=== PATIENT | female | born 1985 | race Two or more races ===

== ENCOUNTER 2020-09-06 11:54 | Outpatient (REF) | payer OTHER, SELFPAY | END 2020-09-06 11:55 | disposition home or self-care (01) | LOC: HO.LAB 11:54 | PROVIDERS: PCP Internal Medicine; Visit Provider Internal Medicine | DX: Z20.828 Contact with and (suspected) exposure to other viral communicable diseases (principal) | CPT/HCPCS: 87635 ==

== ENCOUNTER 2020-12-14 07:46 | Emergency (ER) | payer OTHER, SELFPAY ==
[2020-12-14 07:56] VITALS: BP 143/111; PULSE 110; RESP 18; TEMP 37; O2SAT 98; BMI 38.2
--- NOTE | 2020-12-14 08:03 | PC.NURSE ---
PT SEEN BY PROVIDER WILL CONSULT BHN DENIES SI/HI, STATES DIFFICULTY COPEING, HX BI POLAR AND HAVEING INCREASED STRESS AND ANXITY. PT DEMANDING TO EAT AT THIS TIME.
[2020-12-14 08:04] VITALS: BP 149/103; PULSE 106; RESP 18; TEMP 36.7; O2SAT 98
--- NOTE | 2020-12-14 08:06 | ED.PSYCH ---
HPI - Psych General Chief Complaint: Psychiatric Symptoms Stated Complaint: crisis Time Seen by Provider: 12/14/20 08:03 History of Present Illness HPI Narrative: Patient is a 35-year-old female feels very stressed anxious. Patient used marijuana. Patient denies any homicidal suicidal ideation. No coughing or congestion or upper respiratory symptoms. No diaphoresis. Does not think she is . Patient claims is a lot of stressful events in her life. Related Data Home Medications Medication Instructions Recorded Confirmed biotin 5 mg capsule 2.5 mg PO DAILY 08/31/20 12/22/20 glatiramer 40 mg/mL subcutaneous 40 mg SUBCUT 3XW 08/31/20 12/22/20 syringe lorazepam 0.5 mg tablet 0.5 mg PO DAILY PRN 08/31/20 12/23/20 oxcarbazepine 1 tab PO BEDTIME 12/21/20 12/22/20 trazodone 1 tab PO BEDTIME PRN 12/21/20 12/22/20 Flovent 2 puff INHALATION BID 12/23/20 12/23/20 Myrbetriq 50 mg PO DAILY 12/23/20 12/23/20 Vitamin D3 2,000 units PO DAILY 12/23/20 12/23/20 Previous Rx's Medication Instructions Recorded propranolol 10 mg tablet 10 mg PO BID #60 tab 09/23/20 Allergies Allergy/AdvReac Type Severity Reaction Status Date / Time latex [Latex] Allergy Mild ITCHY AND Verified 08/31/20 13:55 DRY HANDS Penicillins Allergy Mild HIVES Verified 08/31/20 13:55 cat dander [CATS] Allergy Unknown ITCHY, Verified 08/31/20 13:55 ASTHMA house dust Allergy Unknown itchy Verified 08/31/20 13:55 penicillin V Allergy Unknown hives Verified 08/31/20 13:55 Review of Systems Review of Systems: Constitutional: No Weight loss, No Fever, No Chills, No Night Sweats, No Fatigue, No Malaise ENT/Mouth: No Hearing loss, No Ear Pain, No Nasal Congestion, No Sinus Pain, No Hoarseness, No sore throat, No Rhinorrhea, No Swallowing Difficulty Eyes: No Eye Pain, No Swelling, No Redness, No Foreign Body, No Discharge, No Vision Changes Cardiovascular: No Chest Pain, no SOB, No Dyspnea on Exertion, No Orthopnea, No Edema, No Palpitations Respiratory: No Cough, No Sputum, No Wheezing, No Smoke Exposure, No Dyspnea Gastrointestinal: No Nausea, No Vomiting, No Diarrhea, No Constipation, No abdominal Pain, No Hematochezia, No Melena Genitourinary: no irregular bleeding, No Dysuria, No Urinary Frequency, No Hematuria, No Urinary Incontinence, No Urgency, No Flank Pain, No Urinary Flow Changes, No Hesitancy Musculoskeletal: No joint pain, No Myalgias, No Joint Swelling Skin: No Skin Lesions, No rash Neuro: No Weakness, No Numbness, No Paresthesias, No Loss of Consciousness, No Dizziness, No Headache Psych: Positive Anxiety/Panic, No Depression, No SI/HI/AH/VH, positive Social Issues, Heme/Lymph: No Bruising, No Bleeding,No Lymphadenopathy Endocrine: No Polyuria, No Polydipsia, No Temperature Intolerance [facility] Past Medical History Attestation statement: The following information was validated with the patient. Medical History Asthma Bipolar disorder Carpal tunnel syndrome of right wrist OLIVIER I (cervical intraepithelial neoplasia I) GERD (gastroesophageal reflux disease) Hypercholesterolemia Hypertension Multiple sclerosis, relapsing-remitting Obesity (BMI 30-39.9) Surgical History Hx of breast reduction, elective Family History Family History (Updated 08/31/20 @ 06:47 by BISI Gibson) Father Hypertension CVD (cardiovascular disease) High cholesterol Mother Depression Multiple sclerosis Maternal Grandmother Alzheimers disease Maternal Grandfather Heart disease Paternal Grandmother Stroke Hypertension Paternal Grandfather Diabetes Brother Diabetes Family/Other FH: mental illness Social History Social History Household Members: Children Housing: Apartment Alcohol intake: never Smoking Status: Former smoker Tobacco Type: Cigarette Second Hand Smoke Exposure: Yes (boyfriend) Substance Use Type: Marijuana service: No Sexual orientation: Straight/Heterosexual Physical Exam Vital Signs: Vital Signs: Last Vital Signs Temp 98.0 F 12/14/20 08:04 Pulse 106 H 12/14/20 08:04 Resp 18 12/14/20 10:00 BP 149/103 H 12/14/20 08:04 Pulse Ox 98 12/14/20 08:04 Body Mass Index 38.2 Appearance: Alert. Oriented X3. No acute distress. Eyes: Pupils equal, round and reactive to light. ENT: Pharynx normal. Neck: Normal inspection. Neck supple. No lymph nodes noted. No crepitus CVS: Normal heart rate and rhythm. Pulses normal. Normal S1 and S2 Respiratory: No respiratory distress. Breath sounds normal. No Wheezing. No rales Abdomen: Soft and nontender. No rigidity. No distention. good BS x4 Skin: Skin warm and dry. Normal skin color. Normal skin turgor. Extremities: No lower extremity edema. Neurovascular intact to all extremities. No Lacerations. No Rash Neuro: Oriented X 3. No motor deficit. No sensory deficit. Moving all extermities. No slurred speech MDM - Psych MDM Narrative Medical decision making narrative: Patient well-appearing no suicidal homicidal ideation. Seen by crisis. Feel comfortable with discharge. Currently in stable condition. Medical Records Attestation: I reviewed the patient's medical records. Lab Data Attestation: I reviewed the patient's lab results. Labs: Lab Results 12/14/20 Range/Units 09:34 Urine Opiates Screen Not Detected (Not Detect) Ur Barbiturates Screen Not Detected (Not Detect) Ur Phencyclidine Scrn Not Detected (Not Detect) Ur Amphetamines Screen Not Detected (Not Detect) U Benzodiazepines Scrn Not Detected (Not Detect) Urine Cocaine Screen Not Detected (Not Detect) U Marijuana (THC) Screen POSITIVE H (Not Detect) Discharge Plan Discharge Clinical Impression: Acute anxiety Patient Disposition: Home, Self-Care Instructions: Anxiety (ED) Additional Instructions: Please follow-up as per crisis Prescriptions: No Action propranolol 10 mg tablet 10 mg PO BID Qty: 60 RF: 3 oxcarbazepine 300 mg tablet 1 tab PO BEDTIME RF: 0 trazodone 150 mg tablet 1 tab PO BEDTIME PRN (Reason: insomnia) RF: 0 Flovent 110 mcg inhaler 2 puff inhalation BID RF: 0 Myrbetriq 50 mg PO DAILY RF: 0 Vitamin D3 2,000 Units capsule 2,000 units PO DAILY RF: 0 biotin 5 mg capsule 2.5 mg PO DAILY RF: 0 glatiramer [Copaxone] 40 mg/mL syringe 40 mg subcut 3XW RF: 0 lorazepam 0.5 mg tablet 0.5 mg PO DAILY PRN (Reason: Anxiety) RF: 0 Referrals: Po,Lorenver O, MD [Primary Care Provider] - 2 days Interventions: ED Discharge Assessment Last Done: 12/14/20 13:52 Discharge Date/Time: 12/14/20 14:11
[2020-12-14] MEDS: LORazepam 1 MG TABLET 2 MG PO (09:59)
[2020-12-14 10:00] VITALS: RESP 18
[2020-12-14 10:13] LABS: Amphetamine Screen Urine Not Detected (Not Detect); Barbiturates, Urine Not Detected (Not Detect); Benzodiazepines Screen Urine Not Detected (Not Detect); Cannabinoid Screen Urine POSITIVE (Not Detect); Cocaine Screen Urine Not Detected (Not Detect); Opiate Screen Urine Not Detected (Not Detect); Phencyclidine Screen Urine Not Detected (Not Detect)
[2020-12-14] MEDS: Acetaminophen 325 MG TABLET 650 MG PO (10:31)
--- NOTE | 2020-12-14 11:59 | PC.NURSE ---
waiting for bhn eval pt appears very manic at this time
--- NOTE | 2020-12-14 12:01 | PC.NURSE ---
PT'S VNA CALLED AND SAID PT HAS NOT BEEN COMPLIANT WITH MEDICATIONS
[2020-12-14] MEDS: HaloperidoL 5 MG TABLET PO (12:17)
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
== END 2020-12-14 14:11 | disposition home or self-care (01) ==
PROVIDERS: Emergency Provider Emergency Medicine Emergency Medical Services; PCP Internal Medicine
DX: F41.9 Anxiety disorder, unspecified (principal); F12.90 Cannabis use, unspecified, uncomplicated; F31.9 Bipolar disorder, unspecified; I10 Essential (primary) hypertension; G35 Multiple sclerosis; Z79.899 Other long term (current) drug therapy
CPT/HCPCS: 80307; 99284

== ENCOUNTER 2020-12-21 01:10 | Inpatient (IN) | payer OTHER, SELFPAY ==
--- NOTE | ~2020-12-21 | US_ITS ---
EXAMINATION: US VENOUS ULTRASOUND WITH DOPPLER LOWER EXTREMITY, BILATERAL CLINICAL INFORMATION: Bilateral leg swelling and elevated d-dimer. COMPARISON: None TECHNIQUE: Ultrasound of the deep veins is performed from the hip to the calf with compression sonography and color and pulse Doppler assessment. Spectral analysis with color-flow imaging is performed. FINDINGS: RIGHT: There is normal venous compression and respiratory variation and augmented flow. The visualized common femoral vein, superficial femoral vein, profunda femoral vein, popliteal vein, and the trifurcation region shows no evidence of deep venous thrombosis. There is no significant popliteal fossa cyst. LEFT: There is normal venous compression and respiratory variation and augmented flow. The visualized common femoral vein, superficial femoral vein, profunda femoral vein, popliteal vein, and the trifurcation region shows no evidence of deep venous thrombosis. There is no significant popliteal fossa cyst. If the patient's symptoms persist, followup ultrasound in 5 days 7 days might be of value to exclude proximal propagation from a non-visualized calf vein. US/US venous duplex LE BI IMPRESSION: No DVT demonstrated in the bilateral lower extremity.
--- NOTE | ~2020-12-21 | CT_ITS ---
EXAMINATION: CT ANGIOGRAM OF THE CHEST WITH AND WITHOUT CONTRAST (CT PULMONARY ANGIOGRAM FOR PE) CLINICAL INFORMATION: Reason for Exam pt c b/l lower extremity swelling ? dvt vs PE COMPARISON: Previous chest x-ray August 2019 TECHNIQUE: Prior to contrast administration, noncontrast localization images were obtained. Subsequently, multidetector volumetric imaging was performed from the thoracic inlet to below the diaphragms following the administration of 65 mL Omnipaque 350 intravenous contrast. No contrast reaction reported Sagittal, coronal, and MIP oblique sagittal reformatted images were obtained on the CT workstation, uploaded to PACS, and reviewed. This CT examination was performed using dose optimization techniques as appropriate, variously including the following: *Automated exposure control *Adjustment of mA and/or kV according to patient size (this includes techniques or standardized protocols for targeted exams where dose is matched to indication/reason for exam; i.e. extremities or head) *Use of iterative reconstruction technique Total exam dose-length product 506 mGy-cm FINDINGS: QUALITY OF STUDY/CONTRAST BOLUS: Satisfactory. PULMONARY ARTERIES: No central or segmental pulmonary emboli. THORACIC AORTA: No aneurysm or dissection. LUNG: No focal consolidation, nodules or masses. PLEURA: No pleural effusion or pneumothorax. MEDIASTINUM: Normal heart size. No pericardial effusion. No hilar or mediastinal lymphadenopathy. No evidence of septal bowing or right heart strain. CHEST WALL/AXILLA: No axillary or internal mammary lymphadenopathy. OSSEOUS STRUCTURES: No acute or suspicious osseous abnormality. UPPER ABDOMEN: Unremarkable. No reflux of contrast into the hepatic veins to suggest elevated right heart pressures. CT/CT angio chest PE protocol IMPRESSION: Unremarkable exam. VTE: negative
[2020-12-21 01:19] VITALS: BP 150/77; PULSE 109; RESP 18; TEMP 36.9; O2SAT 99; BMI 40.3
--- NOTE | 2020-12-21 02:45 | PC.NURSE ---
AT BEDSIDE FOR EVALUATION. PT WAS IN BATHROOM, USED CALL PEREZ TO CALL RN FOR ASSISTANCE TO TOILET. UPON ENTERING BATHROOM, PATIENT STATED I'M IN FUCKING PAIN! I CAN'T FUCKING STAND! YOU GOTTA GIVE ME A CATHETER OR SOMETHING OR A CANE! AND REFUSED TO AMBULATE IN BATHROOM WITH OFFERED ASSISTANCE. RN OFFERED BEDPAN. UPON RETURNING TO ED BED 11, PATIENT AMBULATED WITH STEADY GAIT WITHOUT ISSUE. PRIMARY RN (LOUISE) AND PROVIDER AWARE.
--- NOTE | 2020-12-21 02:54 | ED_ITS ---
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 In addition bilateral lower extremity swelling. As well as nasal congestion/sore throat/cough and mild nausea with a an isolated episode of vomiting as well as ?a couple of episodes of diarrhea?. Otherwise, she denies shortness of breath, chest pain/palpitations. Related Data Home Medications Medication Instructions Recorded Confirmed acetaminophen 650 mg 650 mg PO Q8H 08/31/20 12/19/20 tablet,extended release albuterol sulfate 90 mcg/actuation 2 puff INHALATION Q4-6H PRN 08/31/20 12/19/20 aerosol inhaler biotin 5 mg capsule 5 mg PO DAILY 08/31/20 12/19/20 cholecalciferol (vitamin D3) 25 25 mcg PO DAILY 08/31/20 12/19/20 mcg (1,000 unit) capsule glatiramer 40 mg/mL subcutaneous 40 mg SUBCUT 3XW 08/31/20 12/19/20 syringe lorazepam 0.5 mg tablet 0.5 mg PO BID PRN 08/31/20 12/19/20 oxcarbazepine 300 mg tablet 300 mg PO BID 08/31/20 12/19/20 trazodone 100 mg tablet 100 mg PO BEDTIME PRN 08/31/20 12/19/20 Previous Rx's Medication Instructions Recorded propranolol 10 mg tablet 10 mg PO BID #60 tab 09/23/20 clotrimazole 1 % topical cream 1 appl TOPICAL TID #90 g 12/19/20 fluticasone propionate 110 2 puff INHALATION BID #12 g 12/19/20 mcg/actuation HFA aerosol inhaler Allergies Allergy/AdvReac Type Severity Reaction Status Date / Time latex [Latex] Allergy Mild ITCHY AND Verified 08/31/20 13:55 DRY HANDS Penicillins Allergy Mild HIVES Verified 08/31/20 13:55 cat dander [CATS] Allergy Unknown ITCHY, Verified 08/31/20 13:55 ASTHMA house dust Allergy Unknown itchy Verified 08/31/20 13:55 penicillin V Allergy Unknown hives Verified 08/31/20 13:55 COUNT INCLUDES THE [facility] Past Medical History Medical History (Updated 12/19/20 @ 14:22 by Rolf Lee MD) Asthma Bipolar disorder Carpal tunnel syndrome of right wrist OLIVIER I (cervical intraepithelial neoplasia I) GERD (gastroesophageal reflux disease) Hypercholesterolemia Hypertension Multiple sclerosis, relapsing-remitting Obesity (BMI 30-39.9) Surgical History Hx of breast reduction, elective Family History Family History (Updated 08/31/20 @ 06:47 by Nicole Mcmanus [facility]) Father Hypertension CVD (cardiovascular disease) High cholesterol Mother Depression Multiple sclerosis Maternal Grandmother Alzheimers disease Maternal Grandfather Heart disease Paternal Grandmother Stroke Hypertension Paternal Grandfather Diabetes Brother Diabetes Family/Other FH: mental illness Social History Social History Advance Directives: No Physical Exam Vital Signs: Vital Signs: Last Vital Signs Temp 98.5 F 12/21/20 01:19 Pulse 108 H 12/21/20 05:33 Resp 18 12/21/20 05:33 BP 150/77 H 12/21/20 01:19 Pulse Ox 100 12/21/20 05:33 Body Mass Index 40.3 Course Course Course Narrative: This is a 35-year-old female with significant past medical history of bipolar 1 disorder and VNA reports on prior presentation the patient was not taking home medications. Patient was briefly evaluated by CARE team and ?Labile, voluntary, crying, suspected bipolar 1 decompensation and recommending further crisis team evaluation . Will evaluate for possible MS flare despite patient endorsing that she takes her medication regularly. Throughout the night patient has been intermittently verbally aggressive and inappropriate with staff members but de-escalation has been possible. 0650: Signed out to Dr Fischer w/ plan: f/u labs for possible MS flare and then N evaluation. Medical Decision Making Lab Data Result diagrams: 12/21/20 05:47 12/21/20 05:47 Labs: Lab Results 12/21/20 12/21/20 12/21/20 Range/Units 04:50 04:50 05:47 WBC 13.5 H (4.8-10.8) X10*3/uL RBC 3.79 L (4.20-5.50) X10*6/uL Hgb 11.3 L (12.0-16.0) g/dl Hct 33.5 L (37-47) % MCV 88.4 (80-98) fL MCH 29.8 (27.0-33.0) pg MCHC 33.7 (31.0-35.0) g/dl RDW 13.6 (11.0-16.0) % Plt Count 337 (160-400) X10*3/uL MPV 8.8 L (9.4-12.3) fL Immature Gran % (Auto) 0.2 (0.0-0.4) % Neut % (Auto) 58.9 (45-73) % Lymph % (Auto) 33.6 (20-40) % [place] % (Auto) 4.9 (2-11) % Eos % (Auto) 2.2 (0-4) % Baso % (Auto) 0.2 (0-2) % Lymph # (Auto) 4.5 (1.2-4.9) X10*3/uL [place] # (Auto) 0.7 (0.1-1.2) X10*3/uL Eos # (Auto) 0.3 (0.0-0.4) X10*3/uL Baso # (Auto) 0.0 (0.0-0.2) X10*3/uL Abs Immat Gran (auto) 0.03 (0.00-0.03) X10*3/uL Absolute Neuts (auto) 7.9 (2.0-8.3) X10*3/uL Absolute Nucleated RBC 0.000 (0.0-0.012) X10*3/uL Nucleated RBC % (auto) 0.0 (0.0-0.2) /100WBC ESR (0-20) MM/HR D-Dimer NG/ML Sodium (135-145) mmol/L Potassium (3.3-5.1) mmol/L Chloride (96-108) mmol/L Carbon Dioxide (22-29) mmol/L Anion Gap (12-20) BUN (9-16) mg/dL Creatinine (0.5-1.4) mg/dL Estim Creat Clear Calc Estimated GFR Random Glucose (60-115) mg/dL Calcium (8.4-10.2) mg/dL Total Bilirubin (0.0-1.0) mg/dL AST (5-31) U/L ALT (0-31) U/L Alkaline Phosphatase (39-117) U/L C-Reactive Protein (< or = 0.50) mg/dL Total Protein (6.5-8.0) g/dL Albumin (3.5-5.0) g/dL Urine Color YELLOW Urine Appearance CLEAR Urine pH 6.0 (5.0-8.0) Ur Specific [place] 1.020 (1.005-1.025) Urine Protein NEG (NEG-TRACE) MG/DL Urine Glucose (UA) NEG (NEG) MG/DL Urine Ketones NEG (NEG) MG/DL Urine Blood NEG (NEG) Urine Nitrite NEG (NEG) Ur Leukocyte Esterase NEG (NEG) Urine Test NEGATIVE (NEGATIVE) Urine Opiates Screen Not Detected (Not Detect) Ur Barbiturates Screen Not Detected (Not Detect) Ur Phencyclidine Scrn Not Detected (Not Detect) Ur Amphetamines Screen Not Detected (Not Detect) U Benzodiazepines Scrn Not Detected (Not Detect) Urine Cocaine Screen Not Detected (Not Detect) U Marijuana (THC) Screen POSITIVE H (Not Detect) Ethyl Alcohol mg/dL 12/21/20 12/21/20 12/21/20 Range/Units 05:47 05:47 05:47 WBC (4.8-10.8) X10*3/uL RBC (4.20-5.50) X10*6/uL Hgb (12.0-16.0) g/dl Hct (37-47) % MCV (80-98) fL MCH (27.0-33.0) pg MCHC (31.0-35.0) g/dl RDW (11.0-16.0) % Plt Count (160-400) X10*3/uL MPV (9.4-12.3) fL Immature Gran % (Auto) (0.0-0.4) % Neut % (Auto) (45-73) % Lymph % (Auto) (20-40) % [place] % (Auto) (2-11) % Eos % (Auto) (0-4) % Baso % (Auto) (0-2) % Lymph # (Auto) (1.2-4.9) X10*3/uL [place] # (Auto) (0.1-1.2) X10*3/uL Eos # (Auto) (0.0-0.4) X10*3/uL Baso # (Auto) (0.0-0.2) X10*3/uL Abs Immat Gran (auto) (0.00-0.03) X10*3/uL Absolute Neuts (auto) (2.0-8.3) X10*3/uL Absolute Nucleated RBC (0.0-0.012) X10*3/uL Nucleated RBC % (auto) (0.0-0.2) /100WBC ESR 32 H (0-20) MM/HR D-Dimer NG/ML Sodium 138 (135-145) mmol/L Potassium 4.2 (3.3-5.1) mmol/L Chloride 104 (96-108) mmol/L Carbon Dioxide 22 (22-29) mmol/L Anion Gap 16 (12-20) BUN 10 (9-16) mg/dL Creatinine 1.06 (0.5-1.4) mg/dL Estim Creat Clear Calc 100.0 Estimated GFR 59 Random Glucose 141 H (60-115) mg/dL Calcium 8.6 (8.4-10.2) mg/dL Total Bilirubin 0.2 (0.0-1.0) mg/dL AST 21 (5-31) U/L ALT 30 (0-31) U/L Alkaline Phosphatase 105 (39-117) U/L C-Reactive Protein 0.30 (< or = 0.50) mg/dL Total Protein 6.7 (6.5-8.0) g/dL Albumin 3.7 (3.5-5.0) g/dL Urine Color Urine Appearance Urine pH (5.0-8.0) Ur Specific [place] (1.005-1.025) Urine Protein (NEG-TRACE) MG/DL Urine Glucose (UA) (NEG) MG/DL Urine Ketones (NEG) MG/DL Urine Blood (NEG) Urine Nitrite (NEG) Ur Leukocyte Esterase (NEG) Urine Test (NEGATIVE) Urine Opiates Screen (Not Detect) Ur Barbiturates Screen (Not Detect) Ur Phencyclidine Scrn (Not Detect) Ur Amphetamines Screen (Not Detect) U Benzodiazepines Scrn (Not Detect) Urine Cocaine Screen (Not Detect) U Marijuana (THC) Screen (Not Detect) Ethyl Alcohol < 10 mg/dL 12/21/20 Range/Units 05:47 WBC (4.8-10.8) X10*3/uL RBC (4.20-5.50) X10*6/uL Hgb (12.0-16.0) g/dl Hct (37-47) % MCV (80-98) fL MCH (27.0-33.0) pg MCHC (31.0-35.0) g/dl RDW (11.0-16.0) % Plt Count (160-400) X10*3/uL MPV (9.4-12.3) fL Immature Gran % (Auto) (0.0-0.4) % Neut % (Auto) (45-73) % Lymph % (Auto) (20-40) % [place] % (Auto) (2-11) % Eos % (Auto) (0-4) % Baso % (Auto) (0-2) % Lymph # (Auto) (1.2-4.9) X10*3/uL [place] # (Auto) (0.1-1.2) X10*3/uL Eos # (Auto) (0.0-0.4) X10*3/uL Baso # (Auto) (0.0-0.2) X10*3/uL Abs Immat Gran (auto) (0.00-0.03) X10*3/uL Absolute Neuts (auto) (2.0-8.3) X10*3/uL Absolute Nucleated RBC (0.0-0.012) X10*3/uL Nucleated RBC % (auto) (0.0-0.2) /100WBC ESR (0-20) MM/HR D-Dimer 270 NG/ML Sodium (135-145) mmol/L Potassium (3.3-5.1) mmol/L Chloride (96-108) mmol/L Carbon Dioxide (22-29) mmol/L Anion Gap (12-20) BUN (9-16) mg/dL Creatinine (0.5-1.4) mg/dL Estim Creat Clear Calc Estimated GFR Random Glucose (60-115) mg/dL Calcium (8.4-10.2) mg/dL Total Bilirubin (0.0-1.0) mg/dL AST (5-31) U/L ALT (0-31) U/L Alkaline Phosphatase (39-117) U/L C-Reactive Protein (< or = 0.50) mg/dL Total Protein (6.5-8.0) g/dL Albumin (3.5-5.0) g/dL Urine Color Urine Appearance Urine pH (5.0-8.0) Ur Specific [place] (1.005-1.025) Urine Protein (NEG-TRACE) MG/DL Urine Glucose (UA) (NEG) MG/DL Urine Ketones (NEG) MG/DL Urine Blood (NEG) Urine Nitrite (NEG) Ur Leukocyte Esterase (NEG) Urine Test (NEGATIVE) Urine Opiates Screen (Not Detect) Ur Barbiturates Screen (Not Detect) Ur Phencyclidine Scrn (Not Detect) Ur Amphetamines Screen (Not Detect) U Benzodiazepines Scrn (Not Detect) Urine Cocaine Screen (Not Detect) U Marijuana (THC) Screen (Not Detect) Ethyl Alcohol mg/dL Discharge Plan Discharge Prescriptions: No Action propranolol 10 mg tablet 10 mg PO BID Qty: 60 RF: 3 cholecalciferol (vitamin D3) 25 mcg (1,000 unit) capsule 25 mcg PO DAILY RF: 0 acetaminophen 650 mg tablet extended release 650 mg PO Q8H RF: 0 biotin 5 mg capsule 5 mg PO DAILY RF: 0 albuterol sulfate 90 mcg/actuation HFA aerosol inhaler 2 puff inhalation Q4-6H PRNRF: 0 glatiramer [Copaxone] 40 mg/mL syringe 40 mg subcut 3XW RF: 0 lorazepam 0.5 mg tablet 0.5 mg PO BID PRNRF: 0 trazodone 100 mg tablet 100 mg PO BEDTIME PRNRF: 0 oxcarbazepine 300 mg tablet 300 mg PO BID RF: 0 Flovent HFA 110 mcg/actuation HFA aerosol inhaler 2 puff inhalation BID Qty: 12 RF: 2 clotrimazole [Antifungal (clotrimazole)] 1 % cream 1 appl topical TID Qty: 90 RF: 1
--- NOTE | 2020-12-21 03:05 | MHC.CARE ---
CARE Team speaks with pt at the request of SANDRA Vega. Affect is labile, flight of ideas, confusion. Pt switches between speaking Sudanese and Austrian often. She identifies poor sleep quality, feels stressed and overwhelmed and states that she is in physical pain. Presentation consistent w/ hypomania at this time. She reports that she has been taking psych meds as prescribed. Mood seems unstable and therefore, pt would benefit from [facility] crisis assessment. Pt has a hx of inpt psych admissions that are precipitated by similar symptoms. Pt was seen by CARE Team on 12/14 due to manic presentation, and pt was requesting to leave and did not meet criteria for sect 12, and therefore she was not seen by N. Per RN note from 12/14, VNA reported that pt has not been compliant with medications. CARE Team recommends to Dr. Bettencourt that pt be assessed by N. Pt is agreeable at this time and is aware that she will not be assessed until the morning. Should pt not want to wait for N again, please re-consult CARE Team. It is recommended that someone reach out to family/those she lives with and find out how she is functioning at home. Hx of significant decompensation w/ aggression.
--- NOTE | 2020-12-21 04:00 | PC.NURSE ---
PT REFUSED LABS TO BE DRAWN PROVIDER MADE AWARE.
--- NOTE | 2020-12-21 04:56 | PC.NURSE ---
pt was refusing labs and iv sticks but now has aggreed to let us draw her labs. mulitple attempts made and unable to obtain labs or a iv. provider made aware. pt was cooperative and using all her coping skills by counting and deep breathing.
[2020-12-21 04:58] LABS: Appearance Urine CLEAR; Color Urine YELLOW; Glucose Urine UA NEG (NEG); Leukocyte Esterase Urine NEG (NEG); Nitrite Urine NEG (NEG); UACC Culture Trigger NO; Urine Blood NEG (NEG); Urine Ketones NEG (NEG); Urine Protein NEG (NEG-TRACE)
[2020-12-21 05:00] LABS: UPreg QC Valid YES; Urine Pregnancy NEGATIVE (NEGATIVE)
[2020-12-21 05:24] LABS: Amphetamine Screen Urine Not Detected (Not Detect); Barbiturates, Urine Not Detected (Not Detect); Benzodiazepines Screen Urine Not Detected (Not Detect); Cannabinoid Screen Urine POSITIVE (Not Detect); Cocaine Screen Urine Not Detected (Not Detect); Opiate Screen Urine Not Detected (Not Detect); Phencyclidine Screen Urine Not Detected (Not Detect)
[2020-12-21] MEDS: hydrOXYzine HCL 50 MG TABLET PO ×2 (05:32→22:59)
[2020-12-21 05:33] VITALS: PULSE 108; RESP 18; O2SAT 100
--- NOTE | 2020-12-21 05:47 | PC.NURSE ---
pt labs drawn cynthia well no complications and done by phlabotomy. pt then fell asleep with multiple warm blankets.
[2020-12-21 06:07] LABS: Basophils Percent Auto 0.2 % (0-2); Eosinophils Absolute Auto 0.3 X10*3/uL (0.0-0.4); Eosinophils Percent Auto 2.2 % (0-4); Hematocrit 33.5 % (37-47); Hemoglobin 11.3 g/dl (12.0-16.0); Imm Gran Abs Auto 0.03 X10*3/uL (0.00-0.03); Imm Gran Pct Auto 0.2 % (0.0-0.4); Lymphocytes Absolute Auto 4.5 X10*3/uL (1.2-4.9); Lymphocytes Percent Auto 33.6 % (20-40); Mean Corpuscular HGB Conc 33.7 g/dl (31.0-35.0); Mean Corpuscular Hemoglobin 29.8 pg (27.0-33.0); Mean Corpuscular Volume 88.4 fL (80-98); Mean Platelet Volume 8.8 fL (9.4-12.3); Monocytes Absolute Auto 0.7 X10*3/uL (0.1-1.2); Monocytes Percent Auto 4.9 % (2-11); Neutrophils Absolute Auto 7.9 X10*3/uL (2.0-8.3); Neutrophils Percent Auto 58.9 % (45-73); Platelet Count 337 X10*3/uL (160-400); Red Blood Count 3.79 X10*6/uL (4.20-5.50); Red Cell Distribution Width 13.6 % (11.0-16.0); White Blood Count 13.5 X10*3/uL (4.8-10.8)
[2020-12-21 06:09] LABS: MANUAL DIFF FLAG NO
[2020-12-21 06:22] LABS: D Dimer 270 NG/ML
[2020-12-21 06:30] LABS: Ethanol < 10 mg/dL
[2020-12-21 06:38] LABS: Alanine Aminotransferase 30 U/L (0-31); Albumin Level 3.7 g/dL (3.5-5.0); Alkaline Phosphatase 105 U/L (39-117); Anion Gap 16 (12-20); Aspartate Amino Transferase 21 U/L (5-31); Bilirubin Total 0.2 mg/dL (0.0-1.0); Blood Urea Nitrogen 10 mg/dL (9-16); Calcium 8.6 mg/dL (8.4-10.2); Carbon Dioxide 22 mmol/L (22-29); Chloride 104 mmol/L (96-108); Estimated Glomerular Filt Rate 59; Glucose Random 141 mg/dL (60-115); Potassium 4.2 mmol/L (3.3-5.1); Sodium 138 mmol/L (135-145); Total Protein 6.7 g/dL (6.5-8.0)
--- NOTE | 2020-12-21 06:42 | PC.NURSE ---
pt ambulated to the bathroom with steady gait. pt on the way back started to cry. pt friend beka is a close and only friend per pt. [phone]. beka did call to update on how she has been doing., beka stated the pt has been decompasating not sleeping, smoking jim, not in the right state of mind . pt has been having dreams of being and hanging. tired of life . pt given a recliner to help her sleep. warm blankets, pillow and needs met at bedside.
[2020-12-21 06:53] LABS: Erythrocyte Sedimentation Rate 32 MM/HR (0-20)
--- NOTE | 2020-12-21 07:21 | PC.NURSE ---
belongings and sheet completed with jr from security. pt remains on cellphone at this time.
[2020-12-21 07:23] VITALS: RESP 18
--- NOTE | 2020-12-21 07:29 | PC.NURSE ---
pt ambulated to bathroom and back independently with steady gait, staff by side.
--- NOTE | 2020-12-21 07:46 | PC.NURSE ---
pt wandering into others rooms, down the hallway and needing to be assisted back to bed with security. making a plan to move pt into the pod for patient safety.
--- NOTE | 2020-12-21 07:53 | PC.NURSE ---
Report recieved. PT brought to pod, pt tearful and irritable. PT to be seen by N.
--- NOTE | 2020-12-21 08:06 | PC.NURSE ---
PT sitting on table in her room, pt redirected to get down, pt escalated, screaming at staff refusing to get down. Pt screaming, swearing, difficult to redirect.
--- NOTE | 2020-12-21 08:26 | PC.NURSE ---
[facility] faxed and called.
[2020-12-21] MEDS: HaloperidoL 5 MG TABLET PO (10:15)
[2020-12-21] MEDS: LORazepam 1 MG TABLET 2 MG PO (10:15)
[2020-12-21] MEDS: diphenhydrAMINE HCL 25 MG TABLET 50 MG PO (10:15)
--- NOTE | 2020-12-21 10:30 | PC.NURSE ---
PT was noted to tear up paper and throw it on the floor, when asked to leaf size picker the papers pt became escalated - calling staff names, slamming doors and screaming, security on unit. Pt went into the bathroom and continued to scream, difficult to redirect, pt somewhat responsive to verbal redirction. Pt offered medication, pt stated that she wanted something to shut her mind off, provider notified, medication ordered. Pt able to calmly walk to her room, accepted offered medication, Pt stating that she wants to go home but then states that she is not ready to go home. PT understands that she needs to speak with crisis. Pt labile in conversation
[2020-12-21 10:33] VITALS: RESP 18
--- NOTE | 2020-12-21 12:15 | PC.NURSE ---
PT to CT and ultrasound
[2020-12-21] MEDS: iohexoL 350 MG/ML 100 ML INFUS..BTL 65 ML IV (13:12)
[2020-12-21 14:24] LABS: Thyroid Stimulating Hormone 1.15 uIU/mL (0.32-4.0)
--- NOTE | 2020-12-21 16:03 | PC.NURSE ---
pt continues to appear sleeping in stretcher, equal chest rise and fall.
--- NOTE | 2020-12-21 17:22 | PC.NURSE ---
PT PROVIDED HER PHONE SHE REMAINS IN BEHAVIORAL CONTROL, SHE IS UPSET REGARDING NOT HAVING BEEN EVALUATED BY THE N TEAM AND THAT SHE REMAINS IN THE ED. N HAS BEEN CONTACTED SEVERAL TIMES AND NO CLINICIAN HAS PRESENTED TO THE ED. SHE CONTINUALLY DENIES HI SI. THERE IS NO SEC 12 SHE IS MUCH MORE APPROACHABLE AND REDIRECTABLE AFTER SLEEPING. PROVIDER WAS ASKED TO REASSESS PT FOR DISCHARGE.
[2020-12-21] MEDS: LORazepam 2 MG/ML VIAL IVPUSH (18:08)
--- NOTE | 2020-12-21 18:15 | PC.NURSE ---
pt consultd w ed provider about staying for bhn eval, pt agreeing to medication for anxiety. pt asking to have iv removed after medication admin, removed. resting in stretcher at this time.
--- NOTE | 2020-12-21 20:05 | PC.NURSE ---
Pt sleeping in bed at this time in NAD. Per previous RN, frequent outbursts noted throughout the day however pt was redirectable and nonviolent. Pt awaiting BHN eval in the morning. Continue to monitor.
--- NOTE | 2020-12-21 20:27 | PC.NURSE ---
Pt awake and yelling, pt frustrated at ED process, states I'm not crazy!! I just want to go home!! This RN and peoplesoft analyst discussing possible plan to Section pt was pt is continuously requesting to go home. Per SENIOR QUANTITY SURVEYOR, plan to discuss with MD @ 2100. Pt refusing 1999 Ativan, states I want to be awake and I want to go home!! Pt crying, on phone with family. Continue to monitor.
--- NOTE | 2020-12-21 20:57 | PC.NURSE ---
Care Team at bedside for eval.
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
[2020-12-22] VITALS (14 sets, daily range): BP systolic 116–152; BP diastolic 76–104; PULSE 18–101; RESP 16–20; TEMP 36.1–36.7; O2SAT 99–100
--- NOTE | 2020-12-22 03:55 | PC.NURSE ---
PATIENT AWAKE AND COMING TO NURSES STATION. UPSET THAT SHE WAS BROUGHT TO [facility]. I DON'T DESERVE TO BE SECTIONED . WAS SUPPOSED TO HAVE A [facility] TODAY. EXPLAINED THAT WE HAVE NO CONTROL OVER WHEN [facility] ARRIVES. BACK IN BED AT THIS TIME.
[2020-12-22] MEDS: Ibuprofen 600 MG TABLET PO (04:48)
[2020-12-22 05:13] LABS: COVID-19 Test Negative (Negative); IDNOW Serial# 9DD0AD1C
--- NOTE | 2020-12-22 07:57 | PC.NURSE ---
Pt transferred from main ED. Pt ambulatory, affect even, pt requesting to shower, assisted by web press roll tender. Per web press roll tender, pt declined Ativan this morning.
--- NOTE | 2020-12-22 08:15 | PC.NURSE ---
Late entry: pt denies SI, currently in behavioral control, states that she would prefer to wait to take ativan until after being evaluated by [facility]. Pt currently on the phone.
--- NOTE | 2020-12-22 09:53 | PC.NURSE ---
[facility] in to evaluate. Pt appears pressured but in behavioral control. Continues to report that she wants to be evaluated for swelling of hands and feet and for pain- but declining tylenol or ibuprofen for pain. Per provider pt was fully medically evaluated for swelling yesterday. Will review w/ pt.
[2020-12-22 11:13] LABS: B Type Natriuretic Peptide 19 pg/mL (<100)
--- NOTE | 2020-12-22 12:31 | PC.NURSE ---
Pt aware that she is awaiting inpatient bed search- pt currently in behavioral control, hopeful that she will be accepted to .
[2020-12-22] MEDS: LORazepam 0.5 MG TABLET PO (13:16)
[2020-12-22] MEDS: Propranolol HCL 10 MG TABLET PO ×2 (13:16→20:22)
--- NOTE | 2020-12-22 13:19 | PC.NURSE ---
resting quietly in bed. requested po ativan to help take a nap . is calm and able to have full conversation, retaining details of home meds etc. awaits transfer to psych unit
[2020-12-22] MEDS: Acetaminophen 325 MG TABLET 650 MG PO (16:53)
--- NOTE | 2020-12-22 17:25 | PC.NURSE ---
Pt awake, showered, anxious. Pt offered ativan- reviewed w/ C Angeline.
[2020-12-22] MEDS: LORazepam 1 MG TABLET 2 MG PO (17:27)
[2020-12-22] MEDS: OXcarbazepine 300 MG TABLET PO (20:22)
[2020-12-23] MEDS: traZODone HCL 50 MG TABLET 150 MG PO (00:45)
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
[2020-12-23] MEDS: Acetaminophen 325 MG TABLET 650 MG PO ×2 (05:02→16:16)
[2020-12-23 05:10] VITALS: BP 147/70; PULSE 120; RESP 18; TEMP 36.5; O2SAT 97
[2020-12-23 09:22] VITALS: BP 136/94; PULSE 114
[2020-12-23] MEDS: Propranolol HCL 10 MG TABLET PO ×2 (09:22→22:32)
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
[2020-12-23] MEDS: Ibuprofen 600 MG TABLET PO (11:14)
[2020-12-23 14:44] VITALS: BP 136/94; PULSE 114; TEMP 35.7
[2020-12-23 22:29] VITALS: BP 130/79; PULSE 98; TEMP 36.7
[2020-12-23 22:32] VITALS: BP 130/79; PULSE 98
[2020-12-23] MEDS: OXcarbazepine 300 MG TABLET PO (22:32)
[2020-12-23] MEDS: LORazepam 1 MG TABLET 2 MG PO (22:41)
[2020-12-23] MEDS: diphenhydrAMINE HCL 25 MG TABLET 50 MG PO (22:41)
[2020-12-23] MEDS: HaloperidoL 5 MG TABLET PO (22:41)
[2020-12-24 09:12] VITALS: BP 137/76; PULSE 117
[2020-12-24] MEDS: Propranolol HCL 10 MG TABLET PO ×2 (09:12→21:25)
[2020-12-24] MEDS: Acetaminophen 325 MG TABLET 650 MG PO (09:15)
[2020-12-24] MEDS: Mirabegron 50 MG TAB.ER.24H PO (14:13)
[2020-12-24 15:15] VITALS: TEMP 36.3
[2020-12-24] MEDS: Throat Lozenge, Medicated LOZENGE 1 LOZENGE MUCOUS MEM (15:25)
[2020-12-24 21:00] VITALS: BP 137/76; PULSE 114; TEMP 36.7; O2SAT 98
[2020-12-24] MEDS: HaloperidoL 5 MG TABLET PO (21:23)
[2020-12-24] MEDS: OXcarbazepine 300 MG TABLET PO (21:24)
[2020-12-24] MEDS: diphenhydrAMINE HCL 25 MG TABLET 50 MG PO (21:24)
[2020-12-24] MEDS: LORazepam 1 MG TABLET 2 MG PO (21:24)
[2020-12-24 21:25] VITALS: BP 137/76; PULSE 114
[2020-12-24] MEDS: traZODone HCL 50 MG TABLET 150 MG PO ×2 (23:15)
--- NOTE | 2020-12-24 23:54 | PC.NURSE ---
Pt focused on Copaxone / Glatiramer 40mg SC 3XWeekly that treats symptoms of multiple scleroses. Pt was worried she missed a dose of this med; pt said last dose taken was on Thursday12/22/20. This med had not yet been verified; pt reports that it is filled at [facility] at [address] [place] [address]. Pt had thought med was here after her mother said they were unable to find the med at home. Staff went through pts belongings and med is not here. Pt says wants to be discharged if she is unable to get this medication.
[2020-12-25 06:30] VITALS: BP 114/57; PULSE 95; RESP 18; TEMP 36.6; O2SAT 98
[2020-12-25 08:23] VITALS: BP 122/63; PULSE 88
[2020-12-25] MEDS: Propranolol HCL 10 MG TABLET PO ×2 (08:23→20:38)
[2020-12-25] MEDS: Mirabegron 50 MG TAB.ER.24H PO (08:23)
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
[2020-12-25] MEDS: Acetaminophen 325 MG TABLET 650 MG PO (08:45)
[2020-12-25] MEDS: diphenhydrAMINE HCL 25 MG TABLET 50 MG PO ×2 (12:12→20:44)
[2020-12-25] MEDS: LORazepam 1 MG TABLET 2 MG PO ×2 (12:12→20:44)
[2020-12-25] MEDS: HaloperidoL 5 MG TABLET PO ×2 (12:12→20:44)
[2020-12-25 18:00] VITALS: TEMP 37
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
[2020-12-25 20:38] VITALS: BP 139/83; PULSE 105
[2020-12-25] MEDS: OXcarbazepine 300 MG TABLET PO (20:38)
[2020-12-25] MEDS: traZODone HCL 50 MG TABLET 150 MG PO (20:52)
[2020-12-26 06:15] VITALS: BP 126/65; PULSE 88; RESP 20; TEMP 36.6; O2SAT 98
[2020-12-26 08:15] VITALS: BP 126/65; PULSE 88
[2020-12-26] MEDS: Propranolol HCL 10 MG TABLET PO (08:15)
[2020-12-26] MEDS: Mirabegron 50 MG TAB.ER.24H PO (08:15)
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
--- NOTE | 2020-12-31 10:24 | P.DS_ITS ---
DS: Providers Provider Date of Service: 12/31/20 Date of admission: 12/22/20 22:28 Primary care physician: Unknown Physician DS: Diagnosis Discharge Diagnosis (1) Bipolar disorder: Status: Acute (2) Multiple sclerosis, relapsing-remitting: Status: Acute Problem details: 05/2012 Dr. CARLOS Riojas DS: Medications Discharge Medications Home Medications: Home Medications Medication Instructions Recorded Confirmed biotin 5 mg capsule 2.5 mg PO DAILY 08/31/20 12/22/20 glatiramer 40 mg/mL subcutaneous 40 mg SUBCUT 3XW 08/31/20 12/22/20 syringe lorazepam 0.5 mg tablet 0.5 mg PO DAILY PRN 08/31/20 12/23/20 oxcarbazepine 1 tab PO BEDTIME 12/21/20 12/22/20 trazodone 1 tab PO BEDTIME PRN 12/21/20 12/22/20 Flovent 2 puff INHALATION BID 12/23/20 12/23/20 Myrbetriq 50 mg PO DAILY 12/23/20 12/23/20 Vitamin D3 2,000 units PO DAILY 12/23/20 12/23/20 Previous Rx's Medication Instructions Recorded propranolol 10 mg tablet 10 mg PO BID #60 tab 09/23/20 Discharge Plan Discharge Anticipated Discharge Date/Time: 12/26/20 12:00 Patient Disposition: Home, Self-Care Referrals: Anuradha Hooker (therapy) [Other] - 01/09/21 12:00 pm (Telehealth appointment) Jai Tee (psychiatrist) [Other] - 01/08/21 2:00 pm (Telehealth appointment) [facility] [Other] - 12/26/20 ( RN will come see you on 12/26/20 ) Solange Santiago NP [Nurse Practitioner] - 01/04/21 11:30 am Discharge Medications: Continued propranolol 10 mg tablet 10 mg PO BID Qty: 60 RF: 3 oxcarbazepine 300 mg tablet 1 tab PO BEDTIME RF: 0 trazodone 150 mg tablet 1 tab PO BEDTIME PRN (Reason: insomnia) RF: 0 Flovent 110 mcg inhaler 2 puff inhalation BID RF: 0 Myrbetriq 50 mg PO DAILY RF: 0 Vitamin D3 2,000 Units capsule 2,000 units PO DAILY RF: 0 biotin 5 mg capsule 2.5 mg PO DAILY RF: 0 glatiramer [Copaxone] 40 mg/mL syringe 40 mg subcut 3XW RF: 0 lorazepam 0.5 mg tablet 0.5 mg PO DAILY PRN (Reason: Anxiety) RF: 0 Discharge Orders: Discharge Order (Routine); Ordered 12/26/20 Ordered By: Stacy Mcgraw Diet: advance to usual diet Activity on Discharge: As tolerated Stand Alone Forms: Patient Portal Discharge page, Community Support Visit Report Forms: Patient Portal Discharge page Care Plan Goals: Mood Stability Health Concerns: Multiple Sclerosis Hypertension GERD Asthma Peripheral Neuropathy Plan of Treatment: You have signed a three day notice of intention to leave and are being discharged today at your request. You have declined MRI, C-Spine and neurology consults to evaluate a possible exacerbation/flare of multiple sclerosis. These were recommended by your neurologist, Dr. May on 12/25/20. Follow up with your providers. Take medications as directed. You have reported you do not need refills, as a result we have not sent medications to your pharmacy. Discharge Date/Time: 12/26/20 12:30 Data Imaging Diagnostic Imaging Impressions Venous Duplex 12/21/20 10:27 IMPRESSION: No DVT demonstrated in the bilateral lower extremity. Chest CTA 12/21/20 10:28 IMPRESSION: Unremarkable exam. VTE: negative DS: Summary Time Spent with Patient Time attestation: Total time spent providing and/or coordinating discharge services:
== END 2020-12-26 12:30 | disposition home or self-care (01) | DRG 885 ==
LOC: HO.ED 12-22 20:58 → HO.PM5 12-22 22:32
PROVIDERS: Physician Assistant Medical; Student in an Organized Health Care Education/Training Program; Admitting Provider Psychiatry & Neurology Psychiatry; Emergency Provider Emergency Medicine Emergency Medical Services; Visit Provider Clinical Nurse Specialist Psychiatric/Mental Health, Adult
DX: F31.2 Bipolar disorder, current episode manic severe with psychotic features (principal); G35 Multiple sclerosis; F43.10 Post-traumatic stress disorder, unspecified; Z91.14 Patient's other noncompliance with medication regimen; Z20.822 Contact with and (suspected) exposure to COVID-19; Z88.0 Allergy status to penicillin; Z79.51 Long term (current) use of inhaled steroids; Z79.899 Other long term (current) drug therapy
CPT/HCPCS: 36415; 71275; 80053; 80307; 80320; 81003; 81025; 83880; 84443; 85025; 85379; 85652; 86140; 87635; 93970; 96374; 99285; J2060; Q0163; Q9967

== ENCOUNTER 2021-01-29 17:21 | Inpatient (IN) | payer OTHER, SELFPAY ==
[2021-01-29] VITALS (8 sets, daily range): BP systolic 118–165; BP diastolic 68–85; PULSE 101–110; RESP 18–20; TEMP 36.4–37.2; O2SAT 99; BMI 39.9
--- NOTE | 2021-01-29 17:58 | PC.NURSE ---
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
[2021-01-29 18:21] LABS: UPreg QC Valid YES; Urine Pregnancy NEGATIVE (NEGATIVE)
--- NOTE | 2021-01-29 18:49 | PC.NURSE ---
Pt out in community area, yelling at times, responding to internal stimuli. Seen by provider.
[2021-01-29 18:54] LABS: Amphetamine Screen Urine Not Detected (Not Detect); Barbiturates, Urine Not Detected (Not Detect); Benzodiazepines Screen Urine Not Detected (Not Detect); Cannabinoid Screen Urine POSITIVE (Not Detect); Cocaine Screen Urine Not Detected (Not Detect); Opiate Screen Urine Not Detected (Not Detect); Phencyclidine Screen Urine Not Detected (Not Detect)
--- NOTE | 2021-01-29 19:17 | ED.PSYCH ---
HPI - Psych General Chief Complaint: Psychiatric Symptoms <ROHIT Coates Last Filed: 01/30/21 02:34> Stated Complaint: PSYCHIATRIC EMERGENCY <ROHIT Coates Last Filed: 01/30/21 02:34> Time Seen by Provider: 01/29/21 19:11 <ROHIT Coates Last Filed: 01/30/21 02:34> Source: patient and EMS <ROHIT Coates Last Filed: 01/30/21 02:34> Mode of arrival: ambulatory <ROHIT Coates Last Filed: 01/30/21 02:34> Limitations: no limitations <ROHIT Coates Last Filed: 01/30/21 02:34> History of Present Illness HPI Narrative: Patient presents to ED for psych evaluation. History cannot be received from patient. Patient is totally disorganized. Patient recently discharged from at inpatient psych. As per family patient is not compliant with meds <ROHIT Coates Last Filed: 01/30/21 02:34> Related Data Home Medications: Home Medications Medication Instructions Recorded Confirmed biotin 5 mg capsule 2.5 mg PO DAILY 08/31/20 01/14/21 glatiramer 40 mg/mL subcutaneous 40 mg SUBCUT 3XW 08/31/20 01/14/21 syringe lorazepam 0.5 mg tablet 0.5 mg PO DAILY PRN 08/31/20 01/14/21 oxcarbazepine 1 tab PO BEDTIME 12/21/20 01/14/21 trazodone 1 tab PO BEDTIME PRN 12/21/20 01/14/21 Flovent 2 puff INHALATION BID 12/23/20 01/14/21 Myrbetriq 50 mg PO DAILY 12/23/20 01/14/21 Vitamin D3 2,000 units PO DAILY 12/23/20 01/14/21 Previous Rx's Medication Instructions Recorded propranolol 10 mg tablet 10 mg PO BID #60 cap 01/21/21 gabapentin 300 mg capsule 300 mg PO BEDTIME #30 cap 01/23/21 <ROHIT Coates Last Filed: 01/30/21 02:34> Allergies/Adverse Reactions: Allergies Allergy/AdvReac Type Severity Reaction Status Date / Time latex [Latex] Allergy Mild ITCHY AND Verified 01/10/21 06:27 DRY HANDS Penicillins Allergy Mild HIVES Verified 01/10/21 06:27 cat dander [CATS] Allergy Unknown ITCHY, Verified 01/10/21 06:27 ASTHMA house dust Allergy Unknown itchy Verified 01/10/21 06:27 penicillin V Allergy Unknown hives Verified 01/10/21 06:27 <ROHIT Coates - Last Filed: 01/30/21 02:34> Review of Systems Review of Systems: Disorganized. <ROHIT Coates - Last Filed: 01/30/21 02:34> Yes all other systems are reviewed and are negative <ROHIT Coates - Last Filed: 01/30/21 02:34> Constitutional: Constitutional: Reports as per HPI and Reports no additional constitutional complaints <ROHIT Coates - Last Filed: 01/30/21 02:34> [facility] Past Medical History Medical History: Medical History (Updated 01/30/21 @ 02:09 by ROHIT Coates) Asthma Bipolar disorder Carpal tunnel syndrome of right wrist OLIVIER I (cervical intraepithelial neoplasia I) GERD (gastroesophageal reflux disease) Hypercholesterolemia Hypertension Multiple sclerosis, relapsing-remitting Obesity (BMI 30-39.9) PTSD (post-traumatic stress disorder) <ROHIT Coates - Last Filed: 01/30/21 02:34> Surgical History: Surgical History Hx of breast reduction, elective <ROHIT Coates - Last Filed: 01/30/21 02:34> Family History Family History: Family History (Updated 08/31/20 @ 06:47 by BISI Gibson) Father Hypertension CVD (cardiovascular disease) High cholesterol Mother Depression Multiple sclerosis Maternal Grandmother Alzheimers disease Maternal Grandfather Heart disease Paternal Grandmother Stroke Hypertension Paternal Grandfather Diabetes Brother Diabetes Family/Other FH: mental illness <ROHIT Coatse - Last Filed: 01/30/21 02:34> Social History Social History: Social History (Updated 01/14/21 @ 12:15 by Yoselin Sanchez CMA) Household Members: Children Housing: Apartment Alcohol intake: current Alcohol intake frequency: does not drink Alcohol type: wine Smoking Status: Former smoker Tobacco Type: Cigarette Second Hand Smoke Exposure: Yes (boyfriend) Use of substances other than those prescribed or required for medical reasons: No Substance Use Type: Marijuana Advance Directives: No Advance Directives Information Provided: No service: No Sexual orientation: Straight/Heterosexual <ROHIT Coates - Last Filed: 01/30/21 02:34> Physical Exam Vital Signs: Vital Signs: Last Vital Signs Temp 98.2 F 01/30/21 02:08 Pulse 96 01/30/21 02:08 Resp 16 01/30/21 05:40 BP 122/74 01/30/21 02:08 Pulse Ox 99 01/30/21 02:08 Body Mass Index 39.9 <ROHIT Coates - Last Filed: 01/30/21 02:34> Vital Signs: Last Vital Signs Temp 98.2 F 01/30/21 02:08 Pulse 96 01/30/21 02:08 Resp 16 01/30/21 05:40 BP 122/74 01/30/21 02:08 Pulse Ox 99 01/30/21 02:08 Body Mass Index 39.9 <Mary Genao MD - Last Filed: 01/30/21 05:55> Const: Other: Patient is internally preoccupied and then making statements and screaming <ROHIT Coates - Last Filed: 01/30/21 02:34> Orientation/consciousness: patient oriented x3 <ROHIT Coates - Last Filed: 01/30/21 02:34> HENMT: Head: Yes normal to inspection, Yes No palpable skull fracture present, Yes normocephalic and Yes atraumatic <ROHIT Coates Last Filed: 01/30/21 02:34> Eyes: General: appearance normal, both eyes and all related structures <ROHIT Coates Last Filed: 01/30/21 02:34> Neck: Neck: Yes normal visual inspection, Yes full ROM, Yes no lymphadenopathy, Yes no meningeal signs, Yes trachea midline, Yes supple and No tender <ROHIT Coates Last Filed: 01/30/21 02:34> Chest: Chest palpation & inspection: normal inspection of the chest and normal palpation of entire chest wall <ROHIT Coates Last Filed: 01/30/21 02:34> Resp: Effort & Inspection: normal respiratory effort and able to speak in complete sentences <José Miguel Collin, PA Last Filed: 01/30/21 02:34> Auscultation: clear to auscultation bilaterally <José Miguel Collin, PA Last Filed: 01/30/21 02:34> Cardio: Jugular venous distension: no JVD <José Miguel Collin, [facility] Last Filed: 01/30/21 02:34> Heart sounds: S1 normal heart sound present and S2 normal heart sound present <José Miguel Polanco [facility] Last Filed: 01/30/21 02:34> GI: Inspection: Yes normal to inspection and No abdominal wall ecchymosis <José Miguel Collin, PA Last Filed: 01/30/21 02:34> Palpation (GI): Soft to palpation, not firm, nontender, no guarding and not rigid <ROHIT Coates Last Filed: 01/30/21 02:34> : General: No CVA tenderness and Yes no CVA tenderness <José Miguel Collin, PA Last Filed: 01/30/21 02:34> Back/Spine/Pelvis: Back: no CVA tenderness, No CVA tenderness and No back tenderness <José Miguel Collin, PA Last Filed: 01/30/21 02:34> Skin: General skin exam: no rashes or lesions noted and elasticity normal <José Miguel Collin, PA Last Filed: 01/30/21 02:34> Neuro: General: patient oriented x3, no meningeal signs and CN's II-XI intact bilaterally <José Miguel Collin, PA Last Filed: 01/30/21 02:34> Cranial nerves: Yes CN's II-XII intact bilaterally <José Miguel Collin, PA Last Filed: 01/30/21 02:34> Extrem: General: Yes normal to inspection and Yes full ROM <ROHIT Coates Last Filed: 01/30/21 02:34> Psych: Appearance: grossly normal, well kempt and not disheveled <ROHIT Coates Last Filed: 01/30/21 02:34> Affect: Animated affect present <ROHIT Coates Last Filed: 01/30/21 02:34> Insight: Poor insight present (Psych) <ROHIT Coates - Last Filed: 01/30/21 02:34> Judgement: Poor judgement present (Psych) <ROHIT Coates - Last Filed: 01/30/21 02:34> Course Course Course Narrative: Patient totally preoccupied and not with herself. Patient became aggressive with staff. Ativan and Haldol ordered. Monitor also ordered. Patient has no insight or good judgment <ROHIT Coates - Last Filed: 01/30/21 02:34> At 04:30 in the morning, there was an agitated patient in the hallway in the [facility] pod, which got this patient upset. Patient is also now very agitated. Patient already received Ativan, at this time, she will receive 5 IM of Haldol. Computer ordered was entered at 05:55, assistant general manager did not allow me to enter the correct time. <Mary Genao MD - Last Filed: 01/30/21 05:55> Reevaluation(s) Reevaluation #1: Patient be given Ativan and Haldol because she became aggressive. Patient awaiting [facility] evaluation. Case signed out to Dr. Genao. <ROHIT Coates - Last Filed: 01/30/21 02:34> MDM - Psych Lab Data Labs: Lab Results 01/29/21 01/29/21 01/29/21 Range/Units 18:07 18:07 18:12 Urine Color YELLOW Urine Appearance CLOUDY Urine pH 5.5 (5.0-8.0) Ur Specific [place] >= 1.030 H (1.005-1.025) Urine Protein 1+ H (NEG-TRACE) MG/DL Urine Glucose (UA) NEG (NEG) MG/DL Urine Ketones NEG (NEG) MG/DL Urine Blood NEG (NEG) Urine Nitrite NEG (NEG) Ur Leukocyte Esterase NEG (NEG) Urine RBC 0 (0) /HPF Urine WBC 0 (0-4) /HPF Ur Squamous Epith Cells 3+ /LPF Amorphous Sediment 3+ /LPF Urine Bacteria 3+ /LPF Urine Test NEGATIVE (NEGATIVE) Urine Opiates Screen Not Detected (Not Detect) Ur Barbiturates Screen Not Detected (Not Detect) Ur Phencyclidine Scrn Not Detected (Not Detect) Ur Amphetamines Screen Not Detected (Not Detect) U Benzodiazepines Scrn Not Detected (Not Detect) Urine Cocaine Screen Not Detected (Not Detect) U Marijuana (THC) Screen POSITIVE H (Not Detect) COVID-19 (RENZO) (Negative) COVID-Scayl 01/29/21 Range/Units 21:39 Urine Color Urine Appearance Urine pH (5.0-8.0) Ur Specific [place] (1.005-1.025) Urine Protein (NEG-TRACE) MG/DL Urine Glucose (UA) (NEG) MG/DL Urine Ketones (NEG) MG/DL Urine Blood (NEG) Urine Nitrite (NEG) Ur Leukocyte Esterase (NEG) Urine RBC (0) /HPF Urine WBC (0-4) /HPF Ur Squamous Epith Cells /LPF Amorphous Sediment /LPF Urine Bacteria /LPF Urine Test (NEGATIVE) Urine Opiates Screen (Not Detect) Ur Barbiturates Screen (Not Detect) Ur Phencyclidine Scrn (Not Detect) Ur Amphetamines Screen (Not Detect) U Benzodiazepines Scrn (Not Detect) Urine Cocaine Screen (Not Detect) U Marijuana (THC) Screen (Not Detect) COVID-19 (RENZO) Negative (Negative) COVID-Scayl See Note <ROHIT Coates - Last Filed: 01/30/21 02:34> Lab Results 01/29/21 01/29/21 01/29/21 Range/Units 18:07 18:07 18:12 Urine Color YELLOW Urine Appearance CLOUDY Urine pH 5.5 (5.0-8.0) Ur Specific [place] >= 1.030 H (1.005-1.025) Urine Protein 1+ H (NEG-TRACE) MG/DL Urine Glucose (UA) NEG (NEG) MG/DL Urine Ketones NEG (NEG) MG/DL Urine Blood NEG (NEG) Urine Nitrite NEG (NEG) Ur Leukocyte Esterase NEG (NEG) Urine RBC 0 (0) /HPF Urine WBC 0 (0-4) /HPF Ur Squamous Epith Cells 3+ /LPF Amorphous Sediment 3+ /LPF Urine Bacteria 3+ /LPF Urine Test NEGATIVE (NEGATIVE) Urine Opiates Screen Not Detected (Not Detect) Ur Barbiturates Screen Not Detected (Not Detect) Ur Phencyclidine Scrn Not Detected (Not Detect) Ur Amphetamines Screen Not Detected (Not Detect) U Benzodiazepines Scrn Not Detected (Not Detect) Urine Cocaine Screen Not Detected (Not Detect) U Marijuana (THC) Screen POSITIVE H (Not Detect) COVID-19 (RENZO) (Negative) COVID-19 [employer] Com 01/29/21 Range/Units 21:39 Urine Color Urine Appearance Urine pH (5.0-8.0) Ur Specific [place] (1.005-1.025) Urine Protein (NEG-TRACE) MG/DL Urine Glucose (UA) (NEG) MG/DL Urine Ketones (NEG) MG/DL Urine Blood (NEG) Urine Nitrite (NEG) Ur Leukocyte Esterase (NEG) Urine RBC (0) /HPF Urine WBC (0-4) /HPF Ur Squamous Epith Cells /LPF Amorphous Sediment /LPF Urine Bacteria /LPF Urine Test (NEGATIVE) Urine Opiates Screen (Not Detect) Ur Barbiturates Screen (Not Detect) Ur Phencyclidine Scrn (Not Detect) Ur Amphetamines Screen (Not Detect) U Benzodiazepines Scrn (Not Detect) Urine Cocaine Screen (Not Detect) U Marijuana (THC) Screen (Not Detect) COVID-19 (RENZO) Negative (Negative) COVID-19 Clin Com See Note <Mary Genao MD - Last Filed: 01/30/21 05:55> Discharge Plan Discharge Clinical Impression: Bipolar disorder, Chronic schizophrenia <ROHIT Coates - Last Filed: 01/30/21 02:34> Prescriptions: No Action propranolol 10 mg tablet 10 mg PO BID Qty: 60 RF: 3 gabapentin 300 mg capsule 300 mg PO BEDTIME Qty: 30 RF: 0 oxcarbazepine 300 mg tablet 1 tab PO BEDTIME RF: 0 trazodone 150 mg tablet 1 tab PO BEDTIME PRN (Reason: insomnia) RF: 0 Flovent 110 mcg inhaler 2 puff inhalation BID RF: 0 Myrbetriq 50 mg PO DAILY RF: 0 Vitamin D3 2,000 Units capsule 2,000 units PO DAILY RF: 0 biotin 5 mg capsule 2.5 mg PO DAILY RF: 0 glatiramer [Copaxone] 40 mg/mL syringe 40 mg subcut 3XW RF: 0 lorazepam 0.5 mg tablet 0.5 mg PO DAILY PRN (Reason: Anxiety) RF: 0 <ROHIT Coates - Last Filed: 01/30/21 02:34>
[2021-01-29] MEDS: diphenhydrAMINE HCL 50 MG/ML VIAL IM (19:40)
--- NOTE | 2021-01-29 19:40 | PC.NURSE ---
Patient extremely loud and disruptive, psychotically aggressive, minimally [id number], triggering co-patients, unsafe behavior, provider notified/ordered Ativan 2 mg IM, Benadryl 50 mg IM, and Haldol 5 mg IM/administered as ordered with support from security. Will continue to monitor.patient on 1:1 until 2039.
[2021-01-29] MEDS: Haloperidol Lactate 5 MG/ML VIAL IM (19:41)
[2021-01-29] MEDS: LORazepam 2 MG/ML VIAL IM (19:41)
[2021-01-29 20:07] LABS: Glucose Urine UA NEG (NEG); Leukocyte Esterase Urine NEG (NEG); Nitrite Urine NEG (NEG); PH 5.5 (5.0-8.0); Specific Gravity - Urine >= 1.030 (1.005-1.025); Urine Blood NEG (NEG); Urine Ketones NEG (NEG); Urine Protein 1+ MG/DL (NEG-TRACE)
[2021-01-29 20:12] LABS: Appearance Urine CLOUDY; Color Urine YELLOW
[2021-01-29 20:25] LABS: Amorphous Sediment Urine 3+ /LPF; Bacteria Urine 3+ /LPF; RBC Urine 0 /HPF (0); Squamous Epithelial Cell Urine 3+ /LPF; WBC Urine 0 /HPF (0-4)
[2021-01-29 22:06] LABS: COVID-19 Test Negative (Negative)
[2021-01-30] VITALS (14 sets, daily range): BP systolic 107–122; BP diastolic 74–86; PULSE 96–106; RESP 16–20; TEMP 36.6–36.8; O2SAT 95–99
--- NOTE | 2021-01-30 01:03 | PC.NURSE ---
[facility] faxed/called/spoke with Eta, confirmed receipt of referral.
[2021-01-30] MEDS: HaloperidoL 5 MG TABLET PO (02:18)
[2021-01-30] MEDS: LORazepam 1 MG TABLET 2 MG PO (02:18)
--- NOTE | 2021-01-30 02:20 | PC.NURSE ---
Patient is S/P chemical restraint, just woke up for bathroom use, soon became hyper-verbal, started to engage in delusional and tangential conversation, loud and disruptive at time, patient non [id number]-dhel, provider notified/ordered PO Ativan 2 mg and haldol 5 mg/administered as ordered/patient compliant. will continue to monitor.
--- NOTE | 2021-01-30 02:26 | PC.NURSE ---
Patient just woke up, patient is still grossly disoriented, thought process delusional, tearful, loud, disruptive, reported being anxious, ask for medication to help her calm down, minimally af-imedij-cowa, engages in tangential communication, VSS, provider notified Ativan 2 mg PO and Haldol 5 mg PO ordered/administered as ordered/patient compliant pending effect. will continue to monitor.
[2021-01-30] MEDS: Haloperidol Lactate 5 MG/ML VIAL IM ×2 (04:40→20:28)
--- NOTE | 2021-01-30 04:40 | PC.NURSE ---
Patient did not respond well to Ativan 2 mg PO and Haldol 5 mg Po administered earlier, patient continues to present psychotic aggression, kicking wall, provider notified/ordered Haldol 5 mg IM/administered as ordered/patient compliant, will continue to monitor on 1:1.
--- NOTE | 2021-01-30 09:41 | PC.NURSE ---
Pt emotionally upset, crying/screaming after a phone call. She was directed to the TV room, and accommodated with a table. Currently sitting at table inTV room coloring with crayons.
--- NOTE | 2021-01-30 09:53 | PC.NURSE ---
T/W called [facility] to inquire an ETA on their initial eval. I am told they are aware of pt and anticipate to see pt some time after 1pm .
[2021-01-30] MEDS: OXcarbazepine 300 MG TABLET PO ×2 (10:05→22:35)
[2021-01-30] MEDS: OLANZapine 5 MG TABLET PO ×2 (10:05→22:35)
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
[2021-01-30 10:25] LABS: MANUAL DIFF FLAG NO
[2021-01-30 10:28] LABS: Basophils Percent Auto 0.2 % (0-2); Eosinophils Absolute Auto 0.1 X10*3/uL (0.0-0.4); Eosinophils Percent Auto 1.2 % (0-4); Hematocrit 38.2 % (37-47); Hemoglobin 12.9 g/dl (12.0-16.0); Imm Gran Abs Auto 0.03 X10*3/uL (0.00-0.03); Imm Gran Pct Auto 0.3 % (0.0-0.4); Lymphocytes Absolute Auto 3.4 X10*3/uL (1.2-4.9); Lymphocytes Percent Auto 29.1 % (20-40); Mean Corpuscular HGB Conc 33.8 g/dl (31.0-35.0); Mean Corpuscular Hemoglobin 29.9 pg (27.0-33.0); Mean Corpuscular Volume 88.4 fL (80-98); Mean Platelet Volume 8.8 fL (9.4-12.3); Monocytes Absolute Auto 0.8 X10*3/uL (0.1-1.2); Monocytes Percent Auto 6.9 % (2-11); Neutrophils Absolute Auto 7.3 X10*3/uL (2.0-8.3); Neutrophils Percent Auto 62.3 % (45-73); Platelet Count 294 X10*3/uL (160-400); Red Blood Count 4.32 X10*6/uL (4.20-5.50); Red Cell Distribution Width 13.9 % (11.0-16.0); White Blood Count 11.7 X10*3/uL (4.8-10.8)
--- NOTE | 2021-01-30 10:37 | PC.NURSE ---
Pt remains emotionally labile. At times laughing, and at others crying. She also speaks to herself when engaging in crying/laughing behavior. Pt psych consult completed, and orders placed. Pt medicated per emar. Pt labs drawn and sent. She continues to wait for initial [facility] eval.
[2021-01-30] MEDS: LORazepam 1 MG TABLET PO ×3 (10:46→16:53)
[2021-01-30 10:51] LABS: Ethanol < 10 mg/dL
--- NOTE | 2021-01-30 10:52 | PC.NURSE ---
Pt medicated, per emar, for increased agitation. Pt currently in her room.
[2021-01-30 10:55] LABS: Acetaminophen LAB < 1 mcg/mL (<30); Alanine Aminotransferase 29 U/L (0-31); Albumin Level 3.9 g/dL (3.5-5.0); Alkaline Phosphatase 115 U/L (39-117); Anion Gap 13 (12-20); Aspartate Amino Transferase 42 U/L (5-31); Bilirubin Total 0.6 mg/dL (0.0-1.0); Blood Urea Nitrogen 11 mg/dL (9-16); Calcium 8.7 mg/dL (8.4-10.2); Carbon Dioxide 21 mmol/L (22-29); Chloride 106 mmol/L (96-108); Creatinine Clr Calc Pharmacy 136.1; Estimated Glomerular Filt Rate > 60; Glucose Random 117 mg/dL (60-115); Potassium 4.4 mmol/L (3.3-5.1); Sodium 136 mmol/L (135-145)
[2021-01-30 11:12] LABS: Salicylate < 5.0 mg/dL (15-30)
--- NOTE | 2021-01-30 12:30 | PC.NURSE ---
Pt sleeping at this time. RR even, unlabored. Will continue to monitor.
--- NOTE | 2021-01-30 13:00 | MHC.CARE ---
CARE team called N to accept case and spoke w Staff Submarine Warfare Officer Joann who agreed to contact [facility] [place] for the auth process.
[2021-01-30] MEDS: OLANZapine 2.5 MG TABLET PO ×2 (13:34→14:27)
--- NOTE | 2021-01-30 13:43 | PC.NURSE ---
Pt demonstrating emotionally disruptive behavior, crying and screaming loudly that she doesn't want to be here. She was medicated per EMAR for agitation, and escorted back to her room, where she is currently lying quietly in bed.
--- NOTE | 2021-01-30 14:30 | PC.NURSE ---
Pt continues to escalate very quickly screaming and causing disruption in the unit. JUAN FRANCISCO Rivera notified and provided orders. Pt medicated per emar. Currently in room.
--- NOTE | 2021-01-30 15:03 | PC.NURSE ---
Report received. Pt asleep at current. No signs of distress. RR even and unlabored. Continues to be a section 12 bed search.
[2021-01-30] MEDS: Acetaminophen 325 MG TABLET 650 MG PO (16:53)
--- NOTE | 2021-01-30 16:56 | PC.NURSE ---
Pt woke from nap. Asking to go home. Became agitated. Crying, yelling, unable to settle. Offered ativan, and requesting tylenol. Pt took both as ordered (see emar). Currently sitting on bed, crying. Will continue to monitor.
--- NOTE | 2021-01-30 18:12 | PC.NURSE ---
Ativan had positive effect. Pt asleep at current. No signs of distress. RR even and unlabored.
--- NOTE | 2021-01-30 19:03 | PC.NURSE ---
Report received. PT is sleeping in the room. Respirations even and unlabored. Pt is inpatient bed search.
[2021-01-30] MEDS: LORazepam 2 MG/ML VIAL IM (20:28)
[2021-01-30] MEDS: diphenhydrAMINE HCL 50 MG/ML VIAL IM (20:28)
--- NOTE | 2021-01-30 21:29 | PC.NURSE ---
Late entry: 19:45 - PT became extremely distraught after being asked to keep her voice down on the unit. This nurse went into the room to discuss how the PT was feeling at this time. PT expressed that she was upset because she could not go home and her boyfriend was breaking up with her. This nurse offered the PT IM medications to help calm her down and PT accepted. This nurse returned to the PT's room with medications. Meds administered successfully. PT then laid down in bed and is currently sleeping.
[2021-01-30] MEDS: traZODone HCL 100 MG TABLET PO (22:35)
--- NOTE | 2021-01-30 22:56 | PC.ADMIT ---
this is one of several admissions for this 35 year old female. legal CV. dx; bipolar d/o with psychosis, pt was referred to by n. nurse to nurse, collateral information obtained prior to admission. patient had exhibited disorganized, acting out behaviors that resulted in multiple interventions including medication restraints. on arrival to unit patient was sedated. was able to identify video game script writer by name. due to behaviors in the ER was placed on close obs on arrival to unit. vs not taken. respirations regular, snoring noted.
[2021-01-31] MEDS: Acetaminophen 325 MG TABLET 650 MG PO (01:23)
[2021-01-31] MEDS: LORazepam 1 MG TABLET PO (01:26)
[2021-01-31] MEDS: HaloperidoL 5 MG TABLET PO ×2 (01:26→08:49)
[2021-01-31 04:55] VITALS: BP 129/85; PULSE 112; RESP 18; TEMP 36.4; O2SAT 99
[2021-01-31] MEDS: OXcarbazepine 300 MG TABLET PO ×2 (08:49→21:39)
[2021-01-31] MEDS: OLANZapine 5 MG TABLET PO ×2 (08:49→21:39)
[2021-01-31 09:47] LABS: Estimated Average Glucose 123 mg/dL; Hemoglobin A1c % 5.9 %
--- NOTE | 2021-01-31 10:00 | ECG_ITS ---
Test Reason : QTC PROLONGATION Blood Pressure : / mmHG Vent. Rate : 098 BPM Atrial Rate : 098 BPM P-R Int : 118 ms QRS Dur : 076 ms QT Int : 346 ms P-R-T Axes : 044 000 038 degrees QTc Int : 441 ms Normal sinus rhythm Normal EKG No significant changes when compared with the previous EKG of 31 january 2021 Referred By: Stacy Mcgraw Electronically Signed By:MARILOU CASTELLANOS
[2021-01-31 10:02] LABS: Cholesterol 179 mg/dL; HDL Cholesterol 43 mg/dL; LDL Cholesterol Calculated 110 mg/dl; Triglycerides 130 mg/dL
--- NOTE | 2021-01-31 10:33 | PC.NURSE ---
Patient refusing influenza vaccine at this time. Patient is very psychotic and disorganized.
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
[2021-01-31 14:43] VITALS: BMI 42.1
[2021-01-31 14:58] VITALS: BP 140/86; PULSE 98; RESP 16; TEMP 36.4; O2SAT 99
[2021-01-31] MEDS: Loratadine 10 MG TABLET PO (17:40)
[2021-01-31 17:49] VITALS: BP 135/77; PULSE 104; TEMP 36.4
[2021-01-31] MEDS: guaiFENesin LA 600 MG TAB.ER.12H PO (20:42)
[2021-01-31] MEDS: traZODone HCL 100 MG TABLET PO (21:39)
[2021-02-01] MEDS: guaiFENesin LA 600 MG TAB.ER.12H PO (01:41)
[2021-02-01 06:10] VITALS: BP 148/86; PULSE 118; RESP 18; TEMP 36.7; O2SAT 97
[2021-02-01] MEDS: Acetaminophen 325 MG TABLET 650 MG PO (06:38)
[2021-02-01] MEDS: OLANZapine 2.5 MG TABLET PO (06:38)
[2021-02-01] MEDS: LORazepam 1 MG TABLET PO (06:38)
[2021-02-01] MEDS: OXcarbazepine 300 MG TABLET PO (10:03)
[2021-02-01] MEDS: OLANZapine 5 MG TABLET PO (10:03)
[2021-02-01] MEDS: Loratadine 10 MG TABLET PO (10:03)
--- NOTE | 2021-02-01 11:45 | HO.PSYCHPN ---
Subjective Subjective Date of Service: 02/01/21 Reason For Visit: Bipolar Disorder Subjective Notes: 3 Day Interim History: The patient has been more organized in the last hours, she asked for showers and was less sedated. She signed a 3 day notice letter. During the interview, she was cooperative and pleasant, she was worried to talk with her boyfriend who is in her apartment. Apparently, she had an argument with her parents over the phone. SW will contact her family today. Today AM, she was vomiting with diarrhea. She agreed to use Haldol at night. Denies active hallucinations. Medication Compliance: Yes Side effects from medications: No Attending Groups: No Review of Systems Acute medical concerns: No Medical Review of Systems: unchanged Mental Status Exam Mental Status Exam Patient Appearance: Disheveled (on hospital gowns) Patient Orientation: Person, Place and Time Level of Consciousness: Awake Patient Behavior: Cooperative Mood Description: Apathetic Affect Description: Labile Patient Cognition Impaired: No Ability to Follow Directions: Good Speech Pattern: Clear Memory Description: Intact Hallucinations: None Delusions: Not Present Thought Process: Distracted Thought Content: positive for Preoccupation Depressive Symptoms: Increased Anxiety Judgement: Poor Judgement and Insight: Limited insight Diagnostics Vital Signs (24Hr): Vital Signs - 24 hr 01/31/21 14:58 01/31/21 17:49 02/01/21 06:10 Temperature 97.6 F 97.5 F 98.0 F Pulse Rate 98 104 H 118 H Respiratory Rate 16 18 Blood Pressure 140/86 H 135/77 148/86 H Pulse Oximetry 99 97 Body Mass Index 42.1 Labs Results: 01/30/21 10:18 01/30/21 10:18 Labs: Laboratory Results - last 48 hr 01/31/21 01/31/21 09:10 09:10 Estimat Average Glucose 123 Hemoglobin A1c % 5.9 Triglycerides 130 Cholesterol 179 LDL Cholesterol, Calc 110 HDL Cholesterol 43 Medications Medications Current Medications Generic Name Dose Route Start Last Admin Trade Name Freq PRN Reason Stop Dose Admin Acetaminophen 650 mg 01/30/21 22:08 02/01/21 06:38 Acetaminophen 325 Mg Tablet PO 650 mg Q6H PRN Administration Headache/Pain Mild Scale (1-3) Al Hydroxide/Mg Hydroxide 30 ml 01/30/21 22:08 Magnesium Hydrox/Alum Hydrox 30 Ml Oral.Susp PO Q6H PRN Heartburn/Nausea Guaifenesin 600 mg 01/31/21 20:06 02/01/21 01:41 Guaifenesin La 600 Mg Tab.Er.12h PO 600 mg BID PRN Administration Cough Haloperidol 5 mg 01/30/21 22:11 01/31/21 08:49 Haloperidol 5 Mg Tablet PO 5 mg Q4H PRN Administration psychosis Hydroxyzine HCl 25 mg 01/30/21 22:08 Hydroxyzine Hcl 25 Mg Tablet PO BEDTIME PRN Anxiety Loratadine 10 mg 01/31/21 17:35 02/01/21 10:03 Loratadine 10 Mg Tablet PO 10 mg DAILY RENEE Administration Lorazepam 1 mg 01/30/21 22:11 02/01/21 06:38 Lorazepam 1 Mg Tablet PO 1 mg Q4H PRN Administration agitation Magnesium Hydroxide 30 ml 01/30/21 22:08 Milk Of Magnesia 30 Ml Oral.Susp PO DAILY PRN Constipation Non-Formulary Medication 40 mg 01/30/21 18:45 01/30/21 22:35 Glatiramer [Copaxone] SUBCUT 40 mg MoWeFr RENEE Administration Olanzapine 5 mg 01/30/21 09:55 02/01/21 10:03 Olanzapine 5 Mg Tablet PO 5 mg BID RENEE Administration Olanzapine 2.5 mg 01/30/21 09:54 02/01/21 06:38 Olanzapine 2.5 Mg Tablet PO 2.5 mg BID PRN Administration anxiety/restlessness Oxcarbazepine 300 mg 01/30/21 09:55 02/01/21 10:03 Oxcarbazepine 300 Mg Tablet PO 300 mg BID RENEE Administration Trazodone HCl 100 mg 01/30/21 21:00 01/31/21 21:39 Trazodone Hcl 100 Mg Tablet PO 100 mg BEDTIME RENEE Administration Allergies Allergies Allergy/AdvReac Type Severity Reaction Status Date / Time latex [Latex] Allergy Mild ITCHY AND Verified 01/10/21 06:27 DRY HANDS Penicillins Allergy Mild HIVES Verified 01/10/21 06:27 cat dander [CATS] Allergy Unknown ITCHY, Verified 01/10/21 06:27 ASTHMA house dust Allergy Unknown itchy Verified 01/10/21 06:27 penicillin V Allergy Unknown hives Verified 01/10/21 06:27 Assessment & Plan The patient looks less disorganized and psychotic, she is even less irritable. Plan: 1. Increase Trileptal up to 600 mg po bid. 2. Change Zyprexa to 7.5 mg po qhs as a mood stabilizer. 3. Add Haldol 5 mg po qhs. 4. Change level of observation to 5 minutes check. Greater than 50% of the session was spent on counseling and/or coordination of care Reason for contiued inpatient stay Substantial Risk for: harm to self, harm to others and inability to function
[2021-02-01 13:19] LABS: COVID-19 Test Negative (Negative); IDNOW Serial# 9DD0AD1C
[2021-02-01 18:00] VITALS: BP 167/82; PULSE 116; TEMP 36.8
[2021-02-01] MEDS: OLANZapine 2.5 MG TABLET 7.5 MG PO (21:25)
[2021-02-01] MEDS: HaloperidoL 5 MG TABLET PO (21:25)
[2021-02-01] MEDS: traZODone HCL 100 MG TABLET PO (21:25)
[2021-02-01] MEDS: OXcarbazepine 300 MG TABLET 600 MG PO (21:25)
[2021-02-02] MEDS: LORazepam 1 MG TABLET PO (00:29)
[2021-02-02] MEDS: hydrOXYzine HCL 25 MG TABLET PO (00:29)
[2021-02-02] MEDS: guaiFENesin LA 600 MG TAB.ER.12H PO ×2 (00:30→21:06)
[2021-02-02 06:00] VITALS: BP 133/72; PULSE 92; TEMP 36.4
[2021-02-02] MEDS: Acetaminophen 325 MG TABLET 650 MG PO ×3 (06:49→23:52)
[2021-02-02] MEDS: Loratadine 10 MG TABLET PO (08:19)
[2021-02-02] MEDS: OXcarbazepine 300 MG TABLET 600 MG PO ×2 (08:19→22:54)
[2021-02-02 10:11] VITALS: BP 136/87; PULSE 99; RESP 16; TEMP 36.5; O2SAT 97
--- NOTE | 2021-02-02 15:35 | HO.PSYCHPN ---
Subjective Subjective Date of Service: 02/02/21 Reason For Visit: Bipolar Disorder Subjective Notes: 3 Day Interim History: Reports symptoms are managed and without SE. Cautions team as she reports intellectual slowing with increased dosing of antipsychotics. Reports less difficulty sleeping last night- slept hard . Appetite is OK . Pt with URI sx-discussed possibly considering utilization review coordinator consult-pt wanting a new PCP and will consider. Medication Compliance: Yes Side effects from medications: No Review of Systems Respiratory: Reports chest congestion and Reports cough Psychiatric: Reports abnormal sleep pattern (slept well last night for the first time in several weeks.) Mental Status Exam Mental Status Exam Patient Orientation: Person, Place, Time and Situation Level of Consciousness: Alert Patient Behavior: Cooperative Mood Description: Constricted and Labile Affect Description: Constricted and Labile Patient Cognition Impaired: No Ability to Follow Directions: Good Speech Pattern: Spontaneous Speech Memory Description: Episodic Impaired Hallucinations: None (denies) Delusions: Not Present Thought Process: Distracted Thought Content: positive for Circumstantial and positive for Tangential Depressive Symptoms: Increased Anxiety Judgement: Fair Diagnostics Vital Signs (24Hr): Vital Signs - 24 hr 02/01/21 18:00 02/02/21 06:00 02/02/21 10:11 Temperature 98.2 F 97.5 F 97.7 F Pulse Rate 116 H 92 99 Respiratory Rate 16 Blood Pressure 167/82 H 133/72 136/87 Pulse Oximetry 97 Body Mass Index 42.1 Labs Results: 01/30/21 10:18 01/30/21 10:18 Labs: Laboratory Results - last 48 hr 02/01/21 12:43 COVID-19 ([facility]ZO) Negative COVID-19 Clin Com See Note Medications Medications Current Medications Generic Name Dose Route Start Last Admin Trade Name Freq PRN Reason Stop Dose Admin Acetaminophen 650 mg 01/30/21 22:08 02/02/21 06:49 Acetaminophen 325 Mg Tablet PO 650 mg Q6H PRN Administration Headache/Pain Mild Scale (1-3) Al Hydroxide/Mg Hydroxide 30 ml 01/30/21 22:08 Magnesium Hydrox/Alum Hydrox 30 Ml Oral.Susp PO Q6H PRN Heartburn/Nausea Benzocaine 1 lozenge 02/02/21 14:03 Throat Lozenge, Medicated Lozenge MUCOUS MEM Q2H PRN Sore Throat Guaifenesin 600 mg 01/31/21 20:06 02/02/21 00:30 Guaifenesin La 600 Mg Tab.Er.12h PO 600 mg BID PRN Administration Cough Haloperidol 5 mg 01/30/21 22:11 01/31/21 08:49 Haloperidol 5 Mg Tablet PO 5 mg Q4H PRN Administration psychosis Haloperidol 5 mg 02/01/21 21:00 02/01/21 21:25 Haloperidol 5 Mg Tablet PO 5 mg BEDTIME RENEE Administration Hydroxyzine HCl 25 mg 01/30/21 22:08 02/02/21 00:29 Hydroxyzine Hcl 25 Mg Tablet PO 25 mg BEDTIME PRN Administration Anxiety Loratadine 10 mg 01/31/21 17:35 02/02/21 08:19 Loratadine 10 Mg Tablet PO 10 mg DAILY RENEE Administration Lorazepam 1 mg 01/30/21 22:11 02/02/21 00:29 Lorazepam 1 Mg Tablet PO 1 mg Q4H PRN Administration agitation Magnesium Hydroxide 30 ml 01/30/21 22:08 Milk Of Magnesia 30 Ml Oral.Susp PO DAILY PRN Constipation Non-Formulary Medication 40 mg 01/30/21 18:45 02/01/21 14:09 Glatiramer [Copaxone] SUBCUT 40 mg MoWeFr RENEE Administration Olanzapine 2.5 mg 01/30/21 09:54 02/01/21 06:38 Olanzapine 2.5 Mg Tablet PO 2.5 mg BID PRN Administration anxiety/restlessness Olanzapine 7.5 mg 02/01/21 21:00 02/01/21 21:25 Olanzapine 2.5 Mg Tablet PO 7.5 mg BEDTIME RENEE Administration Oxcarbazepine 600 mg 02/01/21 21:00 02/02/21 08:19 Oxcarbazepine 300 Mg Tablet PO 600 mg BID RENEE Administration Trazodone HCl 100 mg 01/30/21 21:00 02/01/21 21:25 Trazodone Hcl 100 Mg Tablet PO 100 mg BEDTIME RENEE Administration Allergies Allergies Allergy/AdvReac Type Severity Reaction Status Date / Time latex [Latex] Allergy Mild ITCHY AND Verified 01/10/21 06:27 DRY HANDS Penicillins Allergy Mild HIVES Verified 01/10/21 06:27 cat dander [CATS] Allergy Unknown ITCHY, Verified 01/10/21 06:27 ASTHMA house dust Allergy Unknown itchy Verified 01/10/21 06:27 penicillin V Allergy Unknown hives Verified 01/10/21 06:27 Assessment & Plan Assessment & Plan (1) Severe manic bipolar 1 disorder with psychotic behavior: Status: Acute Code(s): F31.2 - Bipolar disorder, current episode manic severe with psychotic features (2) Chronic schizophrenia: Status: Acute Code(s): F20.9 - Schizophrenia, unspecified Greater than 50% of the session was spent on counseling and/or coordination of care Reason for contiued inpatient stay Substantial Risk for: harm to self, rapid decompensation and med/psych decompensation
[2021-02-02] MEDS: Throat Lozenge, Medicated LOZENGE 1 LOZENGE MUCOUS MEM (15:38)
[2021-02-02 18:00] VITALS: BP 145/84; PULSE 114; RESP 20; TEMP 36.9; O2SAT 99
[2021-02-02] MEDS: OLANZapine 2.5 MG TABLET 7.5 MG PO (22:52)
[2021-02-02] MEDS: traZODone HCL 100 MG TABLET PO (22:53)
[2021-02-02] MEDS: HaloperidoL 5 MG TABLET PO (22:53)
[2021-02-03 06:00] VITALS: BP 143/86; PULSE 115; RESP 18; TEMP 36.5; O2SAT 97
[2021-02-03] MEDS: OXcarbazepine 300 MG TABLET 600 MG PO ×2 (08:31→22:42)
[2021-02-03] MEDS: Loratadine 10 MG TABLET PO (08:31)
--- NOTE | 2021-02-03 08:31 | P.PNPSI_ITS ---
Subjective Subjective Date of Service: 02/03/21 Reason For Visit: Bipolar Disorder Interim History: Reports some relief from allergy sx/cough/congestion. Presents and reports lability at times with irritability and depression. Medication Compliance: Yes Side effects from medications: No Attending Groups: No Review of Systems Respiratory: Reports chest congestion and Reports cough Reports behavioral changes and Reports memory loss Psychiatric: Reports anxiety, Reports behavioral changes, Reports depression, Reports difficulty concentrating, Reports hopelessness, Reports irritability, Reports memory loss, Reports mood swings, Reports paranoia and Reports suicidal ideation (denies) Mental Status Exam Mental Status Exam Patient Appearance: Fatigued Patient Orientation: Person, Place, Time and Situation Level of Consciousness: Alert Patient Behavior: Talkative, Cooperative, Fatigued and Good Eye Contact Mood Description: Constricted Affect Description: Constricted Patient Cognition Impaired: No Ability to Follow Directions: Good Speech Pattern: Spontaneous Speech Memory Description: Episodic Impaired Hallucinations: None Delusions: Not Present Thought Process: Illogical (at times) and Distracted Thought Content: positive for Circumstantial, positive for Perseveration and positive for Suicidal Ideation (denies today) Depressive Symptoms: Increased Anxiety, Diff. Making Decisions and Increased Irr itability Judgement: Fair Diagnostics Vital Signs (24Hr): Vital Signs - 24 hr 02/02/21 10:11 02/02/21 18:00 02/03/21 06:00 Temperature 97.7 F 98.4 F 97.7 F Pulse Rate 99 114 H 115 H Respiratory Rate 16 20 18 Blood Pressure 136/87 145/84 H 143/86 H Pulse Oximetry 97 99 97 Body Mass Index 42.1 Labs Results: 01/30/21 10:18 01/30/21 10:18 Labs: Laboratory Results - last 48 hr 02/01/21 12:43 COVID-19 (RENZO) Negative COVID-19 Clin Com See Note Medications Medications Current Medications Generic Name Dose Route Start Last Admin Trade Name Freq PRN Reason Stop Dose Admin Acetaminophen 650 mg 01/30/21 22:08 02/02/21 23:52 Acetaminophen 325 Mg Tablet PO 650 mg Q6H PRN Administration Headache/Pain Mild Scale (1-3) Al Hydroxide/Mg Hydroxide 30 ml 01/30/21 22:08 Magnesium Hydrox/Alum Hydrox 30 Ml Oral.Susp PO Q6H PRN Heartburn/Nausea Benzocaine 1 lozenge 02/02/21 14:03 02/02/21 15:38 Throat Lozenge, Medicated Lozenge MUCOUS MEM 1 lozenge Q2H PRN Administration Sore Throat Guaifenesin 600 mg 01/31/21 20:06 02/02/21 21:06 Guaifenesin La 600 Mg Tab.Er.12h PO 600 mg BID PRN Administration Cough Haloperidol 5 mg 01/30/21 22:11 01/31/21 08:49 Haloperidol 5 Mg Tablet PO 5 mg Q4H PRN Administration psychosis Haloperidol 5 mg 02/01/21 21:00 02/02/21 22:53 Haloperidol 5 Mg Tablet PO 5 mg BEDTIME RENEE Administration Hydroxyzine HCl 25 mg 01/30/21 22:08 02/02/21 00:29 Hydroxyzine Hcl 25 Mg Tablet PO 25 mg BEDTIME PRN Administration Anxiety Loratadine 10 mg 01/31/21 17:35 02/02/21 08:19 Loratadine 10 Mg Tablet PO 10 mg DAILY RENEE Administration Lorazepam 1 mg 01/30/21 22:11 02/02/21 00:29 Lorazepam 1 Mg Tablet PO 1 mg Q4H PRN Administration agitation Magnesium Hydroxide 30 ml 01/30/21 22:08 Milk Of Magnesia 30 Ml Oral.Susp PO DAILY PRN Constipation Non-Formulary Medication 40 mg 01/30/21 18:45 02/01/21 14:09 Glatiramer [Copaxone] SUBCUT 40 mg MoWeFr RENEE Administration Olanzapine 2.5 mg 01/30/21 09:54 02/01/21 06:38 Olanzapine 2.5 Mg Tablet PO 2.5 mg BID PRN Administration anxiety/restlessness Olanzapine 7.5 mg 02/01/21 21:00 02/02/21 22:52 Olanzapine 2.5 Mg Tablet PO 7.5 mg BEDTIME RENEE Administration Oxcarbazepine 600 mg 02/01/21 21:00 02/02/21 22:54 Oxcarbazepine 300 Mg Tablet PO 600 mg BID RENEE Administration Trazodone HCl 100 mg 01/30/21 21:00 02/02/21 22:53 Trazodone Hcl 100 Mg Tablet PO 100 mg BEDTIME RENEE Administration Trolamine Salicylate/Aloe Vera 1 appl 02/02/21 22:18 02/02/21 22:53 Trolamine Salicylate 10%/Aloe Cream 35.4 Gm TOPICAL 1 appl TID PRN Administration Pain, Mild (Pain Scale 1-3) Allergies Allergies Allergy/AdvReac Type Severity Reaction Status Date / Time latex [Latex] Allergy Mild ITCHY AND Verified 01/10/21 06:27 DRY HANDS Penicillins Allergy Mild HIVES Verified 01/10/21 06:27 cat dander [CATS] Allergy Unknown ITCHY, Verified 01/10/21 06:27 ASTHMA house dust Allergy Unknown itchy Verified 01/10/21 06:27 penicillin V Allergy Unknown hives Verified 01/10/21 06:27 Assessment & Plan Assessment & Plan (1) Severe manic bipolar 1 disorder with psychotic behavior: Status: Acute Code(s): F31.2 - Bipolar disorder, current episode manic severe with psychotic features (2) Chronic schizophrenia: Status: Acute Code(s): F20.9 - Schizophrenia, unspecified (3) PTSD (post-traumatic stress disorder): Status: Acute Code(s): F43.10 - Post-traumatic stress disorder, unspecified Greater than 50% of the session was spent on counseling and/or coordination of care Reason for contiued inpatient stay Substantial Risk for: harm to self, harm to others, inability to function and rapid decompensation
[2021-02-03] MEDS: Throat Lozenge, Medicated LOZENGE 1 LOZENGE MUCOUS MEM (11:29)
[2021-02-03] MEDS: guaiFENesin LA 600 MG TAB.ER.12H PO ×2 (11:29→23:16)
[2021-02-03] MEDS: LORazepam 1 MG TABLET PO ×2 (16:50→21:54)
[2021-02-03] MEDS: diphenhydrAMINE HCL 25 MG TABLET PO (16:50)
[2021-02-03 18:00] VITALS: BP 157/77; PULSE 104; TEMP 36.7
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
--- NOTE | 2021-02-03 18:52 | PC.NURSE ---
patient called mother and reported to her that she is going to request a meeting with the manager social responsibility before she is discharged ''we need a professional to talk with us'' after phone call asked story writer ''that's a good idea, right?'' offered support and feedback about earlier interaction with her mother.
[2021-02-03] MEDS: OLANZapine 2.5 MG TABLET 7.5 MG PO (22:41)
[2021-02-03] MEDS: traZODone HCL 100 MG TABLET PO (22:42)
[2021-02-03] MEDS: HaloperidoL 5 MG TABLET PO (22:42)
[2021-02-04] MEDS: guaiFENesin LA 600 MG TAB.ER.12H PO ×2 (05:16→16:27)
[2021-02-04] MEDS: Throat Lozenge, Medicated LOZENGE 1 LOZENGE MUCOUS MEM ×3 (05:16→22:23)
[2021-02-04 05:40] VITALS: BP 122/67; PULSE 105; RESP 18; TEMP 36.8; O2SAT 95
[2021-02-04 06:00] VITALS: BP 122/67; PULSE 105; RESP 18; TEMP 36.8; O2SAT 95
[2021-02-04] MEDS: OXcarbazepine 300 MG TABLET 600 MG PO ×2 (09:17→22:25)
[2021-02-04] MEDS: Loratadine 10 MG TABLET PO (09:17)
[2021-02-04] MEDS: LORazepam 1 MG TABLET PO ×2 (12:07→15:50)
[2021-02-04] MEDS: Acetaminophen 325 MG TABLET 650 MG PO ×2 (12:07→22:24)
--- NOTE | 2021-02-04 14:26 | P.PNPSI_ITS ---
Subjective Subjective Date of Service: 02/04/21 Reason For Visit: Bipolar Disorder Interim History: The patient reported resolution of psychotic symptoms, her mood is stable and she was seen going to groups, much better than before. During the interview, she reported that she had been smoking a lot of weed , that her BF also smokes MJ and probably she went a little too far with the weed . Medication Compliance: Yes Side effects from medications: No Attending Groups: Intermittent Review of Systems Review of Systems Yes all other systems are reviewed and are negative Mental Status Exam Mental Status Exam Patient Appearance: Disheveled (on hospital gowns) and Appropriate Patient Orientation: Person, Place, Time and Situation Level of Consciousness: Awake Patient Behavior: Appropriate Mood Description: Calm Affect Description: Calm Patient Cognition Impaired: No Ability to Follow Directions: Good Speech Pattern: Clear Memory Description: Intact Hallucinations: None Delusions: Not Present Thought Process: Intact Thought Content: positive for Intact Judgement: Fair Judgement and Insight: Insight improved Diagnostics Vital Signs (24Hr): Vital Signs - 24 hr 02/03/21 18:00 02/04/21 05:40 02/04/21 06:00 Temperature 98.1 F 98.3 F 98.3 F Pulse Rate 104 H 105 H 105 H Respiratory Rate 18 18 Blood Pressure 157/77 H 122/67 122/67 Pulse Oximetry 95 95 Body Mass Index 42.1 Labs Results: 01/30/21 10:18 01/30/21 10:18 Medications Medications Current Medications Generic Name Dose Route Start Last Admin Trade Name Freq PRN Reason Stop Dose Admin Acetaminophen 650 mg 01/30/21 22:08 02/04/21 12:07 Acetaminophen 325 Mg Tablet PO 650 mg Q6H PRN Administration Headache/Pain Mild Scale (1-3) Al Hydroxide/Mg Hydroxide 30 ml 01/30/21 22:08 Magnesium Hydrox/Alum Hydrox 30 Ml Oral.Susp PO Q6H PRN Heartburn/Nausea Benzocaine 1 lozenge 02/02/21 14:03 02/04/21 10:28 Throat Lozenge, Medicated Lozenge MUCOUS MEM 1 lozenge Q2H PRN Administration Sore Throat Diphenhydramine HCl 25 mg 02/03/21 12:18 02/03/21 16:50 Diphenhydramine Hcl 25 Mg Tablet PO 25 mg Q6H PRN Administration allergy Fluticasone Propionate 2 puff 02/04/21 20:00 Fluticasone Propionate 100 Mcg Blst.W.Dev INHALE RBID RENEE Guaifenesin 600 mg 01/31/21 20:06 02/04/21 05:16 Guaifenesin La 600 Mg Tab.Er.12h PO 600 mg BID PRN Administration Cough Haloperidol 5 mg 01/30/21 22:11 01/31/21 08:49 Haloperidol 5 Mg Tablet PO 5 mg Q4H PRN Administration psychosis Haloperidol 5 mg 02/01/21 21:00 02/03/21 22:42 Haloperidol 5 Mg Tablet PO 5 mg BEDTIME RENEE Administration Hydroxyzine HCl 25 mg 01/30/21 22:08 02/02/21 00:29 Hydroxyzine Hcl 25 Mg Tablet PO 25 mg BEDTIME PRN Administration Anxiety Lidocaine 1 patch 02/04/21 12:45 Lidocaine 4 % Patch Adh..Patch TRANSDERMA DAILY [facility] Protocol Loratadine 10 mg 01/31/21 17:35 02/04/21 09:17 Loratadine 10 Mg Tablet PO 10 mg DAILY RENEE Administration Lorazepam 1 mg 01/30/21 22:11 02/04/21 12:07 Lorazepam 1 Mg Tablet PO 1 mg Q4H PRN Administration agitation Magnesium Hydroxide 30 ml 01/30/21 22:08 Milk Of Magnesia 30 Ml Oral.Susp PO DAILY PRN Constipation Non-Formulary Medication 40 mg 01/30/21 18:45 02/01/21 14:09 Glatiramer [Copaxone] SUBCUT 40 mg MoWeFr RENEE Administration Olanzapine 2.5 mg 01/30/21 09:54 02/01/21 06:38 Olanzapine 2.5 Mg Tablet PO 2.5 mg BID PRN Administration anxiety/restlessness Olanzapine 7.5 mg 02/01/21 21:00 02/03/21 22:41 Olanzapine 2.5 Mg Tablet PO 7.5 mg BEDTIME RENEE Administration Oxcarbazepine 600 mg 02/01/21 21:00 02/04/21 09:17 Oxcarbazepine 300 Mg Tablet PO 600 mg BID RENEE Administration Trazodone HCl 100 mg 01/30/21 21:00 02/03/21 22:42 Trazodone Hcl 100 Mg Tablet PO 100 mg BEDTIME RENEE Administration Trolamine Salicylate/Aloe Vera 1 appl 02/02/21 22:18 02/04/21 09:23 Trolamine Salicylate 10%/Aloe Cream 35.4 Gm TOPICAL 1 appl TID PRN Administration Pain, Mild (Pain Scale 1-3) Allergies Allergies Allergy/AdvReac Type Severity Reaction Status Date / Time latex [Latex] Allergy Mild ITCHY AND Verified 01/10/21 06:27 DRY HANDS Penicillins Allergy Mild HIVES Verified 01/10/21 06:27 cat dander [CATS] Allergy Unknown ITCHY, Verified 01/10/21 06:27 ASTHMA house dust Allergy Unknown itchy Verified 01/10/21 06:27 penicillin V Allergy Unknown hives Verified 01/10/21 06:27 Assessment & Plan Assessment & Plan (1) Severe manic bipolar 1 disorder with psychotic behavior: Status: Acute Code(s): F31.2 - Bipolar disorder, current episode manic severe with psychotic features Assessment and Plan: Continue mood stabilizers D/C tomorrow as per 3 day notice letter Greater than 50% of the session was spent on counseling and/or coordination of care Reason for contiued inpatient stay Substantial Risk for: inability to function
[2021-02-04] MEDS: Lidocaine 4 % Patch ADH..PATCH 1 PATCH TRANSDERMA (14:45)
[2021-02-04] MEDS: diphenhydrAMINE HCL 25 MG TABLET PO (15:50)
[2021-02-04] MEDS: Fluticasone Propionate 100 MCG BLST.W.DEV 2 PUFF INHALE (17:33)
[2021-02-04 18:00] VITALS: BP 141/86; PULSE 117; TEMP 36.9
[2021-02-04] MEDS: Ibuprofen 600 MG TABLET PO (20:28)
[2021-02-04] MEDS: OLANZapine 2.5 MG TABLET 7.5 MG PO (22:23)
[2021-02-04] MEDS: traZODone HCL 100 MG TABLET PO (22:24)
[2021-02-04] MEDS: HaloperidoL 5 MG TABLET PO (22:24)
[2021-02-05] MEDS: Throat Lozenge, Medicated LOZENGE 1 LOZENGE MUCOUS MEM (06:06)
[2021-02-05] MEDS: guaiFENesin LA 600 MG TAB.ER.12H PO (06:06)
--- NOTE | 2021-02-05 08:31 | P.DS_ITS ---
DS: Providers Provider Date of Service: 02/05/21 Date of admission: 01/30/21 22:08 Date of discharge: 02/05/21 Primary care physician: Jered Physician Attending physician on admission: Jim Thompson Attending physician on discharge: Jim Thompson DS: Diagnosis Discharge Diagnosis (1) Severe manic bipolar 1 disorder with psychotic behavior: Status: Acute Problem details: The patient resolved her mood lability after restarting mood stabilizers and atypicals. (2) Cannabis abuse with intoxication, perceptual disturbance, and complication: Status: Acute Problem details: The patient admitted that she had abused heavily cannabis that lead her to be paranoid and disorganized on admission. Currently, the psychotic symptoms are resolved. DS: Medications Discharge Medications Home Medications: Home Medications Medication Instructions Recorded Confirmed biotin 5 mg capsule 2.5 mg PO DAILY 08/31/20 01/14/21 glatiramer 40 mg/mL subcutaneous 40 mg SUBCUT 3XW 08/31/20 01/30/21 syringe lorazepam 0.5 mg tablet 0.5 mg PO DAILY PRN 08/31/20 01/14/21 oxcarbazepine 1 tab PO BEDTIME 12/21/20 01/14/21 trazodone 1 tab PO BEDTIME PRN 12/21/20 01/14/21 Flovent 2 puff INHALATION BID 12/23/20 01/14/21 Myrbetriq 50 mg PO DAILY 12/23/20 01/14/21 Vitamin D3 2,000 units PO DAILY 12/23/20 01/14/21 Previous Rx's Medication Instructions Recorded gabapentin 300 mg capsule 300 mg PO BEDTIME #30 cap 01/23/21 propranolol 10 mg tablet 10 mg PO BID #60 cap 01/30/21 Discharge Plan Discharge Anticipated Discharge Date/Time: 02/05/21 11:58 Patient Disposition: Home, Self-Care Referrals: [facility] [Other] MS Support/Resources [Other] Po,Rolf Walton MD [Physician] - 03/01/21 9:00 am (IN HOUSE) Discharge Medications: New loratadine 10 mg Tablet 10 mg PO DAILY Qty: 14 RF: 0 haloperidol 5 mg Tablet 5 mg PO BEDTIME Qty: 14 RF: 0 olanzapine 2.5 mg Tablet 7.5 mg PO BEDTIME Qty: 14 RF: 0 oxcarbazepine 300 mg Tablet 600 mg PO BID Qty: 28 RF: 0 Continued gabapentin 300 mg capsule 300 mg PO BEDTIME Qty: 30 RF: 0 propranolol 10 mg tablet 10 mg PO BID Qty: 60 RF: 5 trazodone 150 mg tablet 1 tab PO BEDTIME PRN (Reason: insomnia) RF: 0 Flovent 110 mcg inhaler 2 puff inhalation BID RF: 0 Myrbetriq 50 mg PO DAILY RF: 0 Vitamin D3 2,000 Units capsule 2,000 units PO DAILY RF: 0 biotin 5 mg capsule 2.5 mg PO DAILY RF: 0 glatiramer [Copaxone] 40 mg/mL syringe 40 mg subcut 3XW RF: 0 lorazepam 0.5 mg tablet 0.5 mg PO DAILY PRN (Reason: Anxiety) RF: 0 Discontinued oxcarbazepine 300 mg tablet 1 tab PO BEDTIME RF: 0 Diet: advance to usual diet Activity on Discharge: As tolerated Stand Alone Forms: Patient Portal Discharge page, Community Support Care Plan Goals: As per referral to [facility] Concerns: None, she was advised of avoiding cannabis Plan of Treatment: 1. Continue medications as prescribed: Trileptal 600 mg po bid, Olanzapine 7.5 mg po qhs, Haldol 5 mg po qhs. 2. Follow up [facility] outpatient providers. Mental Status Exam Mental Status Exam Patient Appearance: Well Grooomed Patient Orientation: Person, Place, Time and Situation Level of Consciousness: Awake Patient Behavior: Appropriate and Cooperative Mood Description: Calm Affect Description: Appropriate Patient Cognition Impaired: No Ability to Follow Directions: Good Speech Pattern: Clear Memory Description: Intact Hallucinations: None Delusions: Not Present Thought Process: Goal Oriented Thought Content: positive for Intact Judgement: Fair Judgement and Insight: Insight improved Data Data Completed and Pending Completed studies during hospitalization [Text1]: 01/29/21 01/29/21 01/29/21 18:07 18:07 18:12 WBC RBC Hgb Hct MCV MCH MCHC RDW Plt Count MPV Immature Gran % (Auto) Neut % (Auto) Lymph % (Auto) [place] % (Auto) Eos % (Auto) Baso % (Auto) Lymph # (Auto) [place] # (Auto) Eos # (Auto) Baso # (Auto) Abs Immat Gran (auto) Absolute Neuts (auto) Absolute Nucleated RBC Nucleated RBC % (auto) Sodium Potassium Chloride Carbon Dioxide Anion Gap BUN Creatinine Estim Creat Clear Calc Estimated GFR Random Glucose Estimat Average Glucose Hemoglobin A1c % Calcium Total Bilirubin AST ALT Alkaline Phosphatase Total Protein Albumin Triglycerides Cholesterol LDL Cholesterol, Calc HDL Cholesterol Urine Color YELLOW Urine Appearance CLOUDY Urine pH 5.5 Ur Specific [place] >= 1.030 H Urine Protein 1+ H Urine Glucose (UA) NEG Urine Ketones NEG Urine Blood NEG Urine Nitrite NEG Ur Leukocyte Esterase NEG Urine RBC 0 Urine WBC 0 Ur Squamous Epith Cells 3+ Amorphous Sediment 3+ Urine Bacteria 3+ Urine Test NEGATIVE Salicylates Urine Opiates Screen Not Detected Acetaminophen Ur Barbiturates Screen Not Detected Ur Phencyclidine Scrn Not Detected Ur Amphetamines Screen Not Detected U Benzodiazepines Scrn Not Detected Urine Cocaine Screen Not Detected U Marijuana (THC) Screen POSITIVE H Ethyl Alcohol COVID-19 ([facility]) COVID-19 Clin Com 01/29/21 01/30/21 01/30/21 21:39 10:18 10:18 WBC 11.7 H RBC 4.32 Hgb 12.9 Hct 38.2 MCV 88.4 MCH 29.9 MCHC 33.8 RDW 13.9 Plt Count 294 MPV 8.8 L Immature Gran % (Auto) 0.3 Neut % (Auto) 62.3 Lymph % (Auto) 29.1 [place] % (Auto) 6.9 Eos % (Auto) 1.2 Baso % (Auto) 0.2 Lymph # (Auto) 3.4 [place] # (Auto) 0.8 Eos # (Auto) 0.1 Baso # (Auto) 0.0 Abs Immat Gran (auto) 0.03 Absolute Neuts (auto) 7.3 Absolute Nucleated RBC 0.000 Nucleated RBC % (auto) 0.0 Sodium 136 Potassium 4.4 Chloride 106 Carbon Dioxide 21 L Anion Gap 13 BUN 11 Creatinine 0.80 Estim Creat Clear Calc 136.1 Estimated GFR > 60 Random Glucose 117 H Estimat Average Glucose Hemoglobin A1c % Calcium 8.7 Total Bilirubin 0.6 AST 42 H D ALT 29 Alkaline Phosphatase 115 Total Protein 7.0 Albumin 3.9 Triglycerides Cholesterol LDL Cholesterol, Calc HDL Cholesterol Urine Color Urine Appearance Urine pH Ur Specific [place] Urine Protein Urine Glucose (UA) Urine Ketones Urine Blood Urine Nitrite Ur Leukocyte Esterase Urine RBC Urine WBC Ur Squamous Epith Cells Amorphous Sediment Urine Bacteria Urine Test Salicylates < 5.0 L Urine Opiates Screen Acetaminophen < 1 Ur Barbiturates Screen Ur Phencyclidine Scrn Ur Amphetamines Screen U Benzodiazepines Scrn Urine Cocaine Screen U Marijuana (THC) Screen Ethyl Alcohol COVID-19 ([facility]ZO) Negative COVID-19 Clin Com See Note 01/30/21 01/31/21 01/31/21 10:18 09:10 09:10 WBC RBC Hgb Hct MCV MCH MCHC RDW Plt Count MPV Immature Gran % (Auto) Neut % (Auto) Lymph % (Auto) [place] % (Auto) Eos % (Auto) Baso % (Auto) Lymph # (Auto) [place] # (Auto) Eos # (Auto) Baso # (Auto) Abs Immat Gran (auto) Absolute Neuts (auto) Absolute Nucleated RBC Nucleated RBC % (auto) Sodium Potassium Chloride Carbon Dioxide Anion Gap BUN Creatinine Estim Creat Clear Calc Estimated GFR Random Glucose Estimat Average Glucose 123 Hemoglobin A1c % 5.9 Calcium Total Bilirubin AST ALT Alkaline Phosphatase Total Protein Albumin Triglycerides 130 Cholesterol 179 LDL Cholesterol, Calc 110 HDL Cholesterol 43 Urine Color Urine Appearance Urine pH Ur Specific [place] Urine Protein Urine Glucose (UA) Urine Ketones Urine Blood Urine Nitrite Ur Leukocyte Esterase Urine RBC Urine WBC Ur Squamous Epith Cells Amorphous Sediment Urine Bacteria Urine Test Salicylates Urine Opiates Screen Acetaminophen Ur Barbiturates Screen Ur Phencyclidine Scrn Ur Amphetamines Screen U Benzodiazepines Scrn Urine Cocaine Screen U Marijuana (THC) Screen Ethyl Alcohol < 10 COVID-19 ([facility]ZO) COVID-19 Clin Com 02/01/21 12:43 WBC RBC Hgb Hct MCV MCH MCHC RDW Plt Count MPV Immature Gran % (Auto) Neut % (Auto) Lymph % (Auto) [place] % (Auto) Eos % (Auto) Baso % (Auto) Lymph # (Auto) [place] # (Auto) Eos # (Auto) Baso # (Auto) Abs Immat Gran (auto) Absolute Neuts (auto) Absolute Nucleated RBC Nucleated RBC % (auto) Sodium Potassium Chloride Carbon Dioxide Anion Gap BUN Creatinine Estim Creat Clear Calc Estimated GFR Random Glucose Estimat Average Glucose Hemoglobin A1c % Calcium Total Bilirubin AST ALT Alkaline Phosphatase Total Protein Albumin Triglycerides Cholesterol LDL Cholesterol, Calc HDL Cholesterol Urine Color Urine Appearance Urine pH Ur Specific [place] Urine Protein Urine Glucose (UA) Urine Ketones Urine Blood Urine Nitrite Ur Leukocyte Esterase Urine RBC Urine WBC Ur Squamous Epith Cells Amorphous Sediment Urine Bacteria Urine Test Salicylates Urine Opiates Screen Acetaminophen Ur Barbiturates Screen Ur Phencyclidine Scrn Ur Amphetamines Screen U Benzodiazepines Scrn Urine Cocaine Screen U Marijuana (THC) Screen Ethyl Alcohol COVID-19 ([facility]) Negative COVID-19 Clin Com See Note DS: Summary Time Spent with Patient Time attestation: Total time spent providing and/or coordinating discharge services: Time spent: Less than 30 minutes Specific discharge activities: Psychoeducation into her condition and medications was provided.
[2021-02-05] MEDS: OXcarbazepine 300 MG TABLET 600 MG PO (09:00)
[2021-02-05] MEDS: Lidocaine 4 % Patch ADH..PATCH 1 PATCH TRANSDERMA (09:00)
[2021-02-05] MEDS: Fluticasone Propionate 100 MCG BLST.W.DEV 2 PUFF INHALE (09:00)
[2021-02-05] MEDS: Loratadine 10 MG TABLET PO (09:00)
--- NOTE | 2021-02-05 11:06 | PC.NURSE ---
PT IS LYLES AND READY FOR DISCHARGE. PT DENIES ANY DEPRESSION OR ANXIETY AT THIS TIME. PT HAS BEEN IN BEHAVIORAL CONTROL ON THE UNIT. PT HAS BEEN SET UP WITH APPOINTMENTS. PT IS COMPLAINGING OF CHRONIC PAIN WHICH IS BEING TREATED. PT DENIES ANY AUDITORY OR VISUAL HALLUCINATIONS. PT DECLINES ANY SI/HI. PTS PAPERWORK WILL BE FXED TO PCP PER PROTOCOL.
[2021-02-05] MEDS: LORazepam 1 MG TABLET PO (11:15)
== END 2021-02-05 13:10 | disposition home or self-care (01) | DRG 885 ==
LOC: HO.ED 01-30 22:14 → HO.PM5 01-30 22:17
PROVIDERS: Clinical Nurse Specialist Psychiatric/Mental Health, Adult; Physician Assistant; Psychiatry & Neurology Psychiatry; Admitting Provider Psychiatry & Neurology Psychiatry; Emergency Provider Emergency Medicine; Visit Provider Psychiatry & Neurology Psychiatry
DX: F31.2 Bipolar disorder, current episode manic severe with psychotic features (principal); F43.10 Post-traumatic stress disorder, unspecified; G35 Multiple sclerosis; I10 Essential (primary) hypertension; E78.00 Pure hypercholesterolemia, unspecified; Z88.0 Allergy status to penicillin; Z79.899 Other long term (current) drug therapy
CPT/HCPCS: 36415; 80053; 80061; 80143; 80179; 80307; 80320; 81001; 81025; 83036; 85025; 87635; 93005; 96372; 99223; 99232; 99233; 99238; 99283; 99285; J1200; J2060; Q0163

== ENCOUNTER 2021-02-09 22:44 | Emergency (ER) | payer OTHER, SELFPAY ==
--- NOTE | 2021-02-10 02:21 | PC.NURSE ---
PT'S NAME CALLED, NO LONGER IN WR.
== END 2021-02-10 01:38 | disposition left against medical advice (07) ==
PROVIDERS: Emergency Provider Emergency Medicine
DX: R07.9 Chest pain, unspecified (principal)

== ENCOUNTER 2021-02-15 11:34 | Inpatient (IN) | payer OTHER, SELFPAY ==
--- NOTE | 2021-02-15 11:50 | ED.PSYCH ---
HPI - Psych General Chief Complaint: Psychiatric Symptoms Stated Complaint: CRISIS Time Seen by Provider: 02/15/21 11:48 Source: patient Mode of arrival: ambulatory Limitations: no limitations History of Present Illness HPI Narrative: brought in for concerns over being manic, the patient tells me she's fine she just needs percocet to treat her MS MD complaint: anxiety Onset (ago): day(s) (2) Duration: constant History of same: Yes Relieving factors: none Exacerbating factors: none Context: significant life stressor (?breakup with boyfriend) Associated symptoms: other (chronic pain from her MS) Treatments prior to arrival: none Related Data Home Medications Medication Instructions Recorded Confirmed biotin 5 mg capsule 2.5 mg PO DAILY 08/31/20 02/15/21 glatiramer 40 mg/mL subcutaneous 40 mg SUBCUT 3XW 08/31/20 02/15/21 syringe lorazepam 0.5 mg tablet 0.5 mg PO DAILY PRN 08/31/20 02/15/21 trazodone 1 tab PO BEDTIME PRN 12/21/20 02/15/21 Flovent 2 puff INHALATION BID 12/23/20 02/15/21 Myrbetriq 50 mg PO DAILY 12/23/20 02/15/21 Vitamin D3 2,000 units PO DAILY 12/23/20 02/15/21 Previous Rx's Medication Instructions Recorded gabapentin 300 mg capsule 300 mg PO BEDTIME #30 cap 01/23/21 propranolol 10 mg tablet 10 mg PO BID #60 cap 01/30/21 loratadine 10 mg PO DAILY #14 tab 02/05/21 olanzapine 7.5 mg PO BEDTIME #14 tab 02/05/21 oxcarbazepine 600 mg PO BID #28 tab 02/05/21 haloperidol 5 mg PO BEDTIME #30 tab 02/06/21 Allergies Allergy/AdvReac Type Severity Reaction Status Date / Time latex [Latex] Allergy Mild ITCHY AND Verified 01/10/21 06:27 DRY HANDS Penicillins Allergy Mild HIVES Verified 01/10/21 06:27 cat dander [CATS] Allergy Unknown ITCHY, Verified 01/10/21 06:27 ASTHMA house dust Allergy Unknown itchy Verified 01/10/21 06:27 penicillin V Allergy Unknown hives Verified 01/10/21 06:27 Review of Systems Review of Systems: Constitutional : No Fever, No Chills ENT/Mouth : No Ear Pain, No Nasal Congestion, No sore throat Eyes: No Eye Pain, No Swelling, No Redness Cardiovascular : No Chest Pain, No SOB Respiratory : No Cough, No Sputum, No Dyspnea Gastrointestinal : No Nausea, No Vomiting, No Diarrhea, No Hematochezia, No Melena Genitourinary : No Dysuria, No Urinary Frequency, No Hematuria Musculoskeletal : pos Myalgias Skin : No Skin Lesions, No rash Neuro : No Weakness, No Numbness, No Paresthesias, No Dizziness, No Headache Psych : positive Anxiety, positive Depression, no SI/HI Heme/Lymph: No Lymphadenopathy Endocrine : No Polyuria, No Polydipsia All other systems reviewed and are negative [facility] Past Medical History Attestation statement: The following information was validated with the patient. Medical History Asthma Bipolar disorder Carpal tunnel syndrome of right wrist OLIVIER I (cervical intraepithelial neoplasia I) GERD (gastroesophageal reflux disease) Hypercholesterolemia Hypertension Multiple sclerosis, relapsing-remitting Obesity (BMI 30-39.9) PTSD (post-traumatic stress disorder) Severe manic bipolar 1 disorder with psychotic behavior Surgical History Hx of breast reduction, elective Family History Family History (Updated 08/31/20 @ 06:47 by Nicole Mcmanus Fozia) Father Hypertension CVD (cardiovascular disease) High cholesterol Mother Depression Multiple sclerosis Maternal Grandmother Alzheimers disease Maternal Grandfather Heart disease Paternal Grandmother Stroke Hypertension Paternal Grandfather Diabetes Brother Diabetes Family/Other FH: mental illness Social History Social History Household Members: Significant Other Housing: Apartment Alcohol intake: unknown Smoking Status: Smoker, status unknown Tobacco Type: Cigarette Second Hand Smoke Exposure: No Use of substances other than those prescribed or required for medical reasons: Unknown Substance Use Type: Marijuana Advance Directives: Yes Advance Directives Information Provided: No Advance Directives on File: No service: No Sexual orientation: Straight/Heterosexual Physical Exam Vital Signs: Vital Signs: Last Vital Signs Temp 98.1 F 02/15/21 12:04 Pulse 92 02/15/21 12:04 Resp 20 02/15/21 12:04 BP 142/87 H 02/15/21 12:04 Pulse Ox 98 02/15/21 12:04 Body Mass Index 36.9 Appearance: Alert. Oriented X3. No acute distress. I need some percocet for my MS. Eyes: Pupils equal, round and reactive to light. ENT: Pharynx normal. Neck: Normal inspection. Neck supple. CVS: Normal heart rate and rhythm. Pulses normal. Respiratory: No respiratory distress. Breath sounds normal. Abdomen: Soft and non-tender. Skin: Skin warm and dry. Normal skin color. Normal skin turgor. Extremities: No lower extremity edema. No calf ttp Neuro: Oriented X 3. No motor deficit. No sensory deficit. Psych: rapid speech, expansive, labile at times, no SI Course Course Course Narrative: signed out to oncoming provider pending N Physician observation started at 330pm Patient placed in physician observation because the patient needed more time N evaluation for the possible need for psych admission. At the time observation was started the patient's vitals were stable, patient is alert and oriented but intermittently anxious/agitated, Neuro: nonfocal, CV RRR, Lungs clear MDM - Psych MDM Narrative Medical decision making narrative: 35 yo female with bipolar, MS who comes in appearing manic asking for percocet for her MS - at this time will need labs, N consult dispo per results and findings and BHN determination Lab Data Result diagrams: 02/15/21 15:17 02/15/21 15:17 Labs: Lab Results 02/15/21 Range/Units 12:26 COVID-19 ([facility]) Negative (Negative) COVID-19 Clin Com See Note Discharge Plan Discharge Clinical Impression: Acute anxiety Prescriptions: No Action gabapentin 300 mg capsule 300 mg PO BEDTIME Qty: 30 RF: 0 propranolol 10 mg tablet 10 mg PO BID Qty: 60 RF: 5 trazodone 150 mg tablet 1 tab PO BEDTIME PRN (Reason: insomnia) RF: 0 Flovent 110 mcg inhaler 2 puff inhalation BID RF: 0 Myrbetriq 50 mg PO DAILY RF: 0 Vitamin D3 2,000 Units capsule 2,000 units PO DAILY RF: 0 loratadine 10 mg Tablet 10 mg PO DAILY Qty: 14 RF: 0 olanzapine 2.5 mg Tablet 7.5 mg PO BEDTIME Qty: 14 RF: 0 oxcarbazepine 300 mg Tablet 600 mg PO BID Qty: 28 RF: 0 haloperidol 5 mg tablet 5 mg PO BEDTIME Qty: 30 RF: 0 biotin 5 mg capsule 2.5 mg PO DAILY RF: 0 glatiramer [Copaxone] 40 mg/mL syringe 40 mg subcut 3XW RF: 0 lorazepam 0.5 mg tablet 0.5 mg PO DAILY PRN (Reason: Anxiety) RF: 0
[2021-02-15 11:56] VITALS: BP 124/87; PULSE 92; RESP 20; TEMP 36.7; O2SAT 98; BMI 36.9
[2021-02-15 12:04] VITALS: BP 142/87; PULSE 92; RESP 20; TEMP 36.7; O2SAT 98
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
[2021-02-15 13:34] LABS: COVID-19 Test Negative (Negative)
--- NOTE | 2021-02-15 13:55 | PC.NURSE ---
LYNSEY faxed and called, information given to Michelle at [facility]
[2021-02-15 15:23] LABS: MANUAL DIFF FLAG NO
[2021-02-15 15:24] LABS: Basophils Percent Auto 0.2 % (0-2); Eosinophils Absolute Auto 0.3 X10*3/uL (0.0-0.4); Eosinophils Percent Auto 2.6 % (0-4); Hematocrit 35.8 % (37-47); Hemoglobin 11.8 g/dl (12.0-16.0); Imm Gran Abs Auto 0.04 X10*3/uL (0.00-0.03); Imm Gran Pct Auto 0.3 % (0.0-0.4); Lymphocytes Absolute Auto 4.2 X10*3/uL (1.2-4.9); Lymphocytes Percent Auto 31.8 % (20-40); Mean Platelet Volume 8.9 fL (9.4-12.3); Monocytes Absolute Auto 0.8 X10*3/uL (0.1-1.2); Monocytes Percent Auto 6.3 % (2-11); Neutrophils Absolute Auto 7.8 X10*3/uL (2.0-8.3); Neutrophils Percent Auto 58.8 % (45-73); Platelet Count 335 X10*3/uL (160-400); Red Blood Count 4.07 X10*6/uL (4.20-5.50); Red Cell Distribution Width 13.5 % (11.0-16.0); White Blood Count 13.3 X10*3/uL (4.8-10.8)
[2021-02-15 15:56] LABS: Alanine Aminotransferase 27 U/L (0-31); Albumin Level 3.7 g/dL (3.5-5.0); Alkaline Phosphatase 123 U/L (39-117); Anion Gap 11 (12-20); Aspartate Amino Transferase 19 U/L (5-31); Blood Urea Nitrogen 10 mg/dL (9-16); Calcium 8.7 mg/dL (8.4-10.2); Carbon Dioxide 28 mmol/L (22-29); Chloride 103 mmol/L (96-108); Creatinine Clr Calc Pharmacy 122.8; Estimated Glomerular Filt Rate > 60; Glucose Random 108 mg/dL (60-115); Potassium 4.4 mmol/L (3.3-5.1); Sodium 138 mmol/L (135-145); Total Protein 6.8 g/dL (6.5-8.0)
[2021-02-15 16:09] LABS: Bilirubin Direct < 0.2 mg/dL (0.0-0.5); Bilirubin Total < 0.2 mg/dL (0.0-1.0)
[2021-02-15 16:45] VITALS: BP 113/55; PULSE 84; RESP 16; TEMP 36.8; O2SAT 97
--- NOTE | 2021-02-15 16:45 | PC.NURSE ---
care team at bedside for eval
--- NOTE | 2021-02-15 17:17 | PC.NURSE ---
Discharge placed on hold due to new information. PT aware.
[2021-02-15] MEDS: LORazepam 1 MG TABLET 2 MG PO (17:39)
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
--- NOTE | 2021-02-15 19:03 | MHC.CARE ---
Upon initial CARE Team crisis screen, pt denies SI/HI and does not appear to be at high risk. Initial plan was for d/c to community and follow up with PHP, however, as more information came in from collateral contacts, recommendation has changed. Per family, pt has been crushing up her medications and attempting to sneak them into parent's coffee. Given level of risk of harm to others, pt will be held on a section 12 for inpt bedsearch.
[2021-02-15 20:00] VITALS: BP 142/92; PULSE 103; RESP 18; TEMP 35.9; O2SAT 99
[2021-02-15] MEDS: traZODone HCL 50 MG TABLET 150 MG PO (20:11)
[2021-02-15] MEDS: OXcarbazepine 300 MG TABLET 600 MG PO (20:11)
[2021-02-15] MEDS: OLANZapine 2.5 MG TABLET 7.5 MG PO (20:11)
[2021-02-15] MEDS: Gabapentin 300 MG CAPSULE PO (20:11)
[2021-02-15 20:12] VITALS: BP 142/92; PULSE 103
[2021-02-15] MEDS: HaloperidoL 5 MG TABLET PO (20:12)
[2021-02-15] MEDS: LORazepam 0.5 MG TABLET PO (20:12)
[2021-02-15] MEDS: Propranolol HCL 10 MG TABLET PO (20:12)
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
--- NOTE | 2021-02-15 22:26 | MHC.CARE ---
CARE Team speaks with Renate from [facility], who provides pre-certification for IPLOC. CARE Team will call back w/ bed for full auth and will present clinical every 24hrs.
[2021-02-16 06:54] VITALS: BP 116/78; PULSE 98; RESP 18; TEMP 36.4; O2SAT 96
[2021-02-16 07:01] LABS: Glucose Urine UA NEG (NEG); Leukocyte Esterase Urine NEG (NEG); Nitrite Urine NEG (NEG); PH 6.5 (5.0-8.0); Specific Gravity - Urine 1.025 (1.005-1.025); Urine Blood NEG (NEG); Urine Ketones NEG (NEG); Urine Protein NEG (NEG-TRACE)
[2021-02-16 07:08] LABS: Appearance Urine CLEAR; Color Urine YELLOW; UPreg QC Valid YES; Urine Pregnancy NEGATIVE (NEGATIVE)
[2021-02-16 07:23] LABS: Amphetamine Screen Urine Not Detected (Not Detect); Barbiturates, Urine Not Detected (Not Detect); Benzodiazepines Screen Urine Not Detected (Not Detect); Cannabinoid Screen Urine POSITIVE (Not Detect); Cocaine Screen Urine Not Detected (Not Detect); Opiate Screen Urine Not Detected (Not Detect); Phencyclidine Screen Urine Not Detected (Not Detect)
--- NOTE | 2021-02-16 07:26 | PC.NURSE ---
Report received. Pt asleep at current. No signs of distress. RR even and unlabored. Continues to be a section 12 bed search
[2021-02-16 09:39] VITALS: BP 116/78; PULSE 98
[2021-02-16] MEDS: Cholecalciferol (Vitamin D3) 25 MCG TABLET 50 MCG PO (09:39)
[2021-02-16] MEDS: OXcarbazepine 300 MG TABLET 600 MG PO ×2 (09:39→20:08)
[2021-02-16] MEDS: Propranolol HCL 10 MG TABLET PO ×2 (09:39→19:26)
[2021-02-16] MEDS: Loratadine 10 MG TABLET PO (09:39)
--- NOTE | 2021-02-16 10:03 | PC.NURSE ---
Pt currently resting in room. No complaints at this time. Calm and cooperative.
--- NOTE | 2021-02-16 12:08 | PC.NURSE ---
Patient currently watching tv in community area. Frequently questions when CARE team will see her. Reassurance provided CARE team will see her. Patient cooperative at this time.
[2021-02-16] MEDS: Acetaminophen 325 MG TABLET 975 MG PO (13:22)
--- NOTE | 2021-02-16 13:24 | PC.NURSE ---
Labile, crying, wants to go home. Medicated with tylenol (see emar) for #9/10 back pain. Currently sitting in room, eating lunch.
--- NOTE | 2021-02-16 14:16 | PC.NURSE ---
Patient showered. Reports pain continues #8 at this time. Cooperative with requests. States she is going to nap, requests to be woken when CARE team arrive.
--- NOTE | 2021-02-16 16:14 | PC.NURSE ---
Patient resting in bed at current time. No complaints at this time.
--- NOTE | 2021-02-16 17:41 | PC.NURSE ---
Labile, screaming, demanding to go home. Pt currently on the phone.
[2021-02-16] MEDS: LORazepam 1 MG TABLET 2 MG PO (18:00)
[2021-02-16] MEDS: HaloperidoL 5 MG TABLET PO ×2 (18:01→20:08)
--- NOTE | 2021-02-16 18:12 | PC.NURSE ---
Patient agitated, irritable, administered 2mg Ativan, 5mg Haldol. Requesting to see BHN, requesting to seed expert. ED charge nurse Osiris made aware of patient request. CARE team meeting with patient at this time.
[2021-02-16 19:18] VITALS: BP 149/98; PULSE 113; RESP 18; TEMP 35.7; O2SAT 97
--- NOTE | 2021-02-16 19:25 | MHC.CARE ---
Mental status update completed. Pt continues to meet medical necessity for inpt psychiatric placement. Bedsearch exhausted for today. Plan is to follow up with [facility] and [facility] re: possible bed available for tomorrow (Thursday) with hopes of scheduling an intake if there is availability.
[2021-02-16 19:26] VITALS: BP 149/98; PULSE 97
[2021-02-16] MEDS: LORazepam 0.5 MG TABLET PO (20:07)
[2021-02-16] MEDS: Gabapentin 300 MG CAPSULE PO (20:08)
[2021-02-16] MEDS: OLANZapine 2.5 MG TABLET 7.5 MG PO (20:08)
[2021-02-16] MEDS: traZODone HCL 50 MG TABLET 150 MG PO (20:09)
[2021-02-16] MEDS: Fluticasone Propionate 100 MCG BLST.W.DEV 2 PUFF INHALE (20:10)
[2021-02-17 05:15] VITALS: BP 119/90; PULSE 111; RESP 17; TEMP 36.8; O2SAT 98
--- NOTE | 2021-02-17 07:36 | PC.NURSE ---
Report received from SANDRA Giron. Pt awake, no concerns report, ate breakfast.
--- NOTE | 2021-02-17 08:53 | PC.NURSE ---
Patient sleeping in bed. Respirations even and unlabored.
[2021-02-17] MEDS: OXcarbazepine 300 MG TABLET 600 MG PO ×2 (09:08→20:04)
[2021-02-17] MEDS: Acetaminophen 325 MG TABLET 975 MG PO ×2 (09:08→19:04)
[2021-02-17] MEDS: Loratadine 10 MG TABLET PO (09:08)
[2021-02-17] MEDS: Fluticasone Propionate 100 MCG BLST.W.DEV 2 PUFF INHALE (09:09)
[2021-02-17 09:14] VITALS: BP 149/96; PULSE 126; RESP 16; TEMP 36.7; O2SAT 98
--- NOTE | 2021-02-17 09:26 | MHC.CARE ---
CARE team contacted [facility] per internal change of shift. The [facility] stated they have no record for this referral or this pt and asked to present verbal clinical. T/w presented pt and the intake/admissions screener declined to accept pt with comment we do not have a bed for that presentation . T/w inquired of pt was declined moving forward or just today and she stated we could try tomorrow . Pt requesting to speak to CARE team to be able to go home . Pt was observed wandering throughout the POD and at times increased agitation. Pt seeking contact with multiple staff and asking to be discharged home. Pt presenting as manic with labile mood.
[2021-02-17] MEDS: LORazepam 0.5 MG TABLET PO ×2 (09:31→20:04)
[2021-02-17] MEDS: LORazepam 1 MG TABLET 2 MG PO (09:58)
--- NOTE | 2021-02-17 10:02 | PC.NURSE ---
Pt became increasingly agitated- gave PRN as ordered but w/ little effect. Pt escalated further, stating that she did not want to be here, pt feels that people lied, pt began to disrobe. Pt yelling, tearful. K Keanu in to evaluate. Pt given Haldol and ativan, pt willing to take PO.
[2021-02-17 10:33] VITALS: BP 149/96; PULSE 126
[2021-02-17] MEDS: Propranolol HCL 10 MG TABLET PO ×2 (10:33→19:27)
[2021-02-17] MEDS: Cholecalciferol (Vitamin D3) 25 MCG TABLET 50 MCG PO (10:33)
--- NOTE | 2021-02-17 10:34 | PC.NURSE ---
Pt calmer at this time accepting daily medications- now resting in room, resp unlabored.
--- NOTE | 2021-02-17 11:22 | PC.NURSE ---
Pharmacy called regarding Mirabegron, spoke to Trino x2. Currently waiting for medication to be delivered to POD.
--- NOTE | 2021-02-17 12:08 | PC.NURSE ---
Pt resting, resp unlabored
[2021-02-17] MEDS: Mirabegron 50 MG TAB.ER.24H PO (12:43)
[2021-02-17 14:00] VITALS: RESP 18
--- NOTE | 2021-02-17 14:18 | PC.NURSE ---
Patient currently sleeping. Respirations even and unlabored. No current distress observed.
--- NOTE | 2021-02-17 16:23 | PC.NURSE ---
Patient asleep at this time. Respirations even and unlabored. No apparent distress observed.
--- NOTE | 2021-02-17 17:01 | PC.NURSE ---
Pt resting resp unlabored.
[2021-02-17 17:55] VITALS: BP 115/95; PULSE 113; RESP 20; TEMP 36.2; O2SAT 97
--- NOTE | 2021-02-17 18:07 | PC.NURSE ---
Patient observed on phone, upset, crying at times. Frustrated she continues in POD.
--- NOTE | 2021-02-17 18:29 | PC.NURSE ---
Pt requesting to cotton seed culler- supervisor wet end called and notified.
--- NOTE | 2021-02-17 18:43 | PC.NURSE ---
supervisor computer operations in to speak w/ pt as requested by pt.
--- NOTE | 2021-02-17 19:01 | MHC.CARE ---
Bedsearch note: Per [facility] - beds available at the following facilities [facility] ~ not accepting out of area referrals [facility] ~ not accepting out of state referrals [facility] ~ 2 calls placed, no answer either time, referral faxed anyway [facility] ~ bed available, referral faxed, followed up at 1900 and was told that when referral is reviewed that they [facility] ~ declined pt today due to her behavioral presentation [facility] completed. Pt continues to meet level of care for inpt psych placement. [facility] is continuing to provide pre-cert for authorization, pending facility acceptance.
[2021-02-17 19:27] VITALS: BP 136/69; PULSE 111
[2021-02-17] MEDS: traZODone HCL 50 MG TABLET 150 MG PO (20:03)
[2021-02-17] MEDS: OLANZapine 2.5 MG TABLET 7.5 MG PO (20:03)
[2021-02-17] MEDS: HaloperidoL 5 MG TABLET PO (20:04)
[2021-02-17] MEDS: Gabapentin 300 MG CAPSULE PO (20:04)
--- NOTE | 2021-02-18 | ECG_ITS ---
Test Reason : MEDICAL CLEARANCE Blood Pressure : / mmHG Vent. Rate : 100 BPM Atrial Rate : 100 BPM P-R Int : 118 ms QRS Dur : 078 ms QT Int : 356 ms P-R-T Axes : 060 006 047 degrees QTc Int : 459 ms Normal sinus rhythm Septal infarct , age undetermined Abnormal ECG When compared with ECG of 31-JAN-2021 10:44, No significant changes seen Referred By: Stacy Mcgraw Electronically Signed By:MARILOU CASTELLANOS
[2021-02-18] MEDS: Acetaminophen 325 MG TABLET 975 MG PO ×3 (02:59→21:35)
[2021-02-18 03:01] VITALS: BP 149/90; PULSE 103; RESP 16; TEMP 36.2; O2SAT 100
--- NOTE | 2021-02-18 04:16 | PC.NURSE ---
Patient just woke for bathroom use and back, compliant vital sign assessment, reported back pain 04/18, PRN Tylenol 925 mg administered as ordered pending effect, will continue to monitor.
--- NOTE | 2021-02-18 06:55 | PC.NURSE ---
Report received. PT currently eating breakfast, tearful in conversation. PT is inpatient bedserach.
[2021-02-18] MEDS: Fluticasone Propionate 100 MCG BLST.W.DEV 2 PUFF INHALE ×2 (09:24→20:59)
[2021-02-18] MEDS: Cholecalciferol (Vitamin D3) 25 MCG TABLET 50 MCG PO (09:24)
[2021-02-18] MEDS: Mirabegron 50 MG TAB.ER.24H PO (09:24)
[2021-02-18] MEDS: OXcarbazepine 300 MG TABLET 600 MG PO ×2 (09:24→21:08)
[2021-02-18 09:25] VITALS: BP 144/86; PULSE 128
[2021-02-18] MEDS: Loratadine 10 MG TABLET PO (09:25)
[2021-02-18] MEDS: Propranolol HCL 10 MG TABLET PO ×2 (09:25→21:07)
[2021-02-18 09:34] VITALS: BP 144/86; PULSE 128; RESP 16; TEMP 36.2; O2SAT 99
--- NOTE | 2021-02-18 12:05 | MHC.CARE ---
CARE team contacted insurance for auth process. T/w spoke with Angely who granted 5 days with review day on 02/22 auth number [id number]
[2021-02-18] MEDS: LORazepam 1 MG TABLET 2 MG PO ×2 (13:46→21:39)
--- NOTE | 2021-02-18 19:10 | PC.NURSE ---
Report received. PT is resting in bed. Calm and cooperative. Waiting to be transferred to .
--- NOTE | 2021-02-18 19:32 | PC.NURSE ---
Nurse to nurse with Walter from [facility].
[2021-02-18 21:07] VITALS: BP 123/72; PULSE 119
[2021-02-18] MEDS: OLANZapine 2.5 MG TABLET 7.5 MG PO (21:08)
[2021-02-18] MEDS: Gabapentin 300 MG CAPSULE PO (21:09)
[2021-02-18] MEDS: HaloperidoL 5 MG TABLET PO (21:09)
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
[2021-02-19 06:40] VITALS: BP 166/72; PULSE 103; RESP 18; TEMP 36.2; O2SAT 98
[2021-02-19] MEDS: Acetaminophen 325 MG TABLET 975 MG PO ×2 (06:40→20:29)
[2021-02-19] MEDS: Cholecalciferol (Vitamin D3) 25 MCG TABLET 50 MCG PO (08:44)
[2021-02-19] MEDS: Mirabegron 50 MG TAB.ER.24H PO (08:45)
[2021-02-19] MEDS: Loratadine 10 MG TABLET PO (08:45)
[2021-02-19 08:46] VITALS: BP 166/72; PULSE 103
[2021-02-19] MEDS: Propranolol HCL 10 MG TABLET PO ×2 (08:46→20:14)
[2021-02-19] MEDS: OXcarbazepine 300 MG TABLET 600 MG PO ×2 (08:46→20:14)
[2021-02-19 08:50] LABS: Estimated Average Glucose 128 mg/dL; Hemoglobin A1C 150.9839 umol/L; Hemoglobin A1c % 6.1 %
[2021-02-19] MEDS: Fluticasone Propionate 100 MCG BLST.W.DEV 2 PUFF INHALE (08:50)
[2021-02-19 09:07] LABS: Cholesterol 249 mg/dL; HDL Cholesterol 46 mg/dL; LDL Cholesterol Calculated 168 mg/dl; Triglycerides 176 mg/dL
[2021-02-19 09:31] LABS: Free T4 (Free Thyroxine) 0.91 ng/dL (0.71-1.85); Thyroid Stimulating Hormone 0.82 uIU/mL (0.32-4.0)
[2021-02-19 09:52] LABS: Folate 11.8 ng/mL (> or = 4.0); Vitamin B12 376 pg/mL (200-900)
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
[2021-02-19] MEDS: LORazepam 0.5 MG TABLET PO (13:26)
--- NOTE | 2021-02-19 16:25 | PC.NURSE ---
Pt reports that she is not a smoker.
[2021-02-19] MEDS: LORazepam 1 MG TABLET 2 MG PO (19:14)
[2021-02-19] MEDS: OLANZapine 2.5 MG TABLET 7.5 MG PO (20:13)
[2021-02-19] MEDS: Gabapentin 300 MG CAPSULE PO (20:13)
[2021-02-19] MEDS: HaloperidoL 5 MG TABLET PO (20:13)
[2021-02-19 20:14] VITALS: BP 151/85; PULSE 99
[2021-02-19 20:15] VITALS: BP 151/85; PULSE 99; TEMP 36.6
[2021-02-20] MEDS: Fluticasone Propionate 100 MCG BLST.W.DEV 2 PUFF INHALE (08:26)
[2021-02-20] MEDS: Acetaminophen 325 MG TABLET 975 MG PO ×2 (08:27→16:21)
[2021-02-20 08:28] VITALS: BP 138/92; PULSE 116
[2021-02-20] MEDS: Mirabegron 50 MG TAB.ER.24H PO (08:28)
[2021-02-20] MEDS: Propranolol HCL 10 MG TABLET PO ×2 (08:28→22:21)
[2021-02-20] MEDS: Loratadine 10 MG TABLET PO (08:28)
[2021-02-20] MEDS: Cholecalciferol (Vitamin D3) 25 MCG TABLET 50 MCG PO (08:28)
[2021-02-20] MEDS: OXcarbazepine 300 MG TABLET 600 MG PO ×2 (08:28→22:20)
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
[2021-02-20] MEDS: LORazepam 0.5 MG TABLET PO (11:26)
[2021-02-20] MEDS: LORazepam 1 MG TABLET 2 MG PO ×2 (16:21→22:20)
[2021-02-20 18:00] VITALS: BP 136/83; PULSE 104; TEMP 37.2; O2SAT 99
[2021-02-20] MEDS: Gabapentin 300 MG CAPSULE PO (22:20)
[2021-02-20] MEDS: OLANZapine 10 MG TABLET PO (22:20)
[2021-02-20 22:21] VITALS: BP 139/83; PULSE 112
[2021-02-20] MEDS: HaloperidoL 5 MG TABLET PO (22:21)
[2021-02-21 06:25] VITALS: BP 148/100; PULSE 109; RESP 18; TEMP 36.1; O2SAT 98
[2021-02-21] MEDS: Cholecalciferol (Vitamin D3) 25 MCG TABLET 50 MCG PO (09:03)
[2021-02-21 09:04] VITALS: BP 137/89; PULSE 113
[2021-02-21] MEDS: Propranolol HCL 10 MG TABLET PO (09:04)
[2021-02-21] MEDS: Acetaminophen 325 MG TABLET 975 MG PO (09:04)
[2021-02-21] MEDS: Mirabegron 50 MG TAB.ER.24H PO (09:04)
[2021-02-21] MEDS: OXcarbazepine 300 MG TABLET 600 MG PO (09:04)
[2021-02-21] MEDS: Loratadine 10 MG TABLET PO (09:05)
[2021-02-21] MEDS: Fluticasone Propionate 100 MCG BLST.W.DEV 2 PUFF INHALE (10:07)
--- NOTE | 2021-02-21 10:49 | PM.PSYDC ---
DS: Providers Provider Date of Service: 02/21/21 Date of admission: 02/18/21 20:37 Date of discharge: 02/21/21 Primary care physician: Rolf Lee MD Attending physician on admission: Jim Thompson Attending physician on discharge: Jim Thompson DS: Diagnosis Discharge Diagnosis (1) Bipolar disorder: Status: Acute Problem details: Improved DS: Medications Discharge Medications Home Medications: Home Medications Medication Instructions Recorded Confirmed biotin 5 mg capsule 2.5 mg PO DAILY 08/31/20 02/15/21 glatiramer 40 mg/mL subcutaneous 40 mg SUBCUT 3XW 08/31/20 02/15/21 syringe lorazepam 0.5 mg tablet 0.5 mg PO DAILY PRN 08/31/20 02/15/21 trazodone 1 tab PO BEDTIME PRN 12/21/20 02/15/21 Flovent 2 puff INHALATION BID 12/23/20 02/15/21 Myrbetriq 50 mg PO DAILY 12/23/20 02/15/21 Vitamin D3 2,000 units PO DAILY 12/23/20 02/15/21 Previous Rx's Medication Instructions Recorded gabapentin 300 mg capsule 300 mg PO BEDTIME #30 cap 01/23/21 propranolol 10 mg tablet 10 mg PO BID #60 cap 01/30/21 loratadine 10 mg PO DAILY #14 tab 02/05/21 olanzapine 7.5 mg PO BEDTIME #14 tab 02/05/21 oxcarbazepine 600 mg PO BID #28 tab 02/05/21 haloperidol 5 mg PO BEDTIME #30 tab 02/06/21 Discharge Plan Discharge Patient Disposition: Home, Self-Care Discharge Diagnosis: Bipolar disorder type I most recent episode manic Referrals: Anuradha Hooker (therapist) [Other] - 03/11/21 11:00 am (Appointment will be over the phone) Dr. Bradley (psychiatrist) [Other] - 03/22/21 12:30 pm (Appointment will be over the phone) Nicole Blanchard ([facility]) [Other] (Call to follow up for services. She is processing your application and should be reaching out in the next few weeks) [facility] [Other] (Call or explore website for resources. They have groups on Zoom that you can join at your convenience) Rolf Lee MD [Primary Care Provider] - 03/01/21 9:30 am Discharge Medications: New loratadine 10 mg Tablet 10 mg PO DAILY Qty: 14 RF: 0 propranolol 10 mg Tablet 10 mg PO BID Qty: 28 RF: 0 gabapentin 300 mg Capsule 300 mg PO BEDTIME Qty: 14 RF: 0 haloperidol 5 mg Tablet 5 mg PO BEDTIME Qty: 14 RF: 0 olanzapine 10 mg Tablet 10 mg PO BEDTIME Qty: 14 RF: 0 trazodone 50 mg Tablet 150 mg PO BEDTIME PRN (Reason: insomnia) Qty: 14 RF: 0 Myrbetriq 50 mg Tablet Extended Release 24 Hr 50 mg PO DAILY Qty: 14 RF: 0 oxcarbazepine [Trileptal] 600 mg tablet 600 mg PO BID Qty: 28 RF: 0 Continued gabapentin 300 mg capsule 300 mg PO BEDTIME Qty: 30 RF: 0 propranolol 10 mg tablet 10 mg PO BID Qty: 60 RF: 5 trazodone 150 mg tablet 1 tab PO BEDTIME PRN (Reason: insomnia) RF: 0 Flovent 110 mcg inhaler 2 puff inhalation BID RF: 0 Myrbetriq 50 mg PO DAILY RF: 0 Vitamin D3 2,000 Units capsule 2,000 units PO DAILY RF: 0 loratadine 10 mg Tablet 10 mg PO DAILY Qty: 14 RF: 0 oxcarbazepine 300 mg Tablet 600 mg PO BID Qty: 28 RF: 0 haloperidol 5 mg tablet 5 mg PO BEDTIME Qty: 30 RF: 0 biotin 5 mg capsule 2.5 mg PO DAILY RF: 0 glatiramer [Copaxone] 40 mg/mL syringe 40 mg subcut 3XW RF: 0 Discontinued olanzapine 2.5 mg Tablet 7.5 mg PO BEDTIME Qty: 14 RF: 0 lorazepam 0.5 mg tablet 0.5 mg PO DAILY PRN (Reason: Anxiety) RF: 0 Diet: advance to usual diet Activity on Discharge: As tolerated Stand Alone Forms: Patient Portal Discharge page Activity Restrictions/Additional Instructions: Continue medications and follow up with partial Care Plan Goals: See Care plan Health Concerns: F/U with regular PCP for MS Plan of Treatment: Continue outpatient providers Assessment: Adult descendant female with Bipolar Disorder and several admissions for mood lability with limited social support in the community, recently applied to [facility] services. Patient Instructions: Bipolar Disorder (ED) Mental Status Exam Mental Status Exam Patient Appearance: Well Grooomed Patient Orientation: Person, Place, Time and Situation Level of Consciousness: Awake and Appropriate Patient Behavior: Appropriate Mood Description: Calm Affect Description: Calm Patient Cognition Impaired: No Ability to Follow Directions: Good Speech Pattern: Clear Memory Description: Intact Hallucinations: None Delusions: Not Present Thought Process: Goal Oriented Thought Content: positive for Circumstantial Judgement: Fair Data Data Completed and Pending Completed studies during hospitalization [Text1]: 02/15/21 02/15/21 02/15/21 12:26 15:17 15:17 WBC 13.3 H RBC 4.07 L Hgb 11.8 L Hct 35.8 L MCV 88.0 MCH 29.0 MCHC 33.0 RDW 13.5 Plt Count 335 MPV 8.9 L Immature Gran % (Auto) 0.3 Neut % (Auto) 58.8 Lymph % (Auto) 31.8 [place] % (Auto) 6.3 Eos % (Auto) 2.6 Baso % (Auto) 0.2 Lymph # (Auto) 4.2 [place] # (Auto) 0.8 Eos # (Auto) 0.3 Baso # (Auto) 0.0 Abs Immat Gran (auto) 0.04 H Absolute Neuts (auto) 7.8 Absolute Nucleated RBC 0.000 Nucleated RBC % (auto) 0.0 Sodium 138 Potassium 4.4 Chloride 103 Carbon Dioxide 28 Anion Gap 11 L BUN 10 Creatinine 0.85 Estim Creat Clear Calc 122.8 Estimated GFR > 60 Random Glucose 108 Estimat Average Glucose Hemoglobin A1c % Calcium 8.7 Total Bilirubin < 0.2 Direct Bilirubin < 0.2 AST 19 D ALT 27 Alkaline Phosphatase 123 H Total Protein 6.8 Albumin 3.7 Triglycerides Cholesterol LDL Cholesterol, Calc HDL Cholesterol Vitamin B12 Folate TSH Free T4 Urine Color Urine Appearance Urine pH Ur Specific Brant Urine Protein Urine Glucose (UA) Urine Ketones Urine Blood Urine Nitrite Ur Leukocyte Esterase Urine Test Urine Opiates Screen Ur Barbiturates Screen Ur Phencyclidine Scrn Ur Amphetamines Screen U Benzodiazepines Scrn Urine Cocaine Screen U Marijuana (THC) Screen COVID-19 (RENZO) Negative COVID-19 Clin Com See Note 02/16/21 02/16/21 02/16/21 06:45 06:45 06:45 WBC RBC Hgb Hct MCV MCH MCHC RDW Plt Count MPV Immature Gran % (Auto) Neut % (Auto) Lymph % (Auto) [place] % (Auto) Eos % (Auto) Baso % (Auto) Lymph # (Auto) [place] # (Auto) Eos # (Auto) Baso # (Auto) Abs Immat Gran (auto) Absolute Neuts (auto) Absolute Nucleated RBC Nucleated RBC % (auto) Sodium Potassium Chloride Carbon Dioxide Anion Gap BUN Creatinine Estim Creat Clear Calc Estimated GFR Random Glucose Estimat Average Glucose Hemoglobin A1c % Calcium Total Bilirubin Direct Bilirubin AST ALT Alkaline Phosphatase Total Protein Albumin Triglycerides Cholesterol LDL Cholesterol, Calc HDL Cholesterol Vitamin B12 Folate TSH Free T4 Urine Color YELLOW Urine Appearance CLEAR Urine pH 6.5 Ur Specific Brant 1.025 Urine Protein NEG Urine Glucose (UA) NEG Urine Ketones NEG Urine Blood NEG Urine Nitrite NEG Ur Leukocyte Esterase NEG Urine Test NEGATIVE Urine Opiates Screen Not Detected Ur Barbiturates Screen Not Detected Ur Phencyclidine Scrn Not Detected Ur Amphetamines Screen Not Detected U Benzodiazepines Scrn Not Detected Urine Cocaine Screen Not Detected U Marijuana (THC) Screen POSITIVE H COVID-19 (RENZO) COVID-19 Youth [employer]ise 02/19/21 02/19/21 02/19/21 08:01 08:01 08:01 WBC RBC Hgb Hct MCV MCH MCHC RDW Plt Count MPV Immature Gran % (Auto) Neut % (Auto) Lymph % (Auto) [place] % (Auto) Eos % (Auto) Baso % (Auto) Lymph # (Auto) [place] # (Auto) Eos # (Auto) Baso # (Auto) Abs Immat Gran (auto) Absolute Neuts (auto) Absolute Nucleated RBC Nucleated RBC % (auto) Sodium Potassium Chloride Carbon Dioxide Anion Gap BUN Creatinine Estim Creat Clear Calc Estimated GFR Random Glucose Estimat Average Glucose 128 Hemoglobin A1c % 6.1 Calcium Total Bilirubin Direct Bilirubin AST ALT Alkaline Phosphatase Total Protein Albumin Triglycerides 176 Cholesterol 249 D LDL Cholesterol, Calc 168 HDL Cholesterol 46 Vitamin B12 376 Folate 11.8 TSH 0.82 Free T4 0.91 Urine Color Urine Appearance Urine pH Ur Specific Brant Urine Protein Urine Glucose (UA) Urine Ketones Urine Blood Urine Nitrite Ur Leukocyte Esterase Urine Test Urine Opiates Screen Ur Barbiturates Screen Ur Phencyclidine Scrn Ur Amphetamines Screen U Benzodiazepines Scrn Urine Cocaine Screen U Marijuana (THC) Screen COVID-19 (RENZO) COVID-19 [employer] Com DS: Summary Hospital Course Hospital Course: The patient was initially admitted for exacerbation of irritability and conflicts with his father. She denied manic or psychotic symptoms but she was distressed due to poor relation with her father who apparently is raising her son and there are probably interpersonal and financial problems. On admission, she reported adamantly denied new symptoms or safety concerns. She was admitted and she signed a 3 day notice the first day. She attended groups, she was able to interact assertively with staff and peers and there was no evidence of psychosis, joshua or safety concerns besides her baseline irritability. Since she felt safe in the community and case managing was done, she was discharged. She is fully aware that an application for case managing in the community to [facility] was done and she was interested on getting services. Time spent discussing smoking cessation with patient: 3 to 10 minutes Status at Discharge Functional status at discharge: independent ambulation Overall status at discharge: patient is back to baseline Time Spent with Patient Time attestation: Total time spent providing and/or coordinating discharge services: Time spent: Less than 30 minutes
== END 2021-02-21 14:45 | disposition home or self-care (01) | DRG 885 ==
LOC: HO.ED 02-18 16:06 → HO.PM5 02-18 20:49
PROVIDERS: Clinical Nurse Specialist Psychiatric/Mental Health, Adult; Admitting Provider Psychiatry & Neurology Psychiatry; Emergency Provider Emergency Medicine; PCP Internal Medicine; Visit Provider Psychiatry & Neurology Psychiatry
DX: F31.62 Bipolar disorder, current episode mixed, moderate (principal); G35 Multiple sclerosis; Z88.0 Allergy status to penicillin; Z79.51 Long term (current) use of inhaled steroids; Z79.899 Other long term (current) drug therapy
CPT/HCPCS: 36415; 80048; 80061; 80076; 80307; 81003; 81025; 82607; 82746; 83036; 84439; 84443; 85025; 87635; 93005; 99285

== ENCOUNTER 2021-03-05 05:55 | Emergency (ER) | payer OTHER, SELFPAY ==
[2021-03-05 06:00] VITALS: BP 184/98; PULSE 110; RESP 20; TEMP 36.7; O2SAT 98; BMI 42.8
[2021-03-05] MEDS: hydrOXYzine HCL 25 MG TABLET PO (06:42)
--- NOTE | 2021-03-05 06:48 | ED_ITS ---
HPI - Anxiety General Chief Complaint: Anxiety Stated Complaint: ANXIETY Time Seen by Provider: 03/05/21 06:37 Source: patient Mode of arrival: ambulatory History of Present Illness HPI narrative: 35-year-old female presents with requesting a COVID-19 vaccine, she is tearful, and states that she hates COVID-19 but otherwise denies any shortness of breath, fevers, chills, shortness of breath/chest pain. Patient denies any suicidal ideation and states that she is taking her scribe medications. As per boyfriend who brought patient in he states that she has been crying a home all night and asking for Ativan. Related Data Home Medications Medication Instructions Recorded Confirmed biotin 5 mg capsule 2.5 mg PO DAILY 08/31/20 03/01/21 glatiramer 40 mg/mL subcutaneous 40 mg SUBCUT 3XW 08/31/20 03/01/21 syringe trazodone 1 tab PO BEDTIME PRN 12/21/20 03/01/21 Flovent 2 puff INHALATION BID 12/23/20 03/01/21 Vitamin D3 2,000 units PO DAILY 12/23/20 03/01/21 Previous Rx's Medication Instructions Recorded gabapentin 300 mg PO BEDTIME #14 cap 02/21/21 haloperidol 5 mg PO BEDTIME #14 tab 02/21/21 loratadine 10 mg PO DAILY #14 tab 02/21/21 mirabegron [Myrbetriq] 50 mg PO DAILY #14 tab 02/21/21 olanzapine 10 mg PO BEDTIME #14 tab 02/21/21 oxcarbazepine [Trileptal] 600 mg PO BID #28 tab 02/21/21 propranolol 10 mg PO BID #28 tab 02/21/21 meloxicam 15 mg tablet 15 mg PO DAILY #30 tab 03/01/21 Allergies Allergy/AdvReac Type Severity Reaction Status Date / Time latex [Latex] Allergy Mild ITCHY AND Verified 01/10/21 06:27 DRY HANDS Penicillins Allergy Mild HIVES Verified 01/10/21 06:27 cat dander [CATS] Allergy Unknown ITCHY, Verified 01/10/21 06:27 ASTHMA house dust Allergy Unknown itchy Verified 01/10/21 06:27 penicillin V Allergy Unknown hives Verified 01/10/21 06:27 Review of Systems Review of Systems: Pertinent positive and negative as stated in the HPI and 10 point review of systems is otherwise negative. [facility] Past Medical History Source: nursing notes reviewed Medical History Asthma Bipolar disorder Carpal tunnel syndrome of right wrist OLIVIER I (cervical intraepithelial neoplasia I) GERD (gastroesophageal reflux disease) Hypercholesterolemia Hypertension Multiple sclerosis, relapsing-remitting Obesity (BMI 30-39.9) PTSD (post-traumatic stress disorder) Severe manic bipolar 1 disorder with psychotic behavior Surgical History Hx of breast reduction, elective Family History Family History Father Hypertension CVD (cardiovascular disease) High cholesterol Mother Depression Multiple sclerosis Maternal Grandmother Alzheimers disease Maternal Grandfather Heart disease Paternal Grandmother Stroke Hypertension Paternal Grandfather Diabetes Brother Diabetes Family/Other FH: mental illness Social History Social History Household Members: None Housing: Apartment Alcohol intake: current Alcohol intake frequency: holidays/special occasions only Alcohol type: wine Smoking Status: Smoker, status unknown Tobacco Type: Cigarette Second Hand Smoke Exposure: No Substance Use Type: Marijuana Advance Directives: No service: No Sexual orientation: Straight/Heterosexual Physical Exam Vital Signs: Vital Signs: Last Vital Signs Temp 98.0 F 03/05/21 06:00 Pulse 110 H 03/05/21 06:00 Resp 20 03/05/21 06:00 BP 184/98 H 03/05/21 06:00 Pulse Ox 98 03/05/21 06:00 Body Mass Index 42.8 VITAL SIGNS: Reviewed. GENERAL: Well developed, well nourished, in no acute distress. HEAD: Normocephalic/atraumatic EYES: PERRLA, EOMI OROPHARYNX: no oral lesions noted, posterior pharynx clear NECK: Supple, no adenopathy LUNGS: Normal breath sounds. No adventitious sounds or accessory muscle use. SpO2<98> CARDIOVASCULAR: Regular rate and rhythm without noted murmurs ABDOMEN: Soft, non-tender, non-distended with bowel sounds. MUSCULOSKELETAL: No tenderness, deformities, or effusions noted on gross inspection. EXTREMITIES: No cyanosis, clubbing or edema. SKIN: Inspection of the skin reveals no rashes NEUROLOGIC: Alert and oriented x 4. PSYCH: anxious, tearful, labile mood, no depressive affect Course Course Course Narrative: 35-year-old female with history and clinical presentation consistent with significant anxiety and no suicidal ideation or AVH. Patient was provided with a dose of hydroxyzine and on re-evaluation reports improvement of her anxiety. She was then discharged home in stable condition with instructions to follow-up with her primary care provider by calling the office today. Discharge Plan Discharge Clinical Impression: Anxiety Patient Disposition: Home, Self-Care Instructions: Anxiety (ED) Additional Instructions: Resume all home medication as prescribed. Please follow-up with your primary care provider today for re-evaluation and ask when you can receive your COVID-19 vaccine. Return to the emergency department for any acute worsening of your symptoms. Prescriptions: No Action trazodone 150 mg tablet 1 tab PO BEDTIME PRN (Reason: insomnia) RF: 0 Flovent 110 mcg inhaler 2 puff inhalation BID RF: 0 Vitamin D3 2,000 Units capsule 2,000 units PO DAILY RF: 0 loratadine 10 mg Tablet 10 mg PO DAILY Qty: 14 RF: 0 propranolol 10 mg Tablet 10 mg PO BID Qty: 28 RF: 0 gabapentin 300 mg Capsule 300 mg PO BEDTIME Qty: 14 RF: 0 haloperidol 5 mg Tablet 5 mg PO BEDTIME Qty: 14 RF: 0 olanzapine 10 mg Tablet 10 mg PO BEDTIME Qty: 14 RF: 0 Myrbetriq 50 mg Tablet Extended Release 24 Hr 50 mg PO DAILY Qty: 14 RF: 0 oxcarbazepine [Trileptal] 600 mg tablet 600 mg PO BID Qty: 28 RF: 0 biotin 5 mg capsule 2.5 mg PO DAILY RF: 0 glatiramer [Copaxone] 40 mg/mL syringe 40 mg subcut 3XW RF: 0 meloxicam 15 mg tablet 15 mg PO DAILY Qty: 30 RF: 0 Referrals: Po,Rolf Walton MD [Primary Care Provider] - 1 day (Re-evaluation for anxiety) Interventions: ED Discharge Assessment Last Done: 03/05/21 07:15 Discharge Date/Time: 03/05/21 07:16
== END 2021-03-05 07:16 | disposition home or self-care (01) ==
PROVIDERS: Emergency Provider Student in an Organized Health Care Education/Training Program; PCP Internal Medicine
DX: F41.9 Anxiety disorder, unspecified (principal); I10 Essential (primary) hypertension; E78.00 Pure hypercholesterolemia, unspecified; G35 Multiple sclerosis; F30.2 Manic episode, severe with psychotic symptoms; F17.210 Nicotine dependence, cigarettes, uncomplicated; F12.90 Cannabis use, unspecified, uncomplicated; J45.909 Unspecified asthma, uncomplicated; Z79.51 Long term (current) use of inhaled steroids; Z79.899 Other long term (current) drug therapy
CPT/HCPCS: 99283

== ENCOUNTER 2021-03-06 09:41 | Emergency (ER) | payer OTHER, SELFPAY ==
[2021-03-06 09:50] VITALS: BP 160/100; PULSE 100; RESP 18; TEMP 36.3; O2SAT 98; BMI 40.3
[2021-03-06] MEDS: LORazepam 1 MG TABLET 2 MG PO (11:26)
--- NOTE | 2021-03-06 11:27 | PC.NURSE ---
patient medicated per order
--- NOTE | 2021-03-06 13:04 | PC.NURSE ---
patient a&ox3, calm/compliant, pt ambulated to bathroom with staff to change into new pants as she was accidentally incontinent, pt was then given lunch, will continue to monitor.
[2021-03-06 13:06] VITALS: BP 152/83; PULSE 114; RESP 19; TEMP 36.6; O2SAT 97
--- NOTE | 2021-03-06 14:17 | ED.PSYCH ---
HPI - Psych General Chief Complaint: Psychiatric Symptoms Stated Complaint: crisis Time Seen by Provider: 03/06/21 11:03 Source: patient Mode of arrival: ambulatory Limitations: no limitations History of Present Illness HPI Narrative: Patient is a 35-year-old female with a past medical history of bipolar, MS, PTSD, GERD, HTN and asthma who is presenting complaining of extreme stress. She will not elaborate and is just saying she has family stress ?. She states she does have a therapist and a PCP and they do prescribe her benzodiazepines that she does not have many left so she came in today. She states she has a good social support with her boyfriend. She denies SI or HI. Denies chest pain, shortness of breath or headache. Related Data Home Medications Medication Instructions Recorded Confirmed biotin 5 mg capsule 2.5 mg PO DAILY 08/31/20 03/01/21 glatiramer 40 mg/mL subcutaneous 40 mg SUBCUT 3XW 08/31/20 03/01/21 syringe trazodone 1 tab PO BEDTIME PRN 12/21/20 03/01/21 Flovent 2 puff INHALATION BID 12/23/20 03/01/21 Vitamin D3 2,000 units PO DAILY 12/23/20 03/01/21 Previous Rx's Medication Instructions Recorded gabapentin 300 mg PO BEDTIME #14 cap 02/21/21 haloperidol 5 mg PO BEDTIME #14 tab 02/21/21 loratadine 10 mg PO DAILY #14 tab 02/21/21 mirabegron [Myrbetriq] 50 mg PO DAILY #14 tab 02/21/21 olanzapine 10 mg PO BEDTIME #14 tab 02/21/21 oxcarbazepine [Trileptal] 600 mg PO BID #28 tab 02/21/21 propranolol 10 mg PO BID #28 tab 02/21/21 meloxicam 15 mg tablet 15 mg PO DAILY #30 tab 03/01/21 Allergies Allergy/AdvReac Type Severity Reaction Status Date / Time latex [Latex] Allergy Mild ITCHY AND Verified 01/10/21 06:27 DRY HANDS Penicillins Allergy Mild HIVES Verified 01/10/21 06:27 cat dander [CATS] Allergy Unknown ITCHY, Verified 01/10/21 06:27 ASTHMA house dust Allergy Unknown itchy Verified 01/10/21 06:27 penicillin V Allergy Unknown hives Verified 01/10/21 06:27 Review of Systems Review of Systems: Yes all other systems are reviewed and are negative [facility] Past Medical History Medical History Asthma Bipolar disorder Carpal tunnel syndrome of right wrist OLIVIER I (cervical intraepithelial neoplasia I) GERD (gastroesophageal reflux disease) Hypercholesterolemia Hypertension Multiple sclerosis, relapsing-remitting Obesity (BMI 30-39.9) PTSD (post-traumatic stress disorder) Severe manic bipolar 1 disorder with psychotic behavior Surgical History Hx of breast reduction, elective Family History Family History Father Hypertension CVD (cardiovascular disease) High cholesterol Mother Depression Multiple sclerosis Maternal Grandmother Alzheimers disease Maternal Grandfather Heart disease Paternal Grandmother Stroke Hypertension Paternal Grandfather Diabetes Brother Diabetes Family/Other FH: mental illness Social History Social History Household Members: None Housing: Apartment Alcohol intake: never Smoking Status: Never smoker Tobacco Type: Cigarette Second Hand Smoke Exposure: No Use of substances other than those prescribed or required for medical reasons: No Substance Use Type: Marijuana Advance Directives: No Advance Directives Information Provided: No service: No Sexual orientation: Straight/Heterosexual Physical Exam Vital Signs: Vital Signs: Last Vital Signs Temp 97.9 F 03/06/21 13:06 Pulse 114 H 03/06/21 13:06 Resp 19 03/06/21 13:06 BP 152/83 H 03/06/21 13:06 Pulse Ox 97 03/06/21 13:06 Body Mass Index 40.3 Const: General: cooperative, healthy appearing, well developed and anxious Orientation/consciousness: patient oriented x3 Limitations: no limitations HENMT: Head: Yes normal to inspection Eyes: General: appearance normal, both eyes and all related structures Neck: Neck: Yes normal visual inspection and Yes full ROM Resp: Effort & Inspection: normal respiratory effort and able to speak in complete sentences Skin: General skin exam: no rashes or lesions noted Neuro: General: patient oriented x3 Extrem: General: Yes normal to inspection Psych: Appearance: grossly normal and well kempt Speech and movement: Normal speech and movement present Affect: normal affect Attitude: cooperative Thought process: Normal thought process present Thought content: Suicidality present, no homicidality, no hallucinations and Depressive thoughts present Insight: Good insight present (Psych) Judgement: Good judgement present (Psych) Course Course Course Narrative: Patient is a 35-year-old female with the past medical history of severe manic bipolar 1 disorder with psychotic behavior on mood stabilizers and atypicals, she is presenting with high anxiety and stating she only has 1 bottle of benzos at home. Will give patient lorazepam and consult to care team. Reevaluation(s) Reevaluation #1: Care team came to assess the patient, this patient should be evaluated by in. Will put in [facility] consult Reevaluation #2: N has not responded, was told person is in route but patient is getting agitated and would like to be discharged. She continues to deny SI or HI and is able to remain calm. Care team will re-evaluate for discharge. Time: 14:34 Reevaluation #3: Nahum from the Care Team evaluated patient and agrees she is safe for discharge. Apparently she told him she got in a fight with her boyfriend and that is what precipitated her coming into the emergency room. The argument was because she told him she cheated on him with another friend in exchange for ride home from the emergency department at 03:30 in the morning. He got upset with her and said you need to go to the emergency room Discharge Plan Discharge Clinical Impression: Anxiety Patient Disposition: Home, Self-Care Instructions: Anxiety (ED) Additional Instructions: As discussed, please be sure to follow-up with your therapist and her PCP to ensure you have enough medication to properly medicate herself when you feel anxious and to learn some coping mechanisms for your anxiety. If you feel your going to harm herself or others, please call 911 her report back to the emergency department. Prescriptions: No Action trazodone 150 mg tablet 1 tab PO BEDTIME PRN (Reason: insomnia) RF: 0 Flovent 110 mcg inhaler 2 puff inhalation BID RF: 0 Vitamin D3 2,000 Units capsule 2,000 units PO DAILY RF: 0 loratadine 10 mg Tablet 10 mg PO DAILY Qty: 14 RF: 0 propranolol 10 mg Tablet 10 mg PO BID Qty: 28 RF: 0 gabapentin 300 mg Capsule 300 mg PO BEDTIME Qty: 14 RF: 0 haloperidol 5 mg Tablet 5 mg PO BEDTIME Qty: 14 RF: 0 olanzapine 10 mg Tablet 10 mg PO BEDTIME Qty: 14 RF: 0 Myrbetriq 50 mg Tablet Extended Release 24 Hr 50 mg PO DAILY Qty: 14 RF: 0 oxcarbazepine [Trileptal] 600 mg tablet 600 mg PO BID Qty: 28 RF: 0 biotin 5 mg capsule 2.5 mg PO DAILY RF: 0 glatiramer [Copaxone] 40 mg/mL syringe 40 mg subcut 3XW RF: 0 meloxicam 15 mg tablet 15 mg PO DAILY Qty: 30 RF: 0 Referrals: Po,Rolf Walton MD [Primary Care Provider] - 2 days (anxiety )
--- NOTE | 2021-03-06 14:37 | MHC.CARE ---
1400: Met with pt, ED ROHIT Parrish had reported that she believed the pt could be discharged. Pt stated that she had an argument with her boyfriend while at her Mother's house and that argument precipitated her coming to the ED. Pt stated that the last time (or time before the last) she had been in the ED, she was discharged after midnight. Pt stated that she was in the ED waiting area sleeping on the chairs and wanted to go home as she was in considerable discomfort due to her Multiple Sclerosis. Pt stated that her Father would not come and pick her up so she called a friend from high school who arrived to pick her up. Pt stated that her friend from [employer] agreed to provide a ride home under the condition that she would engage in sexual acts with this person. She did as requested and was transported home. Today, at her Mother's home, she revealed to her boyfriend that she engaged in sexual acts with the man that drove her home in exchange for the ride home. This revelation started an argument between the two and pt stated that she was then driven to the Ed by her boyfriend. Pt stated that her boyfriend said that she needed to go to the ED. Pt could not say exactly why the boyfriend believed it was necessary. Pt denies any thoughts of harm to self or others and stated that she has been medication compliant. Upon meeting with the pt I agree with ROHIT Parrish's thoughts on discharge and shared my agreement with ROHIT Parrish. [facility] Make Up Editor Sherrell contacted and advised of the above.
--- NOTE | 2021-03-06 14:43 | PC.NURSE ---
patient a&ox3, denies si/hi, pt states she felt better after she had her ativan, pt being discharged to home.
== END 2021-03-06 14:43 | disposition home or self-care (01) ==
PROVIDERS: Emergency Provider Emergency Medicine Emergency Medical Services; PCP Internal Medicine
DX: F41.9 Anxiety disorder, unspecified (principal); F31.9 Bipolar disorder, unspecified; I10 Essential (primary) hypertension; E78.00 Pure hypercholesterolemia, unspecified; G35 Multiple sclerosis; F17.210 Nicotine dependence, cigarettes, uncomplicated; F12.90 Cannabis use, unspecified, uncomplicated; Z79.899 Other long term (current) drug therapy
CPT/HCPCS: 99284; 99285

== ENCOUNTER 2021-03-06 23:56 | Inpatient (IN) | payer OTHER, SELFPAY ==
[2021-03-07] VITALS: BP 129/65; PULSE 139; RESP 18; TEMP 36.5; O2SAT 97; BMI 38.0
[2021-03-07] MEDS: HaloperidoL 5 MG TABLET 10 MG PO (00:29)
[2021-03-07] MEDS: LORazepam 1 MG TABLET 2 MG PO ×3 (00:29→20:32)
--- NOTE | 2021-03-07 00:30 | PC.NURSE ---
Patient loud, disruptive, requires frequent redirection, poor insight, behavior psychotic. provider notified/ordered Ativan 2 mg PO and Haldol 10 mg PO/administered as ordered/accepted/pending effect, will continue to monitor.
[2021-03-07 00:55] LABS: COVID-19 Test Negative (Negative)
--- NOTE | 2021-03-07 02:02 | ED.PSYCH ---
HPI - Psych General Chief Complaint: Psychiatric Symptoms Stated Complaint: crisis Time Seen by Provider: 03/07/21 00:24 Source: EMS Mode of arrival: EMS Limitations: altered mental status History of Present Illness HPI Narrative: This 35-year-old female with significant psychiatric past medical history, multiple sclerosis, bipolar disorder, and GERD, obesity, hypercholesterolemia, hypertension presents via EMS for psychiatric evaluation. Patient's family called 911 because patient was verbally aggressive, disorganized, and appeared to be psychotic. Patient does have a significant history of psychosis after smoking marijuana and was seen here on 03/05/2021 for similar circumstances. MD complaint: altered mental status and anxiety Duration: constant History of same: Yes Relieving factors: none Exacerbating factors: drug use Context: recent drug abuse Associated psychiatric symptoms: depression and delusions Related Data Home Medications Medication Instructions Recorded Confirmed glatiramer 40 mg/mL subcutaneous 40 mg SUBCUT 3XW 08/31/20 03/07/21 syringe trazodone 1 tab PO BEDTIME PRN 12/21/20 03/07/21 Flovent 2 puff INHALATION BID 12/23/20 03/07/21 Vitamin D3 2,000 units PO DAILY 12/23/20 03/07/21 Previous Rx's Medication Instructions Recorded gabapentin 300 mg PO BEDTIME #14 cap 02/21/21 haloperidol 5 mg PO BEDTIME #14 tab 02/21/21 loratadine 10 mg PO DAILY #14 tab 02/21/21 mirabegron [Myrbetriq] 50 mg PO DAILY #14 tab 02/21/21 olanzapine 10 mg PO BEDTIME #14 tab 02/21/21 oxcarbazepine [Trileptal] 600 mg PO BID #28 tab 02/21/21 propranolol 10 mg PO BID #28 tab 02/21/21 Allergies Allergy/AdvReac Type Severity Reaction Status Date / Time latex [Latex] Allergy Mild ITCHY AND Verified 01/10/21 06:27 DRY HANDS Penicillins Allergy Mild HIVES Verified 01/10/21 06:27 cat dander [CATS] Allergy Unknown ITCHY, Verified 01/10/21 06:27 ASTHMA house dust Allergy Unknown itchy Verified 01/10/21 06:27 penicillin V Allergy Unknown hives Verified 01/10/21 06:27 Review of Systems Review of Systems: ROS unable to be obtained due to altered mental status Yes Unobtainable due to mental status PMFSH Past Medical History Attestation statement: The following information was validated with the patient. Source: old records reviewed Medical History Asthma Bipolar disorder Carpal tunnel syndrome of right wrist OLIVIER I (cervical intraepithelial neoplasia I) GERD (gastroesophageal reflux disease) Hypercholesterolemia Hypertension Multiple sclerosis, relapsing-remitting Obesity (BMI 30-39.9) PTSD (post-traumatic stress disorder) Severe manic bipolar 1 disorder with psychotic behavior Surgical History Hx of breast reduction, elective Family History Family History Father Hypertension CVD (cardiovascular disease) High cholesterol Mother Depression Multiple sclerosis Maternal Grandmother Alzheimers disease Maternal Grandfather Heart disease Paternal Grandmother Stroke Hypertension Paternal Grandfather Diabetes Brother Diabetes Family/Other FH: mental illness Social History Social History Household Members: None Housing: Apartment Alcohol intake: never Smoking Status: Never smoker Tobacco Type: Cigarette Second Hand Smoke Exposure: No Substance Use Type: Marijuana Advance Directives: No service: No Sexual orientation: Straight/Heterosexual Physical Exam Vital Signs: Vital Signs: Last Vital Signs Temp 97.7 F 03/07/21 00:00 Pulse 139 H 03/07/21 00:00 Resp 18 03/07/21 00:00 BP 129/65 03/07/21 00:00 Pulse Ox 97 03/07/21 00:00 Body Mass Index 38.0 Appearance: Alert. Acute psychosis significant psychiatric distress. Eyes: Pupils equal, round and reactive to light. ENT: Pharynx normal. Neck: Normal inspection. Neck supple. CVS: Normal heart rate and rhythm. Pulses normal. Respiratory: No respiratory distress. Breath sounds normal. Abdomen: Soft and nontender. Skin: Skin warm and dry. Normal skin color. Normal skin turgor. Extremities: Moves all extremities spontaneously Neuro: No motor deficit. No sensory deficit. Course Course Course Narrative: 35-year-old female presents via EMS, for appears psychotic, requires p.o. medication upon arrival. Order for Haldol and Ativan as patient is uncontrollable and unable to be redirected. BHN consult pending. Physician observation started at this time. MDM - Psych Lab Data Labs: Lab Results 03/07/21 Range/Units 00:11 COVID-19 ([facility]ZO) Negative (Negative) COVID-19 Clin Com See Note Discharge Plan Discharge Prescriptions: No Action trazodone 150 mg tablet 1 tab PO BEDTIME PRN (Reason: insomnia) RF: 0 Flovent 110 mcg inhaler 2 puff inhalation BID RF: 0 Vitamin D3 2,000 Units capsule 2,000 units PO DAILY RF: 0 loratadine 10 mg Tablet 10 mg PO DAILY Qty: 14 RF: 0 propranolol 10 mg Tablet 10 mg PO BID Qty: 28 RF: 0 gabapentin 300 mg Capsule 300 mg PO BEDTIME Qty: 14 RF: 0 haloperidol 5 mg Tablet 5 mg PO BEDTIME Qty: 14 RF: 0 olanzapine 10 mg Tablet 10 mg PO BEDTIME Qty: 14 RF: 0 Myrbetriq 50 mg Tablet Extended Release 24 Hr 50 mg PO DAILY Qty: 14 RF: 0 oxcarbazepine [Trileptal] 600 mg tablet 600 mg PO BID Qty: 28 RF: 0 glatiramer [Copaxone] 40 mg/mL syringe 40 mg subcut 3XW RF: 0
--- NOTE | 2021-03-07 02:13 | PC.NURSE ---
LYNSEY faxed/called/spoke with Anisha/confirmed receipt of referral, will continue to monitor.
[2021-03-07 05:30] LABS: Appearance Urine HAZY; Color Urine DARK YELLOW; Glucose Urine UA NEG (NEG); Leukocyte Esterase Urine NEG (NEG); Nitrite Urine NEG (NEG); Specific Gravity - Urine >= 1.030 (1.005-1.025); UACC CULT NO; Urine Blood NEG (NEG); Urine Ketones NEG (NEG); Urine Protein TRACE MG/DL (NEG-TRACE)
[2021-03-07 05:31] LABS: UPreg QC Valid YES; Urine Pregnancy NEGATIVE (NEGATIVE)
[2021-03-07 05:54] LABS: Amphetamine Screen Urine Not Detected (Not Detect); Barbiturates, Urine Not Detected (Not Detect); Benzodiazepines Screen Urine Not Detected (Not Detect); Cannabinoid Screen Urine POSITIVE (Not Detect); Cocaine Screen Urine Not Detected (Not Detect); Opiate Screen Urine Not Detected (Not Detect); Phencyclidine Screen Urine Not Detected (Not Detect)
[2021-03-07 06:33] LABS: Bacteria Urine 2+ /LPF; Mucus Urine 1+ /LPF; RBC Urine 0-2 /HPF (0); Squamous Epithelial Cell Urine 3+ /LPF
--- NOTE | 2021-03-07 07:26 | PC.NURSE ---
pt awoke and was loud and confused, rambling on and not making any sense, not redirectable, medicated w ativan, ate breakfast,
[2021-03-07] MEDS: Haloperidol Lactate 5 MG/ML VIAL 10 MG IM (07:41)
--- NOTE | 2021-03-07 09:11 | MHC.CARE ---
0908: [facility] Contacted regarding this patient. Consult was put in at 0037 by JUAN FRANCISCO Cornell. at 0735, Requested to speak with the clerical supervisor, was transferred to Rupa who stated that a clinician is expected to arrive ?late morning, early afternoon? today. Pt has been in the Ed since 0000hrs. I spoke with [facility] staff member Sheba and asked to speak with a clerical supervisor, clerical supervisor appeared to be otherwise busy and was asdked the purpose of the call. I advised Sheba that we were taking over the case for this pt as she has been waiting to be seen for over 9 hours and there did not appear to be a concrete time N could arrive to see her. When asked, Sheba stated that the name of the clerical supervisor she was delivering the messages to was Shaylee.
[2021-03-07 09:27] VITALS: BP 129/77; PULSE 114; RESP 16; TEMP 36.6; O2SAT 98
[2021-03-07] MEDS: Cholecalciferol (Vitamin D3) 25 MCG TABLET 50 MCG PO (09:46)
[2021-03-07 09:47] VITALS: BP 129/77; PULSE 114
[2021-03-07] MEDS: Loratadine 10 MG TABLET PO (09:47)
[2021-03-07] MEDS: Mirabegron 50 MG TAB.ER.24H PO (09:47)
[2021-03-07] MEDS: Propranolol HCL 10 MG TABLET PO ×2 (09:47→20:43)
[2021-03-07] MEDS: OXcarbazepine 300 MG TABLET 600 MG PO ×2 (09:47→20:32)
--- NOTE | 2021-03-07 10:26 | PC.NURSE ---
continues to ambulate around the pod, talking to herself, bizarre statements, rub your tits in chicken shit and they will grow , occasionally cries for a few seconds, used the phone to call liliana larios times,
[2021-03-07] MEDS: LORazepam 0.5 MG TABLET 2 MG PO ×2 (10:58→15:22)
--- NOTE | 2021-03-07 11:01 | PC.NURSE ---
ira from [facility] [phone] would like a call with any discharge plans
--- NOTE | 2021-03-07 15:27 | PC.NURSE ---
Pt woke up, crying, loud, demanding to go home, kicking the nurses station door, threw lunch tray at wall. Security in to pod CARE team in to speak with pt to inform her that she was going to be a section 12 bed search. Pt visibly upset, screaming, I want to go home now! I don't know why I'm here . Accepting of ativan 2 mg po PRN as ordered (see MAR). Pt currently resting in bed, calm, no signs of distress.
--- NOTE | 2021-03-07 17:54 | PC.NURSE ---
Pt asleep at current. No signs of distress. RR even and unlabored.
[2021-03-07] MEDS: HaloperidoL 5 MG TABLET PO (20:32)
[2021-03-07] MEDS: traZODone HCL 50 MG TABLET 150 MG PO (20:32)
[2021-03-07] MEDS: Gabapentin 300 MG CAPSULE PO (20:33)
[2021-03-07] MEDS: OLANZapine 10 MG TABLET PO (20:33)
[2021-03-07 20:42] VITALS: BP 146/105; PULSE 96; RESP 18; TEMP 36.6; O2SAT 97
[2021-03-07 20:43] VITALS: BP 146/105; PULSE 96
[2021-03-08] MEDS: LORazepam 1 MG TABLET 2 MG PO ×3 (04:26→17:39)
[2021-03-08] MEDS: Acetaminophen 325 MG TABLET 650 MG PO (04:26)
[2021-03-08 04:32] VITALS: BP 129/92; PULSE 106; RESP 17; TEMP 36.5; O2SAT 95
[2021-03-08] MEDS: Magnesium Hydrox/Alum Hydrox 30 ML ORAL.SUSP PO (04:51)
--- NOTE | 2021-03-08 05:12 | PC.NURSE ---
Patient awake, complained of back pain for which she wants Tylenol and also complained bloating, provider notified ordered Tylenol 650 mg and Maalox 30 ml, administered as ordered, pending effect, patient alert and oriented, coherent, will continue to monitor.
--- NOTE | 2021-03-08 07:24 | PC.NURSE ---
Report received from SANDRA Giron. Pt awake, alert, no concerns reported at this time.
[2021-03-08 07:39] VITALS: BP 141/90; PULSE 108
[2021-03-08] MEDS: Mirabegron 50 MG TAB.ER.24H PO (07:39)
[2021-03-08] MEDS: Cholecalciferol (Vitamin D3) 25 MCG TABLET 50 MCG PO (07:39)
[2021-03-08] MEDS: Propranolol HCL 10 MG TABLET PO ×2 (07:39→21:50)
[2021-03-08] MEDS: Loratadine 10 MG TABLET PO (07:39)
[2021-03-08] MEDS: OXcarbazepine 300 MG TABLET 600 MG PO ×2 (07:39→21:48)
[2021-03-08] MEDS: Fluticasone Propionate 100 MCG BLST.W.DEV 2 PUFF INHALE (07:41)
[2021-03-08 07:47] VITALS: BP 141/90; PULSE 109; RESP 20; TEMP 36.6; O2SAT 98
[2021-03-08] MEDS: OLANZapine 5 MG TABLET PO (08:27)
--- NOTE | 2021-03-08 08:43 | PC.NURSE ---
Late entry: pt labile on awakening, at times nearly calm, but easily upset. Pt anxious to be discharged home, but aware that she is awaiting inpatient care. Reviewed w/ C Angeline, pt medicated w/ PRN Olanzepine as ordered.
--- NOTE | 2021-03-08 09:06 | PC.NURSE ---
Pt in behavioral control at this time, states she is feeling calmer, sitting in chair in morgan.
--- NOTE | 2021-03-08 11:10 | PC.NURSE ---
Pt continues to be labile, easily tearful, loud. Pt medicated w/ ativan for increasing agitation. Pt aware that she will be going inpatient and is unhappy at the news, wishing she could be discharged.
--- NOTE | 2021-03-08 11:53 | PC.NURSE ---
Pt resting, resp unlabored.
--- NOTE | 2021-03-08 12:25 | PC.NURSE ---
Report given to SANDRA Benitez on M5.
[2021-03-08 14:00] VITALS: RESP 20
--- NOTE | 2021-03-08 14:04 | PC.NURSE ---
Pt awake, tearful, aware that she will be transferred to M5 soon. Continues to be angry that she will be transferred; disorganized.
--- NOTE | 2021-03-08 14:14 | PC.NURSE ---
CARE team in to transfer pt to M5. Pt cooperative w/ transfer, no concerns reported.
[2021-03-08 17:31] LABS: Glucose, Whole Blood 123 mg/dL (60-115)
[2021-03-08] MEDS: HaloperidoL 5 MG TABLET PO ×2 (17:39→21:49)
[2021-03-08] MEDS: Nicotine Polacrilex 2 MG GUM 4 MG BUCCAL (18:29)
[2021-03-08 21:45] VITALS: BP 150/70; PULSE 112; TEMP 36.8; O2SAT 98
[2021-03-08] MEDS: Gabapentin 300 MG CAPSULE PO (21:48)
[2021-03-08] MEDS: OLANZapine 10 MG TABLET PO (21:49)
[2021-03-08 21:50] VITALS: BP 150/70; PULSE 112
[2021-03-08] MEDS: traZODone HCL 50 MG TABLET 150 MG PO (22:12)
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
[2021-03-09] MEDS: Acetaminophen 325 MG TABLET 650 MG PO ×2 (04:38→21:36)
[2021-03-09 04:45] VITALS: RESP 16
[2021-03-09 08:38] VITALS: BP 170/111; PULSE 106
[2021-03-09] MEDS: Propranolol HCL 10 MG TABLET PO ×2 (08:38→21:31)
[2021-03-09] MEDS: OXcarbazepine 300 MG TABLET 600 MG PO ×2 (08:39→21:30)
[2021-03-09] MEDS: Cholecalciferol (Vitamin D3) 25 MCG TABLET 50 MCG PO (08:39)
[2021-03-09] MEDS: Loratadine 10 MG TABLET PO (08:39)
[2021-03-09] MEDS: Mirabegron 50 MG TAB.ER.24H PO (08:39)
[2021-03-09] MEDS: Fluticasone Propionate 100 MCG BLST.W.DEV 2 PUFF INHALE ×2 (09:05→21:29)
[2021-03-09] MEDS: HaloperidoL 5 MG TABLET PO ×3 (09:15→21:31)
[2021-03-09] MEDS: Throat Lozenge, Medicated LOZENGE 1 LOZENGE MUCOUS MEM ×2 (09:15→14:51)
[2021-03-09] MEDS: diphenhydrAMINE HCL 25 MG TABLET 50 MG PO ×2 (09:15→14:50)
[2021-03-09] MEDS: LORazepam 1 MG TABLET 2 MG PO ×2 (09:15→14:51)
[2021-03-09 09:46] LABS: MANUAL DIFF FLAG NO
[2021-03-09 09:50] LABS: Basophils Percent Auto 0.2 % (0-2); Eosinophils Absolute Auto 0.3 X10*3/uL (0.0-0.4); Eosinophils Percent Auto 2.7 % (0-4); Hematocrit 36.8 % (37-47); Hemoglobin 12.5 g/dl (12.0-16.0); Imm Gran Abs Auto 0.03 X10*3/uL (0.00-0.03); Imm Gran Pct Auto 0.3 % (0.0-0.4); Lymphocytes Absolute Auto 3.2 X10*3/uL (1.2-4.9); Lymphocytes Percent Auto 34.4 % (20-40); Mean Corpuscular Hemoglobin 29.8 pg (27.0-33.0); Mean Corpuscular Volume 87.6 fL (80-98); Mean Platelet Volume 8.8 fL (9.4-12.3); Monocytes Absolute Auto 0.4 X10*3/uL (0.1-1.2); Monocytes Percent Auto 4.6 % (2-11); Neutrophils Absolute Auto 5.4 X10*3/uL (2.0-8.3); Neutrophils Percent Auto 57.8 % (45-73); Platelet Count 336 X10*3/uL (160-400); Red Cell Distribution Width 13.6 % (11.0-16.0); White Blood Count 9.4 X10*3/uL (4.8-10.8)
[2021-03-09 10:28] LABS: Alanine Aminotransferase 26 U/L (0-31); Albumin Level 4.1 g/dL (3.5-5.0); Alkaline Phosphatase 127 U/L (39-117); Aspartate Amino Transferase 23 U/L (5-31); Bilirubin Direct 0.2 mg/dL (0.0-0.5); Bilirubin Total 0.4 mg/dL (0.0-1.0); Total Protein 7.2 g/dL (6.5-8.0)
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
[2021-03-09] MEDS: Nicotine Polacrilex 2 MG GUM 4 MG BUCCAL ×2 (11:26→14:08)
[2021-03-09 11:33] VITALS: BP 148/97; PULSE 104
[2021-03-09 17:31] LABS: Glucose, Whole Blood 92 mg/dL (60-115)
[2021-03-09 20:10] VITALS: BP 120/76; PULSE 108; TEMP 37
[2021-03-09] MEDS: Gabapentin 300 MG CAPSULE PO (21:30)
[2021-03-09] MEDS: OLANZapine 10 MG TABLET PO (21:30)
[2021-03-09 21:31] VITALS: BP 120/76; PULSE 108
[2021-03-10 06:00] VITALS: BP 155/87; PULSE 102; RESP 20; TEMP 37.1; O2SAT 97
[2021-03-10] MEDS: OXcarbazepine 300 MG TABLET 600 MG PO ×2 (07:53→20:05)
[2021-03-10] MEDS: Cholecalciferol (Vitamin D3) 25 MCG TABLET 50 MCG PO (07:53)
[2021-03-10 07:54] VITALS: BP 127/78; PULSE 101
[2021-03-10] MEDS: Propranolol HCL 10 MG TABLET PO (07:54)
[2021-03-10] MEDS: Loratadine 10 MG TABLET PO (07:55)
[2021-03-10] MEDS: Mirabegron 50 MG TAB.ER.24H PO (07:55)
[2021-03-10] MEDS: Fluticasone Propionate 100 MCG BLST.W.DEV 2 PUFF INHALE (07:57)
--- NOTE | 2021-03-10 09:35 | P.PNPSI_ITS ---
Subjective Subjective Date of Service: 03/11/21 Reason For Visit: dysregulated behavior Interim History: Chart reviewed; case discussed with team. Vitals reviewed: grossly WNL;mild tachycardia mood is ok Patient wants to go home. [employer] Advisor praised patient for asking nursing for help to calm down rather than become dysregulated. Pt social with select peers; appropriate with staff. Says she slept well last night. Agrees to continue to demonstrate stability. Mental Status Exam Mental Status Exam Narrative: Appearance: unkempt but adequate hygiene; obese; close not fully fitting and abdomen visible Patient Orientation: Person, Place, Time and Situation Level of Consciousness: Awake and Appropriate Patient Behavior: calm, in control Mood Description: ok; mildly irritable Affect Description: calm Patient Cognition Impaired: No Ability to Follow Directions: fair Speech Pattern: Clear Hallucinations: None Delusions: Not Present Thought Process: Goal Oriented Thought Content: wanting discharge Judgement: impaired Diagnostics Vital Signs (24Hr): Vital Signs - 24 hr 03/09/21 11:33 03/09/21 20:10 03/09/21 21:31 Temperature 98.6 F Pulse Rate 104 H 108 H 108 H Respiratory Rate Blood Pressure 148/97 H 120/76 120/76 Pulse Oximetry 03/10/21 06:00 03/10/21 07:54 Temperature 98.8 F Pulse Rate 102 H 101 H Respiratory Rate 20 Blood Pressure 155/87 H 127/78 Pulse Oximetry 97 Body Mass Index 38.0 Labs Results: 03/09/21 09:35 Labs: Laboratory Results - last 48 hr 03/08/21 03/09/21 03/09/21 17:27 09:35 09:35 WBC 9.4 RBC 4.20 Hgb 12.5 Hct 36.8 L MCV 87.6 MCH 29.8 MCHC 34.0 RDW 13.6 Plt Count 336 MPV 8.8 L Immature Gran % (Auto) 0.3 Neut % (Auto) 57.8 Lymph % (Auto) 34.4 [place] % (Auto) 4.6 Eos % (Auto) 2.7 Baso % (Auto) 0.2 Lymph # (Auto) 3.2 [place] # (Auto) 0.4 Eos # (Auto) 0.3 Baso # (Auto) 0.0 Abs Immat Gran (auto) 0.03 Absolute Neuts (auto) 5.4 Absolute Nucleated RBC 0.000 Nucleated RBC % (auto) 0.0 POC Glucose 123 H Total Bilirubin 0.4 Direct Bilirubin 0.2 AST 23 ALT 26 Alkaline Phosphatase 127 H Total Protein 7.2 Albumin 4.1 03/09/21 17:25 WBC RBC Hgb Hct MCV MCH MCHC RDW Plt Count MPV Immature Gran % (Auto) Neut % (Auto) Lymph % (Auto) [place] % (Auto) Eos % (Auto) Baso % (Auto) Lymph # (Auto) [place] # (Auto) Eos # (Auto) Baso # (Auto) Abs Immat Gran (auto) Absolute Neuts (auto) Absolute Nucleated RBC Nucleated RBC % (auto) POC Glucose 92 Total Bilirubin Direct Bilirubin AST ALT Alkaline Phosphatase Total Protein Albumin Medications Medications Current Medications Generic Name Dose Route Start Last Admin Trade Name Freq PRN Reason Stop Dose Admin Acetaminophen 650 mg 03/08/21 16:29 03/09/21 21:36 Acetaminophen 325 Mg Tablet PO 650 mg Q6H PRN Administration Headache/Pain Mild Scale (1-3) Al Hydroxide/Mg Hydroxide 30 ml 03/08/21 16:29 Magnesium Hydrox/Alum Hydrox 30 Ml Oral.Susp PO Q6H PRN Heartburn/Nausea Benzocaine 1 lozenge 03/08/21 23:27 03/09/21 14:51 Throat Lozenge, Medicated Lozenge MUCOUS MEM 1 lozenge Q2H PRN Administration Sore Throat Diphenhydramine HCl 50 mg 03/08/21 16:29 03/09/21 14:50 Diphenhydramine Hcl 25 Mg Tablet PO 50 mg Q4H PRN Administration agitation Fluticasone Propionate 2 puff 03/07/21 08:00 03/10/21 07:57 Fluticasone Propionate 100 Mcg Blst.W.Dev INHALE 2 puff RBID RENEE Administration Gabapentin 300 mg 03/07/21 21:00 03/09/21 21:30 Gabapentin 300 Mg Capsule PO 300 mg BEDTIME RENEE Administration Haloperidol 5 mg 03/07/21 21:00 03/09/21 21:31 Haloperidol 5 Mg Tablet PO 5 mg BEDTIME RENEE Administration Haloperidol 5 mg 03/08/21 16:29 03/09/21 14:51 Haloperidol 5 Mg Tablet PO 5 mg Q4H PRN Administration agitation Hydroxyzine HCl 50 mg 03/09/21 11:05 Hydroxyzine Hcl 50 Mg Tablet PO RQ4H PRN Anxiety Loratadine 10 mg 03/07/21 09:00 03/10/21 07:55 Loratadine 10 Mg Tablet PO 10 mg DAILY RENEE Administration Lorazepam 2 mg 03/08/21 16:29 03/09/21 14:51 Lorazepam 1 Mg Tablet PO 2 mg Q4H PRN Administration agitation Magnesium Hydroxide 30 ml 03/08/21 16:29 Milk Of Magnesia 30 Ml Oral.Susp PO DAILY PRN Constipation Mirabegron 50 mg 03/07/21 09:00 03/10/21 07:55 Mirabegron 50 Mg Tab.Er.24h PO 50 mg DAILY RENEE Administration Nicotine 14 mg 03/08/21 16:29 Nicotine 14 Mg Patch.Td24 TRANSDERMA DAILY PRN nicotine cessation Nicotine Polacrilex 4 mg 03/08/21 16:29 03/09/21 14:08 Nicotine Polacrilex 2 Mg Gum BUCCAL 4 mg Q2H PRN Administration Nicotine Cravings Patient Own 1 each 03/08/21 22:19 03/08/21 23:59 Medication( SUBCUT Not Given Glatiramer [Copaxone MoWeFr RENEE ] 40 Mg/Ml Syringe) Olanzapine 10 mg 03/07/21 21:00 03/09/21 21:30 Olanzapine 10 Mg Tablet PO 10 mg BEDTIME RENEE Administration Oxcarbazepine 600 mg 03/07/21 09:00 03/10/21 07:53 Oxcarbazepine 300 Mg Tablet PO 600 mg BID RENEE Administration Propranolol HCl 10 mg 03/07/21 09:00 03/10/21 07:54 Propranolol Hcl 10 Mg Tablet PO 10 mg BID RENEE Administration Protocol Trazodone HCl 150 mg 03/07/21 02:10 03/08/21 22:12 Trazodone Hcl 50 Mg Tablet PO 150 mg BEDTIME PRN Administration insomnia Vitamin D 50 mcg 03/07/21 09:00 03/10/21 07:53 Cholecalciferol (Vitamin D3) 25 Mcg Tablet PO 50 mcg DAILY RENEE Administration Allergies Allergies Allergy/AdvReac Type Severity Reaction Status Date / Time latex [Latex] Allergy Mild ITCHY AND Verified 01/10/21 06:27 DRY HANDS Penicillins Allergy Mild HIVES Verified 01/10/21 06:27 cat dander [CATS] Allergy Unknown ITCHY, Verified 01/10/21 06:27 ASTHMA house dust Allergy Unknown itchy Verified 01/10/21 06:27 penicillin V Allergy Unknown hives Verified 01/10/21 06:27 Assessment & Plan Assessment & Plan (1) Adjustment disorder with mixed disturbance of emotions and conduct: Status: Acute Code(s): F43.25 - Adjustment disorder with mixed disturbance of emotions and conduct (2) Chronic post-traumatic stress disorder (PTSD): Status: Acute Code(s): F43.12 - Post-traumatic stress disorder, chronic (3) Bipolar disorder: Qualifiers: Active/Remission status: currently active Current bipolar episode type: mixed Current episode severity: moderate Qualified Code(s): F31.62 - Bipolar disorder, current episode mixed, moderate Status: Acute Code(s): F31.9 - Bipolar disorder, unspecified (4) Multiple sclerosis, relapsing-remitting: Status: Acute Code(s): G35 - Multiple sclerosis impression: hx of emotional lability, impulse control, ptsd and bipolar (by history). recently multiple short admissions with same presentation: pt triggered by s omething, flares up and then it resolves. pt says anger has resolved and she's back to her normal self and wants discharge; signed a 3 day notice will admit for stabilization and to demonstrate safety. Will continue current med regimen. Pt does not have manic symptoms. Current incident triggered by situation and due to adjustment disorder (and not manic episode). plan: continue current regimen team discussion to assess how to help pt stay out of hospital -wonder if psychological testing could help; wonder if pt has ADHD and if stimulant would help with impulse control Greater than 50% of the session was spent on counseling and/or coordination of care Reason for contiued inpatient stay Substantial Risk for: med/psych decompensation
[2021-03-10] MEDS: diphenhydrAMINE HCL 25 MG TABLET 50 MG PO ×2 (10:23→15:56)
[2021-03-10] MEDS: HaloperidoL 5 MG TABLET PO ×3 (10:24→20:06)
[2021-03-10] MEDS: LORazepam 1 MG TABLET 2 MG PO ×2 (10:24→15:56)
[2021-03-10] MEDS: Nicotine Polacrilex 2 MG GUM 4 MG BUCCAL (15:26)
[2021-03-10 16:54] LABS: Glucose, Whole Blood 111 mg/dL (60-115)
[2021-03-10] MEDS: Acetaminophen 325 MG TABLET 650 MG PO (18:59)
[2021-03-10 20:00] VITALS: BP 102/50; PULSE 105; TEMP 36.8
[2021-03-10] MEDS: OLANZapine 10 MG TABLET PO (20:06)
[2021-03-10] MEDS: Gabapentin 300 MG CAPSULE PO (20:06)
[2021-03-11 06:35] VITALS: BP 161/86; PULSE 114; RESP 18; TEMP 36.5; O2SAT 98
[2021-03-11] MEDS: Nicotine Polacrilex 2 MG GUM 4 MG BUCCAL ×2 (06:51→08:55)
[2021-03-11 07:43] LABS: Glucose, Whole Blood 145 mg/dL (60-115)
[2021-03-11 08:50] VITALS: BP 180/81; PULSE 118; RESP 22; TEMP 36.2; O2SAT 98
[2021-03-11] MEDS: hydrOXYzine HCL 50 MG TABLET PO ×2 (08:53→13:31)
[2021-03-11 08:54] VITALS: BP 180/81; PULSE 118
[2021-03-11] MEDS: Loratadine 10 MG TABLET PO (08:54)
[2021-03-11] MEDS: Cholecalciferol (Vitamin D3) 25 MCG TABLET 50 MCG PO (08:54)
[2021-03-11] MEDS: OXcarbazepine 300 MG TABLET 600 MG PO ×2 (08:54→20:13)
[2021-03-11] MEDS: Propranolol HCL 10 MG TABLET PO (08:54)
[2021-03-11] MEDS: Mirabegron 50 MG TAB.ER.24H PO (08:54)
[2021-03-11] MEDS: Fluticasone Propionate 100 MCG BLST.W.DEV 2 PUFF INHALE (08:54)
--- NOTE | 2021-03-11 09:51 | ECG_ITS ---
Test Reason : ELEV BP Blood Pressure : / mmHG Vent. Rate : 097 BPM Atrial Rate : 097 BPM P-R Int : 130 ms QRS Dur : 084 ms QT Int : 360 ms P-R-T Axes : 059 031 054 degrees QTc Int : 457 ms Normal sinus rhythm Cannot exclude septal infarct but probably normal variant When compared with ECG of 18-FEB-2021 17:01, No significant changes seen Referred By: Melodie Ca Electronically Signed By:MARILOU CASTELLANOS
[2021-03-11] MEDS: LORazepam 1 MG TABLET 2 MG PO ×4 (10:00→20:16)
[2021-03-11] MEDS: diphenhydrAMINE HCL 25 MG TABLET 50 MG PO ×2 (10:01→13:32)
[2021-03-11] MEDS: HaloperidoL 5 MG TABLET PO ×3 (10:01→20:13)
[2021-03-11 11:17] LABS: Gamma Glutamyl Transpeptidase 67 U/L (7-33)
[2021-03-11] MEDS: OLANZapine 10 MG TABLET PO ×2 (12:50→20:10)
--- NOTE | 2021-03-11 15:58 | P.PNPSI_ITS ---
Subjective Subjective Date of Service: 03/11/21 Reason For Visit: dysregulated behavior Interim History: Pt presented as labile, she was rageful about her boyfriend than at times very tearful. She is not able to articulate source of problem with boyfriend other than saying that boyfriend tells her to be more careful and respectful with pt's father. Pt clenching fist, pacing asking to be discharged because she needs cannabis. Increasingly agitated at times. She denies SI, although appears very upset with boyfriend and father. She needed PRN medications for agitation, with minimal effect. We discussed increasing Olanzapine, which pt agreed. Pt continues to present with elevated BP and tachycardia- on propanolol 10mg po BID, pt agreed to increase it to 20mg po BID, it may also help with impulsivity/aggression Mental Status Exam Mental Status Exam Narrative: Appearance: unkempt but adequate hygiene; obese; close not fully fitting and abdomen visible Patient Orientation: Person, Place, Time and Situation Level of Consciousness: Awake and Appropriate Patient Behavior: calm, in control Mood Description: ok; mildly irritable Affect Description: calm Patient Cognition Impaired: No Ability to Follow Directions: fair Speech Pattern: Clear Hallucinations: None Delusions: Not Present Thought Process: Goal Oriented Thought Content: wanting discharge Judgement: impaired Diagnostics Vital Signs (24Hr): Vital Signs - 24 hr 03/10/21 20:00 03/11/21 06:35 03/11/21 08:50 Temperature 98.3 F 97.7 F 97.2 F Pulse Rate 105 H 114 H 118 H Respiratory Rate 18 22 H Blood Pressure 102/50 L 161/86 H 180/81 H Pulse Oximetry 98 98 03/11/21 08:54 Temperature Pulse Rate 118 H Respiratory Rate Blood Pressure 180/81 H Pulse Oximetry Body Mass Index 38.0 Labs Results: 03/09/21 09:35 Labs: Laboratory Results - last 48 hr 03/09/21 03/10/21 03/11/21 17:25 16:51 05:55 POC Glucose 92 111 145 H GGT 03/11/21 10:24 POC Glucose GGT 67 H Medications Medications Current Medications Generic Name Dose Route Start Last Admin Trade Name Freq PRN Reason Stop Dose Admin Acetaminophen 650 mg 03/08/21 16:29 03/10/21 18:59 Acetaminophen 325 Mg Tablet PO 650 mg Q6H PRN Administration Headache/Pain Mild Scale (1-3) Al Hydroxide/Mg Hydroxide 30 ml 03/08/21 16:29 Magnesium Hydrox/Alum Hydrox 30 Ml Oral.Susp PO Q6H PRN Heartburn/Nausea Benzocaine 1 lozenge 03/08/21 23:27 03/09/21 14:51 Throat Lozenge, Medicated Lozenge MUCOUS MEM 1 lozenge Q2H PRN Administration Sore Throat Diphenhydramine HCl 50 mg 03/08/21 16:29 03/11/21 13:32 Diphenhydramine Hcl 25 Mg Tablet PO 50 mg Q4H PRN Administration agitation Fluticasone Propionate 2 puff 03/07/21 08:00 03/11/21 08:54 Fluticasone Propionate 100 Mcg Blst.W.Dev INHALE 2 puff RBID RENEE Administration Gabapentin 300 mg 03/07/21 21:00 03/10/21 20:06 Gabapentin 300 Mg Capsule PO 300 mg BEDTIME RENEE Administration Haloperidol 5 mg 03/07/21 21:00 03/10/21 20:06 Haloperidol 5 Mg Tablet PO 5 mg BEDTIME RENEE Administration Haloperidol 5 mg 03/08/21 16:29 03/11/21 13:32 Haloperidol 5 Mg Tablet PO 5 mg Q4H PRN Administration agitation Hydroxyzine HCl 50 mg 03/09/21 11:05 03/11/21 13:31 Hydroxyzine Hcl 50 Mg Tablet PO 50 mg RQ4H PRN Administration Anxiety Loratadine 10 mg 03/07/21 09:00 03/11/21 08:54 Loratadine 10 Mg Tablet PO 10 mg DAILY RENEE Administration Lorazepam 2 mg 03/08/21 16:29 03/11/21 13:32 Lorazepam 1 Mg Tablet PO 2 mg Q4H PRN Administration agitation Magnesium Hydroxide 30 ml 03/08/21 16:29 Milk Of Magnesia 30 Ml Oral.Susp PO DAILY PRN Constipation Mirabegron 50 mg 03/07/21 09:00 03/11/21 08:54 Mirabegron 50 Mg Tab.Er.24h PO 50 mg DAILY RENEE Administration Nicotine 14 mg 03/08/21 16:29 Nicotine 14 Mg Patch.Td24 TRANSDERMA DAILY PRN nicotine cessation Nicotine Polacrilex 4 mg 03/08/21 16:29 03/11/21 08:55 Nicotine Polacrilex 2 Mg Gum BUCCAL 4 mg Q2H PRN Administration Nicotine Cravings Patient Own 1 each 03/08/21 22:19 03/08/21 23:59 Medication( SUBCUT Not Given Glatiramer [Copaxone MoWeFr RENEE ] 40 Mg/Ml Syringe) Olanzapine 10 mg 03/11/21 12:00 03/11/21 12:50 Olanzapine 10 Mg Tablet PO 10 mg BID [facility] Administration Oxcarbazepine 600 mg 03/07/21 09:00 03/11/21 08:54 Oxcarbazepine 300 Mg Tablet PO 600 mg BID RENEE Administration Propranolol HCl 20 mg 03/11/21 21:00 Propranolol Hcl 10 Mg Tablet PO BID [facility] Protocol Trazodone HCl 150 mg 03/07/21 02:10 03/08/21 22:12 Trazodone Hcl 50 Mg Tablet PO 150 mg BEDTIME PRN Administration insomnia Vitamin D 50 mcg 03/07/21 09:00 03/11/21 08:54 Cholecalciferol (Vitamin D3) 25 Mcg Tablet PO 50 mcg DAILY RENEE Administration Allergies Allergies Allergy/AdvReac Type Severity Reaction Status Date / Time latex [Latex] Allergy Mild ITCHY AND Verified 01/10/21 06:27 DRY HANDS Penicillins Allergy Mild HIVES Verified 01/10/21 06:27 cat dander [CATS] Allergy Unknown ITCHY, Verified 01/10/21 06:27 ASTHMA house dust Allergy Unknown itchy Verified 01/10/21 06:27 penicillin V Allergy Unknown hives Verified 01/10/21 06:27 Assessment & Plan Assessment & Plan (1) Adjustment disorder with mixed disturbance of emotions and conduct: Status: Acute Code(s): F43.25 - Adjustment disorder with mixed disturbance of emotions and conduct Assessment and Plan: impression: hx of emotional lability, impulse control, ptsd and bipolar (by history). recently multiple short admissions with same presentation: pt triggered by something, flares up and then it resolves. pt says anger has resolved and she's back to her normal self and wants disc harge; signed a 3 day notice will admit for stabilization and to demonstrate safety. Will continue current med regimen. Pt does not have manic symptoms. Current incident triggered by situation and due to adjustment disorder (and not manic episode). plan: continue current regimen team discussion to assess how to help pt stay out of hospital (2) Chronic post-traumatic stress disorder (PTSD): Status: Acute Code(s): F43.12 - Post-traumatic stress disorder, chronic (3) Bipolar disorder: Qualifiers: Active/Remission status: currently active Current bipolar episode type: mixed Current episode severity: moderate Qualified Code(s): F31.62 - Bipolar disorder, current episode mixed, moderate Status: Acute Code(s): F31.9 - Bipolar disorder, unspecified Assessment and Plan: 1. continue trileptal 600mg po BID 2. Increase Olanzapine to 10mg po BID 3. Increase propanolol to 20mg po BID for both aggression and tachycardia. (4) Multiple sclerosis, relapsing-remitting: Status: Acute Code(s): G35 - Multiple sclerosis Greater than 50% of the session was spent on counseling and/or coordination of care Reason for contiued inpatient stay Substantial Risk for: inability to function
[2021-03-11] MEDS: HaloperidoL 5 MG TABLET 10 MG PO (16:20)
[2021-03-11] MEDS: Benztropine Mesylate 1 MG TABLET PO (16:21)
[2021-03-11 17:15] VITALS: BP 140/92; PULSE 104; TEMP 36.4
[2021-03-11 17:20] VITALS: BP 140/92; PULSE 104
[2021-03-11] MEDS: amLODIPine Besylate 2.5 MG TABLET PO (17:20)
--- NOTE | 2021-03-11 17:27 | PC.NURSE ---
Halle is alert and oriented x 3. She is dressed in her own clothing with unkempt appearance. Halle has been labile throughout the day/shift frequently vacillating between periods of cursing and yelling and then crying and coughing/choking loudly at the nurse's station and in the hallway. She demanded to speak with a doctor several times, reporting I need to go home today! She has been oppositional to staff redirection, often becoming more escalated and more intrusive with peers and staff. Behaviors have been resistant to PRN medication intervention; There was only one period of time during the shift when she was noted to de-escalate and it was for approximately 30 min. Halle has made numerous phone calls which resulted in her yelling and cursing in [place] then becoming tearful. Halle became very angry after one particular call resulting in her needing to take space in her room. While in her room, she was overheard screaming and stated, That joan is going to have to end up , referring to her boyfriend that she reportedly broke up with today. After another phone call Halle became screaming and when redirected by staff she began punching and kicking the unit door, requiring multiple staff to ask her to stop. Will continue to monitor patient on 15 minute safety checks per orders.
--- NOTE | 2021-03-11 17:45 | PC.NURSE ---
At 1605 patient very agitated, loud, tearful and saying I want to leave here . Melodie Ca, social organization professormanager call center was notified. Patient, at that time was hitting lthe wall and asking for more Ativan. Orders were received for Ativan 2 mg po, Haldol 10 mg po and Cogentin 1 mg all three (3) medications as a one time now dose, which the patient recieved at 1620. Patient's BP was 140/92 and Amlodipine 2.5 mg po x By 1730 aone time dose was started at 1720 and will be a daily dose starting tomorrow 03/12/2021. By 1715 patient appeared much calmer and agreed that the medications had reduced her anxiety. No sedation noted.
[2021-03-11 20:12] VITALS: BP 125/78; PULSE 112
[2021-03-11] MEDS: Propranolol HCL 10 MG TABLET 20 MG PO (20:12)
[2021-03-11] MEDS: Gabapentin 300 MG CAPSULE PO (20:13)
[2021-03-12 05:45] LABS: Glucose, Whole Blood 99 mg/dL (60-115)
[2021-03-12 06:00] VITALS: BP 127/90; PULSE 101; RESP 18; TEMP 36.3; O2SAT 98
[2021-03-12 08:40] VITALS: BP 137/69; PULSE 104
[2021-03-12] MEDS: OXcarbazepine 300 MG TABLET 600 MG PO ×2 (08:40→20:26)
[2021-03-12] MEDS: Propranolol HCL 10 MG TABLET 20 MG PO ×2 (08:40→20:26)
[2021-03-12 08:41] VITALS: BP 137/69; PULSE 104
[2021-03-12] MEDS: amLODIPine Besylate 2.5 MG TABLET PO (08:41)
[2021-03-12] MEDS: Loratadine 10 MG TABLET PO (08:41)
[2021-03-12] MEDS: OLANZapine 10 MG TABLET PO ×2 (08:41→20:26)
[2021-03-12] MEDS: Fluticasone Propionate 100 MCG BLST.W.DEV 2 PUFF INHALE (08:42)
[2021-03-12] MEDS: Mirabegron 50 MG TAB.ER.24H PO (08:42)
[2021-03-12] MEDS: Cholecalciferol (Vitamin D3) 25 MCG TABLET 50 MCG PO (08:42)
--- NOTE | 2021-03-12 09:20 | HO.PSYCHPN ---
Subjective Subjective Date of Service: 03/12/21 Reason For Visit: dysregulated behavior Interim History: met with patient who says she wants to go home but if she has to stay one more day, so be it. Zoning Assistant discussed plans to help patient remain stable in community and out of ED. She says she takes her medications regularly but does not go to follow up appointments. She remains focused on how her father irritates her and triggers her; ghost writer discussed ways to cope with this other than kicking the door, but patient does not feel that having done so was a big deal and did not warrant her coming to ED. Zoning Assistant asked about restraints in ED when coming for MS flare to which she said ED staff would not help her to the bathroom so she urinated on herself; she felt humiliated and ignored which set her into a rage. Patient mostly thinks that smoking cannabis what will calm her mood and this remains her plan. Pt did not want to discuss it further. Medication Compliance: Yes Side effects from medications: No (none reported this admission) Mental Status Exam Mental Status Exam Narrative: Appearance: unkempt but adequate hygiene; obese; close not fully fitting and abdomen visible Patient Orientation: Person, Place, Time and Situation Level of Consciousness: Awake, alert Patient Behavior: calm at times, yelling at others Mood Description: ok; mildly irritable Affect Description: congruent Patient Cognition Impaired: No Ability to Follow Directions: fair Speech Pattern: Clear Hallucinations: None Delusions: Not Present Thought Process: Goal Oriented Thought Content: wanting discharge Judgement: impaired Diagnostics Vital Signs (24Hr): Vital Signs - 24 hr 03/11/21 17:15 03/11/21 17:20 03/11/21 20:12 Temperature 97.5 F Pulse Rate 104 H 104 H 112 H Respiratory Rate Blood Pressure 140/92 H 140/92 H 125/78 Pulse Oximetry 03/12/21 06:00 03/12/21 08:40 03/12/21 08:41 Temperature 97.4 F Pulse Rate 101 H 104 H 104 H Respiratory Rate 18 Blood Pressure 127/90 H 137/69 137/69 Pulse Oximetry 98 Body Mass Index 38.0 Labs Results: 03/09/21 09:35 Labs: Laboratory Results - last 48 hr 03/10/21 03/11/21 03/11/21 16:51 05:55 10:24 POC Glucose 111 145 H GGT 67 H 03/12/21 05:40 POC Glucose 99 GGT Medications Medications Current Medications Generic Name Dose Route Start Last Admin Trade Name Freq PRN Reason Stop Dose Admin Acetaminophen 650 mg 03/08/21 16:29 03/10/21 18:59 Acetaminophen 325 Mg Tablet PO 650 mg Q6H PRN Administration Headache/Pain Mild Scale (1-3) Al Hydroxide/Mg Hydroxide 30 ml 03/08/21 16:29 Magnesium Hydrox/Alum Hydrox 30 Ml Oral.Susp PO Q6H PRN Heartburn/Nausea Amlodipine Besylate 2.5 mg 03/11/21 16:52 03/12/21 08:41 Amlodipine Besylate 2.5 Mg Tablet PO 2.5 mg DAILY RENEE Administration Protocol Benzocaine 1 lozenge 03/08/21 23:27 03/09/21 14:51 Throat Lozenge, Medicated Lozenge MUCOUS MEM 1 lozenge Q2H PRN Administration Sore Throat Diphenhydramine HCl 50 mg 03/08/21 16:29 03/11/21 13:32 Diphenhydramine Hcl 25 Mg Tablet PO 50 mg Q4H PRN Administration agitation Fluticasone Propionate 2 puff 03/07/21 08:00 03/12/21 08:42 Fluticasone Propionate 100 Mcg Blst.W.Dev INHALE 2 puff RBID RENEE Administration Gabapentin 300 mg 03/07/21 21:00 03/11/21 20:13 Gabapentin 300 Mg Capsule PO 300 mg BEDTIME RENEE Administration Haloperidol 5 mg 03/07/21 21:00 03/11/21 20:13 Haloperidol 5 Mg Tablet PO 5 mg BEDTIME RENEE Administration Haloperidol 5 mg 03/08/21 16:29 03/11/21 13:32 Haloperidol 5 Mg Tablet PO 5 mg Q4H PRN Administration agitation Hydroxyzine HCl 50 mg 03/09/21 11:05 03/11/21 13:31 Hydroxyzine Hcl 50 Mg Tablet PO 50 mg RQ4H PRN Administration Anxiety Loratadine 10 mg 03/07/21 09:00 03/12/21 08:41 Loratadine 10 Mg Tablet PO 10 mg DAILY RENEE Administration Lorazepam 2 mg 03/08/21 16:29 03/11/21 20:16 Lorazepam 1 Mg Tablet PO 2 mg Q4H PRN Administration agitation Magnesium Hydroxide 30 ml 03/08/21 16:29 Milk Of Magnesia 30 Ml Oral.Susp PO DAILY PRN Constipation Mirabegron 50 mg 03/07/21 09:00 03/12/21 08:42 Mirabegron 50 Mg Tab.Er.24h PO 50 mg DAILY RENEE Administration Nicotine 14 mg 03/08/21 16:29 Nicotine 14 Mg Patch.Td24 TRANSDERMA DAILY PRN nicotine cessation Nicotine Polacrilex 4 mg 03/08/21 16:29 03/11/21 08:55 Nicotine Polacrilex 2 Mg Gum BUCCAL 4 mg Q2H PRN Administration Nicotine Cravings Patient Own 1 each 03/08/21 22:19 03/11/21 22:00 Medication( SUBCUT 1 each Glatiramer [Copaxone MoWeFr RENEE Administration ] 40 Mg/Ml Syringe) Olanzapine 10 mg 03/11/21 12:00 03/12/21 08:41 Olanzapine 10 Mg Tablet PO 10 mg BID RENEE Administration Oxcarbazepine 600 mg 03/07/21 09:00 03/12/21 08:40 Oxcarbazepine 300 Mg Tablet PO 600 mg BID RENEE Administration Propranolol HCl 20 mg 03/11/21 21:00 03/12/21 08:40 Propranolol Hcl 10 Mg Tablet PO 20 mg BID RENEE Administration Protocol Trazodone HCl 150 mg 03/07/21 02:10 03/08/21 22:12 Trazodone Hcl 50 Mg Tablet PO 150 mg BEDTIME PRN Administration insomnia Vitamin D 50 mcg 03/07/21 09:00 03/12/21 08:42 Cholecalciferol (Vitamin D3) 25 Mcg Tablet PO 50 mcg DAILY RENEE Administration Allergies Allergies Allergy/AdvReac Type Severity Reaction Status Date / Time latex [Latex] Allergy Mild ITCHY AND Verified 01/10/21 06:27 DRY HANDS Penicillins Allergy Mild HIVES Verified 01/10/21 06:27 cat dander [CATS] Allergy Unknown ITCHY, Verified 01/10/21 06:27 ASTHMA house dust Allergy Unknown itchy Verified 01/10/21 06:27 penicillin V Allergy Unknown hives Verified 01/10/21 06:27 Assessment & Plan Assessment & Plan (1) Adjustment disorder with mixed disturbance of emotions and conduct: Status: Acute Code(s): F43.25 - Adjustment disorder with mixed disturbance of emotions and conduct Assessment and Plan: impression: hx of emotional lability, impulse control, ptsd and bipolar (by history). recently multiple short admissions with same presentation: pt triggered by something, flares up and then it resolves. pt says anger has resolved and she's back to her normal self and wants discharge; signed a 3 day notice pt admitted for stabilization and to demonstrate safety. Pt does not have manic symptoms. Current incident triggered by situation and due to adjustment disorder (and not manic episode). Her medications were adjusted with increase in Olanzapine and increase in propranolol, to see if it might be helpful,however, pt has long hx of low frustration tolerance which has not yet been resolved by meds. Zoning Assistant discussed case with Dr. Thompson who agrees medication it's unlikely that med adjustments will effect a significant change. Furthermore patient is not willing to stay on unit longer for additional medication management and remains determined to discharge when 3 day notice is due. Pt 3 day notice due on 03/13/21 Discussed case with staff, pt's previous inpt attending and it's agreed that while her baseline is hard to determine, pt is in the vicinity. Throughout time on the unit, patient consistently demonstrated her ability to be calm and interact appropriately with both peers and staff; intermittently, she also had bouts of high expressed emotion, triggered by specific situations and sometimes accompanied by problematic behaviors (she was not aggressive toward others (as she has been in the past) but will yell or slam things). However, these incidents were short lived and patient returned to baseline. This pattern is consistent with her behaviors in the community. Her recent and frequent episodes of dysregulation in the community are also short-lived, triggered by specific situation and then quickly resolve. While patient carries a dx of bipolar disorder, she does not have manic symptoms, is sleeping well, without pressured speech or hyperactivity and has no overt grandiosity. Her current presentation and recent episodes in the community seem to represent patients chronic struggle with emotional reactivity and impulse control and rather than manic episodes. As patients 3 day notice is coming due, she has no SI/HI, is taking meds and does not want to remain for additional treatment. Given her hx it is likely that she will again become dysregulated but she is not in imminent risk of harm to self or others and does not meet criteria for involuntary commitment. These chronic struggles will not resolve with a longer inpatient stay and remain best handled by consistent outpt therapy. Patient will remain on unit another day for help with disposition planing, including attempt to link pt with [facility], and then discharge on 03/13/21 plan: continue current regimen team discussion to assess how to help pt stay out of hospital (2) Chronic post-traumatic stress disorder (PTSD): Status: Acute Code(s): F43.12 - Post-traumatic stress disorder, chronic (3) Bipolar disorder: Qualifiers: Active/Remission status: currently active Current bipolar episode type: mixed Current episode severity: moderate Qualified Code(s): F31.62 - Bipolar disorder, current episode mixed, moderate Status: Inactive Code(s): F31.9 - Bipolar disorder, unspecified Assessment and Plan: 1. continue trileptal 600mg po BID 2. Increase Olanzapine to 10mg po BID 3. Increase propanolol to 20mg po BID for both aggression and tachycardia. (4) Multiple sclerosis, relapsing-remitting: Status: Acute Code(s): G35 - Multiple sclerosis Greater than 50% of the session was spent on counseling and/or coordination of care Reason for contiued inpatient stay Substantial Risk for: other (approaching baseline)
[2021-03-12] MEDS: LORazepam 1 MG TABLET 2 MG PO ×2 (09:55→14:17)
[2021-03-12] MEDS: diphenhydrAMINE HCL 25 MG TABLET 50 MG PO ×2 (09:55→14:17)
[2021-03-12] MEDS: HaloperidoL 5 MG TABLET PO ×3 (09:55→20:26)
[2021-03-12 20:26] VITALS: BP 145/85; PULSE 110
[2021-03-12] MEDS: Gabapentin 300 MG CAPSULE PO (20:27)
[2021-03-12 20:44] LABS: Glucose, Whole Blood 135 mg/dL (60-115)
[2021-03-13 05:16] LABS: Glucose, Whole Blood 109 mg/dL (60-115)
[2021-03-13 05:24] VITALS: BP 121/78; PULSE 106; RESP 20; TEMP 36.3; O2SAT 97
[2021-03-13 08:22] VITALS: BP 138/81; PULSE 108
[2021-03-13] MEDS: Acetaminophen 325 MG TABLET 650 MG PO (08:22)
[2021-03-13] MEDS: Loratadine 10 MG TABLET PO (08:22)
[2021-03-13] MEDS: amLODIPine Besylate 2.5 MG TABLET PO (08:22)
[2021-03-13] MEDS: Mirabegron 50 MG TAB.ER.24H PO (08:22)
[2021-03-13] MEDS: Cholecalciferol (Vitamin D3) 25 MCG TABLET 50 MCG PO (08:22)
[2021-03-13] MEDS: OLANZapine 10 MG TABLET PO (08:22)
[2021-03-13] MEDS: OXcarbazepine 300 MG TABLET 600 MG PO (08:22)
[2021-03-13 08:23] VITALS: BP 138/81; PULSE 108
[2021-03-13] MEDS: Propranolol HCL 10 MG TABLET 20 MG PO (08:23)
[2021-03-13] MEDS: Fluticasone Propionate 100 MCG BLST.W.DEV 2 PUFF INHALE (08:29)
--- NOTE | 2021-03-13 10:20 | P.DS_ITS ---
DS: Providers Provider Date of Service: 03/13/21 Date of admission: 03/08/21 13:44 Primary care physician: None Physician DS: Diagnosis Discharge Diagnosis (1) Adjustment disorder with mixed disturbance of emotions and conduct: Status: Acute (2) Chronic post-traumatic stress disorder (PTSD): Status: Acute (3) Bipolar disorder: Status: Inactive Problem details: in remission (4) Multiple sclerosis, relapsing-remitting: Status: Acute Problem details: Pt works with Dr. May of [facility] who when we spoke encouraged diagnostics which pt declined as she prefers to work within the [facility] system with her own neuro team. DS: Medications Discharge Medications Home Medications: Home Medications Medication Instructions Recorded Confirmed glatiramer 40 mg/mL subcutaneous 40 mg SUBCUT 3XW 08/31/20 03/07/21 syringe trazodone 1 tab PO BEDTIME PRN 12/21/20 03/07/21 Flovent 2 puff INHALATION BID 12/23/20 03/07/21 Vitamin D3 2,000 units PO DAILY 12/23/20 03/07/21 Previous Rx's Medication Instructions Recorded gabapentin 300 mg PO BEDTIME #14 cap 02/21/21 haloperidol 5 mg PO BEDTIME #14 tab 02/21/21 loratadine 10 mg PO DAILY #14 tab 02/21/21 mirabegron [Myrbetriq] 50 mg PO DAILY #14 tab 02/21/21 olanzapine 10 mg PO BEDTIME #14 tab 02/21/21 oxcarbazepine [Trileptal] 600 mg PO BID #28 tab 02/21/21 propranolol 10 mg PO BID #28 tab 02/21/21 Discharge Plan Discharge Patient Disposition: Home, Self-Care Discharge Diagnosis: adjustment disorder with mixed disturbance of mood and conduct Referrals: Usha Wilson (therapist) [Other] - 03/18/21 2:00 pm (Appointment is over the phone. Therapist will call you) Dr. Bradley (psychiatrist) [Other] - 03/22/21 12:30 pm (Appointment is over the phone. Psychiatrist will call you) [facility] (Groups) [Other] (Call, visit the center, or visit the website to become more involved. Visit the website for a calendar of virtual groups, all Zoom login information available on the calendar)) Rolf Lee MD [Physician] - 1 Week (PT. DIDNT SIGN NO RELEASE BUT PT. STATED SHE HAS AN APPOINTMENT FOR APRIL.) Discharge Medications: New lorazepam 1 mg Tablet 0.5 mg PO DAILY PRN (Reason: agitation) Qty: 14 RF: 0 olanzapine 10 mg Tablet 10 mg PO BID Qty: 60 RF: 0 propranolol 20 mg tablet 20 mg PO BID Qty: 60 RF: 0 amlodipine 2.5 mg Tablet 2.5 mg PO DAILY Qty: 30 RF: 0 Continued trazodone 150 mg tablet 1 tab PO BEDTIME PRN (Reason: insomnia) RF: 0 Flovent 110 mcg inhaler 2 puff inhalation BID RF: 0 Vitamin D3 2,000 Units capsule 2,000 units PO DAILY RF: 0 loratadine 10 mg Tablet 10 mg PO DAILY Qty: 14 RF: 0 gabapentin 300 mg Capsule 300 mg PO BEDTIME Qty: 14 RF: 0 haloperidol 5 mg Tablet 5 mg PO BEDTIME Qty: 14 RF: 0 Myrbetriq 50 mg Tablet Extended Release 24 Hr 50 mg PO DAILY Qty: 14 RF: 0 oxcarbazepine [Trileptal] 600 mg tablet 600 mg PO BID Qty: 28 RF: 0 glatiramer [Copaxone] 40 mg/mL syringe 40 mg subcut 3XW RF: 0 Discontinued propranolol 10 mg Tablet 10 mg PO BID Qty: 28 RF: 0 olanzapine 10 mg Tablet 10 mg PO BEDTIME Qty: 14 RF: 0 Discharge Orders: Discharge Order (Routine); Ordered 03/13/21 Ordered By: Gerhard Bearden Diet: diabetic diet Activity on Discharge: As tolerated Stand Alone Forms: Patient Portal Discharge page, Community Support Care Plan Goals: maintain safe behaviors and utilize coping skills connect with [facility] who will be calling you Health Concerns: mood stability and behaviors Hypertension diabetes Plan of Treatment: Follow up with your PCP regaring hypertension and starting on Amlodpine Take medications as prescribed Amoldipine is a new medication and used to treat high blood pressure Propranolol is for anxiety and it is to be taken regularly. During this admission it was increased to 20mg 3x a day Olanzapine is to help keep mood stable and it is to be taken regularly. During this admission it was increased to 10mg twice a day Assessment: Risk assessment at time of discharge: Patient was interviewed prior to discharge and found to be fully oriented. Patient denied any thoughts of wanting to harm self or others and had a safety plan that included presenting to the closest ER or calling 911 if thoughts of harming self or others occurred Patient Instructions: Stress (GEN) Discharge Date/Time: 03/13/21 12:15 Mental Status Exam Mental Status Exam Narrative: Appearance: unkempt but adequate hygiene; obese; close tight but fully covering body Patient Orientation: Person, Place, Time and Situation Level of Consciousness: Awake, alert Patient Behavior: calm Mood Description: ok mildly irritable Affect Description: congruent Patient Cognition Impaired: No Ability to Follow Directions: fair Speech Pattern: Clear Hallucinations: None Delusions: Not Present Thought Process: Goal Oriented Thought Content: wanting discharge Judgement: impaired Data Data Completed and Pending Completed studies during hospitalization [Text1]: 03/07/21 03/07/21 03/07/21 00:11 05:21 05:21 WBC RBC Hgb Hct MCV MCH MCHC RDW Plt Count MPV Immature Gran % (Auto) Neut % (Auto) Lymph % (Auto) [place] % (Auto) Eos % (Auto) Baso % (Auto) Lymph # (Auto) [place] # (Auto) Eos # (Auto) Baso # (Auto) Abs Immat Gran (auto) Absolute Neuts (auto) Absolute Nucleated RBC Nucleated RBC % (auto) POC Glucose Total Bilirubin Direct Bilirubin GGT AST ALT Alkaline Phosphatase Total Protein Albumin Urine Color DARK YELLOW Urine Appearance HAZY Urine pH 5.0 Ur Specific [place] >= 1.030 H Urine Protein TRACE Urine Glucose (UA) NEG Urine Ketones NEG Urine Blood NEG Urine Nitrite NEG Ur Leukocyte Esterase NEG Urine RBC 0-2 Urine WBC 1-4 Ur Squamous Epith Cells 3+ Urine Bacteria 2+ Urine Mucus 1+ Urine Test Urine Opiates Screen Not Detected Ur Barbiturates Screen Not Detected Ur Phencyclidine Scrn Not Detected Ur Amphetamines Screen Not Detected U Benzodiazepines Scrn Not Detected Urine Cocaine Screen Not Detected U Marijuana (THC) Screen POSITIVE H COVID-19 (RENZO) Negative COVID-19 Clin Com See Note 03/07/21 03/08/21 03/09/21 05:21 17:27 09:35 WBC 9.4 RBC 4.20 Hgb 12.5 Hct 36.8 L MCV 87.6 MCH 29.8 MCHC 34.0 RDW 13.6 Plt Count 336 MPV 8.8 L Immature Gran % (Auto) 0.3 Neut % (Auto) 57.8 Lymph % (Auto) 34.4 [place] % (Auto) 4.6 Eos % (Auto) 2.7 Baso % (Auto) 0.2 Lymph # (Auto) 3.2 [place] # (Auto) 0.4 Eos # (Auto) 0.3 Baso # (Auto) 0.0 Abs Immat Gran (auto) 0.03 Absolute Neuts (auto) 5.4 Absolute Nucleated RBC 0.000 Nucleated RBC % (auto) 0.0 POC Glucose 123 H Total Bilirubin Direct Bilirubin GGT AST ALT Alkaline Phosphatase Total Protein Albumin Urine Color Urine Appearance Urine pH Ur Specific [place] Urine Protein Urine Glucose (UA) Urine Ketones Urine Blood Urine Nitrite Ur Leukocyte Esterase Urine RBC Urine WBC Ur Squamous Epith Cells Urine Bacteria Urine Mucus Urine Test NEGATIVE Urine Opiates Screen Ur Barbiturates Screen Ur Phencyclidine Scrn Ur Amphetamines Screen U Benzodiazepines Scrn Urine Cocaine Screen U Marijuana (THC) Screen COVID-19 (RENZO) [employer] 03/09/21 03/09/21 03/10/21 09:35 17:25 16:51 WBC RBC Hgb Hct MCV MCH MCHC RDW Plt Count MPV Immature Gran % (Auto) Neut % (Auto) Lymph % (Auto) [place] % (Auto) Eos % (Auto) Baso % (Auto) Lymph # (Auto) [place] # (Auto) Eos # (Auto) Baso # (Auto) Abs Immat Gran (auto) Absolute Neuts (auto) Absolute Nucleated RBC Nucleated RBC % (auto) POC Glucose 92 111 Total Bilirubin 0.4 Direct Bilirubin 0.2 GGT AST 23 ALT 26 Alkaline Phosphatase 127 H Total Protein 7.2 Albumin 4.1 Urine Color Urine Appearance Urine pH Ur Specific [place] Urine Protein Urine Glucose (UA) Urine Ketones Urine Blood Urine Nitrite Ur Leukocyte Esterase Urine RBC Urine WBC Ur Squamous Epith Cells Urine Bacteria Urine Mucus Urine Test Urine Opiates Screen Ur Barbiturates Screen Ur Phencyclidine Scrn Ur Amphetamines Screen U Benzodiazepines Scrn Urine Cocaine Screen U Marijuana (THC) Screen COVID-19 (RENZO) [employer] 03/11/21 03/11/21 03/12/21 05:55 10:24 05:40 WBC RBC Hgb Hct MCV MCH MCHC RDW Plt Count MPV Immature Gran % (Auto) Neut % (Auto) Lymph % (Auto) [place] % (Auto) Eos % (Auto) Baso % (Auto) Lymph # (Auto) [place] # (Auto) Eos # (Auto) Baso # (Auto) Abs Immat Gran (auto) Absolute Neuts (auto) Absolute Nucleated RBC Nucleated RBC % (auto) POC Glucose 145 H 99 Total Bilirubin Direct Bilirubin GGT 67 H AST ALT Alkaline Phosphatase Total Protein Albumin Urine Color Urine Appearance Urine pH Ur Specific [place] Urine Protein Urine Glucose (UA) Urine Ketones Urine Blood Urine Nitrite Ur Leukocyte Esterase Urine RBC Urine WBC Ur Squamous Epith Cells Urine Bacteria Urine Mucus Urine Test Urine Opiates Screen Ur Barbiturates Screen Ur Phencyclidine Scrn Ur Amphetamines Screen U Benzodiazepines Scrn Urine Cocaine Screen U Marijuana (THC) Screen COVID-19 (RENZO) COVID-19 [employer] 03/12/21 03/13/21 20:35 05:09 WBC RBC Hgb Hct MCV MCH MCHC RDW Plt Count MPV Immature Gran % (Auto) Neut % (Auto) Lymph % (Auto) [place] % (Auto) Eos % (Auto) Baso % (Auto) Lymph # (Auto) [place] # (Auto) Eos # (Auto) Baso # (Auto) Abs Immat Gran (auto) Absolute Neuts (auto) Absolute Nucleated RBC Nucleated RBC % (auto) POC Glucose 135 H 109 Total Bilirubin Direct Bilirubin GGT AST ALT Alkaline Phosphatase Total Protein Albumin Urine Color Urine Appearance Urine pH Ur Specific [place] Urine Protein Urine Glucose (UA) Urine Ketones Urine Blood Urine Nitrite Ur Leukocyte Esterase Urine RBC Urine WBC Ur Squamous Epith Cells Urine Bacteria Urine Mucus Urine Test Urine Opiates Screen Ur Barbiturates Screen Ur Phencyclidine Scrn Ur Amphetamines Screen U Benzodiazepines Scrn Urine Cocaine Screen U Marijuana (THC) Screen COVID-19 (RENZO) COVID-19 [employer] 03/09/21 22:00 Nasal - Nasal Gram Stain - Final 03/09/21 22:00 Nasal - Nasal Routine Culture - Final 03/09/21 22:00 Throat Streptococcus Rapid Screen - Final 03/09/21 22:00 Throat Throat Culture - Final No Group A Beta-hemolytic Streptococci isolated. DS: Summary Hospital Course Hospital Course: Pt is 35 yo female with hx of emotional lability, impulse control, ptsd and bipolar disorder who presented for dysregulated, aggressive behaviors in community in face of relational strife with father, having been recently discharged from about 2 weeks ago. Patient has had several recent admissions for similar presentations; she was admitted on 02/05/21 for 4 days and then again 2 weeks later on 02/19/21 for 2 days (discharged 02/21/21 having signed a 3 day notice the day she was admitted). On admission, pt reported that her anger had subsided and that she was back to her her normal self; she denied any SI or HI and though remains irritated toward her father and family, has no ill-will toward them and says she knows they care about her but wishes they would mind their own business. While patient carries a dx of bipolar disorder, she does not have manic symptoms, is sleeping well, without pressured speech or hyperactivity and has no overt grandiosity. Her current presentation, like her recent episodes in the community seem to represent patients chronic struggles with emotional reactivity and impulse control and do not indicate a manic episode. Pt was continued on her home medications which include two antipsychotics. As soon as patient arrived to unit, she signed a 3 day notice. However, team agreed it was in patients best interest to demonstrate safety on the unit before being discharged and so she remained. Throughout her time on the unit, patient demonstrated her ability to be calm and interact appropriately with both peers and staff; intermittently, she also had bouts of high expressed emotion, triggered by specific situations (upsetting phone call with family; wanting discharge) and were sometimes accompanied by problematic behaviors (she was not aggressive toward others (as she has been in the past) but would yell or slam things). However, these incidents were short lived, patient was able to be redirected and patient returned to baseline. Patient wanted an increase in her medications, despite increased risk of side-effects. Covering provider did make adjustments with increase in Olanzapine and increase in propranolol to see if it might be helpful; pt was a bit calmer, but it remained unclear if was was due to increased meds. Patient however was not willing to stay on unit any longer for additional medication management (lowering or changing) and remained determined to discharge when 3 day notice is due. Pt had insight to know that her behaviors are concerning to others and can frighten others but says she has trouble controlling her self when upset; she says she takes her medications regularly, that they help, but finds cannabis to be what calms her down the most and plans to continue using it. Pt was also started on amlodipine 2.5mg daily for HTN which did seem to lower BP (development writer discussed risks/side-effect of this med; patient understood discussion, asked questions and agreed to follow up with her PCP). Throughout admission, pt continued to deny any Si or HI. She was without manic symptoms, sleeping well, eating well and tolerating medications. While she remains vulnerable to decompenstation at some point in the future, team agreed that she was in vicinity of her baseline, that she was not in imminent risk of harm to self or others, and that much of her struggles are chronic, behavioral, will not resolve with a longer inpatient stay and remain best handled by long-term consistent outpt therapy. Her 3 day notice was due and she did not rise to the level of involuntary commitment. Her request for discharge was honored. Patient was discharged on 2 antipsychotics. This is her outpatient regimen which was determined necessary as patient has not been able to maintain stability on only one antipsychotic. While this may change if patient is willing to engage in consistent therapy, her recent aggressive behaviors warrant continuation of current regimen. Pt understood the increased risks of being on 2 antipsychotics but wanted to remain on both haldol and Olanzapine feeling the benefits outweighed the risks. Time Spent with Patient Time attestation: Total time spent providing and/or coordinating discharge services:
--- NOTE | 2021-03-15 13:02 | PM.EVENT ---
Event Note Date of Service: 03/15/21 Event Note: Patient signed AMARJIT giving functional tester typewriters permission to talk with her father, Uche Eller. Father reports that after discharge this week, she went home to boyfriends. He suspects they smoked cannabis. He reports that later that day she drove over to her family's house and seemed intoxicated, not able to focus, not making sense then running in street yelling. They then called 911. Father agrees that patient will be at baseline, get triggered by something, become dysregulated for a short duration and then return to baseline. However, patient is triggered with such frequency that he is feels she needs shelter help to which remains resistent. He says she takes her AM meds since a VNA comes in morning, but likely misses evening doses. Thinks that cannabis exacerbates patients symptoms. Father informs that they will seek guardianship as patient has been having such trouble for years. They are in touch with Dr Bradley at [facility] and are reaching out to [facility] ([facility] intake pending). Father mentions biologic loading on both sides of patients family, including patients paternal uncle schizophrenia/bipolar (treated w/ [facility]). Med hx: Depakote: caused tremor Never taken [facility] (worked for patients uncle) Care team contacted functional tester typewriters and reports that patient seems to be back to her baseline; she apologized for behavior in ED, saying she had just smoked cannabis.
== END 2021-03-13 12:15 | disposition home or self-care (01) | DRG 882 ==
LOC: HO.ED 03-08 09:48 → HO.PM5 03-08 14:03
PROVIDERS: Nurse Practitioner Family; Social Worker; Admitting Provider Psychiatry & Neurology Psychiatry; Emergency Provider Internal Medicine; Visit Provider Psychiatry & Neurology Psychiatry
DX: F43.25 Adjustment disorder with mixed disturbance of emotions and conduct (principal); F31.62 Bipolar disorder, current episode mixed, moderate; Z20.822 Contact with and (suspected) exposure to COVID-19; G35 Multiple sclerosis; F43.12 Post-traumatic stress disorder, chronic; E66.9 Obesity, unspecified; Z68.38 Body mass index [BMI] 38.0-38.9, adult; F17.210 Nicotine dependence, cigarettes, uncomplicated; Z71.6 Tobacco abuse counseling; Z88.0 Allergy status to penicillin; Z79.899 Other long term (current) drug therapy
CPT/HCPCS: 36415; 80076; 80307; 81001; 81025; 82947; 82977; 85025; 87071; 87205; 87635; 87880; 93005; 99283; 99284; 99285; Q0163

== ENCOUNTER 2021-03-13 20:18 | Emergency (ER) | payer OTHER, SELFPAY ==
[2021-03-13 20:34] VITALS: BMI 38.0
[2021-03-13 20:50] VITALS: BP 126/78; PULSE 98; RESP 18; TEMP 37.2; O2SAT 98
[2021-03-13] MEDS: LORazepam 1 MG TABLET 2 MG PO (21:04)
[2021-03-13] MEDS: diphenhydrAMINE HCL 25 MG TABLET 50 MG PO (21:04)
[2021-03-13] MEDS: HaloperidoL 5 MG TABLET 10 MG PO (21:04)
[2021-03-13 21:36] LABS: Amphetamine Screen Urine Not Detected (Not Detect); Barbiturates, Urine Not Detected (Not Detect); Benzodiazepines Screen Urine Not Detected (Not Detect); Cannabinoid Screen Urine POSITIVE (Not Detect); Cocaine Screen Urine Not Detected (Not Detect); Opiate Screen Urine Not Detected (Not Detect); Phencyclidine Screen Urine Not Detected (Not Detect)
[2021-03-13 21:42] LABS: COVID-19 Test Negative (Negative)
--- NOTE | 2021-03-13 22:49 | ECG_ITS ---
Test Reason : CRISIS Blood Pressure : / mmHG Vent. Rate : 109 BPM Atrial Rate : 109 BPM P-R Int : 124 ms QRS Dur : 070 ms QT Int : 330 ms P-R-T Axes : 074 -04 033 degrees QTc Int : 444 ms Sinus tachycardia Otherwise normal ECG When compared with ECG of 11-MAR-2021 15:15, No significant change was found Referred By: Baldo Vargas Electronically Signed By:MARILOU CASTELLANOS
--- NOTE | 2021-03-13 23:00 | PC.NURSE ---
Patient manic, very loud, disruptive, intrusive, triggering co-patient, PO medication received earlier have not touched her, hyper-sexual towards male patient, no redirect-ability, provider notified ordered Lab, EKG and Haldol 5 mg IM, administered as ordered pending effect, will continue to monitor on 1:1 observation from 4850 - 4450.
[2021-03-13 23:05] LABS: Basophils Percent Auto 0.2 % (0-2); Eosinophils Absolute Auto 0.2 X10*3/uL (0.0-0.4); Eosinophils Percent Auto 1.3 % (0-4); Hematocrit 38.6 % (37-47); Hemoglobin 13.1 g/dl (12.0-16.0); Imm Gran Abs Auto 0.05 X10*3/uL (0.00-0.03); Imm Gran Pct Auto 0.3 % (0.0-0.4); Lymphocytes Absolute Auto 5.9 X10*3/uL (1.2-4.9); MANUAL DIFF FLAG SCAN; Mean Corpuscular HGB Conc 33.9 g/dl (31.0-35.0); Mean Corpuscular Hemoglobin 29.3 pg (27.0-33.0); Mean Corpuscular Volume 86.4 fL (80-98); Mean Platelet Volume 8.8 fL (9.4-12.3); Monocytes Absolute Auto 1.3 X10*3/uL (0.1-1.2); Monocytes Percent Auto 7.6 % (2-11); Neutrophils Absolute Auto 8.9 X10*3/uL (2.0-8.3); Neutrophils Percent Auto 54.6 % (45-73); Platelet Count 325 X10*3/uL (160-400); Red Blood Count 4.47 X10*6/uL (4.20-5.50); Red Cell Distribution Width 13.4 % (11.0-16.0); SCAN SMEAR FLAG 1; White Blood Count 16.4 X10*3/uL (4.8-10.8)
[2021-03-13 23:08] LABS: SLIDE REVIEW VERIFIED
[2021-03-13 23:10] VITALS: RESP 18
[2021-03-13] MEDS: Haloperidol Lactate 5 MG/ML VIAL IM (23:10)
[2021-03-13 23:25] VITALS: RESP 18
[2021-03-13 23:27] LABS: Alanine Aminotransferase 18 U/L (0-31); Albumin Level 4.2 g/dL (3.5-5.0); Alkaline Phosphatase 129 U/L (39-117); Anion Gap 12 (12-20); Aspartate Amino Transferase 17 U/L (5-31); Bilirubin Total 0.3 mg/dL (0.0-1.0); Blood Urea Nitrogen 15 mg/dL (9-16); Calcium 9.5 mg/dL (8.4-10.2); Carbon Dioxide 27 mmol/L (22-29); Chloride 103 mmol/L (96-108); Creatinine Clr Calc Pharmacy 97.8; Estimated Glomerular Filt Rate 59; Glucose Random 113 mg/dL (60-115); Potassium 4.1 mmol/L (3.3-5.1); Sodium 138 mmol/L (135-145); Total Protein 7.4 g/dL (6.5-8.0)
[2021-03-13 23:40] VITALS: RESP 20
[2021-03-13 23:55] VITALS: RESP 18; RESP 24
[2021-03-14 00:10] VITALS: RESP 20
[2021-03-14 00:14] VITALS: RESP 16
[2021-03-14 00:49] LABS: Glucose Urine UA NEG (NEG); Leukocyte Esterase Urine NEG (NEG); Nitrite Urine NEG (NEG); Specific Gravity - Urine 1.015 (1.005-1.025); Urine Blood 1+ (NEG); Urine Ketones NEG (NEG); Urine Protein NEG (NEG-TRACE)
[2021-03-14 00:52] LABS: Appearance Urine CLEAR; Color Urine YELLOW; UPreg QC Valid YES; Urine Pregnancy NEGATIVE (NEGATIVE)
[2021-03-14 00:57] LABS: Bacteria Urine TRACE /LPF; RBC Urine 0-2 /HPF (0); Squamous Epithelial Cell Urine TRACE /LPF; WBC Urine 0-2 /HPF (0-4)
--- NOTE | 2021-03-14 01:48 | ED_ITS ---
HPI - Psych General Chief Complaint: Psychiatric Symptoms Stated Complaint: AMS Time Seen by Provider: 03/13/21 20:58 Source: patient and EMS Mode of arrival: ambulatory Limitations: no limitations History of Present Illness HPI Narrative: 35-year-old female with past medical history as noted below including history of PTSD, bipolar disorder, adjustment disorder with mixed emotion and conductive disturbance of this regularly behavior and history of marijuana abuse she was admitted here to the psychiatric unit on March 09 and discharged on March 13 returns today 10 hours or so later having disorganized behavior erratic exposing self. MD complaint: altered mental status Onset (ago): hour(s) Duration: constant History of same: Yes Relieving factors: none Exacerbating factors: none Associated psychiatric symptoms: none Associated symptoms: denies other symptoms Treatments prior to arrival: none Related Data Home Medications Medication Instructions Recorded Confirmed glatiramer 40 mg/mL subcutaneous 40 mg SUBCUT 3XW 08/31/20 03/07/21 syringe trazodone 1 tab PO BEDTIME PRN 12/21/20 03/07/21 Flovent 2 puff INHALATION BID 12/23/20 03/07/21 Vitamin D3 2,000 units PO DAILY 12/23/20 03/07/21 Previous Rx's Medication Instructions Recorded Myrbetriq 50 mg PO DAILY #14 tab 02/21/21 gabapentin 300 mg PO BEDTIME #14 cap 02/21/21 haloperidol 5 mg PO BEDTIME #14 tab 02/21/21 loratadine 10 mg PO DAILY #14 tab 02/21/21 oxcarbazepine [Trileptal] 600 mg PO BID #28 tab 02/21/21 amlodipine 2.5 mg PO DAILY #30 tab 03/13/21 lorazepam 0.5 mg PO DAILY PRN #14 tab 03/13/21 olanzapine 10 mg PO BID #60 tab 03/13/21 propranolol 20 mg PO BID #60 tab 03/13/21 Allergies Allergy/AdvReac Type Severity Reaction Status Date / Time latex [Latex] Allergy Mild ITCHY AND Verified 03/13/21 20:38 DRY HANDS Penicillins Allergy Mild HIVES Verified 03/13/21 20:38 cat dander [CATS] Allergy Unknown ITCHY, Verified 03/13/21 20:38 ASTHMA house dust Allergy Unknown itchy Verified 03/13/21 20:38 penicillin V Allergy Unknown hives Verified 03/13/21 20:38 Review of Systems Review of Systems: Refusing speak to the provider Yes Unobtainable due to mental status PMFSH Past Medical History Medical History Adjustment disorder with mixed disturbance of emotions and conduct Asthma Bipolar disorder Bipolar disorder Carpal tunnel syndrome of right wrist Chronic post-traumatic stress disorder (PTSD) OLIVIER I (cervical intraepithelial neoplasia I) Depression GERD (gastroesophageal reflux disease) Hypercholesterolemia Hypertension Multiple sclerosis, relapsing-remitting Obesity (BMI 30-39.9) PTSD (post-traumatic stress disorder) Severe manic bipolar 1 disorder with psychotic behavior Surgical History Hx of breast reduction, elective Family History Family History Father Hypertension CVD (cardiovascular disease) High cholesterol Mother Depression Multiple sclerosis Maternal Grandmother Alzheimers disease Maternal Grandfather Heart disease Paternal Grandmother Stroke Hypertension Paternal Grandfather Diabetes Brother Diabetes Family/Other FH: mental illness Social History Social History Household Members: Unknown / Unable to assess Housing: Apartment Alcohol intake: never Smoking Status: Heavy tobacco smoker Tobacco Type: Cigarette Second Hand Smoke Exposure: Yes Substance Use Type: Marijuana Advance Directives: No Advance Directives Information Provided: Yes Patient : No (refusing to respond) service: No Sexual orientation: Straight/Heterosexual Physical Exam Vital Signs: Vital Signs: Last Vital Signs Temp 98.9 F 03/13/21 20:50 Pulse 98 03/13/21 20:50 Resp 16 03/14/21 00:14 BP 126/78 03/13/21 20:50 Pulse Ox 98 03/13/21 20:50 Body Mass Index 38.0 Reviewed Const: General: cooperative; No intoxicated appearing Nutritional Appearance: average body habitus Orientation/consciousness: patient oriented x3 HENMT: Head: Yes normal to inspection Ears: hearing grossly normal bilater ally Eyes: General: appearance normal, both eyes and all related structures Visual Engel: normal visual engel by confrontation Neck: Neck: Yes normal visual inspection, No positive Brudzinski's sign, No positive Kernig's sign and No tender Thyroid: Thyroid normal Chest: Chest palpation & inspection: normal inspection of the chest Resp: Effort & Inspection: normal respiratory effort Auscultation: clear to auscultation bilaterally Cardio: Jugular venous distension: no JVD Rhythm: regular rhythm Heart sounds: S1 normal heart sound present and S2 normal heart sound present GI: Inspection: Yes normal to inspection Percussion: Yes normal to percussion Auscultation: normal bowel sounds : General: Yes no CVA tenderness Back/Spine/Pelvis: Back: no CVA tenderness Skin: General skin exam: no rashes or lesions noted Neuro: General: patient oriented x3 Extrem: General: Yes normal to inspection Course Reevaluation(s) Reevaluation #1: Cooperative upon arrival then shortly after started being very intrusive with other patients able to redirect exposing self requiring extensive redirection. Offered p.o. meds she was able to accept however continue to have intrusive behavior attempted to walk into other patient's rooms exposing herself. She is on continuous observation with one-to-one sitter. Required IM medication for behavioral control as she declined p.o.. Medical screening labs done and pending plan for psychiatric evaluation. Reevaluation #2: 0230 Labs stable leukocytosis likely reactive. No signs or symptoms of infection. UA negative for or infection. She has no upper respiratory symptoms. COVID test negative. Patient is medically cleared for psychiatric evaluation. At this time patient requires more time for psychiatric evaluation and thus placed on physician observation. MDM - Psych Lab Data Result diagrams: 03/13/21 22:58 03/13/21 22:58 Labs: Lab Results 03/13/21 03/13/21 03/13/21 Range/Units 20:57 20:57 20:58 WBC (4.8-10.8) X10*3/uL RBC (4.20-5.50) X10*6/uL Hgb (12.0-16.0) g/dl Hct (37-47) % MCV (80-98) fL MCH (27.0-33.0) pg MCHC (31.0-35.0) g/dl RDW (11.0-16.0) % Plt Count (160-400) X10*3/uL MPV (9.4-12.3) fL Immature Gran % (Auto) (0.0-0.4) % Neut % (Auto) (45-73) % Lymph % (Auto) (20-40) % [place] % (Auto) (2-11) % Eos % (Auto) (0-4) % Baso % (Auto) (0-2) % Lymph # (Auto) (1.2-4.9) X10*3/uL [place] # (Auto) (0.1-1.2) X10*3/uL Eos # (Auto) (0.0-0.4) X10*3/uL Baso # (Auto) (0.0-0.2) X10*3/uL Abs Immat Gran (auto) (0.00-0.03) X10*3/uL Absolute Neuts (auto) (2.0-8.3) X10*3/uL Absolute Nucleated RBC (0.0-0.012) X10*3/uL Nucleated RBC % (auto) (0.0-0.2) /100WBC Smear Tech's Comments Sodium (135-145) mmol/L Potassium (3.3-5.1) mmol/L Chloride (96-108) mmol/L Carbon Dioxide (22-29) mmol/L Anion Gap (12-20) BUN (9-16) mg/dL Creatinine (0.5-1.4) mg/dL Estim Creat Clear Calc Estimated GFR Random Glucose (60-115) mg/dL Calcium (8.4-10.2) mg/dL Total Bilirubin (0.0-1.0) mg/dL AST (5-31) U/L ALT (0-31) U/L Alkaline Phosphatase (39-117) U/L Total Protein (6.5-8.0) g/dL Albumin (3.5-5.0) g/dL Urine Color YELLOW Urine Appearance CLEAR Urine pH 6.0 (5.0-8.0) Ur Specific [place] 1.015 (1.005-1.025) Urine Protein NEG (NEG-TRACE) MG/DL Urine Glucose (UA) NEG (NEG) MG/DL Urine Ketones NEG (NEG) MG/DL Urine Blood 1+ H (NEG) Urine Nitrite NEG (NEG) Ur Leukocyte Esterase NEG (NEG) Urine RBC 0-2 (0) /HPF Urine WBC 0-2 (0-4) /HPF Ur Squamous Epith Cells TRACE /LPF Urine Bacteria TRACE /LPF Urine Test NEGATIVE (NEGATIVE) Urine Opiates Screen Not Detected (Not Detect) Ur Barbiturates Screen Not Detected (Not Detect) Ur Phencyclidine Scrn Not Detected (Not Detect) Ur Amphetamines Screen Not Detected (Not Detect) U Benzodiazepines Scrn Not Detected (Not Detect) Urine Cocaine Screen Not Detected (Not Detect) U Marijuana (THC) Screen POSITIVE H (Not Detect) COVID-19 (RENZO) (Negative) COVID-19 Clin Com 03/13/21 03/13/21 03/13/21 Range/Units 21:13 22:58 22:58 WBC 16.4 H (4.8-10.8) X10*3/uL RBC 4.47 (4.20-5.50) X10*6/uL Hgb 13.1 (12.0-16.0) g/dl Hct 38.6 (37-47) % MCV 86.4 (80-98) fL MCH 29.3 (27.0-33.0) pg MCHC 33.9 (31.0-35.0) g/dl RDW 13.4 (11.0-16.0) % Plt Count 325 (160-400) X10*3/uL MPV 8.8 L (9.4-12.3) fL Immature Gran % (Auto) 0.3 (0.0-0.4) % Neut % (Auto) 54.6 (45-73) % Lymph % (Auto) 36.0 (20-40) % [place] % (Auto) 7.6 (2-11) % Eos % (Auto) 1.3 (0-4) % Baso % (Auto) 0.2 (0-2) % Lymph # (Auto) 5.9 H (1.2-4.9) X10*3/uL [place] # (Auto) 1.3 H (0.1-1.2) X10*3/uL Eos # (Auto) 0.2 (0.0-0.4) X10*3/uL Baso # (Auto) 0.0 (0.0-0.2) X10*3/uL Abs Immat Gran (auto) 0.05 H (0.00-0.03) X10*3/uL Absolute Neuts (auto) 8.9 H (2.0-8.3) X10*3/uL Absolute Nucleated RBC 0.000 (0.0-0.012) X10*3/uL Nucleated RBC % (auto) 0.0 (0.0-0.2) /100WBC Smear Tech's Comments VERIFIED Sodium 138 (135-145) mmol/L Potassium 4.1 (3.3-5.1) mmol/L Chloride 103 (96-108) mmol/L Carbon Dioxide 27 (22-29) mmol/L Anion Gap 12 (12-20) BUN 15 (9-16) mg/dL Creatinine 1.05 (0.5-1.4) mg/dL Estim Creat Clear Calc 97.8 Estimated GFR 59 Random Glucose 113 (60-115) mg/dL Calcium 9.5 D (8.4-10.2) mg/dL Total Bilirubin 0.3 (0.0-1.0) mg/dL AST 17 (5-31) U/L ALT 18 (0-31) U/L Alkaline Phosphatase 129 H (39-117) U/L Total Protein 7.4 (6.5-8.0) g/dL Albumin 4.2 (3.5-5.0) g/dL Urine Color Urine Appearance Urine pH (5.0-8.0) Ur Specific [place] (1.005-1.025) Urine Protein (NEG-TRACE) MG/DL Urine Glucose (UA) (NEG) MG/DL Urine Ketones (NEG) MG/DL Urine Blood (NEG) Urine Nitrite (NEG) Ur Leukocyte Esterase (NEG) Urine RBC (0) /HPF Urine WBC (0-4) /HPF Ur Squamous Epith Cells /LPF Urine Bacteria /LPF Urine Test (NEGATIVE) Urine Opiates Screen (Not Detect) Ur Barbiturates Screen (Not Detect) Ur Phencyclidine Scrn (Not Detect) Ur Amphetamines Screen (Not Detect) U Benzodiazepines Scrn (Not Detect) Urine Cocaine Screen (Not Detect) U Marijuana (THC) Screen (Not Detect) COVID-19 (RENZO) Negative (Negative) COVID-19 Clin Com See Note Discharge Plan Discharge Clinical Impression: Bipolar disorder, Drug-induced psychotic disorder, Acute anxiety Prescriptions: No Action trazodone 150 mg tablet 1 tab PO BEDTIME PRN (Reason: insomnia) RF: 0 Flovent 110 mcg inhaler 2 puff inhalation BID RF: 0 Vitamin D3 2,000 Units capsule 2,000 units PO DAILY RF: 0 loratadine 10 mg Tablet 10 mg PO DAILY Qty: 14 RF: 0 gabapentin 300 mg Capsule 300 mg PO BEDTIME Qty: 14 RF: 0 haloperidol 5 mg Tablet 5 mg PO BEDTIME Qty: 14 RF: 0 Myrbetriq 50 mg Tablet Extended Release 24 Hr 50 mg PO DAILY Qty: 14 RF: 0 oxcarbazepine [Trileptal] 600 mg tablet 600 mg PO BID Qty: 28 RF: 0 lorazepam 1 mg Tablet 0.5 mg PO DAILY PRN (Reason: agitation) Qty: 14 RF: 0 olanzapine 10 mg Tablet 10 mg PO BID Qty: 60 RF: 0 propranolol 20 mg tablet 20 mg PO BID Qty: 60 RF: 0 amlodipine 2.5 mg Tablet 2.5 mg PO DAILY Qty: 30 RF: 0 glatiramer [Copaxone] 40 mg/mL syringe 40 mg subcut 3XW RF: 0
[2021-03-14] MEDS: LORazepam 1 MG TABLET PO (03:22)
[2021-03-14] MEDS: OLANZapine 5 MG TABLET PO (03:22)
--- NOTE | 2021-03-14 03:53 | PC.NURSE ---
Patient screaming, tangential, psychotic, disrobing intermittently, flashing her private part to male patient, non re-directable, provider notified/ordered Olanzapine 5 mg PO and Ativan 1 mg PO, administered as ordered, patient is being monitored on 1:1 for intrusive and aggressive behavior.
--- NOTE | 2021-03-14 04:14 | PC.NURSE ---
Restraint order not executed at this time, patient seems not behaving to that point warranting restraint at this point, provider made aware through security, will continue to monitor.
--- NOTE | 2021-03-14 05:42 | PC.NURSE ---
LYNSEY faxed/called/spoke with Anisha, confirmed receipt of referral, will continue to monitor.
--- NOTE | 2021-03-14 07:11 | PC.NURSE ---
received report from night nurse, patient up and about whining, using profanity approximately every minute, wandering periodically interacting with staff or just talking to self, patient appears in no distress excepting boredom (seemingly)
[2021-03-14 07:35] VITALS: BP 153/96; PULSE 110
[2021-03-14] MEDS: OXcarbazepine 300 MG TABLET 600 MG PO (07:35)
[2021-03-14] MEDS: OLANZapine 10 MG TABLET PO (07:35)
[2021-03-14] MEDS: Propranolol HCL 20 MG TABLET PO (07:35)
[2021-03-14] MEDS: Loratadine 10 MG TABLET PO (07:37)
[2021-03-14 07:40] VITALS: BP 153/96; PULSE 110
[2021-03-14] MEDS: amLODIPine Besylate 2.5 MG TABLET PO (07:40)
[2021-03-14] MEDS: Cholecalciferol (Vitamin D3) 25 MCG TABLET 50 MCG PO (07:41)
[2021-03-14] MEDS: Mirabegron 50 MG TAB.ER.24H PO (07:41)
[2021-03-14 08:32] VITALS: BP 153/96; PULSE 110; RESP 18; TEMP 36.9; O2SAT 97
[2021-03-14] MEDS: diphenhydrAMINE HCL 25 MG TABLET 50 MG PO ×2 (09:59→17:46)
[2021-03-14] MEDS: LORazepam 1 MG TABLET 2 MG PO ×2 (09:59→17:45)
--- NOTE | 2021-03-14 10:00 | PC.NURSE ---
PT agitated, walking around unit yelling and disrobing, difficult to redirect. PT punched exit doors, swearing at staff, pt flipped table in common area. PT agreeable to taking medication, pt medicated per emar. Labile in mood, yelling, crying and laughing. Pt encouraged to lay in bed.
[2021-03-14] MEDS: LORazepam 0.5 MG TABLET PO (13:22)
--- NOTE | 2021-03-14 13:22 | MHC.CARE ---
Pt is currently a bed search through the CARE Team.
[2021-03-14] MEDS: LORazepam 2 MG/ML VIAL IM (13:36)
[2021-03-14] MEDS: Haloperidol Lactate 5 MG/ML VIAL IM (13:37)
[2021-03-14] MEDS: diphenhydrAMINE HCL 50 MG/ML VIAL IM (13:45)
--- NOTE | 2021-03-14 13:45 | PC.NURSE ---
PT yelling and swearing at staff, redirected to her room, pt slamming her door open and closed, continued to yell and swear at staff, Verbally redirected. PT agreeable to taking medication, explained that the medication will be IM, pt agreeable. PT medicated per EMAR.
--- NOTE | 2021-03-14 14:49 | MHC.CARE ---
[facility] community arts centre manager - [facility] [phone]
--- NOTE | 2021-03-14 16:11 | MHC.CARE ---
Pts insurance company would like Pt to return to for continuity of care. does not have a current bed. CARE Team to refer Pt to tomorrow 03/15/21. If no bed available MSU will be completed and state wide bed search will begin.
--- NOTE | 2021-03-14 19:24 | PC.NURSE ---
Report received. PT is resting in bed, shouts out to staff occasionally but is able to calm herself. PT is inpatient bed search.
[2021-03-15] VITALS (7 sets, daily range): BP systolic 114–144; BP diastolic 75–78; PULSE 109–112; RESP 16–18; TEMP 36.2–36.4; O2SAT 98–99
--- NOTE | 2021-03-15 02:08 | PC.NURSE ---
PT woke up from sleep and apologized to staff for her behavior last night. PT stated that she smoked a blunt after being discharged from on Thursday and then doesn't remember much afterwards. PT is in behavioral control at this time but became upset when we spoke about her parents. PT is asking to go home. PT is inpatient bed search at this time, but also due for MSU by [place].
[2021-03-15] MEDS: Propranolol HCL 20 MG TABLET PO ×2 (02:29→08:15)
[2021-03-15] MEDS: OXcarbazepine 300 MG TABLET 600 MG PO ×2 (02:30→08:16)
[2021-03-15] MEDS: HaloperidoL 5 MG TABLET PO (02:30)
[2021-03-15] MEDS: Gabapentin 300 MG CAPSULE PO (02:30)
[2021-03-15] MEDS: OLANZapine 10 MG TABLET PO ×2 (02:30→08:16)
[2021-03-15] MEDS: Fluticasone Propionate 100 MCG BLST.W.DEV 2 PUFF INHALE ×2 (02:35→08:15)
[2021-03-15] MEDS: LORazepam 1 MG TABLET 2 MG PO (07:14)
--- NOTE | 2021-03-15 07:29 | PC.NURSE ---
patient wandering presently on unit, talking to self speaks negatively regarding parents and [facility]N, feel victimized by parents theyre taking my money, wheres my car? oriented to person time and place appears in no acute distress
[2021-03-15] MEDS: Loratadine 10 MG TABLET PO (08:15)
[2021-03-15] MEDS: Mirabegron 50 MG TAB.ER.24H PO (08:15)
[2021-03-15] MEDS: Cholecalciferol (Vitamin D3) 25 MCG TABLET 50 MCG PO (08:15)
[2021-03-15] MEDS: amLODIPine Besylate 2.5 MG TABLET PO (08:16)
== END 2021-03-15 13:49 | disposition home or self-care (01) ==
PROVIDERS: Nurse Practitioner Primary Care; Emergency Provider Internal Medicine
DX: F31.9 Bipolar disorder, unspecified (principal); F12.159 Cannabis abuse with psychotic disorder, unspecified; F41.9 Anxiety disorder, unspecified; F43.24 Adjustment disorder with disturbance of conduct; R00.0 Tachycardia, unspecified; Z20.822 Contact with and (suspected) exposure to COVID-19; F43.10 Post-traumatic stress disorder, unspecified; I10 Essential (primary) hypertension; E78.00 Pure hypercholesterolemia, unspecified; G35 Multiple sclerosis; F17.210 Nicotine dependence, cigarettes, uncomplicated; Z78.1 Physical restraint status
CPT/HCPCS: 36415; 80053; 80307; 81001; 81025; 85025; 87635; 93005; 96372; 99285; J1200; J2060; Q0163

== ENCOUNTER 2022-01-28 10:59 | Outpatient (REF) | payer OTHER, SELFPAY ==
[2022-01-28 11:31] LABS: MANUAL DIFF FLAG NO
[2022-01-28 12:03] LABS: Basophils Percent Auto 0.3 % (0-2); Eosinophils Absolute Auto 0.3 X10*3/uL (0.0-0.4); Eosinophils Percent Auto 3.5 % (0-4); Hematocrit 38.9 % (37.0-47.0); Hemoglobin 13.6 g/dl (12.0-16.0); Imm Gran Abs Auto 0.03 X10*3/uL (0.00-0.03); Imm Gran Pct Auto 0.3 % (0.0-0.4); Lymphocytes Percent Auto 41.4 % (20-40); Mean Corpuscular Hemoglobin 31.4 pg (27.0-33.0); Mean Corpuscular Volume 89.8 fL (80.0-98.0); Monocytes Absolute Auto 0.5 X10*3/uL (0.1-1.2); Monocytes Percent Auto 5.4 % (2-11); Neutrophils Absolute Auto 4.7 x10*3/uL (2.0-8.3); Neutrophils Percent Auto 49.1 % (45-73); Platelet Count 288 X10*3/uL (160-400); Red Blood Count 4.33 X10*6/uL (4.20-5.50); Red Cell Distribution Width 12.4 % (11.0-16.0); White Blood Count 9.6 X10*3/uL (4.8-10.8)
[2022-01-28 12:32] LABS: Alanine Aminotransferase 19 U/L (0-31); Alkaline Phosphatase 166 U/L (39-117); Anion Gap 13 (12-20); Aspartate Amino Transferase 14 U/L (5-31); Bilirubin Total 0.5 mg/dL (0.0-1.0); Blood Urea Nitrogen 10 mg/dL (9-16); Calcium 9.4 mg/dL (8.4-10.2); Carbon Dioxide 24 mmol/L (22-29); Chloride 104 mmol/L (96-108); Cholesterol 222 mg/dL; Estimated Glomerular Filt Rate > 60; Glucose Random 102 mg/dL (60-115); HDL Cholesterol 40 mg/dL; LDL Cholesterol Calculated 150 mg/dl; Potassium 4.4 mmol/L (3.3-5.1); Sodium 137 mmol/L (135-145); Total Protein 7.4 g/dL (6.5-8.0); Triglycerides 162 mg/dL
[2022-01-28 12:56] LABS: Free T4 (Free Thyroxine) 0.94 ng/dL (0.71-1.85); Thyroid Stimulating Hormone 1.09 uIU/mL (0.32-4.0)
[2022-01-28 13:05] LABS: Folate 3.7 ng/mL (> or = 4.0); Vitamin B12 329 pg/mL (200-900)
[2022-01-28 14:15] LABS: Amphetamine Screen Urine Not Detected (Not Detect); Barbiturates, Urine Not Detected (Not Detect); Benzodiazepines Screen Urine Not Detected (Not Detect); Cannabinoid Screen Urine POSITIVE (Not Detect); Cocaine Screen Urine Not Detected (Not Detect); Fentanyl, urine POSITIVE (Not Detect); Opiate Screen Urine Not Detected (Not Detect); Phencyclidine Screen Urine Not Detected (Not Detect)
[2022-01-30 14:21] LABS: Vitamin D 25-OH Total 30.3 ng/mL (>30)
== END 2022-01-28 11:00 | disposition home or self-care (01) ==
LOC: HO.LAB 10:59
PROVIDERS: Absent Provider Internal Medicine; PCP Internal Medicine; Visit Provider Nurse Practitioner Psychiatric/Mental Health
DX: F31.9 Bipolar disorder, unspecified (principal); G35 Multiple sclerosis; E78.00 Pure hypercholesterolemia, unspecified
CPT/HCPCS: 36415; 80053; 80061; 80307; 82306; 82607; 82746; 84439; 84443; 85025

== ENCOUNTER 2022-07-27 17:21 | Emergency (ER) | payer OTHER, SELFPAY ==
--- NOTE | 2022-07-27 17:24 | ECG_ITS ---
Test Reason : SYNCOPE Blood Pressure : / mmHG Vent. Rate : 065 BPM Atrial Rate : 065 BPM P-R Int : 144 ms QRS Dur : 078 ms QT Int : 402 ms P-R-T Axes : 053 000 030 degrees QTc Int : 418 ms Normal sinus rhythm Low voltage QRS Borderline ECG When compared with ECG of 13-MAR-2021 22:58, Vent. rate has decreased BY 44 BPM Referred By: Generic ED Physician Electronically Signed By:BERNARD COLMENARES
[2022-07-27 17:26] VITALS: BP 111/75; PULSE 67; RESP 18; TEMP 37.2; O2SAT 98; BMI 40.3
[2022-07-27 17:53] LABS: MANUAL DIFF FLAG NO
[2022-07-27 17:58] LABS: Basophils Percent Auto 0.4 % (0-2); Eosinophils Absolute Auto 0.3 X10*3/uL (0.0-0.4); Eosinophils Percent Auto 3.3 % (0-4); Hemoglobin 13.4 g/dl (12.0-16.0); Imm Gran Abs Auto 0.02 X10*3/uL (0.00-0.03); Imm Gran Pct Auto 0.2 % (0.0-0.4); Lymphocytes Absolute Auto 4.6 X10*3/uL (1.2-4.9); Lymphocytes Percent Auto 47.1 % (20-40); Mean Corpuscular HGB Conc 35.3 g/dl (31.0-35.0); Mean Corpuscular Hemoglobin 31.5 pg (27.0-33.0); Mean Corpuscular Volume 89.4 fL (80.0-98.0); Monocytes Absolute Auto 0.7 X10*3/uL (0.1-1.2); Monocytes Percent Auto 6.7 % (2-11); Neutrophils Absolute Auto 4.2 x10*3/uL (2.0-8.3); Neutrophils Percent Auto 42.3 % (45-73); Platelet Count 270 X10*3/uL (160-400); Red Blood Count 4.25 X10*6/uL (4.20-5.50); White Blood Count 9.8 X10*3/uL (4.8-10.8)
[2022-07-27 18:27] LABS: Alanine Aminotransferase 14 U/L (0-31); Albumin Level 4.1 g/dL (3.5-5.0); Alkaline Phosphatase 159 U/L (39-117); Anion Gap 15 (12-20); Aspartate Amino Transferase 12 U/L (5-31); Bilirubin Total 0.4 mg/dL (0.0-1.0); Blood Urea Nitrogen 11 mg/dL (9-16); Calcium 9.2 mg/dL (8.4-10.2); Carbon Dioxide 26 mmol/L (22-29); Chloride 102 mmol/L (96-108); Creatinine Clr Calc Pharmacy 81.9; Estimated Glomerular Filt Rate 47; Glucose Random 107 mg/dL (60-115); Potassium 4.4 mmol/L (3.3-5.1); Sodium 139 mmol/L (135-145); Total Protein 7.5 g/dL (6.5-8.0)
[2022-07-27 18:32] LABS: Troponin-I High Sensitivity < 3.5 ng/L (<3.5-17.0)
== END 2022-07-27 20:45 | disposition left against medical advice (07) ==
PROVIDERS: Emergency Provider Emergency Medicine; PCP Internal Medicine
DX: R55 Syncope and collapse (principal); Z79.899 Other long term (current) drug therapy
CPT/HCPCS: 36415; 80053; 84484; 85025; 93005; 99283

== ENCOUNTER 2022-08-05 17:24 | Emergency (ER) | payer OTHER, SELFPAY ==
[2022-08-05 17:28] VITALS: BP 101/74; PULSE 74; RESP 18; TEMP 36.8; O2SAT 97; BMI 40.3
[2022-08-05 18:03] LABS: MANUAL DIFF FLAG NO
[2022-08-05 18:06] LABS: Basophils Percent Auto 0.3 % (0-2); Eosinophils Absolute Auto 0.3 X10*3/uL (0.0-0.4); Eosinophils Percent Auto 2.6 % (0-4); Hematocrit 40.1 % (37.0-47.0); Hemoglobin 14.1 g/dl (12.0-16.0); Imm Gran Abs Auto 0.02 X10*3/uL (0.00-0.03); Imm Gran Pct Auto 0.2 % (0.0-0.4); Lymphocytes Absolute Auto 3.9 X10*3/uL (1.2-4.9); Lymphocytes Percent Auto 37.6 % (20-40); Mean Corpuscular HGB Conc 35.2 g/dl (31.0-35.0); Mean Corpuscular Hemoglobin 31.2 pg (27.0-33.0); Mean Corpuscular Volume 88.7 fL (80.0-98.0); Mean Platelet Volume 8.8 fL (9.4-12.3); Monocytes Absolute Auto 0.6 X10*3/uL (0.1-1.2); Monocytes Percent Auto 5.6 % (2-11); Neutrophils Absolute Auto 5.6 x10*3/uL (2.0-8.3); Neutrophils Percent Auto 53.7 % (45-73); Platelet Count 274 X10*3/uL (160-400); Red Blood Count 4.52 X10*6/uL (4.20-5.50); Red Cell Distribution Width 12.1 % (11.0-16.0); White Blood Count 10.4 X10*3/uL (4.8-10.8)
[2022-08-05 18:16] LABS: Anion Gap 15 (12-20); Blood Urea Nitrogen 9 mg/dL (9-16); Calcium 9.2 mg/dL (8.4-10.2); Carbon Dioxide 25 mmol/L (22-29); Chloride 103 mmol/L (96-108); Creatinine Clr Calc Pharmacy 83.2; Estimated Glomerular Filt Rate 48; Glucose Random 95 mg/dL (60-115); Potassium 4.2 mmol/L (3.3-5.1); Sodium 139 mmol/L (135-145)
== END 2022-08-05 18:31 | disposition left against medical advice (07) ==
PROVIDERS: Emergency Provider Emergency Medicine; PCP Internal Medicine
DX: R42 Dizziness and giddiness (principal); Z79.899 Other long term (current) drug therapy
CPT/HCPCS: 36415; 80048; 85025; 99281; 99283

== ENCOUNTER 2023-02-17 12:08 | Outpatient (REF) | payer OTHER, SELFPAY ==
[2023-02-17 13:34] LABS: Estimated Average Glucose 114 mg/dL; Hemoglobin A1c % 5.6 %
[2023-02-17 13:44] LABS: Alanine Aminotransferase 14 U/L (0-31); Albumin Level 4.1 g/dL (3.5-5.0); Alkaline Phosphatase 155 U/L (39-117); Anion Gap 12 (12-20); Aspartate Amino Transferase 13 U/L (5-31); Bilirubin Total 0.5 mg/dL (0.0-1.0); Blood Urea Nitrogen 12 mg/dL (9-16); Calcium 9.1 mg/dL (8.4-10.2); Carbon Dioxide 26 mmol/L (22-29); Chloride 103 mmol/L (96-108); Cholesterol 204 mg/dL; Estimated Glomerular Filt Rate 53; Glucose Fasting 103 mg/dL (60-99); Glucose Random 103 mg/dL (60-115); HDL Cholesterol 39 mg/dL; LDL Cholesterol Calculated 123 mg/dl; Potassium 4.8 mmol/L (3.3-5.1); Sodium 136 mmol/L (135-145); Total Protein 7.2 g/dL (6.5-8.0); Triglycerides 213 mg/dL
== END 2023-02-17 12:09 | disposition home or self-care (01) ==
LOC: HO.LAB 12:08
PROVIDERS: Nurse Practitioner Psychiatric/Mental Health; PCP Internal Medicine; Visit Provider Psychiatry & Neurology Psychiatry
DX: F31.9 Bipolar disorder, unspecified (principal)
CPT/HCPCS: 36415; 80053; 80061; 82947; 83036

== ENCOUNTER 2023-03-11 12:38 | Outpatient (REF) | payer OTHER, SELFPAY ==
[2023-03-11 12:52] LABS: MANUAL DIFF FLAG NO
[2023-03-11 13:33] LABS: Basophils Percent Auto 0.3 % (0-2); Eosinophils Absolute Auto 0.2 X10*3/uL (0.0-0.4); Eosinophils Percent Auto 2.2 % (0-4); Hematocrit 38.1 % (37.0-47.0); Hemoglobin 13.5 g/dl (12.0-16.0); Imm Gran Abs Auto 0.02 X10*3/uL (0.00-0.03); Imm Gran Pct Auto 0.2 % (0.0-0.4); Lymphocytes Absolute Auto 2.6 X10*3/uL (1.2-4.9); Lymphocytes Percent Auto 27.2 % (20-40); Mean Corpuscular HGB Conc 35.4 g/dl (31.0-35.0); Mean Corpuscular Hemoglobin 30.8 pg (27.0-33.0); Mean Platelet Volume 8.7 fL (9.4-12.3); Monocytes Absolute Auto 0.5 X10*3/uL (0.1-1.2); Monocytes Percent Auto 5.6 % (2-11); Neutrophils Absolute Auto 6.3 x10*3/uL (2.0-8.3); Neutrophils Percent Auto 64.5 % (45-73); Platelet Count 316 X10*3/uL (160-400); Red Blood Count 4.38 X10*6/uL (4.20-5.50); Red Cell Distribution Width 12.8 % (11.0-16.0); White Blood Count 9.7 X10*3/uL (4.8-10.8)
[2023-03-11 14:26] LABS: Alanine Aminotransferase 13 U/L (0-31); Albumin Level 4.2 g/dL (3.5-5.0); Alkaline Phosphatase 157 U/L (39-117); Anion Gap 11 (12-20); Aspartate Amino Transferase 12 U/L (5-31); Bilirubin Total 0.4 mg/dL (0.0-1.0); Blood Urea Nitrogen 9 mg/dL (9-16); C Reactive Protein 0.78 mg/dL (< or = 0.50); Calcium 9.2 mg/dL (8.4-10.2); Carbon Dioxide 24 mmol/L (22-29); Chloride 105 mmol/L (96-108); Cholesterol 226 mg/dL; Estimated Glomerular Filt Rate 56; Glucose Random 111 mg/dL (60-115); HDL Cholesterol 44 mg/dL; LDL Cholesterol Calculated 156 mg/dl; Potassium 4.7 mmol/L (3.3-5.1); Sodium 135 mmol/L (135-145); Total Protein 7.4 g/dL (6.5-8.0); Triglycerides 133 mg/dL; Uric Acid 3.9 mg/dL (2.4-5.7)
[2023-03-11 14:33] LABS: Erythrocyte Sedimentation Rate 36 MM/HR (0-20)
[2023-03-11 14:52] LABS: Folate > 20.0 ng/mL (> or = 4.0); Free T4 (Free Thyroxine) 0.87 ng/dL (0.71-1.85); Thyroid Stimulating Hormone 1.25 uIU/mL (0.32-4.0); Vitamin B12 490 pg/mL (200-900); Vitamin D 25-OH Total 42.3 ng/mL (>30)
== END 2023-03-11 12:39 | disposition home or self-care (01) ==
LOC: HO.LAB 12:38
PROVIDERS: PCP Internal Medicine; Visit Provider Internal Medicine
DX: I10 Essential (primary) hypertension (principal); E78.00 Pure hypercholesterolemia, unspecified; E55.9 Vitamin D deficiency, unspecified; G35 Multiple sclerosis
CPT/HCPCS: 36415; 80053; 80061; 82306; 82607; 82746; 84439; 84443; 84550; 85025; 85652; 86140

== ENCOUNTER 2023-06-18 14:48 | Outpatient (AMB) | payer OTHER, SELFPAY ==
--- NOTE | 2023-06-18 14:55 | MHC.OFFVIS ---
Intake Intake Visit Reasons: Hypertension Allergies latex [Latex] Allergy (Mild, Verified 02/27/23 12:03) ITCHY AND DRY HANDS Penicillins Allergy (Mild, Verified 02/27/23 12:03) HIVES cat dander [CATS] Allergy (Unknown, Verified 02/27/23 12:03) ITCHY, ASTHMA house dust Allergy (Unknown, Verified 02/27/23 12:03) itchy penicillin V Allergy (Unknown, Verified 02/27/23 12:03) hives HPI Hypertension HPI Details [age] Year old obese female smoker with a history of relapsing remitting multiple sclerosis cervical degenerative disc disease hypercholesterolemia hypertension bipolar disorder coming in for follow-up. Last seen in December 2022. Review of the notes in November 2022 had an MRI of the thoracic spine showing stable T2 hyperintense plaques in the thoracic spinal cord T3, T6-T7 and T11 and 12 while MRI of the head showing stable appearing white matter lesions May blood work noted PFSH Medical History Adjustment disorder with mixed disturbance of emotions and conduct Asthma Bipolar disorder Carpal tunnel syndrome of right wrist Chronic post-traumatic stress disorder (PTSD) OLIVIER I (cervical intraepithelial neoplasia I) Depression GERD (gastroesophageal reflux disease) Hypercholesterolemia Hypertension Multiple sclerosis, relapsing-remitting Obesity (BMI 30-39.9) PTSD (post-traumatic stress disorder) Severe manic bipolar 1 disorder with psychotic behavior Surgical History Hx of breast reduction, elective Family History Father Hypertension CVD (cardiovascular disease) High cholesterol Mother Depression Multiple sclerosis Maternal Grandmother Alzheimers disease Maternal Grandfather Heart disease Paternal Grandmother Stroke Hypertension Paternal Grandfather Diabetes Brother Diabetes Family/Other FH: mental illness Social History Household Members: Unknown / Unable to assess Housing: Apartment Do you presently have visiting nurse or other home services: No Unable to assess alcohol history related to: Unknown Alcohol intake: current Alcohol intake frequency: holidays/special occasions only Alcohol type: wine Patient Tobacco Use Status: Current everyday Tobacco user Tobacco use type: Cigarette Cigarettes Per Day: 3 e-Cigarette/Vaping Use: Never Used Second Hand Smoke Exposure: Yes Substance Use Type: Marijuana service: No Current occupational status: unemployed Sexual orientation: Straight/Heterosexual Cognitive needs: No Hearing needs: No Vision needs: Yes (Glasses) Physical Exam Const General: alert; No acute distress Eyes Conjunctivae: conjunctivae normal Resp Auscultation: clear to auscultation bilaterally Cardio Rate: regular rate Rhythm: regular rhythm GI Inspection: Yes normal to inspection Extrem General: Yes normal to inspection and No edema Assessment & Plan Assessment & Plan (1) Tobacco abuse: Code(s): Z72.0 - Tobacco use Plan: Patient is strongly advised to stop! (2) Bipolar disorder: Comment: [place]. Shine (2021) Code(s): F31.9 - Bipolar disorder, unspecified Plan: Continue with counseling and therapy (3) Multiple sclerosis, relapsing-remitting: Comment: Pt works with Dr. May of [facility] who when we spoke encouraged diagnostics which pt declined as she prefers to work within the [facility] system with her own neuro team. Code(s): G35 - Multiple sclerosis Plan: Patient is following with Neurology (4) GERD (gastroesophageal reflux disease): Code(s): K21.9 - Gastro-esophageal reflux disease without esophagitis Qualifiers: Esophagitis presence: without esophagitis Qualified Code(s): K21.9 - Gastro-esophageal reflux disease without esophagitis Plan: Avoid the foods that causes that usually spicy foods, tomato products, juices, coffee, soda and foods that your sensitive to. After eating do not lie down, allow 3-4 hours before in lie down. And keep the head of bed above 30 degrees to avoid the acid from going up. (5) Obesity (BMI 30-39.9): Code(s): E66.9 - Obesity, unspecified Plan: Diet and exercise (6) Hypercholesterolemia: Code(s): E78.00 - Pure hypercholesterolemia, unspecified Plan: Avoid fried foods, chicken skin, eggs, butter margarine, pastries and meat. Be it pork or beef they have a lot of cholesterol LDL goal of less than (7) Hypertension: Code(s): I10 - Essential (primary) hypertension Qualifiers: Hypertension type: essential hypertension Qualified Code(s): I10 - Essential (primary) hypertension Plan: Continue with blood pressure medication. Decrease salt intake and exercise continue with propranolol 20 mg twice a day Coding Level of Care Code Est Pt Level 4 (23120) Diagnoses Tobacco abuse Z72.0 Bipolar disorder F31.9 Multiple sclerosis, relapsing-remitting G35 GERD (gastroesophageal reflux disease) K21.9 Esophagitis presence: without esophagitis Obesity (BMI 30-39.9) E66.9 Hypercholesterolemia E78.00 Hypertension I10 Hypertension type: essential hypertension
[2023-06-18 15:06] VITALS: BP 122/70; PULSE 108; O2SAT 98; BMI 39.1
--- NOTE | 2023-06-18 15:06 | A.OFFPC_ITS ---
Vital Signs 06/18/23 15:06 Height 5 ft 8 in Weight 257 lb BMI 39.1 BP 122/70 Blood Pressure Location Lt brachial Position Sitting Pulse 108 H Pulse Source Pulse Oximeter Pulse Oximetry (%) 98 Oxygen Delivery Method Room Air Intake Visit Reasons: Hypertension Allergies latex [Latex] Allergy (Mild, Verified 06/18/23 15:06) ITCHY AND DRY HANDS Penicillins Allergy (Mild, Verified 06/18/23 15:06) HIVES cat dander [CATS] Allergy (Unknown, Verified 06/18/23 15:06) ITCHY, ASTHMA house dust Allergy (Unknown, Verified 06/18/23 15:06) itchy penicillin V Allergy (Unknown, Verified 06/18/23 15:06) hives Tobacco use date assessed: 02/27/23 Dental Screening Dental Screen Date: 06/18/23 Did you have a dental visit in the last 12 months?: Yes Did you have a dental problem in the last 6 months where you did not have access to dental care?: No Was dental information given to patient?: Patient has dentist HPI Hypertension HPI Details 38-year-old obese female with relapsing remitting multiple sclerosis impaired glucose tolerance posttraumatic stress disorder polysubstance abuse bipolar disorder asthma GERD hypertension hypercholesterolemia last seen in December. Review of the notes had MRI done on the thoracic spine as well as the brain showing plaques but has been stable. March was the last blood work with hypercholesterolemia and impaired glucose tolerance.. still smoking 3 cigarettes per day.- patient has urinary incontinence, stress exercises and does kegels. no rectal incontinence. asking nutrition referal for loosing weight and health complains of having GERD. Advised to stop smoke. [facility] Medical History Adjustment disorder with mixed disturbance of emotions and conduct Asthma Bipolar disorder Carpal tunnel syndrome of right wrist Chronic post-traumatic stress disorder (PTSD) OLIVIER I (cervical intraepithelial neoplasia I) Depression GERD (gastroesophageal reflux disease) Hypercholesterolemia Hypertension Multiple sclerosis, relapsing-remitting Obesity (BMI 30-39.9) PTSD (post-traumatic stress disorder) Severe manic bipolar 1 disorder with psychotic behavior Surgical History Hx of breast reduction, elective Family History Father Hypertension CVD (cardiovascular disease) High cholesterol Mother Depression Multiple sclerosis Maternal Grandmother Alzheimers disease Maternal Grandfather Heart disease Paternal Grandmother Stroke Hypertension Paternal Grandfather Diabetes Brother Diabetes Family/Other FH: mental illness Social History Household Members: Unknown / Unable to assess Housing: Apartment Do you presently have visiting nurse or other home services: No Unable to assess alcohol history related to: Unknown Alcohol intake: current Alcohol intake frequency: holidays/special occasions only Alcohol type: wine Patient Tobacco Use Status: Current everyday Tobacco user Tobacco use type: Cigarette Cigarettes Per Day: 3 e-Cigarette/Vaping Use: Never Used Second Hand Smoke Exposure: Yes Substance Use Type: Marijuana service: No Current occupational status: unemployed Sexual orientation: Straight/Heterosexual Cognitive needs: No Hearing needs: No Vision needs: Yes (Glasses) Questionnaire PHQ-9 Over the last 2 weeks, how often have you been bothered by any of the following problems? 1. Little interest or pleasure in doing things: several days 2. Feeling down, depressed, or hopeless: several days 3. Trouble falling or staying asleep, or sleeping too much: not at all 4. Feeling tired or having little energy: not at all 5. Poor appetite or overeating: not at all 6. Feeling bad about yourself - or that you are a failure or have let yourself or your family down: not at all 7. Trouble concentrating on things, such as reading the newspaper or watching television: not at all 8. Moving or speaking so slowly that other people could have noticed. Or the opposite - being so fidgety or restless that you have been moving around a lot more than usual: not at all 9. Thoughts that you would be better off or of hurting yourself in some way : not at all Total score: 2 Depression Screening Interpretation: Negative 43197 - PHQ-9 Billing: Yes Source: Developed by Drs. Mark Jacob, Sheila Christine, Dylan Brar and colleagues, with an educational stephanie from [employer]. Thrive Questionnaire Date Thrive assessed: 02/27/23 AUDIT C Alcohol Use Questionnaire (AUDIT-C) 1. How often do you have a drink containing alcohol?: Monthly or less 2. How many drinks containing alcohol do you have on a typical day when you are drinking?: 1 or 2 3. How often do you have six or more drinks on one occasion?: Never Total Score: 1 Score Reviewed/Action Taken: No CANDE-7 AMB Questionnaire CANDE-7 Date CANDE - 7 assessed: 02/27/23 Source: Developed by Drs. Mark Jacob, Sheila Christine, Dylan Brar and colleagues, with an educational stephanie from [employer]. Physical exam (Primary Care) Vital Signs: Last Vital Signs Pulse 108 H 06/18/23 15:06 BP 122/70 06/18/23 15:06 Pulse Ox 98 06/18/23 15:06 Oxygen Delivery Method Room Air 06/18/23 15:06 BMI result Body Mass Index 39.1 Tobacco/Smoking Status: Tobacco use Status Tobacco use date assessed 02/27/23 06/18/23 15:10 Patient Tobacco Use Status Current everyday Tobacco 06/18/23 15:10 Tobacco use type Cigarette 06/18/23 15:10 e-Cigarette/Vaping Use Never Used 06/18/23 15:10 PHQ-9: PHQ-9 Score PHQ-9: Total score 2 06/18/23 15:10 Depression Screening Interpretation: Negative Thrive Assessment: Date of Thrive Assessment Date Thrive assessed 02/27/23 06/18/23 15:10 Const General: alert; No acute distress Eyes Conjunctivae: conjunctivae normal Resp Auscultation: clear to auscultation bilaterally Cardio Rate: regular rate Rhythm: regular rhythm GI Inspection: Yes normal to inspection Extrem General: Yes normal to inspection and No edema Assessment and Plan Assessment & Plan (1) Tobacco abuse: Code(s): Z72.0 - Tobacco use Plan: Patient is strongly advised to stop! (2) Bipolar disorder: Comment: [place]. Shine (2021) Code(s): F31.9 - Bipolar disorder, unspecified Plan: Continue to follow-up with counseling and therapy (3) Multiple sclerosis, relapsing-remitting: Comment: Pt works with Dr. May of [facility] who when we spoke encouraged diagnostics which pt declined as she prefers to work within the [facility] system with her own neuro team. Code(s): G35 - Multiple sclerosis Plan: Patient is advised to follow-up with Neurology (4) GERD (gastroesophageal reflux disease): Code(s): K21.9 - Gastro-esophageal reflux disease without esophagitis Qualifiers: Esophagitis presence: without esophagitis Qualified Code(s): K21.9 - Gastro-esophageal reflux disease without esophagitis Plan: Strongly advised to stop smoking! Avoid the foods that causes that usually spicy foods, tomato products, juices, coffee, soda and foods that your sensitive to. After eating do not lie down, allow 3-4 hours before in lie down. And keep the head of bed above 30 degrees to avoid the acid from going up. (5) Obesity (BMI 30-39.9): Code(s): E66.9 - Obesity, unspecified Plan: Diet and exercise (6) Hypercholesterolemia: Code(s): E78.00 - Pure hypercholesterolemia, unspecified Plan: Avoid fried foods, chicken skin, eggs, butter margarine, pastries and meat. Be it pork or beef they have a lot of cholesterol LDL goal of less than 130 and triglyceride of less than 150 (7) Hypertension: Code(s): I10 - Essential (primary) hypertension Qualifiers: Hypertension type: essential hypertension Qualified Code(s): I10 - Essential (primary) hypertension Plan: Continue with blood pressure medication. Decrease salt intake and exercise (8) Stress incontinence: Code(s): N39.3 - Stress incontinence (female) (male) Plan: Timed voiding meaning every 1-2 hours even if you do not feel like urinating empty the bladder, avoid drinks with high sweet content like juices or caffeine that makes her urinate, 2 hours before you sleep hold liquids so that in the morning you do not get the bladder to be too full. Orders: Orders Comprehensive Met. Panel 3 Months E78.00 - Pure hypercholesterolemia, unspecified Hemoglobin A1c 3 Months E78.00 - Pure hypercholesterolemia, unspecified Lipid Panel 3 Months E78.00 - Pure hypercholesterolemia, unspecified Referrals Nutrition/Dietitian Referral E78.00 - Pure hypercholesterolemia, unspecified, I10 - Essential (primary) hypertension, K21.9 - Gastro-esophageal reflux disease without esophagitis, R73.02 - Impaired glucose tolerance (oral) Coding Level of Care Code Est Pt Level 4 (29139) Diagnoses Tobacco abuse Z72.0 Bipolar disorder F31.9 Multiple sclerosis, relapsing-remitting G35 GERD (gastroesophageal reflux disease) K21.9 Esophagitis presence: without esophagitis Obesity (BMI 30-39.9) E66.9 Hypercholesterolemia E78.00 Hypertension I10 Hypertension type: essential hypertension Stress incontinence N39.3
== END 2023-06-18 15:34 | disposition home or self-care (01) ==
LOC: HO.HMGH 14:48
PROVIDERS: PCP Internal Medicine; Visit Provider Internal Medicine
DX: K21.9 Gastro-esophageal reflux disease without esophagitis (principal); F31.9 Bipolar disorder, unspecified; I10 Essential (primary) hypertension; G35 Multiple sclerosis; Z72.0 Tobacco use; E66.9 Obesity, unspecified; E78.00 Pure hypercholesterolemia, unspecified; N39.3 Stress incontinence (female) (male)
CPT/HCPCS: 99214

== ENCOUNTER 2023-08-05 11:36 | Outpatient (AMB) | payer OTHER, SELFPAY ==
[2023-08-05 12:02] VITALS: BMI 39.3
--- NOTE | 2023-08-05 12:02 | A.OFFVIS_ITS ---
Intake VS Expanded 08/05/23 12:02 Height 5 ft 8 in Weight 258 lb 13.163 oz BMI 39.3 Intake Visit Reasons: hypercholesterolemia/Confirmed Allergies latex [Latex] Allergy (Mild, Verified 06/18/23 15:06) ITCHY AND DRY HANDS Penicillins Allergy (Mild, Verified 06/18/23 15:06) HIVES cat dander [CATS] Allergy (Unknown, Verified 06/18/23 15:06) ITCHY, ASTHMA house dust Allergy (Unknown, Verified 06/18/23 15:06) itchy penicillin V Allergy (Unknown, Verified 06/18/23 15:06) hives HPI Nutrition Presentation Details Pt presents for MNT for impaired fasting glucose, hypercholesterolemia, hypertension, GERD without esophagitis. Patient was referred by primary care provider, Dr. Lee Patient reports typically choosing fast food meals or convenience meals throughout the day. Patient reports having lack of meal preparation skills Typical meals may consist of Skipping breakfast Lunch: Having frozen meals: hungry meal with fried chicken Dinner may be steak or potato Beverages juices/soda eating out : eats out a lot Physical activity: Reports physically active at work on her feet walking around Alcohol/smoking:----- OFE-Jyicwjn-Is.Jeor Equation Height 5 ft 8 in Weight 259 lb Resting Metabolic Rate 1900.25 Calculated Activity Level Mild Activity Calories Needed to Maintain Weight 2612.84 Diagnosis Nutrition problem #1 excessive energy intake As related to (etiology) #1 diagnosis As evidenced by (sign/symptom) #1 no prior educ - nutri rec Learning/Education Readiness to learn good Most Recent Diabetes Results: Cholesterol 226 mg/dL 03/11/23 HDL Cholesterol 44 mg/dL 03/11/23 Triglycerides 133 mg/dL 03/11/23 Creatinine 1.09 mg/dL (0.5-1.4) 03/11/23 Blood Urea Nitrogen 9 mg/dL (9-16) 03/11/23 Sodium 135 mmol/L (135-145) 03/11/23 Potassium 4.7 mmol/L (3.3-5.1) 03/11/23 Chloride 105 mmol/L (96-108) 03/11/23 Carbon Dioxide 24 mmol/L (22-29) 03/11/23 Calcium 9.2 mg/dL (8.4-10.2) 03/11/23 AST 12 U/L (5-31) 03/11/23 ALT 13 U/L (0-31) 03/11/23 Total Protein 7.4 g/dL (6.5-8.0) 03/11/23 Albumin 4.2 g/dL (3.5-5.0) 03/11/23 [facility] Medical History Adjustment disorder with mixed disturbance of emotions and conduct Asthma Bipolar disorder Carpal tunnel syndrome of right wrist Chronic post-traumatic stress disorder (PTSD) OLIVIER I (cervical intraepithelial neoplasia I) Depression GERD (gastroesophageal reflux disease) Hypercholesterolemia Hypertension Multiple sclerosis, relapsing-remitting Obesity (BMI 30-39.9) PTSD (post-traumatic stress disorder) Severe manic bipolar 1 disorder with psychotic behavior Surgical History Hx of breast reduction, elective Family History Father Hypertension CVD (cardiovascular disease) High cholesterol Mother Depression Multiple sclerosis Maternal Grandmother Alzheimers disease Maternal Grandfather Heart disease Paternal Grandmother Stroke Hypertension Paternal Grandfather Diabetes Brother Diabetes Family/Other FH: mental illness Social History Household Members: Unknown / Unable to assess Housing: Apartment Do you presently have visiting nurse or other home services: No Unable to assess alcohol history related to: Unknown Alcohol intake: current Alcohol intake frequency: holidays/special occasions only Alcohol type: wine Patient Tobacco Use Status: Current everyday Tobacco user Tobacco use type: Cigarette Cigarettes Per Day: 3 e-Cigarette/Vaping Use: Never Used Second Hand Smoke Exposure: Yes Substance Use Type: Marijuana service: No Current occupational status: unemployed Sexual orientation: Straight/Heterosexual Cognitive needs: No Hearing needs: No Vision needs: Yes (Glasses) Assessment & Plan Assessment & Plan (1) Impaired glucose tolerance: Code(s): R73.02 - Impaired glucose tolerance (oral) Plan: wt: 118 kg Est kcal needs as per MSJ: 2600 (40% carb, 30% protein/fat) Est fluid needs as per -30 ml/d: 3500 Est prot per day as per 1 g/kg bw: 118 Recommend fiber intake : 8-10 g per day and gradually increase to 25-28 g per day for women and 35-38 g for men or as tolerated Recommend sodium intake per day : less than 2000 mg Educated patient on: ( R = reviewed V = verbalizes understanding N/R = needs review N/A = not applicable * Food sources of carbohydrate, adequate serving sizes and its role in various health conditions: R * Differences between complex carbohydrates a simple carbohydrates, role of fiber in diet: R * Differences between types of fats and role in diet (mono on saturated fat fatty acids, saturated fatty acids, trans fats): R basic low fat * Food sources of sodium in salt and healthy modifications for heart health in kidney health: NR * Vitamins and minerals: NR * Healthy plate method concept: R * Physical activity: Benefits a precaution: R (2) Hypercholesterolemia: Code(s): E78.00 - Pure hypercholesterolemia, unspecified (3) GERD (gastroesophageal reflux disease): Code(s): K21.9 - Gastro-esophageal reflux disease without esophagitis Qualifiers: Esophagitis presence: without esophagitis Qualified Code(s): K21.9 - Gastro-esophageal reflux disease without esophagitis (4) Hypertension: Code(s): I10 - Essential (primary) hypertension Qualifiers: Hypertension type: essential hypertension Qualified Code(s): I10 - Essential (primary) hypertension Patient Instructions: Reduce on fried foods : choose baked protein sources of foods (frozen meals with baked protein )and have a salad as a side Choose water, low sugar beverages write down what you have been eating and bring to next follow up Coding Level of Care Code Nutr Indiv Intake (80195) Diagnoses Impaired glucose tolerance R73.02 Hypercholesterolemia E78.00 Gastroesophageal reflux disease without esophagitis K21.9 Esophagitis presence: without esophagitis Essential hypertension I10 Hypertension type: essential hypertension Time Spent (min) 30
[2023-08-10 09:31] VITALS: BMI 39.4
== END 2023-08-05 12:30 | disposition home or self-care (01) ==
PROVIDERS: PCP Internal Medicine; Visit Provider Dietitian, Registered
DX: R73.02 Impaired glucose tolerance (oral) (principal); E78.00 Pure hypercholesterolemia, unspecified; K21.9 Gastro-esophageal reflux disease without esophagitis; I10 Essential (primary) hypertension

== ENCOUNTER → 2023-08-05 11:36 | Outpatient (BNVA) | payer OTHER, SELFPAY | PROVIDERS: PCP Internal Medicine; Visit Provider Dietitian, Registered | DX: E78.00 Pure hypercholesterolemia, unspecified (principal); K21.9 Gastro-esophageal reflux disease without esophagitis; I10 Essential (primary) hypertension; R73.02 Impaired glucose tolerance (oral) | CPT/HCPCS: 97802 ==

== ENCOUNTER 2023-08-10 11:48 | Outpatient (AMB) | payer OTHER, SELFPAY ==
--- NOTE | 2023-08-10 11:49 | MHC.PC.OV ---
Vital Signs 08/10/23 11:53 Height 5 ft 8 in Weight 254 lb BMI 38.6 BP 110/66 Blood Pressure Location Lt brachial Position Sitting Pulse 104 H Pulse Source Pulse Oximeter Pulse Oximetry (%) 97 Oxygen Delivery Method Room Air Intake Visit Reasons: occasional chest pains after eating Intake Note: Patient is here today for occasional chest pains after eating. Complaint of dizziness on and off with nauseous and sweatiness Principal Electrical Engineer Required: No Physician Neonatology: Not Required per policy Accompanied by: Self / Same As Patient Allergies latex [Latex] Allergy (Mild, Verified 08/10/23 12:05) ITCHY AND DRY HANDS Penicillins Allergy (Mild, Verified 08/10/23 12:05) HIVES cat dander [CATS] Allergy (Unknown, Verified 08/10/23 12:05) ITCHY, ASTHMA house dust Allergy (Unknown, Verified 08/10/23 12:05) itchy penicillin V Allergy (Unknown, Verified 08/10/23 12:05) hives Medication List - Last Reconciled 08/10/23 by SUDHA Packer cholecalciferol (vitamin D3) 50 mcg PO DAILY 90 days folic acid 1 mg PO DAILY gabapentin 300 mg PO BEDTIME 90 days glatiramer (Copaxone) 40 mg subcut 3XW haloperidol 5 mg PO BEDTIME lorazepam 0.5 mg (1/2 x 1 mg) PO DAILY PRN mirabegron ER (Myrbetriq) 50 mg PO DAILY 90 days olanzapine 10 mg PO BID oxcarbazepine (Trileptal) 600 mg PO BID propranolol 20 mg PO BID 90 days trazodone 1 tab PO BEDTIME PRN Tobacco use date assessed: 08/10/23 Dental Screening Dental Screen Date: 08/10/23 Did you have a dental visit in the last 12 months?: Yes Did you have a dental problem in the last 6 months where you did not have access to dental care?: No Was dental information given to patient?: Patient has dentist HPI HPI Comments History of Present Illness Details 38-year-old obese female with relapsing remitting multiple sclerosis impaired glucose tolerance posttraumatic stress disorder polysubstance abuse bipolar disorder asthma GERD hypertension hypercholesterolemia. Past patient presents today for occasional chest pain after eating. Patient reports chest pain out of no wear at the end of June. [place] like rapid hear rate, like a sharp pain, lasted like 1 minute. Patient reports dizzy spells at work not correlated with CP but does feel rapid heartrate at that time, has occurred 3x this year. Patient reports dyspepsia, acid reflux symptoms. Does not take omeprazole, states was previously a daily medication for GERD. Will start omeprazole 20 mg daily. Patient requesting to have drug toxicology screening done, Patient reports has been positive for fentanyl in the past. Patient states she only smokes marijuana but would like a tox screen so she can get back on her lorazepam. Patient reports follow with psychiatrist and patient made aware she would have to follow up with Psych and would be up to their discretion whether they would like to re-initiate patient on her lorazepam. [facility] Medical History Adjustment disorder with mixed disturbance of emotions and conduct Asthma Bipolar disorder Carpal tunnel syndrome of right wrist Chronic post-traumatic stress disorder (PTSD) OLIVIER I (cervical intraepithelial neoplasia I) Depression GERD (gastroesophageal reflux disease) Hypercholesterolemia Hypertension Multiple sclerosis, relapsing-remitting Obesity (BMI 30-39.9) PTSD (post-traumatic stress disorder) Severe manic bipolar 1 disorder with psychotic behavior Surgical History Hx of breast reduction, elective Family History Father Hypertension CVD (cardiovascular disease) High cholesterol Mother Depression Multiple sclerosis Maternal Grandmother Alzheimers disease Maternal Grandfather Heart disease Paternal Grandmother Stroke Hypertension Paternal Grandfather Diabetes Brother Diabetes Family/Other FH: mental illness Social History Household Members: Unknown / Unable to assess Housing: Apartment Do you presently have visiting nurse or other home services: No Unable to assess alcohol history related to: Unknown Alcohol intake: current Alcohol intake frequency: holidays/special occasions only Alcohol type: wine Patient Tobacco Use Status: Current everyday Tobacco user Tobacco use type: Cigarette Cigarettes Per Day: 3 e-Cigarette/Vaping Use: Never Used Second Hand Smoke Exposure: Yes Substance Use Type: Marijuana service: No Current occupational status: unemployed Sexual orientation: Straight/Heterosexual Cognitive needs: No Hearing needs: No Vision needs: Yes (Glasses) Questionnaire Thrive Questionnaire Date Thrive assessed: 02/27/23 CANDE-7 AMB Questionnaire CANDE-7 Date CANDE - 7 assessed: 02/27/23 Source: Developed by Drs. Mark Jacob, Sheila Christine, Dylan Barr and colleagues, with an educational stephanie from [employer]. Review of Systems Const Denies chills, Denies fatigue, Denies fever(s) and Denies poor appetite Eyes Denies no additional complaints ENT Reports Normal hearing present Card Denies chest pain, Denies diaphoresis, Denies syncope, Reports rapid heart rate and Denies dyspnea Resp Denies cough and Denies dyspnea GI Denies change in stool character, Denies constipation, Denies diarrhea, Denies nausea and Denies vomiting Denies urinary frequency, Denies dysuria and Denies urinary urgency Neuro Reports Normal hearing present, Denies confusion and Denies syncope Psych Denies confusion Endo Denies fatigue Physical exam (Primary Care) Vital Signs: Last Vital Signs Pulse 104 H 08/10/23 11:53 BP 110/66 08/10/23 11:53 Pulse Ox 97 08/10/23 11:53 Oxygen Delivery Method Room Air 08/10/23 11:53 BMI result Body Mass Index 38.6 Tobacco/Smoking Status: Tobacco use Status Tobacco use date assessed 08/10/23 08/10/23 11:51 Patient Tobacco Use Status Current everyday Tobacco 08/10/23 11:51 Tobacco use type Cigarette 08/10/23 11:51 e-Cigarette/Vaping Use Never Used 08/10/23 11:51 Thrive Assessment: Date of Thrive Assessment Date Thrive assessed 02/27/23 08/10/23 11:51 Const General: No confusion Orientation/consciousness: No confusion HENMT Head: Yes normocephalic and Yes atraumatic Eyes Conjunctivae: conjunctivae normal Chest Chest palpation & inspection: normal inspection of the chest Resp Effort & Inspection: normal respiratory effort Auscultation: clear to auscultation bilaterally, no crackles, no rhonchi and no wheezes Cardio Rate: regular rate Rhythm: regular rhythm Heart sounds: S1 normal heart sound present and S2 normal heart sound present Peripheral pulses: dorsalis pedis present GI Inspection: Yes normal to inspection Neuro General: No confusion Cranial nerves: Yes Normal hearing present Extrem General: No edema Office Procedures Flu Questionnaire Does the patient have a severe egg allergy?: No Does the patient have severe life threatening allergies?: No Does the patient have a fever or illness today?: No Has the patient ever had Guillain-Houston Syndrome?: No Has the patient ever had any past reaction to a flu shot?: Yes Comment: Per pt she gets sever cold after flu shot Immunizations flu vacc [id number] 6mos up(PF) 60 mcg(15 mcgx4)/0.5 mL IM syringe Performing Provider: SUDHA Packer [facility] [place] Documented (not given) by: BISI Mckenzie on 08/10/23 11:59 Reason Not Given: Patient Refused Assessment and Plan Assessment & Plan (1) Dizziness: Code(s): R42 - Dizziness and giddiness Plan: CBC and CMP ordered. (2) Polysubstance abuse: Comment: Positive fentanyl, marijuana January 2022 Code(s): F19.10 - Other psychoactive substance abuse, uncomplicated Plan: Drug tox screen ordered as requested by patient (3) Palpitations: Code(s): R00.2 - Palpitations Plan: Ekg and holter ordered to further evaluate. (4) GERD (gastroesophageal reflux disease): Code(s): K21.9 - Gastro-esophageal reflux disease without esophagitis Qualifiers: Esophagitis presence: without esophagitis Qualified Code(s): K21.9 - Gastro-esophageal reflux disease without esophagitis Plan: Patient reports epigastric gastric pain and dyspepsia. Previously on medication for history of GERD however she is not currently taking anything at this time. Will start patient on omeprazole 20 mg daily. Avoid the foods that cause that, usually spicy foods, tomato products, juices, coffee, soda and foods that you're sensitive to.? After eating do not lie down, allow 3-4 hours before lying down. And keep the head of the bed above 30 degrees to avoid the acid from going up. Plan Keep scheduled follow up with pcp in September Orders: Orders Influenza [id number] Immunization Today Z23 - Encounter for immunization Comprehensive Met. Panel Today R42 - Dizziness and giddiness ECG 12 lead EKG Today R00.2 - Palpitations Complete Blood Count Auto Diff Today R42 - Dizziness and giddiness Drug Screen Urine Today F19.10 - Other psychoactive substance abuse, uncomplicated ECG 3 day holter monitor Today R00.2 - Palpitations Medications: New omeprazole 20 mg PO DAILY 30 caps 3RF K21.9 - Gastro-esophageal reflux disease without esophagitis Refilled lorazepam 0.5 mg (1/2 x 1 mg) PO DAILY PRN 14 tabs 0RF agitation Coding Level of Care Code Est Pt Level 4 (09902) Diagnoses Dizziness R42 Polysubstance abuse F19.10 Palpitations R00.2 Gastroesophageal reflux disease without esophagitis K21.9 Esophagitis presence: without esophagitis
[2023-08-10 11:53] VITALS: BP 110/66; PULSE 104; O2SAT 97; BMI 38.6
== END 2023-08-10 12:16 | disposition home or self-care (01) ==
PROVIDERS: PCP Internal Medicine; Visit Provider Nurse Practitioner Family
DX: R42 Dizziness and giddiness (principal); F19.10 Other psychoactive substance abuse, uncomplicated; R00.2 Palpitations; K21.9 Gastro-esophageal reflux disease without esophagitis; Z23 Encounter for immunization
CPT/HCPCS: 90471; 99214

== ENCOUNTER 2023-08-10 12:20 | Outpatient (REF) | payer OTHER, SELFPAY ==
[2023-08-10 13:49] LABS: Hematocrit 39.4 % (37.0-47.0); Hemoglobin 13.9 g/dl (12.0-16.0); Mean Corpuscular HGB Conc 35.3 g/dl (31.0-35.0); Mean Corpuscular Hemoglobin 31.7 pg (27.0-33.0); Mean Corpuscular Volume 89.7 fL (80.0-98.0); Mean Platelet Volume 8.8 fL (9.4-12.3); Platelet Count 292 X10*3/uL (160-400); Red Blood Count 4.39 X10*6/uL (4.20-5.50); Red Cell Distribution Width 12.2 % (11.0-16.0); White Blood Count 8.3 X10*3/uL (4.8-10.8)
[2023-08-10 13:57] LABS: Amphetamine Screen Urine Not Detected (Not Detect); Barbiturates, Urine Not Detected (Not Detect); Benzodiazepines Screen Urine Not Detected (Not Detect); Cannabinoid Screen Urine POSITIVE (Not Detect); Cocaine Screen Urine Not Detected (Not Detect); Fentanyl, urine Not Detected (Not Detect); Opiate Screen Urine Not Detected (Not Detect); Phencyclidine Screen Urine Not Detected (Not Detect)
[2023-08-10 14:05] LABS: Estimated Average Glucose 108 mg/dL; Hemoglobin A1c % 5.4 % (<6.0)
[2023-08-10 14:16] LABS: Alanine Aminotransferase 12 U/L (0-31); Albumin Level 4.1 g/dL (3.5-5.0); Alkaline Phosphatase 135 U/L (39-117); Anion Gap 13 (12-20); Aspartate Amino Transferase 12 U/L (5-31); Bilirubin Total 0.2 mg/dL (0.0-1.0); Blood Urea Nitrogen 10 mg/dL (9-16); Calcium 8.9 mg/dL (8.4-10.2); Carbon Dioxide 23 mmol/L (22-29); Chloride 104 mmol/L (96-108); Cholesterol 200 mg/dL (<200); Estimated Glomerular Filt Rate > 60; Glucose Random 102 mg/dL (60-115); HDL Cholesterol 42 mg/dL (>40); LDL Cholesterol Calculated 126 mg/dL (<100); Potassium 4.2 mmol/L (3.3-5.1); Sodium 136 mmol/L (135-145); Total Protein 7.5 g/dL (6.5-8.0); Triglycerides 162 mg/dL (<150)
[2023-08-10 14:26] LABS: TSH reflex Free T4 0.67 uIU/mL (0.32-4.0); Vitamin D 25-OH Total 45.7 ng/mL (>30)
[2023-08-10 14:34] LABS: Thyroid Stimulating Hormone 0.68 uIU/mL (0.32-4.0)
[2023-08-10 14:36] LABS: Free T4 (Free Thyroxine) 0.74 ng/dL (0.71-1.85)
[2023-08-10 14:39] LABS: Gamma Glutamyl Transpeptidase 54 U/L (7-33)
[2023-08-10 14:43] LABS: Folate > 20.0 ng/mL (> or = 4.0); Vitamin B12 575 pg/mL (200-900)
== END 2023-08-10 12:21 | disposition home or self-care (01) ==
LOC: HO.LAB 12:20
PROVIDERS: Nurse Practitioner Family; PCP Internal Medicine; Visit Provider Nurse Practitioner Family
DX: R42 Dizziness and giddiness (principal); F19.10 Other psychoactive substance abuse, uncomplicated; R74.8 Abnormal levels of other serum enzymes; R73.02 Impaired glucose tolerance (oral); E78.00 Pure hypercholesterolemia, unspecified; R11.0 Nausea; R00.2 Palpitations; E53.8 Deficiency of other specified B group vitamins; F31.9 Bipolar disorder, unspecified
CPT/HCPCS: 36415; 80053; 80061; 80307; 82306; 82607; 82746; 82977; 83036; 84439; 84443; 85027

== ENCOUNTER → 2023-09-02 12:47 | Outpatient (BNV) | payer OTHER, SELFPAY | PROVIDERS: PCP Internal Medicine; Visit Provider Internal Medicine | DX: R00.2 Palpitations (principal) | CPT/HCPCS: 93244 ==

== ENCOUNTER → 2023-09-02 12:48 | Outpatient (REF) | payer OTHER, SELFPAY ==
--- NOTE | 2023-09-02 12:47 | HM_ITS ---
* Total monitoring time 3 days. * Underlying rhythm sinus with an average rate of 90/Min. Range 56-152/Min. About 19% of the time, rate greater than 100/Min. * No significant arrhythmias. * No significant pauses or heart blocks. * No patient markers or events in diary. MTDD
== END ==
LOC: HO.CARD 12:48
PROVIDERS: PCP Internal Medicine; Visit Provider Nurse Practitioner Family
DX: R00.2 Palpitations (principal)
CPT/HCPCS: 93242

== ENCOUNTER 2023-10-21 11:29 | Outpatient (AMB) | payer OTHER, SELFPAY ==
--- NOTE | 2023-10-21 11:32 | A.OFFVIS_ITS ---
Intake VS Expanded 10/21/23 11:35 Height 5 ft 8 in Weight 256 lb 2.834 oz BMI 38.9 Intake Visit Reasons: Cholesterol-CONFIRMED Allergies latex [Latex] Allergy (Mild, Verified 08/10/23 12:05) ITCHY AND DRY HANDS Penicillins Allergy (Mild, Verified 08/10/23 12:05) HIVES cat dander [CATS] Allergy (Unknown, Verified 08/10/23 12:05) ITCHY, ASTHMA house dust Allergy (Unknown, Verified 08/10/23 12:05) itchy penicillin V Allergy (Unknown, Verified 08/10/23 12:05) hives HPI Nutrition Presentation Details Pt presents for MNT follow up for impaired fasting glucose, hyperlipidemia, GERD. Pt reports having switched to low sugar beverages Including salads 0-1 x every 2 weeks Works at a restaurant physical activity: has treadmill at home - not utilizing it yet Most Recent Diabetes Results: Cholesterol 200 mg/dL (<200) H 08/10/23 HDL Cholesterol 42 mg/dL (>40) 08/10/23 Triglycerides 162 mg/dL (<150) H 08/10/23 Creatinine 1.00 mg/dL (0.5-1.4) 08/10/23 Blood Urea Nitrogen 10 mg/dL (9-16) 08/10/23 Sodium 136 mmol/L (135-145) 08/10/23 Potassium 4.2 mmol/L (3.3-5.1) 08/10/23 Chloride 104 mmol/L (96-108) 08/10/23 Carbon Dioxide 23 mmol/L (22-29) 08/10/23 Calcium 8.9 mg/dL (8.4-10.2) 08/10/23 AST 12 U/L (5-31) 08/10/23 ALT 12 U/L (0-31) 08/10/23 Total Protein 7.5 g/dL (6.5-8.0) 08/10/23 Albumin 4.1 g/dL (3.5-5.0) 08/10/23 [facility] Medical History Adjustment disorder with mixed disturbance of emotions and conduct Asthma Bipolar disorder Carpal tunnel syndrome of right wrist Chronic post-traumatic stress disorder (PTSD) OLIVIER I (cervical intraepithelial neoplasia I) Depression GERD (gastroesophageal reflux disease) Hypercholesterolemia Hypertension Multiple sclerosis, relapsing-remitting Obesity (BMI 30-39.9) PTSD (post-traumatic stress disorder) Severe manic bipolar 1 disorder with psychotic behavior Surgical History Hx of breast reduction, elective Family History Father Hypertension CVD (cardiovascular disease) High cholesterol Mother Depression Multiple sclerosis Maternal Grandmother Alzheimers disease Maternal Grandfather Heart disease Paternal Grandmother Stroke Hypertension Paternal Grandfather Diabetes Brother Diabetes Family/Other FH: mental illness Social History Household Members: Unknown / Unable to assess Housing: Apartment Do you presently have visiting nurse or other home services: No Unable to assess alcohol history related to: Unknown Alcohol intake: current Alcohol intake frequency: holidays/special occasions only Alcohol type: wine Comment: Q15 safety checks Patient Tobacco Use Status: Current everyday Tobacco user Tobacco use type: Cigarette Cigarettes Per Day: 3 e-Cigarette/Vaping Use: Never Used Second Hand Smoke Exposure: Yes Substance Use Type: Marijuana service: No Current occupational status: unemployed Sexual orientation: Straight/Heterosexual Cognitive needs: No Hearing needs: No Vision needs: Yes (Glasses) Assessment & Plan Assessment & Plan (1) Impaired glucose tolerance: Code(s): R73.02 - Impaired glucose tolerance (oral) Plan: wt: 118 kg (116 kg 10/2023) Est kcal needs as per MSJ: 2600 (40% carb, 30% protein/fat) Est fluid needs as per -30 ml/d: 3500 Est prot per day as per 1 g/kg bw: 118 Recommend fiber intake : 8-10 g per day and gradually increase to 25-28 g per day for women and 35-38 g for men or as tolerated Recommend sodium intake per day : less than 2000 mg Educated patient on: ( R = reviewed V = verbalizes understanding N/R = needs review N/A = not applicable * Food sources of carbohydrate, adequate serving sizes and its role in various health conditions: R * Differences between complex carbohydrates a simple carbohydrates, role of fiber in diet: R * Differences between types of fats and role in diet (mono on saturated fat fatty acids, saturated fatty acids, trans fats): R basic low fat * Food sources of sodium in salt and healthy modifications for heart health in kidney health: NR * Vitamins and minerals: NR * Healthy plate method concept: R * Physical activity: Benefits a precaution: R (2) Hypercholesterolemia: Code(s): E78.00 - Pure hypercholesterolemia, unspecified Plan: Reduce on fat from fast food meals (cheese/processed foods) (3) GERD (gastroesophageal reflux disease): Code(s): K21.9 - Gastro-esophageal reflux disease without esophagitis Qualifiers: Esophagitis presence: without esophagitis Qualified Code(s): K21.9 - Gastro-esophageal reflux disease without esophagitis Plan: Reduce on fat intake ( reduce on cheese/ultra processed foods, sauces) (4) Hypertension: Code(s): I10 - Essential (primary) hypertension Qualifiers: Hypertension type: essential hypertension Qualified Code(s): I10 - Essential (primary) hypertension Plan: Reduce on fat in diet ( ultra processed foods, amount of cheese) Patient Instructions: Continue to work on reducing fats in the diet - choose a salad twice a week with chicken or tuna or eggs and olive oil and vinegar in place of calzone/Engage in physical activity - 10 minute walk on treadmill 3 times a week Coding Level of Care Code Nutr Indiv Subseq (07519) Diagnoses Impaired glucose tolerance R73.02 Hypercholesterolemia E78.00 Gastroesophageal reflux disease without esophagitis K21.9 Esophagitis presence: without esophagitis Essential hypertension I10 Hypertension type: essential hypertension Time Spent (min) 20
[2023-10-21 11:35] VITALS: BMI 38.9
== END 2023-10-21 12:12 | disposition home or self-care (01) ==
PROVIDERS: PCP Internal Medicine; Visit Provider Dietitian, Registered
DX: R73.02 Impaired glucose tolerance (oral) (principal); E78.00 Pure hypercholesterolemia, unspecified; K21.9 Gastro-esophageal reflux disease without esophagitis; I10 Essential (primary) hypertension

== ENCOUNTER → 2023-10-21 11:29 | Outpatient (BNVA) | payer OTHER, SELFPAY | PROVIDERS: PCP Internal Medicine; Visit Provider Dietitian, Registered | DX: R73.02 Impaired glucose tolerance (oral) (principal); E78.00 Pure hypercholesterolemia, unspecified; K21.9 Gastro-esophageal reflux disease without esophagitis; I10 Essential (primary) hypertension | CPT/HCPCS: 97803 ==

== ENCOUNTER 2023-12-16 13:12 | Outpatient (AMB) | payer OTHER, SELFPAY ==
[2023-12-16 13:17] VITALS: BMI 38.6
--- NOTE | 2023-12-16 13:17 | MHC.AMNUTRGE ---
Intake VS Expanded 12/16/23 13:17 Height 5 ft 8 in Weight 253 lb 12.033 oz BMI 38.6 Intake Visit Reasons: IFG, GERD/LVM Allergies latex [Latex] Allergy (Mild, Verified 08/10/23 12:05) ITCHY AND DRY HANDS Penicillins Allergy (Mild, Verified 08/10/23 12:05) HIVES cat dander [CATS] Allergy (Unknown, Verified 08/10/23 12:05) ITCHY, ASTHMA house dust Allergy (Unknown, Verified 08/10/23 12:05) itchy penicillin V Allergy (Unknown, Verified 08/10/23 12:05) hives HPI Nutrition Presentation Details Pt presents for MNT follow up for obesity Pt reports working on reducing of fats. Pt reports working at [employer]. homemade meals 0-2x/wk switch to diet soda (for about 2 months) Most Recent Diabetes Results: Cholesterol 200 mg/dL (<200) H 08/10/23 HDL Cholesterol 42 mg/dL (>40) 08/10/23 Triglycerides 162 mg/dL (<150) H 08/10/23 Creatinine 1.00 mg/dL (0.5-1.4) 08/10/23 Blood Urea Nitrogen 10 mg/dL (9-16) 08/10/23 Sodium 136 mmol/L (135-145) 08/10/23 Potassium 4.2 mmol/L (3.3-5.1) 08/10/23 Chloride 104 mmol/L (96-108) 08/10/23 Carbon Dioxide 23 mmol/L (22-29) 08/10/23 Calcium 8.9 mg/dL (8.4-10.2) 08/10/23 AST 12 U/L (5-31) 08/10/23 ALT 12 U/L (0-31) 08/10/23 Total Protein 7.5 g/dL (6.5-8.0) 08/10/23 Albumin 4.1 g/dL (3.5-5.0) 08/10/23 [facility] Medical History Adjustment disorder with mixed disturbance of emotions and conduct Asthma Bipolar disorder Carpal tunnel syndrome of right wrist Chronic post-traumatic stress disorder (PTSD) OLIVIER I (cervical intraepithelial neoplasia I) Depression GERD (gastroesophageal reflux disease) Hypercholesterolemia Hypertension Multiple sclerosis, relapsing-remitting Obesity (BMI 30-39.9) PTSD (post-traumatic stress disorder) Severe manic bipolar 1 disorder with psychotic behavior Surgical History Hx of breast reduction, elective Family History Father Hypertension CVD (cardiovascular disease) High cholesterol Mother Depression Multiple sclerosis Maternal Grandmother Alzheimers disease Maternal Grandfather Heart disease Paternal Grandmother Stroke Hypertension Paternal Grandfather Diabetes Brother Diabetes Family/Other FH: mental illness Social History Household Members: Unknown / Unable to assess Housing: Apartment Do you presently have visiting nurse or other home services: No Unable to assess alcohol history related to: Unknown Alcohol intake: current Alcohol intake frequency: holidays/special occasions only Alcohol type: wine Comment: Q15 safety checks Patient Tobacco Use Status: Current everyday Tobacco user Tobacco use type: Cigarette Cigarettes Per Day: 3 e-Cigarette/Vaping Use: Never Used Second Hand Smoke Exposure: Yes Substance Use Type: Marijuana service: No Current occupational status: unemployed Sexual orientation: Straight/Heterosexual Cognitive needs: No Hearing needs: No Vision needs: Yes (Glasses) Assessment & Plan Assessment & Plan (1) Impaired glucose tolerance: Code(s): R73.02 - Impaired glucose tolerance (oral) Plan: wt: 118 kg (116 kg 10/2023) Est kcal needs as per MSJ: 2600 (40% carb, 30% protein/fat) Est fluid needs as per -30 ml/d: 3500 Est prot per day as per 1 g/kg bw: 118 Recommend fiber intake : 8-10 g per day and gradually increase to 25-28 g per day for women and 35-38 g for men or as tolerated Recommend sodium intake per day : less than 2000 mg Educated patient on: ( R = reviewed V = verbalizes understanding N/R = needs review N/A = not applicable Food sources of carbohydrate, adequate serving sizes and its role in various health conditions: R Differences between complex carbohydrates a simple carbohydrates, role of fiber in diet: R Differences between types of fats and role in diet (mono on saturated fat fatty acids, saturated fatty acids, trans fats): R basic low fat Food sources of sodium in salt and healthy modifications for heart health in kidney health: NR Vitamins and minerals: NR Healthy plate method concept: R Physical activity: Benefits a precaution: R (2) Hypercholesterolemia: Code(s): E78.00 - Pure hypercholesterolemia, unspecified Plan: Reduce on fat from fast food meals (cheese/processed foods) (3) GERD (gastroesophageal reflux disease): Code(s): K21.9 - Gastro-esophageal reflux disease without esophagitis Qualifiers: Esophagitis presence: without esophagitis Qualified Code(s): K21.9 - Gastro-esophageal reflux disease without esophagitis Plan: Reduce on fat intake ( reduce on cheese/ultra processed foods, sauces) (4) Hypertension: Code(s): I10 - Essential (primary) hypertension Qualifiers: Hypertension type: essential hypertension Qualified Code(s): I10 - Essential (primary) hypertension Plan: Reduce on fat in diet ( ultra processed foods, amount of cheese) Patient Instructions: Walk on treadmill at home 10 minutes have fruit: [address] of cookies Continue working on following healthy plate method (pork chop/salad/potato) Coding Level of Care Code Nutr Indiv Subseq (60915) Diagnoses Impaired glucose tolerance R73.02 Hypercholesterolemia E78.00 Gastroesophageal reflux disease without esophagitis K21.9 Esophagitis presence: without esophagitis Essential hypertension I10 Hypertension type: essential hypertension Time Spent (min) 30
== END 2023-12-16 13:40 | disposition home or self-care (01) ==
PROVIDERS: PCP Internal Medicine; Visit Provider Dietitian, Registered
DX: R73.02 Impaired glucose tolerance (oral) (principal); E78.00 Pure hypercholesterolemia, unspecified; K21.9 Gastro-esophageal reflux disease without esophagitis; I10 Essential (primary) hypertension

== ENCOUNTER → 2023-12-16 13:12 | Outpatient (BNVA) | payer OTHER, SELFPAY | PROVIDERS: PCP Internal Medicine; Visit Provider Dietitian, Registered | DX: R73.02 Impaired glucose tolerance (oral) (principal); E78.00 Pure hypercholesterolemia, unspecified; K21.9 Gastro-esophageal reflux disease without esophagitis; I10 Essential (primary) hypertension | CPT/HCPCS: 97803 ==

== ENCOUNTER 2024-03-02 11:18 | Outpatient (AMB) | payer OTHER, SELFPAY ==
[2024-03-02 11:19] VITALS: BP 110/78; PULSE 110; O2SAT 97; BMI 38.5
--- NOTE | 2024-03-02 11:19 | A.OFFPC_ITS ---
Vital Signs 03/02/24 11:19 Height 5 ft 8 in Weight 253 lb 0.5 oz BMI 38.5 BP 110/78 Blood Pressure Location Lt brachial Position Sitting Pulse 110 H Pulse Source Pulse Oximeter Pulse Oximetry (%) 97 Oxygen Delivery Method Room Air Intake Visit Reasons: PE Intake Note: Patient is here today for a physical. 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 Allergies latex [Latex] Allergy (Mild, Verified 03/02/24 11:32) ITCHY AND DRY HANDS Penicillins Allergy (Mild, Verified 03/02/24 11:32) HIVES cat dander [CATS] Allergy (Unknown, Verified 03/02/24 11:32) ITCHY, ASTHMA house dust Allergy (Unknown, Verified 03/02/24 11:32) itchy penicillin V Allergy (Unknown, Verified 03/02/24 11:32) hives Medication List - Last Reconciled 03/02/24 by Rolf Lee MD cholecalciferol (vitamin D3) 50 mcg PO DAILY 90 days folic acid 1 mg PO DAILY gabapentin 300 mg PO BEDTIME 90 days haloperidol 5 mg PO BEDTIME mirabegron ER (Myrbetriq) 50 mg PO DAILY 90 days ocrelizumab (Ocrevus) 600 mg IV [id number] olanzapine 10 mg PO BID omeprazole 20 mg PO DAILY oxcarbazepine (Trileptal) 600 mg PO BID trazodone 1 tab PO BEDTIME PRN Tobacco use date assessed: 03/02/24 Dental Screening Dental Screen Date: 03/02/24 Did you have a dental visit in the last 12 months?: Yes Did you have a dental problem in the last 6 months where you did not have access to dental care?: No Was dental information given to patient?: Patient has dentist HPI PE HPI Details 38-year-old obese female smoker with a h istory of polysubstance abuse GERD hypercholesterolemia multiple sclerosis bipolar disorder coming in for physical exam last seen in August 2023. Noted ER visit in January 2024 nontraumatic back pain was given something to help with pain. Has seen soaping machine back tender because of the impaired glucose tolerance and hypercholesterolemia and reflux patient had an MR of the cervical spine in November 2023 showing stable demyelinating lesions throughout the cervical spine no new lesions unchan ged right paracentral disc protrusion C5-C6 in mild spinal canal stenosis. And effacement of the ventral thecal sac. August Holter done sinus rhythm no pauses no arrhythmias. syncope 1 years has decreasing hearing, has frequency PFSH Medical History (Updated 03/02/24 @ 11:51 by Rolf Lee MD) Adjustment disorder with mixed disturbance of emotions and conduct Chronic post-traumatic stress disorder (PTSD) Depression Bipolar disorder Severe manic bipolar 1 disorder with psychotic behavior PTSD (post-traumatic stress disorder) OLIVIER I (cervical intraepithelial neoplasia I) Carpal tunnel syndrome of right wrist GERD (gastroesophageal reflux disease) Asthma Obesity (BMI 30-39.9) Hypercholesterolemia Hypertension Multiple sclerosis, relapsing-remitting Surgical History Hx of breast reduction, elective Family History (Updated 03/02/24 @ 11:48 by Rolf Lee MD) Father Hypertension CVD (cardiovascular disease) High cholesterol Mother Depression Multiple sclerosis Maternal Grandmother Alzheimers disease Maternal Grandfather Heart disease Paternal Grandmother Stroke Hypertension Paternal Grandfather Diabetes Brother Diabetes Family/Other FH: mental illness Paternal Uncle Stroke Social History (Updated 03/02/24 @ 11:49 by Rolf Lee MD) Household Members: Unknown / Unable to assess Housing: Apartment Do you presently have visiting nurse or other home services: No Unable to assess alcohol history related to: Unknown Alcohol intake: current Alcohol intake frequency: holidays/special occasions only Alcohol type: wine Comment: QQ 3 months 3 drinks Patient Tobacco Use Status: Current everyday Tobacco user Tobacco use type: Cigarette Cigarettes Per Day: 3 e-Cigarette/Vaping Use: Never Used Second Hand Smoke Exposure: Yes Substance Use Type: Marijuana service: No Current occupational status: unemployed Sexual orientation: Straight/Heterosexual Cognitive needs: No Hearing needs: No Vision needs: Yes (Glasses) Questionnaire PHQ-9 Over the last 2 weeks, how often have you been bothered by any of the following problems? 1. Little interest or pleasure in doing things: several days 2. Feeling down, depressed, or hopeless: nearly every day 3. Trouble falling or staying asleep, or sleeping too much: several days 4. Feeling tired or having little energy: several days 5. Poor appetite or overeating: more than half the days 6. Feeling bad about yourself - or that you are a failure or have let yourself or your family down: several days 7. Trouble concentrating on things, such as reading the newspaper or watching television: several days 8. Moving or speaking so slowly that other people could have noticed. Or the opposite - being so fidgety or restless that you have been moving around a lot more than usual: not at all 9. Thoughts that you would be better off or of hurting yourself in some way: not at all Total score: 10 Depression Screening Interpretation: Negative Depression Screening Done: Yes 05692 - PHQ-9 Billing: Yes Source: Developed by Drs. Mark Jacob, Sheila Christine, Dylan Brar and colleagues, with an educational stephanie from [employer]. Thrive Questionnaire Date Thrive assessed: 03/02/24 I am a: Patient What is your living situation today?: I have a steady place to live Within the past 12 months, did the food you bought not last and you didn't have the money to get more?: Never true Within the past 12 months, did you worry whether your food would run out before you got money to buy more?: Never true Do you have trouble paying for medicines?: No Do you have trouble getting transportation to medical appointments?: No Do you have trouble paying your heating and electricity bill?: No Do you have trouble taking care of your child, family member or friend?: No Do you have trouble with day-to-day activities such as bathing, preparing meals, shopping, managing finances, etc.?: No Are you currently unemployed and looking for a job?: No Are you interested in more education?: No Please select the resources that you would like help with: None Currently or been in a relationship where the following occur: no concerns reported THRIVE Score: 0 AUDIT C Alcohol Use Questionnaire (AUDIT-C) 1. How often do you have a drink containing alcohol?: Monthly or less 2. How many drinks containing alcohol do you have on a typical day when you are drinking?: 1 or 2 3. How often do you have six or more drinks on one occasion?: Never Total Score: 1 Score Reviewed/Action Taken: No CANDE-7 AMB Questionnaire CANDE-7 Date CANDE - 7 assessed: 03/02/24 Feeling nervous, anxious, or on edge: 1 = Several days Not being able to stop or control worryin = Several days Worrying too much about different things: 1 = Several days Trouble relaxin = Several days Being so restless that it is hard to sit still: 0 = Not at all Becoming easily annoyed or irritable: 0 = Not at all Feeling afraid as if something awful might happen: 0 = Not at all Total CANDE-7 score (0-4 normal; 5-9 mild; 10-14 moderate; 15-21 severe): 4 Source: Developed by Drs. Mark Jacob, Sheila Christine, Dylan Brar and colleagues, with an educational stephanie from [employer]. CANDE-7 Assessment Billing CANDE-7 Assessment Tool: CANDE-7 Assessment 08804 Review of Systems Const Denies poor appetite and Denies weakness Eyes Denies no additional complaints ENT Reports Normal hearing present, Denies dizziness, Denies nasal congestion, Denies tinnitus and Denies sore throat Card Denies chest pain, Denies syncope, Denies rapid heart rate and Denies dyspnea Resp Denies cough and Denies dyspnea GI Denies change in stool character, Reports constipation, Denies diarrhea, Denies nausea and Denies vomiting Denies urinary frequency, Denies difficulty voiding and Denies dysuria Neuro Reports Normal hearing present, Denies confusion, Denies dizziness, Denies syncope and Denies weakness Psych Denies confusion Physical exam (Primary Care) Vital Signs: Last Vital Signs Pulse 110 H 03/02/24 11:19 BP 110/78 03/02/24 11:19 Pulse Ox 97 03/02/24 11:19 Oxygen Delivery Method Room Air 03/02/24 11:19 BMI result Body Mass Index 38.5 Tobacco/Smoking Status: Tobacco use Status Tobacco use date assessed 03/02/24 03/02/24 11:20 Patient Tobacco Use Status Current everyday Tobacco 03/02/24 11:49 Tobacco use type Cigarette 03/02/24 11:49 e-Cigarette/Vaping Use Never Used 03/02/24 11:49 PHQ-9: PHQ-9 Score PHQ-9: Total score 10 03/02/24 11:44 Depression Screening Interpretation: Negative Thrive Assessment: Date of Thrive Assessment Date Thrive assessed 03/02/24 03/02/24 11:20 Currently or been in a relationship where the following occur: no concerns reported Const General: No confusion Orientation/consciousness: No confusion HENMT Other: Impacted cerumen bilateral Head: Yes normocephalic Ears: external ears normal Face and sinus: Yes normal facial exam Mouth: moist mucous membranes Throat: Yes tonsils normal Eyes Conjunctivae: conjunctivae normal Pupils: Equal, round and reactive pupils present and Pupil accommodation reflex normal Direct Ophthalmoscopy: normal light reflex Neck Neck: No lymphadenopathy Thyroid: Thyroid normal Chest Chest palpation & inspection: normal inspection of the chest Resp Effort & Inspection: normal respiratory effort and no audible wheezes Auscultation: clear to auscultation bilaterally, no crackles, no wheezes and lung sounds not diminished Cardio Rate: regular rate Rhythm: regular rhythm Peripheral pulses: radial pulses present and dorsalis pedis present GI Palpation (GI): no masses Auscultation: normal bowel sounds and normoactive bowel sounds Rectal Exam - Female: deferred Skin General skin exam: no rashes or lesions noted Rashes: no rashes Neuro General: No confusion Cranial nerves: Yes Equal, round and reactive pupils present and Yes Normal hea ring present Cognition (Neuro): normal cognition Gait exam (Neuro): Normal gait present Motor exam (neuro): 5/5 motor strength present throughout Deep tendon reflexes (DTR's): Right brachioradialis reflex intensity grade: 2+, Left brachioradialis reflex intensity grade: 2+, Right patellar reflex intensity grade: 2+ and Left patellar reflex intensity grade: 2+ Extrem General: No edema Results AMB Urinalysis, Automated UA Leukoctes 15 Marcie/uL Last Edit by BISI Singer on 03/02/24 12:48 UA Nitrite Negative Last Edit by BISI Singer on 03/02/24 12:48 UA Urobilinogen 0.2 mg/dL Last Edit by BISI Singer on 03/02/24 12:48 UA Protein 15 mg/dL Last Edit by BISI Singer on 03/02/24 12:48 UA pH 7.5 Last Edit by BISI Singer on 03/02/24 12:48 UA Blood 0 Samuel/uL Last Edit by BISI Singer on 03/02/24 12:48 UA Specific [place] 1.010 Last Edit by BISI Singer on 03/02/24 12:48 UA Ketone Negative Last Edit by Katanuel Aden BLANCAFozia on 03/02/24 12:48 UA Bilirubin 0 mg/dL Last Edit by KatBISI John on 03/02/24 12:48 UA Glucose 0 mg/dL Last Edit by Kat Headleykiel BLANCAFozia on 03/02/24 12:48 Assessment and Plan Assessment & Plan (1) Annual physical exam: Code(s): Z00.00 - Encounter for general adult medical examination without abnormal findings (2) Hypertension: Code(s): I10 - Essential (primary) hypertension Qualifiers: Hypertension type: essential hypertension Qualified Code(s): I10 - Essential (primary) hypertension Plan: BP controlled not on any med (3) Hypercholesterolemia: Code(s): E78.00 - Pure hypercholesterolemia, unspecified Plan: Avoid fried foods, chicken skin, eggs, butter margarine, pastries and meat. Be it pork or beef they have a lot of cholesterol LDL goal of less than 130 and triglyceride of less than 150 (4) Obesity (BMI 30-39.9): Code(s): E66.9 - Obesity, unspecified Plan: Diet and exercise (5) GERD (gastroesophageal reflux disease): Code(s): K21.9 - Gastro-esophageal reflux disease without esophagitis Qualifiers: Esophagitis presence: without esophagitis Qualified Code(s): K21.9 - Gastro-esophageal reflux disease without esophagitis Plan: Avoid the foods that causes that usually spicy foods, tomato products, juices, coffee, soda and foods that your sensitive to. After eating do not lie down, allow 3-4 hours before in lie down. And keep the head of bed above 30 degrees to avoid the acid from going up. (6) Multiple sclerosis, relapsing-remitting: Comment: Pt works with Dr. May of [facility] who when we spoke encouraged diagnostics which pt declined as she prefers to work within the [facility] system with her own neuro team. [facility] Code(s): G35 - Multiple sclerosis Plan: Continue to follow-up with Neurology. Has had CT of the spine recently showing demyelinating lesions (7) Impaired glucose tolerance: Code(s): R73.02 - Impaired glucose tolerance (oral) Plan: Decrease the amount of carbohydrate intake, pasta, bread, rice and potatoes are all sugar and that is aside from all the sweet stuff, remember that fruits are good but they are Sweet also. (8) Bipolar disorder: Comment: [place]. [place] (2021) Code(s): F31.9 - Bipolar disorder, unspecified Plan: Continue to follow-up with psychiatry and counseling (9) Tobacco abuse: Code(s): Z72.0 - Tobacco use Plan: Patient is strongly advised to stop smoking (10) Degenerative disc disease, cervical: Code(s): M50.30 - Other cervical disc degeneration, unspecified cervical region Plan: Keep active. (11) Frequency of micturition: Code(s): R35.0 - Frequency of micturition (12) Bilateral impacted cerumen: Code(s): H61.23 - Impacted cerumen, bilateral Plan: advise to get ear irrigation Orders: Orders AMB Urinalysis Automated Today R35.0 - Frequency of micturition, Z13.9 - Encounter for screening, unspecified Coding Level of Care Code Est Pt Prev Care 18-39y([id number]) Diagnoses Annual physical exam Z00.00 Essential hypertension I10 Hypertension type: essential hypertension Hypercholesterolemia E78.00 Obesity (BMI 30-39.9) E66.9 Gastroesophageal reflux disease without esophagitis K21.9 Esophagitis presence: without esophagitis Multiple sclerosis, relapsing-remitting G35 Impaired glucose tolerance R73.02 Bipolar disorder, current episode mixed, severe, with psychotic features F31.9 Tobacco abuse Z72.0 Degenerative disc disease, cervical M50.30 Frequency of micturition R35.0 Bilateral impacted cerumen H61.23 Additional Codes CANDE-7 Assessment Billing - CANDE-7 Assessment Tool: CANDE-7 Assessment 57013 ([id number])
== END 2024-03-02 12:05 | disposition home or self-care (01) ==
PROVIDERS: PCP Internal Medicine; Visit Provider Internal Medicine
DX: R35.0 Frequency of micturition (principal)
CPT/HCPCS: 81003; 99395

== ENCOUNTER 2024-05-03 12:24 | Outpatient (AMB) | payer OTHER, SELFPAY ==
[2024-05-03 12:38] VITALS: BP 128/76; PULSE 111; TEMP 36.4; O2SAT 98
--- NOTE | 2024-05-03 12:38 | AM.OFFWIN_ITS ---
Intake Vital Signs 05/03/24 12:38 Height 5 ft 8 in BP 128/76 Blood Pressure Location Lt brachial Position Sitting Pulse 111 H Pulse Source Pulse Oximeter Temp 97.6 F Temp Source Oral Pulse Oximetry (%) 98 Intake Visit Reasons: EP Wax removal _Both ears Intake Note: pt is here for wax removal in both ears Patient Tobacco Use Status: Current everyday Tobacco user Allergies latex [Latex] Allergy (Mild, Verified 05/03/24 12:39) ITCHY AND DRY HANDS Penicillins Allergy (Mild, Verified 05/03/24 12:39) HIVES cat dander [CATS] Allergy (Unknown, Verified 05/03/24 12:39) ITCHY, ASTHMA house dust Allergy (Unknown, Verified 05/03/24 12:39) itchy penicillin V Allergy (Unknown, Verified 05/03/24 12:39) hives Do you need a note to return to daycare/school/sports/work: No HPI HPI Comments History of Present Illness Details Patient is a 38-year-old female complaining of bilateral ear itchiness and wax buildup, she is asking us to remove the wax buildup from her ears. She also admits to reduced hearing. She denies any fevers or pain. She states she does use Debrox drops occasionally. [facility] Medical History (Updated 03/02/24 @ 11:51 by Rolf Lee MD) Adjustment disorder with mixed disturbance of emotions and conduct Chronic post-traumatic stress disorder (PTSD) Depression Bipolar disorder Severe manic bipolar 1 disorder with psychotic behavior PTSD (post-traumatic stress disorder) OLIVIER I (cervical intraepithelial neoplasia I) Carpal tunnel syndrome of right wrist GERD (gastroesophageal reflux disease) Asthma Obesity (BMI 30-39.9) Hypercholesterolemia Hypertension Multiple sclerosis, relapsing-remitting Surgical History Hx of breast reduction, elective Family History (Updated 03/02/24 @ 11:48 by Rolf Lee MD) Father Hypertension CVD (cardiovascular disease) High cholesterol Mother Depression Multiple sclerosis Maternal Grandmother Alzheimers disease Maternal Grandfather Heart disease Paternal Grandmother Stroke Hypertension Paternal Grandfather Diabetes Brother Diabetes Family/Other FH: mental illness Paternal Uncle Stroke Social History (Updated 03/02/24 @ 11:49 by Rolf Lee MD) Household Members: Unknown / Unable to assess Housing: Apartment Do you presently have visiting nurse or other home services: No Unable to assess alcohol history related to: Unknown Alcohol intake: current Alcohol intake frequency: holidays/special occasions only Alcohol type: wine Comment: QQ 3 months 3 drinks Patient Tobacco Use Status: Current everyday Tobacco user Tobacco use type: Cigarette Cigarettes Per Day: 3 e-Cigarette/Vaping Use: Never Used Second Hand Smoke Exposure: Yes Substance Use Type: Marijuana service: No Current occupational status: unemployed Sexual orientation: Straight/Heterosexual Cognitive needs: No Hearing needs: No Vision needs: Yes (Glasses) Review of Systems Const All systems reviewed & are unremarkable except as noted in HPI and below Physical Exam Vital Signs: Last Vital Signs Temp 97.6 F 05/03/24 12:38 Pulse 111 H 05/03/24 12:38 BP 128/76 05/03/24 12:38 Pulse Ox 98 05/03/24 12:38 Const General: cooperative, healthy appearing, comfortable, no acute distress and well developed Orientation/consciousness: patient oriented x3 Limitations: no limitations HEENT Head: Yes normal to inspection and Yes normocephalic Ears: unable to visualize TM (Cerumen impaction) bilaterally General nose exam: Normal external nose present Face and sinus: Yes normal facial exam Mouth: Normal oral and palatal mucosa present Eyes General: appearance normal, both eyes and all related structures Resp Effort & Inspection: normal respiratory effort and able to speak in complete sentences Neuro General: patient oriented x3 Office Procedures Cerumen Removal From which ear canal was the cerumen removed: bilateral Removal: irrigation Notes: patient tolerated procedure well, no complications and ear canal clear [id number] Irrigation/Lavage Assessment & Plan Assessment & Plan (1) Bilateral impacted cerumen: Code(s): H61.23 - Impacted cerumen, bilateral Plan: Impacted cerumen irrigated by MA successfully, ear canals clear, patient reports improved hearing. Educated patient on proper use of Debrox drops. Plan See above Coding Level of Care Code Est Pt Level 3 (94047) Diagnoses Bilateral impacted cerumen H61.23 CPT Codes Office Procedure - CPT: 37621-Yne Irrigation/Lavage ([id number])
== END 2024-05-03 13:15 | disposition home or self-care (01) ==
PROVIDERS: PCP Internal Medicine; Visit Provider Physician Assistant
DX: H61.23 Impacted cerumen, bilateral (principal)
CPT/HCPCS: 69209; 99213

== ENCOUNTER → 2024-08-23 15:23 | Outpatient (BNVA) | payer OTHER, SELFPAY | PROVIDERS: PCP Internal Medicine; Visit Provider Internal Medicine ==

== ENCOUNTER 2024-08-26 14:33 | Outpatient (AMB) | payer OTHER, SELFPAY ==
[2024-08-26 14:34] VITALS: BP 116/84; PULSE 86; O2SAT 99; BMI 40.1
--- NOTE | 2024-08-26 14:34 | MHC.PC.OV ---
Vital Signs 08/26/24 14:34 Height 5 ft 8 in Weight 264 lb BMI 40.1 BP 116/84 Blood Pressure Location Lt brachial Position Sitting Pulse 86 Pulse Source Pulse Oximeter Pulse Oximetry (%) 99 Oxygen Delivery Method Room Air Intake Visit Reasons: ear cleaning Private Investigator Required: No Allergies latex [Latex] Allergy (Mild, Verified 08/26/24 14:42) ITCHY AND DRY HANDS Penicillins Allergy (Mild, Verified 08/26/24 14:42) HIVES cat dander [CATS] Allergy (Unknown, Verified 08/26/24 14:42) ITCHY, ASTHMA house dust Allergy (Unknown, Verified 08/26/24 14:42) itchy penicillin V Allergy (Unknown, Verified 08/26/24 14:42) hives Medication List - Last Reconciled 08/26/24 by Amber Pollock PA-C albuterol sulfate 90 mcg/actuation (Ventolin HFA) 2 puffs inhalation Q6H PRN cholecalciferol (vitamin D3) 50 mcg PO DAILY 90 days folic acid 1 mg PO DAILY gabapentin 300 mg PO BEDTIME 90 days haloperidol 5 mg PO BEDTIME [Maxi-Pads Long To be changed 5 to 6 times a day. NS] mirabegron ER (Myrbetriq) 50 mg PO DAILY 90 days ocrelizumab (Ocrevus) 600 mg IV [id number] olanzapine 10 mg PO BID omeprazole 20 mg PO DAILY oxcarbazepine (Trileptal) 600 mg PO BID trazodone 1 tab PO BEDTIME PRN Tobacco use date assessed: 03/02/24 Dental Screening Dental Screen Date: 03/02/24 HPI ear cleaning HPI Details 39-year-old female with past medical history of polysubstance abuse, GERD, hypercholesterolemia, MS, bipolar disorder last seen by Dr. Lee February 2024 coming in for ear cleaning. Patient has a history of asthma and states a couple of months ago she had COVID-19 infection which resolved I am she continues to have cough and shortness of breath. Denies any fevers, nausea, vomiting or diarrhea. She feels the cough has been improving over the last few weeks however she has not had her inhaler because she lost it. [facility] Medical History (Updated 08/26/24 @ 14:46 by Amber Pollock PA-C) Adjustment disorder with mixed disturbance of emotions and conduct Chronic post-traumatic stress disorder (PTSD) Depression Bipolar disorder Severe manic bipolar 1 disorder with psychotic behavior PTSD (post-traumatic stress disorder) OLIVIER I (cervical intraepithelial neoplasia I) Carpal tunnel syndrome of right wrist GERD (gastroesophageal reflux disease) Asthma Obesity (BMI 30-39.9) Hypercholesterolemia Hypertension Multiple sclerosis, relapsing-remitting Surgical History Hx of breast reduction, elective Family History (Updated 03/02/24 @ 11:48 by Rolf Lee MD) Father Hypertension CVD (cardiovascular disease) High cholesterol Mother Depression Multiple sclerosis Maternal Grandmother Alzheimers disease Maternal Grandfather Heart disease Paternal Grandmother Stroke Hypertension Paternal Grandfather Diabetes Brother Diabetes Family/Other FH: mental illness Paternal Uncle Stroke Social History (Updated 03/02/24 @ 11:49 by Rolf Lee MD) Household Members: Unknown / Unable to assess Housing: Apartment Do you presently have visiting nurse or other home services: No Unable to assess alcohol history related to: Unknown Alcohol intake: current Alcohol intake frequency: holidays/special occasions only Alcohol type: wine Comment: QQ 3 months 3 drinks Patient Tobacco Use Status: Current everyday Tobacco user Tobacco use type: Cigarette Cigarettes Per Day: 3 e-Cigarette/Vaping Use: Never Used Second Hand Smoke Exposure: Yes Substance Use Type: Marijuana service: No Current occupational status: unemployed Sexual orientation: Straight/Heterosexual Cognitive needs: No Hearing needs: No Vision needs: Yes (Glasses) Questionnaire Thrive Questionnaire Date Thrive assessed: 03/02/24 Are you currently unemployed and looking for a job?: No AUDIT C Alcohol Use Questionnaire (AUDIT-C) 1. How often do you have a drink containing alcohol?: Monthly or less 2. How many drinks containing alcohol do you have on a typical day when you are drinking?: 1 or 2 3. How often do you have six or more drinks on one occasion?: Never Total Score: 1 Score Reviewed/Action Taken: No CANDE-7 AMB Questionnaire CANDE-7 Date CANDE - 7 assessed: 03/02/24 Source: Developed by Drs. Mark Jacob, Sheila Christine, Dylan Brar and colleagues, with an educational stephanie from [employer]. Review of Systems Const Denies body aches, Denies chills, Denies fatigue and Denies fever(s) Eyes Reports no additional complaints ENT Denies otalgia and Denies hearing loss Card Reports no additional complaints and Reports dyspnea Resp Reports cough, Denies hemoptysis, Denies excessive phlegm production and Reports dyspnea GI Reports no additional complaints Endo Denies fatigue Physical exam (Primary Care) Vital Signs: Last Vital Signs Pulse 86 08/26/24 14:34 BP 116/84 08/26/24 14:34 Pulse Ox 99 08/26/24 14:34 Oxygen Delivery Method Room Air 08/26/24 14:34 BMI result Body Mass Index 40.1 Tobacco/Smoking Status: Tobacco use Status Tobacco use date assessed 03/02/24 08/26/24 14:35 Patient Tobacco Use Status Current everyday Tobacco 08/26/24 14:35 Tobacco use type Cigarette 08/26/24 14:35 e-Cigarette/Vaping Use Never Used 08/26/24 14:35 Thrive Assessment: Date of Thrive Assessment Date Thrive assessed 03/02/24 08/26/24 14:35 Const General: cooperative, healthy appearing, comfortable and no acute distress Orientation/consciousness: patient oriented x3 HENMT Head: Yes normocephalic Ears: hearing grossly normal bilaterally and Abnormal EAC present excessive cerumen bilateral General nose exam: Normal external nose present Eyes General: appearance normal, both eyes and all related structures Conjunctivae: conjunctivae normal Neck Neck: Yes full ROM and Yes no lymphadenopathy Resp Effort & Inspection: normal respiratory effort Auscultation: clear to auscultation bilaterally, no crackles, no rales, no rhonchi and no wheezes Cardio Rate: regular rate Rhythm: regular rhythm Skin General skin exam: no rashes or lesions noted Neuro General: patient oriented x3 Gait exam (Neuro): Normal gait present Extrem General: Yes normal to inspection, Yes full ROM and No edema Psych Affect: normal affect Attitude: cooperative Insight: Good insight present (Psych) Judgement: Good judgement present (Psych) Office Procedures Cerumen Removal From which ear canal was the cerumen removed: bilateral Removal: irrigation and cerumen loop/spoon Notes: patient tolerated procedure well and no complications [id number] Irrigation/Lavage Coding Level of Care Code Est Pt Level 3 (24198) Diagnoses Bilateral impacted cerumen H61.23 Cough R05.9 CPT Codes Office Procedure - CPT: 75334-Dij Irrigation/Lavage ([id number]) Assessment & Plan Assessment & Plan (1) Bilateral impacted cerumen: Code(s): H61.23 - Impacted cerumen, bilateral Category: Medical Plan: Cerumen was removed successfully with ear lavage and lighted curette. Ear canal was clear and TMs visualized as intact with well aerated middle ear spaces. Patient tolerated procedure well advised to follow up as needed for ear cleaning. (2) Cough: Code(s): R05.9 - Cough, unspecified Category: Medical Plan: Lungs sounded clear on exam however given underlying asthma and persistent cough ordered for chest x-ray. Refilled albuterol inhaler advised patient to use the inhaler as needed for shortness of breath and wheezing. Plan This note was constructed using voice recognition software. While every effort has been made to ensure accuracy and interactive multimedia designer, still areas may have been included sometimes these areas may affect the content or meeting of the given symptoms. Total time spent caring for the patient today was 20 minutes. This includes time spent before the visit reviewing the chart, time spent during the visit, and time spent after the visit and documentation. Orders: Orders XR chest 2V Today R05.9 - Cough, unspecified Medications: Refilled albuterol sulfate 90 mcg/actuation (Ventolin HFA) 2 puffs inhalation Q6H PRN 8.5 grams 0RF shortness of breath or wheezing
== END 2024-08-26 15:03 | disposition home or self-care (01) ==
PROVIDERS: PCP Internal Medicine
DX: H61.23 Impacted cerumen, bilateral (principal); R05.9 Cough, unspecified

== ENCOUNTER → 2024-08-26 14:33 | Outpatient (BNVA) | payer OTHER, SELFPAY | PROVIDERS: PCP Internal Medicine | DX: H61.23 Impacted cerumen, bilateral (principal); R05.9 Cough, unspecified | CPT/HCPCS: 69210; 99212 ==

== ENCOUNTER 2025-03-01 15:35 | Outpatient (AMB) | payer OTHER, SELFPAY ==
[2025-03-01 15:40] VITALS: BP 120/92; PULSE 100; TEMP 36.7; O2SAT 99
--- NOTE | 2025-03-01 15:40 | AM.OFFWIN_ITS ---
Intake Vital Signs 03/01/25 15:40 Weight 268 lb BP 120/92 H Blood Pressure Location Lt brachial Position Sitting Pulse 100 Pulse Source Pulse Oximeter Temp 98.1 F Temp Source Oral Pulse Oximetry (%) 99 Oxygen Delivery Method Room Air Intake Visit Reasons: EP RT ear pain Intake Note: Patient here for right ear pain that started yesterday. Patient Tobacco Use Status: Current everyday Tobacco user Allergies latex [Latex] Allergy (Mild, Verified 03/01/25 15:44) ITCHY AND DRY HANDS Penicillins Allergy (Mild, Verified 03/01/25 15:44) HIVES cat dander [CATS] Allergy (Unknown, Verified 03/01/25 15:44) ITCHY, ASTHMA house dust Allergy (Unknown, Verified 03/01/25 15:44) itchy penicillin V Allergy (Unknown, Verified 03/01/25 15:44) hives Do you need a note to return to daycare/school/sports/work: No HPI HPI Comments History of Present Illness Details History of Present Illness - The patient is a 39-year-old female pr esenting with right ear pain which impacted her ability to sleep last night. - Symptoms began the previous day, with persistent pain without associated fever or drainage. - The patient has noted the pain impairs her ability to sleep due to discomfort while lying on the affected side. - No history of ear infections or audito ry changes are reported. - Allergies are noted but are not consis tently managed with medication. Physical Exam General: Cooperative, healthy appearing, comfortable, no acute distress and well developed Orientation: Patient oriented x3 Limitations: No limitations Head: Normal to inspection Ears: Hearing grossly normal bilaterally, TMs with cerumen impaction Nose: Normal External nose present Face and sinus: Normal facial exam Eyes: Appearance normal, both eyes and all related structures Neck: Normal visual inspection and Yes full ROM Respiratory: Normal respiratory effort and able to speak in complete sentences. Skin: No rashes or lesions noted Neuro: Patient oriented x3 Extremities: Normal to inspection [facility] Medical History (Updated 03/01/25 @ 16:06 by Elisha Parrish PA-C) Adjustment disorder with mixed disturbance of emotions and conduct Chronic post-traumatic stress disorder (PTSD) Depression Bipolar disorder Severe manic bipolar 1 disorder with psychotic behavior PTSD (post-traumatic stress disorder) OLIVIER I (cervical intraepithelial neoplasia I) Carpal tunnel syndrome of right wrist GERD (gastroesophageal reflux disease) Asthma Obesity (BMI 30-39.9) Hypercholesterolemia Hypertension Multiple sclerosis, relapsing-remitting Surgical History Hx of breast reduction, elective Family History (Updated 03/02/24 @ 11:48 by Rolf Lee MD) Father Hypertension CVD (cardiovascular disease) High cholesterol Mother Depression Multiple sclerosis Maternal Grandmother Alzheimers disease Maternal Grandfather Heart disease Paternal Grandmother Stroke Hypertension Paternal Grandfather Diabetes Brother Diabetes Family/Other FH: mental illness Paternal Uncle Stroke Social History (Updated 03/02/24 @ 11:49 by Rolf Lee MD) Household Members: Unknown / Unable to assess Housing: Apartment Do you presently have visiting nurse or other home services: No Unable to assess alcohol history related to: Unknown Alcohol intake: current Alcohol intake frequency: holidays/special occasions only Alcohol type: wine Comment: QQ 3 months 3 drinks Patient Tobacco Use Status: Current everyday Tobacco user Tobacco use type: Cigarette Cigarettes Per Day: 3 e-Cigarette/Vaping Use: Never Used Second Hand Smoke Exposure: Yes Substance Use Type: Marijuana service: No Current occupational status: unemployed Sexual orientation: Straight/Heterosexual Cognitive needs: No Hearing needs: No Vision needs: Yes (Glasses) Review of Systems Const All systems reviewed & are unremarkable except as noted in HPI and below Physical Exam Vital Signs: Last Vital Signs Temp 98.1 F 03/01/25 15:40 Pulse 100 03/01/25 15:40 BP 120/92 H 03/01/25 15:40 Pulse Ox 99 03/01/25 15:40 Oxygen Delivery Method Room Air 03/01/25 15:40 Office Procedures Cerumen Removal Details: due to pain, unable to clear EACs completely. From which ear canal was the cerumen removed: bilateral Removal: irrigation and otoscope w/curette Notes: patient tolerated procedure well and no complications [id number] Irrigation/Lavage Assessment & Plan Assessment & Plan (1) Bilateral impacted cerumen: Code(s): H61.23 - Impacted cerumen, bilateral Plan: Due to pain, patient is unable to tolerate irrigation of bilateral ears. I will treat her for an both otitis externa as I can see her EAC is edematous and erythematous and otitis media due to the amount of pain she is having in the right ear. I asked her to take the meds for one week and then return so we can do a proper irrigation. I also recommended she take a daily allergy pill Patient was informed and verbally consented to the use of an ambient scribe for clinic note documentation during this visit. (2) Otitis externa: Code(s): H60.90 - Unspecified otitis externa, unspecified ear Qualifiers: Otitis externa type: other infective Chronicity: acute Laterality: right Qualified Code(s): H60.391 - Other infective otitis externa, right ear Plan: As above (3) Otitis media: Code(s): H66.90 - Otitis media, unspecified, unspecified ear Qualifiers: Otitis media type: unspecified Chronicity: acute Qualified Code(s): H66.90 - Otitis media, unspecified, unspecified ear Plan: As above. Due to the patient's allergies and contraindications with the medication she takes on a daily basis, I had to prescribe doxycycline, though likelihood of otitis media is low, I am prescribing it due to the amount of pain the patient is in Orders: Orders AMB Cerumen Removal Today H61.23 - Impacted cerumen, bilateral Medications: New cchchzlc-czzdxackb-YB 3.5-10,000-1 mg/mL-unit/mL-% 4 drps otic (ear) right Q8H 7 days 10 mL 0RF doxycycline hyclate 100 mg PO BID 10 tabs 0RF naproxen 500 mg PO Q12H PRN 20 tabs 0RF pain Coding Level of Care Code Est Pt Level 4 (13710) Diagnoses Bilateral impacted cerumen H61.23 Other infective acute otitis externa of right ear H60.391 Otitis externa type: other infective Chronicity: acute Laterality: right Acute otitis media, unspecified otitis media type H66.90 Otitis media type: unspecified Chronicity: acute CPT Codes Office Procedure - CPT: 89850-Aki Irrigation/Lavage ([id number])
--- OUTSIDE RECORDS SUMMARY | 2025-03-01 18:13 | XMS_ITS | Clinical Summary ---
Author Organization [facility] Address [address] [place] [address] Care Team Providers Care Roll Table Operator Name Role Phone Rolf Lee MD Primary Care Provider [phone] Allergies Active Allergy Reactions Criticality Noted Date Comments Haloperidol 10/21/2022 Penicillin G 10/21/2022 Medications Medication Sig Dispensed Refills Start Date End Date Status D3 Super Strength 50 MCG (1999) CAPS Take 1 capsule by mouth daily. 0 09/12/2022 Active acetaminophen (TYLENOL) 650 MG CR tablet Take 2 tablets (1,300 mg total) by mouth. 0 01/02/2021 Active folic acid (FOLVITE) tablet 1 mg TAKE ONE TABLET BY MOUTH EVERY DAY 0 07/24/2022 Active gabapentin (NEURONTIN) 300 MG capsule TAKE ONE CAPSULE BY MOUTH AT BEDTIME 0 09/12/2022 Active Myrbetriq 50 MG TB24 TAKE ONE TABLET BY MOUTH EVERY DAY FOR 90 DAYS 0 09/12/2022 Active OLANZapine (ZyPREXA) 10 MG tablet 0 10/20/2022 Active OXcarbazepine (TRILEPTAL) 600 MG tablet 0 10/20/2022 Active propranolol (INDERAL) 10 MG tablet Take 1 tablet (10 mg total) by mouth 2 (two) times a day as needed. 0 09/17/2022 Active traZODone (DESYREL) 150 MG tablet Take 1 tablet (150 mg total) by mouth. 0 01/02/2021 Active ocrelizumab (Ocrevus) 300 MG/10ML SOLN Inject into the vein. 0 Active ergocalciferol (VITAMIN D2) capsule 68690 units TAKE ONE CAPSULE BY MOUTH ONCE A WEEK 4 capsule 12 01/01/2024 Active haloperidol (HALDOL) 5 MG tablet Take 1 tablet (5 mg total) by mouth every night at bedtime. 0 12/24/2023 Active buPROPion (WELLBUTRIN XL) 300 MG 24 hr tablet Take 1 tablet (300 mg total) by mouth daily. 0 12/24/2023 Active hydrOXYzine (VISTARIL) 25 MG capsule Take 1 capsule (25 mg total) by mouth 2 (two) times a day as needed. 0 11/20/2023 Active naproxen (NAPROSYN) 500 MG tablet TAKE ONE TABLET BY MOUTH TWICE A DAY NEEDED FOR PAIN 0 01/18/2024 Active omeprazole (PriLOSEC) 20 MG capsule Take 1 capsule (20 mg total) by mouth daily. 0 01/15/2024 Active Active Problems Problem Noted Date Diagnosed Date Multiple sclerosis 01/20/2023 Family History Medical History Relation Name Comments Hypertension Father Multiple sclerosis Mother Relation Name Status Comments Father Alive Mother Alive Social History Tobacco Use Types Packs/Day Years Used Date Smoking Tobacco: Every Day Cigarettes 0.3 Smokeless Tobacco: Never Tobacco Cessation:Ready to Q uit: Not Asked; Counseling Given: Not Answered Alcohol Use Standard Drinks/Week Comments Not Currently 0 (1 standard drink = 0.6 oz pur e alcohol) Sex and Gender Information Value Date Recorded Sex Assigned at Female 10/07/2022 2:09 PM EST Gender Identity Not on file Sexual Orientation Not on file Job Start Date Occupation Industry Not on file Not on file Not on file Last Filed Vital Signs Vital Sign Reading Time Taken Comments Blood Pressure 133/91 07/27/2024 1:30 PM EDT Pulse 86 07/27/2024 1:30 PM EDT Temperature 36.6 ??C (97.8 ??F) 07/27/2024 1:30 PM ED T Respiratory Rate 20 07/27/2024 1:30 PM EDT Oxygen Saturation 99% 07/27/2024 1:30 PM EDT Inhaled Oxygen Concentration - - Weight 116.5 kg (256 lb 12.8 oz) 2023 11:39 AM EDT Height 172.7 cm (5' 8 ) 03/21/2024 11:3 9 AM EDT Body Mass Index 39.05 03/21/2024 11:39 AM EDT Plan of Treatment Health Maintenance Due Date Last Done Comments Hepatitis B Vaccines (1 of 3 - 3-dose series) 1984 Hepatitis C Screening 1984 COVID-19 Vaccine (#1) 1984 Depression Screening 1996 BMI Counseling 2002 Preventative Health Evaluation 2002 Tobacco Cessation Counseling 2002 DTap / Tdap / Td (1 - Tdap) 2003 Cervical Cancer Screening (P ap Smear) 2005 Pneumococcal Vaccine (2 of 2 - PCV) 08/16/2011 08/16/2010 Influenza Vaccine (#1) 2024 RSV Ped < 20 months Aged Out No longe r eligible based on patient's age to complete this topic Care Teams Roll Table Operator Relationship Specialty Start Date End Date Po, Rolf Walton MD [address] [place] [address] [address] [facility] [place] [address] PCP - General Internal Medicine 10/09/22
--- OUTSIDE RECORDS SUMMARY | 2025-03-01 18:13 | XMS_ITS | Clinical Summary ---
Author Organization [facility] Address [address] [place] [address] Phone Care Team Providers Care Cost Estimating Manager Name Role Phone Rolf Lee MD Primary Care Provider [phone] Allergies Active Allergy Reactions Criticality Noted Date Comments Haloperidol 10/21/2022 Penicillin G 10/21/2022 Active Problems Problem Noted Date Diagnosed Date MS (multiple sclerosis) ([facility] V24, [facility] V2 8) 01/16/2025 Encounters Date Type Department Care Team Description 01/25/2025 10:30 AM EDT Office Visit [facility] [address] [phone] Yovana Jha PA MS (multiple sclerosis) (CMS/HCC V24, CMS/HCC V28) (Primary Dx) 01/25/2025 10:00 AM EDT - 01/25/2025 11:59 PM EDT Hospital Encounter [facility] [place] Outpatient Rehabilititation [address] [phone] MS (multiple sclerosis) ([facility]/HCC V24, [facility] V28) (Primary Dx); Vitamin D deficiency Discharge Disposition: Home or Self Care 12/20/2024 Telephone [facility] [place] Outpatient Rehabilititation [address] [phone] Vianney Cisneros MD [employer] AUTH REQST; AUTH RECVD from Last 3 Months Surgical History Surgery Date Site/Laterality Comments BREAST SURGERY Bilateral PROCEDURE:REDUCTION MAMMAPLASTY Medical History Medical History Date Comments MS (multiple sclerosis) ([facility] V24, [facility] V28) DX:MS (multiple sclerosis) ( [facility]) Bipolar 1 disorder, manic, m oderate ([facility] V24, [facility] V28) DX:Bipolar 1 disorder, luis fernando c, moderate ([facility]) Family History Medical History Relation Name Comments Hypertension Father Multiple sclerosis Mother Relation Name Status Comments Father Alive Mother Alive Social History Tobacco Use Types Packs/Day Years Used Date Smoking Tobacco: Every Day Cigarettes Smokeless Tobacco: Never Tobacco Cessation:Ready to Q uit: Not Asked; Counseling Given: Not Answered Alcohol Use Standard Drinks/Week Comments Not Currently 0 (1 standard drink = 0.6 oz pur e alcohol) Comments Unknown Sex and Gender Information Value Date Recorded Sex Assigned at Not on file Legal Sex Female 4:37 AM EST Gender Identity Not on file Sexual Orientation Not on file Obstetrics History Last Filed Vital Signs Vital Sign Reading Time Taken Comments Blood Pressure 131/85 01/25/2025 1:33 PM EDT Pulse 79 01/25/2025 1:33 PM EDT Temperature 36.1 ??C (97 ??F) 01/25/2025 1:33 PM EDT Respiratory Rate 19 01/25/2025 1:33 PM EDT Oxygen Saturation 95% 01/25/2025 1:33 PM EDT Inhaled Oxygen Concentration - - Weight 116 kg (256 lb 12.8 oz) 03/21/2024 11:39 AM EDT Height 172.7 cm (5' 8 ) 03/21/2024 11:39 AM EDT Body Mass Index 39.05 03/21/2024 11:39 AM EDT Plan of Treatment Upcoming Encounters Date Type Department Care Team (Late st Contact Info) Description 07/25/2025 10:00 AM EDT Appointment [facility] Outpatient [facility] - [place] [address] [facility] [address] [place] [phone] 07/25/2025 10:00 AM EDT Office Visit [facility] - [place] 175 [facility] [address] [place] [phone] Vianney Cisneros MD [address] [place] [phone] Health Maintenance Due Date Last Done Comments Breast Cancer Screening 1984 Hepatitis B Vaccines (1 of 3 - 19+ 3-dose series) 2003 Cervical Cancer Screening: P ap Smear 2005 Pneumococcal Vaccine: Pediatrics (0 to 5 Years) and At-Risk Patients (6 to 64 Years) (2 of 2 - PCV) 05/23/2020 05/23/2019, 08/16/2010 Cholesterol Screening (Lipid Panel) 12/08/2023 Depression Screening 12/08/2023 HIV Screening 12/08/2023 Hepatitis C Screening 12/08/2023 Social Influencers of Health Screening 12/08/2023 COVID-19 Vaccine (4 - 2023-2 5 season) 2024 11/14/2021, 04/18/2021, 03/21/2021 DTaP,Tdap,and Td Vaccines (2 - Td or Tdap) 06/27/2025 06/27/2015 Influenza Vaccine (Season Ended) 2025 12/06/2021, 08/29/2020 HIB Vaccines Aged Out No longer eligi ble based on patient's age to complete this topic HPV Vaccines Aged Out No longer eligi ble based on patient's age to complete this topic Hepatitis A Vaccines Aged Out No long er eligible based on patient's age to complete this topic IPV Vaccines Aged Out No longer eligi ble based on patient's age to complete this topic MMR Vaccines Aged Out No longer eligi ble based on patient's age to complete this topic Meningococcal ACWY Vaccine Aged Out N o longer eligible based on patient's age to complete this topic Meningococcal B Vaccine Aged Out No l onger eligible based on patient's age to complete this topic RSV Immunization Patients Under 20 months Aged Out No longer eligible b ased on patient's age to complete this topic Varicella Vaccines Aged Out No longer eligible based on patient's age to complete this topic Procedures Procedure Name Priority Date/Time Associated Diagnosis Comments EXTERNAL MRI REPORT 02/14/2025 EXTERNAL MRI REPORT 02/14/2025 CBC WITH AUTO DIFFERENTIAL Routine 01/25/2025 10:18 AM EDT MS (multiple sclerosis) (CMS/HCC V24, CMS/HCC V28) CBC AND DIFFERENTIAL Routine 01/25/2025 10:18 AM EDT MS (multiple sclerosis) (CMS/HCC V24, CMS/HCC V28) HEPATIC FUNCTION PANEL Routine 01/25/2025 10:18 AM EDT MS (multiple sclerosis) (CMS/HCC V24, CMS/HCC V28) VITAMIN D 25 HYDROXY Routine 01/25/2025 10:18 AM EDT MS (multiple sclerosis) (CMS/HCC V24, CMS/HCC V28) Vitamin D deficiency VITAMIN B12 Routine 01/25/2025 10:18 AM EDT MS (multiple sclerosis) (CMS/HCC V24, CMS/HCC V28) CREATININE, SERUM Routine 01/25/2025 10: 18 AM EDT MS (multiple sclerosis) (CMS/HCC V24, CMS/HCC V28) BUN Routine 01/25/2025 10:18 AM EDT MS (multiple sclerosis) (CMS/HCC V24, CMS/HCC V28) from Last 3 Months Results * External MRI Report (02/14/2025) Only the most recent of2 resultswithin the time period is included. Anatomical Region Laterality Modality Magnetic Resonan ce Provider [place] [facility]ED[facility] Final Result * (ABNORMAL) CBC auto differential (01/25/2025 10:18 AM EDT) WBC 8.6 4.8 - 10.8 K/mcL LAB HEMETOLOGY METHOD 01/25/2025 11:[address] [facility] RBC 4.20 3.80 - 4.80 M/mcL LAB HEMETOLOGY METHOD 01/25/2025 11:[address] [facility] Hemoglobin 13.2 11.5 - 16.0 g/dL LAB HEMETOLOGY METHOD 01/25/2025 11:34 AM [facility] Hematocrit 37.5 35.0 - 47.0 % LAB HEMETOLOGY METHOD 01/25/2025 11:34 AM [facility] MCV 88.9 79.0 - 98.0 FL LAB HEMETOLOGY METHOD 01/25/2025 11:34 AM [facility] MCH 31.3 27.0 - 32.0 pcg LAB HEMETOLOGY METHOD 01/25/2025 11:34 AM [facility] MCHC 35.2 32.0 - 37.0 g/dL LAB HEMETOLOGY METHOD 01/25/2025 11:34 AM [facility] RDW 12.9 11.0 - 15.0 % LAB HEMETOLOGY METHOD 01/25/2025 11:34 AM [facility] Platelets 293 130 - 400 K/mcL LAB HEMETOLOGY METHOD 01/25/2025 11:34 AM [facility] MPV 8.9 7.0 - 11.0 FL LAB HEMETOLOGY METHOD 01/25/2025 11:34 AM [facility] NRBC 0.0 <1.0 % LAB HEMETOLOGY METHOD 01/25/2025 11:34 AM [facility] NRBC Absolute 0.00 <0.10 K/mcL LAB HEMETOLOGY METHOD 01/25/2025 11:34 AM [facility] Neutrophils Relative 56.9 % LAB HEMETOLOGY METHOD 01/25/2025 11:34 AM [facility] Lymphocytes Relative 31.5 % LAB HEMETOLOGY METHOD 01/25/2025 11:34 AM [facility] Monocytes Relative 7.4 % LAB HEMETOLOGY METHOD 01/25/2025 11:34 AM [facility] Eosinophils Relative 3.0 % LAB HEMETOLOGY METHOD 01/25/2025 11:[address] [facility] Basophils Relative 0.4 % LAB HEMETOLOGY METHOD 01/25/2025 11:34 AM [facility] Immature Granulocytes Relative 0.8 % LAB HEMETOLOGY METHOD 01/25/2025 11:[address] [facility] Neutrophils Absolute 4.87 1.50 - 7.00 K/mcL LAB HEMETOLOGY METHOD 01/25/2025 11:[address] [facility] Lymphocytes Absolute 2.70 1.00 - 5.00 K/mcL LAB [facility]OLOGY [facility] Monocytes Absolute 0.63 0.20 - 1.00 K/mcL LAB HEMETOLOGY METHOD 01/25/2025 11:[address] [facility] Eosinophils Absolute 0.26 0.00 - 0.50 K/mcL LAB HEMETOLOGY METHOD 01/25/2025 11:[address] [facility] Basophils Absolute 0.03 0.00 - 0.20 K/mcL LAB HEMETOLOGY METHOD [facility]25[facility]25 [facility] Immature Granulocytes Absolute 0.07(H) 0.00 - 0.03 K/mcL LAB HEMETOLOGY METHOD 01/25/2025 11:[address] [facility] Blood Venous blood specimen / Unknown Venipuncture / Unknown 01/25/2025 10:18 AM EDT 01/25/2025 10:18 AM EDT us Yovana BEE LAB BLOOD ORDERABLES Final R esult [facility] [address] [place] [address], * Creatinine (01/25/2025 10:18 AM EDT) Creatinine 1.00 0.50 - 1.10 mg/dL LAB CHEMISTRY METHOD 01/25/2025 11:[address] [facility] eGFR 73 >=60 mL/min/1. 73m2 LAB CHEMISTRY METHOD 01/25/2025 11:[address] [facility] Comment:Calculation based on the??Chronic Kidney Disease Epidemiology Collaboration (CKD-EPI) equation refit??without adjustment for race. Blood Venous blood specimen / Unknown Venipuncture / Unknown 01/25/2025 10:18 AM EDT 01/25/2025 10:18 AM EDT Yovanatang DurantZenops PA LAB BLOOD ORDERABLES Final R esult Performing Organization Address City/[facility]/ZIP Co de Phone Number [facility] [address] [place] [address], [place] [phone] * Vitamin D 25 hydroxy (01/25/2025 10:18 AM EDT) Vit D, 25-Hydroxy 42.0 30.0 - 80.0 ng/mL LAB CHEMISTRY METHOD 01/25/2025 11:[address] [facility] Blood Venous blood specimen / Unknown Venipuncture / Unknown 01/25/2025 10:18 AM EDT 01/25/2025 10:18 AM EDT Yovanatang Duranti PA LAB BLOOD ORDERABLES Final R esult [facility] [address] [place] [address], [place] [phone] * BUN (01/25/2025 10:18 AM EDT) BUN 10 5 - 25 mg/dL LAB CHEMISTRY METHOD 01/25/2025 11:[address] [facility] Blood Venous blood specimen / Unknown Venipuncture / Unknown 01/25/2025 10:18 AM EDT 01/25/2025 10:18 AM EDT [facility] LAB BLOOD ORDERABLES Final R esult [facility] [address] [place] [address], [place] [phone] * Vitamin B12 (01/25/2025 10:18 AM EDT) [facility] Vitamin B-12 482 250 - 900 pcg/mL LAB CHEMISTRY METHOD 01/25/2025 12:[address] [facility] Blood Venous blood specimen / Unknown Venipuncture / Unknown 01/25/2025 10:18 AM EDT 01/25/2025 10:18 AM EDT [facility] LAB BLOOD ORDERABLES Final R esult Performing Organization Address City/[facility]/ZIP Co de Phone Number [facility] [address] [place] [address], [place] [phone] * (ABNORMAL) Hepatic function panel (01/25/2025 10:18 AM EDT) [facility] Total Protein 6.9 6.0 - 8.0 g/dL LAB CHEMISTRY METHOD 01/25/2025 11:[address] [facility] Albumin 3.4 3.2 - 5.0 g/dL LAB CHEMISTRY METHOD 01/25/2025 11:[address] [facility] Total Bilirubin 0.3 0.0 - 1.4 mg/dL LAB CHEMISTRY METHOD 01/25/2025 11:[address] [facility] Bilirubin, Direct <0.1 0.0 - 0.3 mg/dL LAB CHEMISTRY METHOD 01/25/2025 11:[address] [facility] Bilirubin, Indirect LAB CHEMISTRY METHOD 01/25/2025 11:[address] [facility] Comment:Unable to calculate Indirect Bilirubin. ALT (SGPT) 22 10 - 60 unit/L LAB CHEMISTRY METHOD 01/25/2025 11:[address] [facility] AST (SGOT) 13 10 - 42 unit/L LAB CHEMISTRY METHOD 01/25/2025 11:[address] [facility] Alkaline Phosphatase 139(H) 42 - 121 unit/L LAB CHEMISTRY METHOD 01/25/2025 11:[address] [facility] Blood Venous blood specimen / Unknown Venipuncture / Unknown 01/25/2025 10:18 AM EDT 01/25/2025 10:18 AM EDT Yovana BEE LAB BLOOD ORDERABLES Final R esult [facility]) [facility] [address] [place] [address], [place] [phone] from Last 3 Months Insurance [facility] MEDICAID Care Teams Cost Estimating Manager Relationship Specialty Start Date End Date Rolf Lee MD [address] [place] [address] [address] [facility] [place] [address] PCP - General 10/09/22
--- OUTSIDE RECORDS SUMMARY | 2025-03-01 18:13 | XMS_ITS | Encounter Summary ---
Author Organization [facility] Address [address] [place] [address] Care Team Providers Care Satellite Tv Technician Name Role Phone Rolf Lee MD Primary Care Provider [phone] Encounter Details Date Type Department Care Team (Late st Contact Info) Description 09/01/2024 10:14 AM EDT Hospital Encounter TH HISTORIC ENCOUNTERS EASTERN CONVERSION ONLY Vianney Cisneros MD [address] [facility] [address] [facility] [address] [place] [phone] Social History Tobacco Use Types Packs/Day Years Used Date Smoking Tobacco: Every Day Cigarettes Smokeless Tobacco: Never Alcohol Use Standard Drinks/Week Comments Not Currently 0 (1 standard drink = 0.6 oz pur e alcohol) Comments Unknown Sex and Gender Information Value Date Recorded Sex Assigned at Not on file Legal Sex Female 4:37 AM EST Gender Identity Not on file Sexual Orientation Not on file documented as of this encounter Plan of Treatment Upcoming Encounters Date Type Department Care Team (Late st Contact Info) Description 07/25/2025 10:00 AM EDT Appointment [facility] Outpatient Rehabilititation - [place] [address] [facility] [address] [facility] [address] [place] [phone] 07/25/2025 10:00 AM EDT Office Visit [facility] - [place] [address] [facility] [address] [facility] [address] [place] [phone] Vianney Cisneros MD [address] [facility] [address] [facility] [address] [place] [phone] documented as of this encounter Visit Diagnoses Not on filedocumented in this encounter Care Teams Satellite Tv Technician Relationship Specialty Start Date End Date Rolf Lee MD [address] [place] [address] [address] [facility] [place] [address] PCP - General 10/09/22 documented as of this encounter
--- OUTSIDE RECORDS SUMMARY | 2025-03-01 18:13 | XMS_ITS ---
Author Name [facility] Organization Unknown History of Medication Use Medication Directions Dispensed Refills Start Date End Date Status naproxen (NAPROSYN) 500 MG tablet TAKE ONE TABLET BY MOUTH TWICE A DAY NEEDED FOR PAIN 4 active buPROPion (WELLBUTRIN XL) 300 MG 24 hr tablet Take 1 tablet (300 mg total) by mouth daily. 4 active diphenhydrAMINE (BENADRYL) injection 50 mg 50 mg, Intravenous, Once, On Thu07/27/24 at 1115, For 1 doseGive 30 minutes prior to ocrelizumab. IV push over 2-3 minutes.??See PO diphenhydramine order. Please give PO or IV.??Common Side Effects: Drowsiness, stomach upset, confusion, dry mouth.??Administer undiluted. Maximum rate 25 mg/min. 3 07/27/20 24 completed sodium chloride 0.9% (NS) infusion 500 mL, Intravenous, Once, On Thu08/04/23 at 0945, For 1 doseAdminister at 999 mL/hr. 3 08/04/20 completed D3 Super Strength 50 MCG (1999 UT) CAPS Take 1 capsule by mouth daily. 2 active LORazepam (ATIVAN) 0.5 MG tablet Take 1 tablet (0.5 mg total) by mouth. 1 active traZODone (DESYREL) 150 MG tablet Take 1 tablet (150 mg total) by mouth. 1 active ocrelizumab (Ocrevus) 300 MG/10ML SOLN Inject into the vein. active Problems Problem Status Onset Date Problem Type Date of Resoluti on Source Multiple sclerosis active 2023-01-20 ProblemAct [id number]
== END 2025-03-01 16:09 | disposition home or self-care (01) ==
PROVIDERS: PCP Internal Medicine; Visit Provider Physician Assistant
DX: H66.91 Otitis media, unspecified, right ear (principal); H60.391 Other infective otitis externa, right ear; H61.23 Impacted cerumen, bilateral

== ENCOUNTER → 2025-03-01 15:35 | Outpatient (BNVA) | payer OTHER, SELFPAY | PROVIDERS: PCP Internal Medicine; Visit Provider Physician Assistant | DX: H61.23 Impacted cerumen, bilateral (principal); H60.391 Other infective otitis externa, right ear; H66.90 Otitis media, unspecified, unspecified ear | CPT/HCPCS: 69210; 99212 ==

== ENCOUNTER 2025-03-06 14:34 | Outpatient (AMB) | payer OTHER, SELFPAY ==
[2025-03-06 14:36] VITALS: BP 128/76; PULSE 106; O2SAT 97; BMI 39.7
--- NOTE | 2025-03-06 14:36 | MHC.PC.OV ---
Vital Signs 03/06/25 14:36 Height 5 ft 8 in Weight 261 lb BMI 39.7 BP 128/76 Blood Pressure Location Lt brachial Position Sitting Pulse 106 H Pulse Source Pulse Oximeter Pulse Oximetry (%) 97 Oxygen Delivery Method Room Air Intake Visit Reasons: PE Allergies latex [Latex] Allergy (Mild, Verified 03/06/25 14:37) ITCHY AND DRY HANDS Penicillins Allergy (Mild, Verified 03/06/25 14:37) HIVES cat dander [CATS] Allergy (Unknown, Verified 03/06/25 14:37) ITCHY, ASTHMA house dust Allergy (Unknown, Verified 03/06/25 14:37) itchy penicillin V Allergy (Unknown, Verified 03/06/25 14:37) hives Medication List - Last Reconciled 03/06/25 by Rolf Lee MD albuterol sulfate 90 mcg/actuation (Ventolin HFA) 2 puffs inhalation Q6H PRN cholecalciferol (vitamin D3) 50 mcg PO DAILY 90 days doxycycline hyclate 100 mg PO BID folic acid 1 mg PO DAILY gabapentin 300 mg PO BEDTIME 90 days haloperidol 5 mg PO BEDTIME [Maxi-Pads Long To be changed 5 to 6 times a day. NS] naproxen 500 mg PO Q12H PRN yldrgkuw-yvjbwwtgz-RI 3.5-10,000-1 mg/mL-unit/mL-% 4 drps otic (ear) right Q8H 7 days ocrelizumab (Ocrevus) 600 mg IV [id number] olanzapine 10 mg PO BID omeprazole 20 mg PO DAILY oxcarbazepine (Trileptal) 600 mg PO BID trazodone 1 tab PO BEDTIME PRN Tobacco use date assessed: 03/06/25 Dental Screening Dental Screen Date: 03/06/25 Did you have a dental visit in the last 12 months?: Yes Did you have a dental problem in the last 6 months where you did not have access to dental care?: No Was dental information given to patient?: Patient has dentist HPI PE HPI Details 39-year-old obese female with hypertension hypercholesterolemia GERD multiple sclerosis relapsing remitting impaired glucose tolerance bipolar disorder history of polysubstance abuse smoker coming in for physical exam. [facility] Medical History (Updated 03/06/25 @ 14:57 by Rolf Lee MD) Adjustment disorder with mixed disturbance of emotions and conduct Chronic post-traumatic stress disorder (PTSD) Depression Bipolar disorder Severe manic bipolar 1 disorder with psychotic behavior PTSD (post-traumatic stress disorder) OLIVIER I (cervical intraepithelial neoplasia I) Carpal tunnel syndrome of right wrist GERD (gastroesophageal reflux disease) Asthma Obesity (BMI 30-39.9) Hypercholesterolemia Hypertension Multiple sclerosis, relapsing-remitting Surgical History Hx of breast reduction, elective Family History (Updated 03/02/24 @ 11:48 by Rolf Lee MD) Father Hypertension CVD (cardiovascular disease) High cholesterol Mother Depression Multiple sclerosis Maternal Grandmother Alzheimers disease Maternal Grandfather Heart disease Paternal Grandmother Stroke Hypertension Paternal Grandfather Diabetes Brother Diabetes Family/Other FH: mental illness Paternal Uncle Stroke Social History (Updated 03/06/25 @ 15:03 by Rolf Lee MD) Household Members: Unknown / Unable to assess Housing: Apartment Do you presently have visiting nurse or other home services: No Unable to assess alcohol history related to: Unknown Alcohol intake: current Alcohol intake frequency: holidays/special occasions only Alcohol type: wine Comment: Q12 months 2 drinks Patient Tobacco Use Status: Current everyday Tobacco user Tobacco use type: Cigarette Cigarettes Per Day: 5 Years Smoked: smoking 5 a day e-Cigarette/Vaping Use: Never Used Second Hand Smoke Exposure: Yes Substance Use Type: Marijuana service: No Current occupational status: unemployed Sexual orientation: Straight/Heterosexual Cognitive needs: No Hearing needs: No Vision needs: Yes (Glasses) Questionnaire PHQ-9 Over the last 2 weeks, how often have you been bothered by any of the following problems? 1. Little interest or pleasure in doing things: several days 2. Feeling down, depressed, or hopeless: nearly every day 3. Trouble falling or staying asleep, or sleeping too much: several days 4. Feeling tired or having little energy: several days 5. Poor appetite or overeating: more than half the days 6. Feeling bad about yourself - or that you are a failure or have let yourself or your family down: several days 7. Trouble concentrating on things, such as reading the newspaper or watching television: several days 8. Moving or speaking so slowly that other people could have noticed. Or the opposite - being so fidgety or restless that you have been moving around a lot more than usual: not at all 9. Thoughts that you would be better off or of hurting yourself in some way: not at all Total score: 10 Depression Screening Interpretation: Positive Depression Screening Done: Yes 17542 - PHQ-9 Billing: Yes Source: Developed by Drs. Mark Jacob, Sheila Christine, Dylan Brar and colleagues, with an educational stephanie from [employer]. Thrive Questionnaire Date Thrive assessed: 03/06/25 I am a: Patient What is your living situation today?: I have a steady place to live Within the past 12 months, did the food you bought not last and you didn't have the money to get more?: Often true Within the past 12 months, did you worry whether your food would run out before you got money to buy more?: Often true Do you have trouble paying for medicines?: No Do you have trouble getting transportation to medical appointments?: No Do you have trouble paying your heating and electricity bill?: Yes Do you have trouble taking care of your child, family member or friend?: No Do you have trouble with day-to-day activities such as bathing, preparing meals, shopping, managing finances, etc.?: No Are you currently unemployed and looking for a job?: No Are you interested in more education?: No Currently or been in a relationship where the following occur: I choose not to answer THRIVE Score: 3 AUDIT C Alcohol Use Questionnaire (AUDIT-C) 1. How often do you have a drink containing alcohol?: Monthly or less 2. How many drinks containing alcohol do you have on a typical day when you are drinking?: 1 or 2 3. How often do you have six or more drinks on one occasion?: Never Total Score: 1 CANDE-7 AMB Questionnaire CANDE-7 Date CANDE - 7 assessed: 03/06/25 Feeling nervous, anxious, or on edge: 1 = Several days Not being able to stop or control worryin = Several days Worrying too much about different things: 1 = Several days Trouble relaxin = Several days Being so restless that it is hard to sit still: 1 = Several days Becoming easily annoyed or irritable: 1 = Several days Feeling afraid as if something awful might happen: 1 = Several days Total CANDE-7 score (0-4 normal; 5-9 mild; 10-14 moderate; 15-21 severe): 7 Source: Developed by Drs. Mark Jacob, Sheila Christine, Dylan Brar and colleagues, with an educational stephanie from [employer]. CANDE-7 Assessment Billing CANDE-7 Assessment Tool: CANDE-7 Assessment 47831 Review of Systems Const Denies poor appetite and Denies weakness Eyes Denies no additional complaints ENT Reports Normal hearing present, Denies dizziness, Denies nasal congestion, Denies tinnitus and Denies sore throat Card Denies chest pain, Denies syncope, Denies rapid heart rate and Denies dyspnea Resp Denies cough and Denies dyspnea GI Denies change in stool character, Reports constipation, Denies diarrhea, Denies nausea and Denies vomiting Denies urinary frequency, Denies difficulty voiding and Denies dysuria Neuro Reports Normal hearing present, Denies confusion, Denies dizziness, Denies syncope and Denies weakness Psych Denies confusion Physical exam (Primary Care) Vital Signs: Last Vital Signs Pulse 106 H 03/06/25 14:36 BP 128/76 03/06/25 14:36 Pulse Ox 97 03/06/25 14:36 Oxygen Delivery Method Room Air 03/06/25 14:36 BMI result Body Mass Index 39.7 Tobacco/Smoking Status: Tobacco use Status Tobacco use date assessed 03/06/25 03/06/25 14:43 Patient Tobacco Use Status Current everyday Tobacco 03/06/25 15:03 Tobacco use type Cigarette 03/06/25 15:03 e-Cigarette/Vaping Use Never Used 03/06/25 15:03 PHQ-9: PHQ-9 Score PHQ-9: Total score 10 03/06/25 15:18 Depression Screening Interpretation: Positive Thrive Assessment: Date of Thrive Assessment Date Thrive assessed 03/06/25 03/06/25 14:43 Currently or been in a relationship where the following occur: I choose not to answer Const General: alert and awake; No confusion Orientation/consciousness: No confusion HENMT Head: Yes normocephalic Ears: external ears normal and TM's normal bilaterally Face and sinus: Yes normal facial exam Mouth: moist mucous membranes Throat: Yes tonsils normal Eyes Conjunctivae: conjunctivae normal Pupils: Equal, round and reactive pupils present and Pupil accommodation reflex normal Direct Ophthalmoscopy: normal light reflex Neck Neck: No lymphadenopathy Thyroid: Thyroid normal Chest Chest palpation & inspection: normal inspection of the chest Resp Effort & Inspection: normal respiratory effort and no audible wheezes Auscultation: clear to auscultation bilaterally, no crackles, no wheezes and lung sounds not diminished Cardio Rate: regular rate Rhythm: regular rhythm Peripheral pulses: radial pulses present and dorsalis pedis present GI Palpation (GI): no masses Auscultation: normal bowel sounds and normoactive bowel sounds Rectal Exam - Female: deferred Skin General skin exam: no rashes or lesions noted Rashes: no rashes Neuro General: deep tendon reflexes 2+ bilaterally and No confusion Cranial nerves: Yes Equal, round and reactive pupils present, Yes Midline tongue present, Yes Normal hearing present and Yes Ability to bilaterally elevate shoulders present Cognition (Neuro): normal cognition Gait exam (Neuro): Normal gait present Motor exam (neuro): 5/5 motor strength present throughout Deep tendon reflexes (DTR's): Right brachioradialis reflex intensity grade: 2+, Left brachioradialis reflex intensity grade: 2+, Right patellar reflex intensity grade: 2+ and Left patellar reflex intensity grade: 2+ Extrem General: No edema Immunizations Boostrix Tdap 2.5 Lf unit-8 mcg-5 Lf/0.5 mL intramuscular syringe Performing Provider: Rolf Lee MD Performing Location: [facility] [place] [place] [facility] Administered by: Yoselin Sanchez CMA on 03/06/25 15:19 Dose Route Admin Location Dispensed Lot Number Expiration Date [facility] [address] Judge 0.5 mL IM Left Deltoid 0.5 mL [id number] 05/19/27 [id number] [employer] VIS Given Date VIS Provided VIS Publication Date 03/06/25 Single Vaccine 21 Eligibility Eligibility Date Funding Source Not [facility] Eligible 03/06/25 Private Coding Level of Care Code Est Pt Prev Care 40-64y(09674) Diagnoses Annual physical exam Z00.00 Impaired glucose tolerance R73.02 Tobacco abuse Z72.0 Bipolar disorder, current episode mixed, severe, with psychotic features F31.9 Multiple sclerosis, relapsing-remitting G35 Essential hypertension I10 Hypertension type: essential hypertension Hypercholesterolemia E78.00 Obesity (BMI 30-39.9) E66.9 Gastroesophageal reflux disease without esophagitis K21.9 Esophagitis presence: without esophagitis Breast cancer screening by mammogram Z12.31 Additional Codes CANDE-7 Assessment Billing - CANDE-7 Assessment Tool: CANDE-7 Assessment 71543 ([id number]) PHQ-9 - 33112 - PHQ-9 Billing: Yes ([id number]) Assessment & Plan Assessment & Plan (1) Annual physical exam: Code(s): Z00.00 - Encounter for general adult medical examination without abnormal findings Category: Medical Plan: Patient is advised to eat healthy, keep well hydrated, keep active and have adequate sleep. (2) Impaired glucose tolerance: Code(s): R73.02 - Impaired glucose tolerance (oral) Category: Medical Plan: Decrease the amount of carbohydrate intake, pasta, bread, rice and potatoes are all sugar and that is aside from all the sweet stuff, remember that fruits are good but they are Sweet also. (3) Tobacco abuse: Code(s): Z72.0 - Tobacco use Category: Medical Plan: Patient is strongly advised to stop smoking! (4) Bipolar disorder: Comment: [place]. Sh[place] (2021) Code(s): F31.9 - Bipolar disorder, unspecified Category: Medical Plan: Continue to follow-up with psychiatry counseling (5) Multiple sclerosis, relapsing-remitting: Comment: Pt works with Dr. May of [facility] who when we spoke encouraged diagnostics which pt declined as she prefers to work within the [facility] system with her own neuro team. [facility] Code(s): G35 - Multiple sclerosis Category: Medical Plan: Continue to follow-up with Neurology placed on Ocrevus (6) Hypertension: Code(s): I10 - Essential (primary) hypertension Category: Medical Qualifiers: Hypertension type: essential hypertension Qualified Code(s): I10 - Essential (primary) hypertension Plan: Continue with blood pressure medication. Decrease salt intake and exercise patient not on any medication (7) Hypercholesterolemia: Code(s): E78.00 - Pure hypercholesterolemia, unspecified Category: Medical Plan: Avoid fried foods, chicken skin, eggs, butter margarine, pastries and meat. Be it pork or beef they have a lot of cholesterol LDL goal of less than 130 and triglyceride of less than 150 (8) Obesity (BMI 30-39.9): Code(s): E66.9 - Obesity, unspecified Category: Medical Plan: Diet and exercise (9) GERD (gastroesophageal reflux disease): Code(s): K21.9 - Gastro-esophageal reflux disease without esophagitis Category: Medical Qualifiers: Esophagitis presence: without esophagitis Qualified Code(s): K21.9 - Gastro-esophageal reflux disease without esophagitis Plan: Avoid the foods that causes that usually spicy foods, tomato products, juices, coffee, soda and foods that your sensitive to. After eating do not lie down, allow 3-4 hours before in lie down. And keep the head of bed above 30 degrees to avoid the acid from going up. (10) Breast cancer screening by mammogram: Code(s): Z12.31 - Encounter for screening mammogram for malignant neoplasm of breast Category: Medical Plan: Reminded about mammogram Orders: Orders Hemoglobin A1c 3 Months E78.00 - Pure hypercholesterolemia, unspecified Free T4 (Free Thyroxine) 3 Months E78.00 - Pure hypercholesterolemia, unspecified TDaP Immunization Today Z23 - Encounter for immunization Thyroid Stimulating Hormone 3 Months E78.00 - Pure hypercholesterolemia, unspecified Complete Blood Count Auto Diff 3 Months E78.00 - Pure hypercholesterolemia, unspecified Comprehensive Met. Panel 3 Months E78.00 - Pure hypercholesterolemia, unspecified Lipid Panel 3 Months E78.00 - Pure hypercholesterolemia, unspecified Medications: New tirzepatide (weight loss) (Zepbound) for 4 weeks 2.5 mg (0.5 mL) subcut QWEEK 2 mL 0RF E66.9 - Obesity, unspecified
--- OUTSIDE RECORDS SUMMARY | 2025-03-06 17:22 | XMS_ITS | Encounter Summary ---
Author Organization [facility] Address [address] [place] [address] Care Team Providers Care Milker Machine Name Role Phone Rolf Lee MD Primary Care Provider [phone] Encounter Details Date Type Department Care Team (Late st Contact Info) Description 09/01/2024 10:14 AM EDT Hospital Encounter TH HISTORIC ENCOUNTERS [place]AST[place] CONVERSION ONLY Vianney Cisneros MD 175 [facility] [address] [place] [phone] Social History Tobacco Use Types Packs/Day Years [...] Info) Description 07/25/2025 10:[address] [facility] [place] [address] [facility] [address] [facility] [address] [place] [phone] 07/25/2025 10:00 AM EDT Office Visit [facility] [place] [address] [facility] [address] [place] [phone] Vianney Cisneros MD [address] [facility] [address] [facility] [address] [place] [phone] documented as of this encounter Visit Diagnoses Not on filedocumented in this encounter Care Teams Milker Machine Relationship Specialty Start Date End Date Rolf Lee MD [address] [place] [address] [address]han [address] [facility] [place] [address] PCP - General 10/09/22 documented as of this encounter
--- OUTSIDE RECORDS SUMMARY | 2025-03-06 17:22 | XMS_ITS | Clinical Summary ---
Author Organization 175 [facility] Address [address] [place] [address] Phone Care Team Providers Care Telecom Manager Name Role Phone Rolf Lee MD Primary Care Provider [phone] Allergies Active Allergy Reactions Criticality Noted Date Comments Haloperidol 10/21/2022 Penicillin G 10/21/2022 Active Problems Problem Noted Date Diagnosed Date MS (multiple sclerosis) ([facility] V24, CMS/[facility] V2 8) 01/16/2025 Encounters Date Type Department Care Team Description 01/25/2025 10:30 AM EDT Office Visit [facility] [address] [address] Yovana hJa PA MS (multiple sclerosis) (CMS/HCC V24, CMS/HCC V28) (Primary Dx) 01/25/2025 10:00 AM EDT - 01/25/2025 11:59 PM EDT Hospital Encounter [facility] [address] [phone] MS (multiple sclerosis) ([facility]/HCC V24, CMS/[facility] V28) (Primary Dx); Vitamin D deficiency Discharge Disposition: Home or Self Care 12/20/2024 Telephone [facility] [address] [address] Vianney Cisneros MD OCREVUS AUTH REQST; AUTH RECVD from Last 3 Months Surgical History Surgery Date Site/Laterality Comments BREAST SURGERY Bilateral PROCEDURE:REDUCTION MAMMAPLASTY Medical History Medical History Date Comments MS (multiple sclerosis) ([facility] /[facility] V24, [facility] V28) DX:MS (multiple sclerosis) ( [facility]) Bipolar 1 disorder, manic, m oderate ([facility] V24, [facility] V28) DX:Bipolar 1 disorder, luis fernando c, moderate ([facility]) Family History Medical History Relation Name Comments [...] Info) Description 07/25/2025 10:00 AM EDT Appointment [facility] - [place] [address] [facility] [address] [facility] [address] [place] [phone] 07/25/2025 10:00 AM EDT Office Visit [facility] [place] 175 [facility] [address] [place] [phone] Vianney Cisneros MD [address] [place] [phone] Health Maintenance Due Date Last Done [...] Region Laterality Modality Magnetic Resonan ce Provider [place] [facility] PROCEDURES Final Result * (ABNORMAL) CBC auto differential (01/25/2025 10:18 AM EDT) WBC 8.6 4.8 - 10.8 K/mcL LAB HEMETOLOGY METHOD 01/25/2025 11:34 AM EDT [facility] RBC 4.20 3.80 - 4.80 M/mcL LAB HEMETOLOGY METHOD 01/25/2025 11:34 AM EDT [facility] Hemoglobin 13.2 11.5 - 16.0 [...] LAB HEMETOLOGY METHOD 01/25/2025 11:34 AM EDT [facility] Basophils Relative 0.4 % LAB HEMETOLOGY METHOD 01/25/2025 11:34 AM [facility] Immature Granulocytes Relative 0.8 % LAB HEMETOLOGY METHOD 01/25/2025 11:34 AM EDT [facility] Neutrophils Absolute 4.87 1.50 - 7.00 K/mcL LAB HEMETOLOGY METHOD 01/25/2025 11:34 AM EDT [facility] Lymphocytes Absolute 2.70 1.00 - 5.00 K/mcL LAB HEMETOLOGY [facility] Monocytes Absolute 0.63 0.20 - 1.00 K/mcL LAB HEMETOLOGY METHOD 01/25/2025 11:34 AM EDT [facility] Eosinophils Absolute 0.26 0.00 - 0.50 K/mcL LAB HEMETOLOGY METHOD 01/25/2025 11:34 AM EDT [facility] Basophils Absolute 0.03 0.00 - 0.20 K/mcL LAB HEMETOLOGY METHOD [facility] Immature Granulocytes Absolute 0.07(H) 0.00 - 0.03 K/mcL LAB HEMETOLOGY METHOD 01/25/2025 11:34 AM EDT [facility] Blood Venous blood specimen / Unknown Venipuncture / Unknown 01/25/2025 10:18 AM EDT 01/25/2025 10:18 AM EDT us Yovana BEE LAB BLOOD ORDERABLES Final R esult [facility] [address] [place] [address], * Creatinine (01/25/2025 10:18 AM EDT) Creatinine 1.00 0.50 - 1.10 mg/dL LAB CHEMISTRY METHOD 01/25/2025 11:44 AM EDT [facility] eGFR 73 >=60 mL/min/1. 73m2 LAB CHEMISTRY METHOD 01/25/2025 11:44 AM EDT [facility] Comment:Calculation based on the??Chronic Kidney Disease Epidemiology Collaboration (CKD-EPI) equation refit??without adjustment for race. Blood Venous blood specimen / Unknown Venipuncture / Unknown 01/25/2025 10:18 AM EDT 01/25/2025 10:18 AM EDT Yovanatang DurantAzingo PA LAB BLOOD ORDERABLES Final R esult Performing Organization Address City/[facility]/ZIP Co de Phone Number [facility] [address] [place] [address], [place] [phone] * Vitamin D 25 hydroxy (01/25/2025 10:18 AM EDT) Vit D, 25-Hydroxy 42.0 30.0 - 80.0 ng/mL LAB CHEMISTRY METHOD 01/25/2025 11:51 AM EDT [facility] Blood Venous blood specimen / Unknown Venipuncture / Unknown 01/25/2025 10:18 AM EDT 01/25/2025 10:18 AM EDT Yovanatang Duranti PA LAB BLOOD ORDERABLES Final R esult [facility] [address] [place] [address], [place] [phone] * BUN (01/25/2025 10:18 AM EDT) BUN 10 5 - 25 mg/dL LAB CHEMISTRY METHOD 01/25/2025 11:44 AM EDT [facility] Blood Venous blood specimen / Unknown Venipuncture / Unknown 01/25/2025 10:18 AM EDT 01/25/2025 10:[address] [facility] LAB BLOOD ORDERABLES Final R esult [facility] [address] [place] [address], [place] [phone] * Vitamin B12 (01/25/2025 10:18 AM EDT) [facility] Vitamin B-12 482 250 - 900 pcg/mL LAB CHEMISTRY METHOD 01/25/2025 12:07 PM EDT [facility] Blood Venous blood specimen / Unknown Venipuncture / Unknown 01/25/2025 10:18 AM EDT 01/25/2025 10:[address] [facility] LAB BLOOD ORDERABLES Final R esult Performing Organization Address City/[facility]/ZIP Co de Phone Number [facility] [address] [place] [address], [place] [phone] * (ABNORMAL) Hepatic function panel (01/25/2025 10:18 AM EDT) [facility] Total Protein 6.9 6.0 - 8.0 g/dL LAB CHEMISTRY METHOD 01/25/2025 11:44 AM EDT [facility] Albumin 3.4 3.2 - 5.0 g/dL LAB CHEMISTRY METHOD 01/25/2025 11:44 AM EDT [facility] Total Bilirubin 0.3 0.0 - 1.4 mg/dL LAB CHEMISTRY METHOD 01/25/2025 11:44 AM EDT [facility] Bilirubin, Direct <0.1 0.0 - 0.3 mg/dL LAB CHEMISTRY METHOD 01/25/2025 11:44 AM EDT [facility] Bilirubin, Indirect LAB CHEMISTRY METHOD 01/25/2025 11:44 AM EDT [facility] Comment:Unable to calculate Indirect Bilirubin. ALT (SGPT) 22 10 - 60 unit/L LAB CHEMISTRY METHOD 01/25/2025 11:44 AM EDT [facility] AST (SGOT) 13 10 - 42 unit/L LAB CHEMISTRY METHOD 01/25/2025 11:44 AM EDT [facility] Alkaline Phosphatase 139(H) 42 - 121 unit/L LAB CHEMISTRY METHOD 01/25/2025 11:44 AM T [facility] Blood Venous blood specimen / Unknown Venipuncture / Unknown 01/25/2025 10:18 AM EDT 01/25/2025 10:18 AM EDT Yovana BEE LAB BLOOD ORDERABLES Final R esult [facility] [address] [place] [address], [place] [phone] from Last 3 Months Insurance [facility] MEDICAID Care Teams Telecom Manager Relationship Specialty Start Date End Date Rolf Lee MD [address] [place] [address] Jihan [address] [facility] [place] [address] PCP - General 10/09/22
--- OUTSIDE RECORDS SUMMARY | 2025-03-06 17:22 | XMS_ITS | Clinical Summary ---
Author Organization Formerly [facility] Address [address] [place] [address] Care Team Providers Care Communications Professional Name Role Phone Rolf Lee MD Primary Care Provider [phone] Allergies Active Allergy Reactions Criticality Noted Date [...] vein. 0 Active ergocalciferol (VITAMIN D2) capsule 35453 units TAKE ONE CAPSULE BY MOUTH ONCE [...] age to complete this topic Care Teams Communications Professional Relationship Specialty Start Date End Date Po, Rolf Walton MD [address] [place] [address] Dr [address] [facility] [place] [address] PCP - General Internal Medicine 10/09/22
== END 2025-03-06 15:25 | disposition home or self-care (01) ==
LOC: HO.HMCH 14:34
PROVIDERS: PCP Internal Medicine; Visit Provider Internal Medicine
DX: Z00.00 Encounter for general adult medical examination without abnormal findings (principal); F31.9 Bipolar disorder, unspecified; G35 Multiple sclerosis; E66.9 Obesity, unspecified; Z68.39 Body mass index [BMI] 39.0-39.9, adult; R73.02 Impaired glucose tolerance (oral); Z72.0 Tobacco use; I10 Essential (primary) hypertension; E78.00 Pure hypercholesterolemia, unspecified; K21.9 Gastro-esophageal reflux disease without esophagitis; Z12.31 Encounter for screening mammogram for malignant neoplasm of breast; Z23 Encounter for immunization

== ENCOUNTER → 2025-03-06 14:34 | Outpatient (BNVA) | payer OTHER, SELFPAY | PROVIDERS: PCP Internal Medicine; Visit Provider Internal Medicine | DX: Z00.00 Encounter for general adult medical examination without abnormal findings (principal); Z23 Encounter for immunization; R73.02 Impaired glucose tolerance (oral); F31.9 Bipolar disorder, unspecified; G35 Multiple sclerosis; I10 Essential (primary) hypertension; E78.00 Pure hypercholesterolemia, unspecified; E66.9 Obesity, unspecified; Z68.39 Body mass index [BMI] 39.0-39.9, adult; K21.9 Gastro-esophageal reflux disease without esophagitis; Z72.0 Tobacco use | CPT/HCPCS: 90471; 90715; 96127; 99396 ==